=== PATIENT | female | born 1945 | race Caucasian/White ===

== ENCOUNTER 2016-09-14 15:26 | Inpatient (IN) | payer MEDICARE, MEDICAID ==
--- NOTE | 2016-09-14 15:38 | ER Document Report ---
ED Medical Screen (RME) - General Stated Complaint: BODY PAIN Notes: 70 yo female resident of [facility], c/o fever and generalized body pain. no dysuria. TRAVEL OUTSIDE OF THE [place] IN LAST 30 DAYS: No - Related Data Allergies/Adverse Reactions: penicillin G [Penicillin G] Allergy (Intermediate, Verified 07/15/16 12:26) Generalized rash Sulfa (Sulfonamide Antibiotics) Allergy (Intermediate, Verified 07/13/16 04:58) cephalexin monohydrate [From Keflex] Adverse Reaction (Intermediate, Verified 04:58) itching, rash, Past Medical History - Past Medical History Cardiac Medical History: Reports: Hx Congestive Heart Failure, Hx Coronary Artery Disease, Hx Heart Attack, Hx Hypercholesterolemia, Hx Hypertension Pulmonary Medical History: Reports: Hx Asthma, Hx COPD Denies: Hx Bronchitis, Hx Pneumonia Neurological Medical History: Denies: Hx Cerebrovascular Accident, Hx Migraine, Hx Seizures Endocrine Medical History: Reports: Hx Diabetes Mellitus Type 2 Renal/ Medical History: Reports: Hx Renal Insufficiency GI Medical History: Musculoskeltal Medical History: Denies Hx Arthritis, Reports Hx Muscle Weakness Skin Medical History: Reports Hx MRSA, Reports Hx Psoriasis Psychiatric Medical History: Reports: Hx Anxiety, Hx Dementia, Hx Depression Infectious Medical History: Reports: Hx MRSA Past Surgical History: Reports: Hx Cardiac Catheterization, Hx Section , Hx Coronary Stent, Hx Hysterectomy, Hx Orthopedic Surgery - right hand - Immunizations Hx Diphtheria, Pertussis, Tetanus Vaccination: No Physical Exam - Vital signs Vitals: Temp Pulse Resp BP Pulse Ox 98.0 F 88 16 126/51 H 97 09/14/16 15:33 09/14/16 15:33 09/14/16 15:33 09/14/16 15:33 09/14/16 15:33 Course - Vital Signs Vital signs: Temp Pulse Resp BP Pulse Ox 98.0 F 88 16 126/51 H 97 09/14/16 15:33 09/14/16 15:33 09/14/16 15:33 09/14/16 15:33 09/14/16 15:33
[2016-09-14 16:14] LABS: HEMATOCRIT 40.3 % (36.0-47.0); HEMOGLOBIN 13.6 g/dL (12.0-15.5); HGB HCT DIFFERENCE 0.5; MEAN CORPUSCULAR HGB CONC 33.7 g/dL (32.0-36.0); MEAN CORPUSCULAR VOLUME 92 fl (80-97); RED BLOOD COUNT 4.38 10^6/uL (3.72-5.28); WHITE BLOOD COUNT 26.8 10^3/uL (4.0-10.5)
[2016-09-14 16:43] LABS: BASOPHILS % (MANUAL) 0 % (0-2); EOSINOPHILS % (MANUAL) 1 % (0-6); LYMPHOCYTES % (MANUAL) 7 % (13-45); TOTAL CELLS COUNTED 100
[2016-09-14 16:44] LABS: ANISOCYTOSIS SLIGHT; TOXIC GRANULATION SLIGHT
[2016-09-14 17:54] LABS: ALANINE AMINOTRANSFERASE 27 U/L (9-52); ALBUMIN 4.3 g/dL (3.5-5.0); ALKALINE PHOSPHATASE 75 U/L (38-126); ANION GAP 14 (5-19); ASPARTATE AMINO TRANSFERASE 52 U/L (14-36); BILIRUBIN,TOTAL 0.9 mg/dL (0.2-1.3); BLOOD UREA NITROGEN 42 mg/dL (7-20); CALCIUM 9.7 mg/dL (8.4-10.2); CARBON DIOXIDE 31 mmol/L (22-30); CHLORIDE 96 mmol/L (98-107); CREATININE RESULT 1.65 mg/dL (0.52-1.25); GLUCOSE 161 mg/dL (75-110); POTASSIUM 5.1 mmol/L (3.6-5.0); SODIUM 140.7 mmol/L (137-145)
[2016-09-14] MEDS ORDERED: VANCOMYCIN HCL INJ 1000 MG VIAL IV ONE (18:26)
--- NOTE | 2016-09-14 18:27 | ER Document Report ---
ED General - General Chief Complaint: Pain All Over Stated Complaint: BODY PAIN Notes: This is a 70-year-old female with history of dementia who presents from [facility] with concerns of fever, lethargy and complaints of allover body pain. Patient is a limited historian. She denies any chest pain or abdominal pain. The [facility] staff noticed redness of her lower leg. TRAVEL OUTSIDE OF THE [place] IN LAST 30 DAYS: No - Related Data Allergies/Adverse Reactions: penicillin G [Penicillin G] Allergy (Intermediate, Verified 09/14/16 15:37) Generalized rash Sulfa (Sulfonamide Antibiotics) Allergy (Intermediate, Verified 09/14/16 15:37) cephalexin monohydrate [From Keflex] Adverse Reaction (Intermediate, Verified 15:37) itching, rash, Past Medical History - Social History Smoking Status: Never Smoker Chew tobacco use (# tins/day): Yes Frequency of alcohol use: None Drug Abuse: None Family History: Malignancy, CAD, Reviewed & Not Pertinent Patient has suicidal ideation: No Patient has homicidal ideation: No - Past Medical History Cardiac Medical History: Reports: Hx Congestive Heart Failure, Hx Coronary Artery Disease, Hx Heart Attack, Hx Hypercholesterolemia, Hx Hypertension Pulmonary Medical History: Reports: Hx Asthma, Hx COPD Denies: Hx Bronchitis, Hx Pneumonia Neurological Medical History: Denies: Hx Cerebrovascular Accident, Hx Migraine, Hx Seizures Endocrine Medical History: Reports: Hx Diabetes Mellitus Type 2 Renal/ Medical History: Reports: Hx Renal Insufficiency. Denies: Hx Peritoneal Dialysis GI Medical History: Musculoskeltal Medical History: Denies Hx Arthritis, Reports Hx Muscle Weakness Skin Medical History: Reports Hx MRSA, Reports Hx Psoriasis Psychiatric Medical History: Reports: Hx Anxiety, Hx Dementia, Hx Depression Infectious Medical History: Reports: Hx MRSA Past Surgical History: Reports: Hx Cardiac Catheterization, Hx Section , Hx Coronary Stent, Hx Hysterectomy, Hx Orthopedic Surgery - right hand - Immunizations Hx Diphtheria, Pertussis, Tetanus Vaccination: No Hx Pneumococcal Vaccination: 06/02/14 Review of Systems - Review of Systems Constitutional: Fever, Malaise Cardiovascular: denies: Syncope Respiratory: denies: Cough, Short of breath Gastrointestinal: denies: Abdominal pain Musculoskeletal: Leg swelling Skin: Rash Neurological/Psychological: Paralysis - Postpolio Physical Exam - Vital signs Vitals: Temp Pulse Resp BP Pulse Ox 98.0 F 88 16 126/51 H 97 01/11/17 15:33 09/14/16 15:33 09/14/16 15:33 09/14/16 15:33 09/14/16 15:33 - General General appearance: Alert In distress: None - Speaks clearly, few words, no respiratory distress - HEENT Head: Normocephalic Pupils: PERRL Mucous membranes: Dry Pharynx: Normal Neck: Normal, Supple. No: Meningismus - Respiratory Respiratory status: No respiratory distress Breath sounds: Normal - Cardiovascular Rhythm: Regular - Abdominal Inspection: Normal Tenderness: Nontender - Back Back: Normal - Extremities Calf: Other - The left anterior lower leg has sharply demarcated erythema and warmth, not extending onto the foot Foot: Other - Left heel wound with dressing in place, no tenderness with palpation, no surrounding warmth or erythema - Neurological Speech: Normal - Psychological Associated symptoms: Normal affect - Skin Skin Temperature: Warm Skin Moisture: Dry Skin Color: Normal Character of irregularity: Other - Cellulitis of the left lower extremity with sharply demarcated erythema, warmth and mild induration Course - Re-evaluation Re-evalutation: 09/14/16 20:[address] Mendez who will admit to telemetry bed. - Vital Signs Vital signs: Temp Pulse Resp BP Pulse Ox 98.0 F 88 16 126/51 H 97 09/14/16 15:33 09/14/16 15:33 09/14/16 15:33 09/14/16 15:33 09/14/16 15:33 - Laboratory Result Diagrams: 09/14/16 15:41 09/14/16 17:09 Laboratory results interpreted by me: 09/14/16 09/14/16 09/14/16 15:41 17:09 18:50 WBC 26.8 H Seg Neuts % (Manual) 85 H Lymphocytes % (Manual) 7 L Abs Neuts (Manual) 22.8 H Abs Monocytes (Manual) 1.9 H Potassium 5.1 H Chloride 96 L Carbon Dioxide 31 H BUN 42 H Creatinine 1.65 H Est GFR ( Amer) 37 L Est GFR (Non-Af Amer) 31 L Glucose 161 H AST 52 H Urine Protein 30 H Urine Blood SMALL H Urine Nitrite POSITIVE H Ur Leukocyte Esterase LARGE H Urine Ascorbic Acid 40 H Discharge - Discharge Clinical Impression: Cellulitis of left leg without foot, [place] (acute kidney injury), Urinary tract infection Leukocytosis Qualifiers: Leukocytosis type: unspecified Qualified Code(s): D72.829 - Elevated white blood cell count, unspecified Condition: Stable Disposition: ADMITTED INPATIENT Admitting Provider: [facility] Unit Admitted: Telemetry Referrals: ADIA DAVID MD [Primary Care Provider] - Follow up as needed
[2016-09-14 19:16] LABS: APPEARANCE,URINE CLOUDY; BILIRUBIN,URINE NEGATIVE (NEGATIVE); GLUCOSE, URINE NEGATIVE (NEGATIVE); KETONES,URINE NEGATIVE (NEGATIVE); LEUKOCYTE ESTERASE,URINE LARGE (NEGATIVE); NITRITE,URINE POSITIVE (NEGATIVE); PROTEIN,URINE 30 mg/dL (NEGATIVE); URINE SPECIFIC GRAVITY 1.015; UROBILINOGEN,URINE NEGATIVE mg/dL (<2.0)
[2016-09-14] MEDS ORDERED: LEVOFLOXACIN 500 MG/D5W RTU 100 ML IV ONE (19:39)
[2016-09-14] MEDS ORDERED: NORMAL SALINE 1000 ML 1,000 ML IV ONE (20:39)
[2016-09-14] MEDS ORDERED: ACETAMINOPHEN 325 MG TABLET PO PRN (22:08)
[2016-09-14] MEDS ORDERED: IPRATROPIUM/ALBUTEROL 0.5-2.5 MG/3 ML AMPUL NEB PRN (22:08)
[2016-09-14] MEDS ORDERED: DEXTROSE 40% GEL 15 GM TUBE PO PRN ×2 (22:11)
[2016-09-14] MEDS ORDERED: DEXTROSE 50%-WATER 25 GM/50 ML DISP.SYRIN IV PRN ×2 (22:11)
[2016-09-14] MEDS ORDERED: GLUCAGON,HUMAN RECOMB 1 MG INJ IM PRN (22:11)
[2016-09-14] MEDS ORDERED: VANCOMYCIN HCL 0 MG in DEXTROSE 5%-WATER 250 ML IV NR (22:30)
[2016-09-14] MEDS ORDERED: PHARMACY COMMUNICATION ORDER MC SCH (22:30)
[2016-09-14] MEDS ORDERED: AZTREONAM INJ 1 GM VIAL IV SCH (22:30)
--- NOTE | 2016-09-14 22:54 | PDOC H&P ---
History of Present Illness Admission Date/PCP: 09/14/16 21:05 ADIA DAVID, [facility] Patient complains of: Fever, lethargy, all over body pain History of Present Illness: IGNACIO ULRICH is a 70 year old female resident of [facility], with multiple underlying chronic health problems, to be further delineated below, who presents to the emergency room for evaluation of above complaints. Patient has been discussed with emergency room physician who evaluated the patient. Patient is oriented only to the fact that she is in the hospital and that she has had pain, although none at present, and is able to provide no history whatsoever in terms of acute or chronic events, review of systems, personal habits, family history, etc. No friends or family are present. Old inpatient records are reviewed.. correction staff noted redness of her left lower leg. No further information available this point in time. Laboratory results are listed in [facility] and are reviewed. X-ray summary results are listed below, with full report(s) reviewed. . Social history/personal habits: Resident of [facility]. No further information available this point in time. Allergies/adverse reactions are listed in [facility] and are reviewed. Home medications are reviewed him a copy of the medication administration record at the [facility] and are to be reconciled by nursing and/or pharmacy staff in [facility]. Assisted [facility] may not accurately reflect patient's true medications, dosages, and/or frequencies. REVIEW OF SYSTEMS: See history and present illness. No further information available this point in time. PHYSICAL EXAMINATION: 5 feet 5 inches tall. Weight is not recorded on the chart. Blood pressure 142/ 54. Temperature 99.9. Pulse 94 and regular. Respirations are 20 and unlabored. 95% saturation on room air. Obese otherwise well-developed though chronically ill-appearing female , who nevertheless appears approximately her stated age. Initially asleep, but awakens easily. Mildly anxious, but otherwise no obvious distress. Alert and cooperative. Skin is warm and dry. No grossly obvious evidence of rash in areas of skin examined. No subcutaneous nodules palpated. See comments under "extremities" below. ENT: Hearing grossly normal to normal conversation. Tongue midline on protrusion pink and tacky. Poor dentition. Eyes: No scleral icterus. Pupils equal and reactive to light at 4 mm. [place] conjunctivae. Neck is supple and nontender to gentle active range of motion and palpation. Midline trachea. No palpable thyroid nodule mass enlargement or tenderness. Lymphatic: No palpable cervical or clavicular nodes. Neck and lymphatic exams limited by patient body habitus. Psychiatric: Disoriented. Lungs: Auscultation reveals equal breath sounds bilaterally. Possible slightly coarse breath sounds bilaterally, but not very prominent. No use of accessory respiratory muscles. Cardiovascular: Heart regular rate and rhythm, without gallop murmur or rub. No carotid or abdominal aortic bruits. No right ankle or pedal edema; mild left. Faintly palpable dorsalis pedis pulses. Abdomen: soft, obese, nontender with positive bowel sounds. Unable to adequately evaluate abdomen for masses or organomegaly due to body habitus. Extremities: Feet are warm and dry. No calf tenderness to compression. No grossly obvious visual evidence of right calf swelling; very subtle left calf swelling. Gentle manipulation of lower extremities fails to reveal any obvious evidence of injury or instability to knees hips or ankles. Examination of the left lower extremity reveals area of inflammation and warmth involving primarily the anteromedial aspect of the majority of the leg between the knee and ankle. Much smaller area of involvement in the distal medial left thigh, adjacent to the knee joint. No crepitus fluctuance or expressible discharge. Adherent opaque dressing is present over the left heel; this is left in place. Neurologic: Moves upper extremities grossly normally. Patellar reflexes absent. Absent Babinski. Light touch can't be adequately determined due to her mental status.. 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 Past Medical History Cardiac Medical History: Reports: Congestive Heart Failure, Coronary Artery Disease, Myocardial Infarction, Hyperlipidema, Hypertension Pulmonary Medical History: Reports: Asthma, Chronic Obstructive Pulmonary Disease (COPD) Denies: Bronchitis, Pneumonia Neurological Medical History: Denies: Migraine, Seizures Endocrine Medical History: Reports: Diabetes Mellitus Type 2 GI Medical History: Musculoskeltal Medical History: Denies: Arthritis Skin Medical History: Reports: Psoriasis Psychiatric Medical History: Reports: Dementia, Depression Hematology: Reports: Anemia Infectious Medical History: Reports: Methicillin-Resistant Staph Aureus Past Surgical History Past Surgical History: Reports: Cardiac Catheterization, Section, Coronary Stent, Hysterectomy, Orthopedic Surgery - right hand Social History Information Source: [facility], [facility] Lives with: Assisted Smoking Status: Never Smoker Frequency of Alcohol Use: None Hx Recreational Drug Use: No Drugs: None Hx Prescription Drug Abuse: No - Advance Directive Resuscitation Status: Full Code Surrogate healthcare decision maker:: Uncertain at this point in time. Family History Family History: Malignancy, CAD, Reviewed & Not Pertinent Parental Family History Reviewed: Yes - per old records Children Family History Reviewed: Yes Sibling(s) Family History Reviewed.: Yes Medication/Allergy Home Medications: Aspirin [Aspirin 81 mg Chewable Tablet] 81 mg PO DAILY 04/16/16 Cetirizine HCl [Zyrtec] 10 mg PO DAILY 04/16/16 Clopidogrel Bisulfate [Clopidogrel] 75 mg PO DAILY 04/16/16 Docusate Sodium [Dulcolax Stool Softener] 100 mg PO BID 04/16/16 Escitalopram Oxalate [Lexapro] 30 mg PO DAILY 04/16/16 Furosemide 80 mg PO QAM 04/16/16 Insulin Glargine,Hum.rec.anlog [Lantus] 65 unit SQ Q12H 04/16/16 Magnesium Oxide 400 mg PO DAILY 04/16/16 Potassium Chloride 20 meq PO DAILY 04/16/16 Magnesium Hydroxide [Milk of Magnesia] 400 mg PO BIDP PRN 04/17/16 Atorvastatin Calcium [Lipitor 10 mg Tablet] 10 mg PO QHS tablet 04/27/16 Carvedilol [Coreg 6.25 mg Tablet] 6.25 mg PO Q12 tablet 04/27/16 Ferrous Sulfate [Feosol 325 mg Tablet] 325 mg PO DAILY tablet 04/27/16 Insulin Lispro [Humalog Insulin (Lispro) 100 unit/mL] 0 - 12 unit SUBCUT ACHSP PRN unit 04/27/16 Lansoprazole [Prevacid 15 mg Odt Tablet] 15 mg PO DAILY tab.rap.dr 04/27/16 Sodium Chloride [[place] Nasal [place] 44 ml Bottle] 1 spray NASL BIDP PRN bottle 04/27/16 Gabapentin [Neurontin 100 mg Capsule] 100 mg PO Q12 07/12/16 Allergies/Adverse Reactions: penicillin G [Penicillin G] Allergy (Intermediate, Verified 09/14/16 15:37) Generalized rash Sulfa (Sulfonamide Antibiotics) Allergy (Intermediate, Verified 09/14/16 15:37) cephalexin monohydrate [From Keflex] Adverse Reaction (Intermediate, Verified 15:37) itching, rash, Physical Exam Vital Signs: Temp Pulse Resp BP Pulse Ox 99.9 F 94 20 142/54 H 95 09/14/16 22:01 09/14/16 22:01 09/14/16 22:01 09/14/16 22:01 09/14/16 22:01 Results Impressions: Chest X-Ray 09/14/16 15:40 IMPRESSION: Cardiomegaly. No acute findings. Foot X-Ray 09/14/16 18:28 IMPRESSION: CHRONIC DEGENERATIVE CHANGES. NO ACUTE FINDINGS. NO DEFINITIVE RADIOGRAPHIC EVIDENCE OF SOFT TISSUE ABSCESS OR OF OSTEOMYELITIS. Assessment & Plan - Diagnosis (1) ARF (acute renal failure) Qualifiers: Acute renal failure type: unspecified Qualified Code(s): N17.9 - Acute kidney failure, unspecified Is this a current diagnosis for this admission?: YesPlan: Likely prerenal. One more liter of IV fluid at a gentle rate. Follow-up chemistry. (2) Cellulitis of left leg without foot Is this a current diagnosis for this admission?: YesPlan: Aztreonam and IV vancomycin, with pharmacy to assist with dosing. (3) Elevated LFTs Is this a current diagnosis for this admission?: YesPlan: Mild. Has occurred in the past. Follow-up comprehensive metabolic panel. (4) Hyperkalemia Is this a current diagnosis for this admission?: YesPlan: Mild. Follow-up chemistry. (5) Urinary tract infection Qualifiers: Urinary tract infection type: site unspecified Is this a current diagnosis for this admission?: YesPlan: Prior culture results reviewed. Blood and urine cultures. I have strongly encouraged patient not to get out of bed without notifying staff , to avoid a fall with injury. Knee high SCDs for DVT prophylaxis, right lower extremity only, along with subcutaneous heparin. Time spent in evaluation and management of patient: 75 minutes. (6) Decubitus ulcer of left heel Qualifiers: Pressure ulcer stage: unspecified pressure ulcer stage Qualified Code(s): L89.629 - Pressure ulcer of left heel, unspecified stage Is this a current diagnosis for this admission?: YesPlan: Innovative mattress. Turn every 2 hours. Surgery consult, with patient having been seen in recent past for same. Dietary consult. (7) Diabetes mellitus type 1 Qualifiers: Diabetes mellitus complication status: without complication Qualified Code(s): E10.9 - Type 1 diabetes mellitus without complications Is this a current diagnosis for this admission?: YesPlan: Diabetic cardiac renal diet. Accu-Cheks with appropriate sliding scale coverage.Resume home medications as appropriate once these have been reviewed. (8) Diastolic CHF Qualifiers: Congestive heart failure chronicity: chronic Qualified Code(s): I50.32 - Chronic diastolic (congestive) heart failure Is this a current diagnosis for this admission?: YesPlan: Clinically stable at present.Resume home medications as appropriate once these have been reviewed. (9) History of MRSA infection Is this a current diagnosis for this admission?: YesPlan: Contact precautions. - Inpatient Certification Based on my medical assessment, after consideration of the patient's comorbidities, presenting symptoms, or acuity I expect that the services needed warrant INPATIENT care.: Yes I certify that my determination is in accordance with my understanding of Medicare's requirements for reasonable and necessary INPATIENT services [42 CFR 412.3e].: Yes Medical Necessity: Significant Comorbidiites Make Outpatient Treatment Too Risky , Need Close Monitoring Due to Risk of Patient Decompensation, Need For IV Fluids, Need For Continuous Telemetry Monitoring, Need for IV Antibiotics, Risk of Complication if Not Cared For in Hospital, Risk of Diagnosis Which Will Require Inpatient Eval/Care/Monitoring Post Hospital Care: D/C or Transfer Summary
[2016-09-15 01:25] LABS: ANION GAP 11 (5-19); BLOOD UREA NITROGEN 41 mg/dL (7-20); CALCIUM 9.4 mg/dL (8.4-10.2); CARBON DIOXIDE 32 mmol/L (22-30); CHLORIDE 98 mmol/L (98-107); CREATININE RESULT 1.57 mg/dL (0.52-1.25); GLUCOSE 179 mg/dL (75-110); MAGNESIUM 2.4 mg/dL (1.6-2.3); POTASSIUM 4.8 mmol/L (3.6-5.0); SODIUM 140.8 mmol/L (137-145)
[2016-09-15] MEDS: NORMAL SALINE 1000 ML 1,000 ML IV PRN ×2 (02:44→16:54)
[2016-09-15] MEDS ORDERED: AZTREONAM INJ 1 GM VIAL IV PRN (03:21)
[2016-09-15] MEDS ORDERED: AZTREONAM 1 GM in DEXTROSE 5%-WATER 50 ML IV ONE (03:30)
[2016-09-15] MEDS ORDERED: AZTREONAM INJ 1 GM VIAL ONE (03:31)
[2016-09-15 08:06] LABS: ABSOLUTE EOSINOPHILS # (AUTO) 0.1 10^3/uL (0.0-0.6); ABSOLUTE LYMPHOCYTES (AUTO) 1.8 10^3/uL (0.5-4.7); ABSOLUTE MONOCYTES (AUTO) 0.8 10^3/uL (0.1-1.4); ABSOLUTE NEUT (AUTO) 16.4 10^3/uL (1.7-8.2); BASOPHILS % (AUTO) 0.1 % (0-2); EOSINOPHILS % (AUTO) 0.7 % (0-6); HEMATOCRIT 33.2 % (36.0-47.0); LYMPHOCYTES % (AUTO) 9.5 % (13-45); MEAN CORPUSCULAR HEMOGLOBIN 31.4 pg (27.0-33.4); MEAN CORPUSCULAR HGB CONC 34.3 g/dL (32.0-36.0); MEAN CORPUSCULAR VOLUME 92 fl (80-97); RED BLOOD COUNT 3.62 10^6/uL (3.72-5.28); RED CELL DISTRIBUTION WIDTH 14.4 % (11.5-14.0); SEGMENTED NEUTROPHILS % (AUTO) 85.7 % (42-78); WHITE BLOOD COUNT 19.1 10^3/uL (4.0-10.5)
[2016-09-15 08:17] LABS: HEMOGLOBIN 11.4 g/dL (12.0-15.5)
[2016-09-15 08:24] LABS: ALANINE AMINOTRANSFERASE 23 U/L (9-52); ALBUMIN 3.1 g/dL (3.5-5.0); ALKALINE PHOSPHATASE 62 U/L (38-126); ANION GAP 11 (5-19); ASPARTATE AMINO TRANSFERASE 48 U/L (14-36); BILIRUBIN,TOTAL 0.6 mg/dL (0.2-1.3); BLOOD UREA NITROGEN 38 mg/dL (7-20); CALCIUM 8.8 mg/dL (8.4-10.2); CARBON DIOXIDE 30 mmol/L (22-30); CHLORIDE 98 mmol/L (98-107); CREATININE RESULT 1.55 mg/dL (0.52-1.25); GLUCOSE 144 mg/dL (75-110); SODIUM 139.4 mmol/L (137-145); TOTAL PROTEIN 6.5 g/dL (6.3-8.2)
[2016-09-15 08:35] LABS: POTASSIUM 3.8 mmol/L (3.6-5.0)
--- NOTE | 2016-09-15 09:40 | EKG REPORT ---
SEVERITY:- ABNORMAL ECG - SINUS RHYTHM FIRST DEGREE AV BLOCK PROBABLE LEFT ATRIAL ABNORMALITY ANTERIOR INFARCT, AGE INDETERMINATE : Confirmed by: Susana Meyer MD 15-Sep-2016 09:40:04
[2016-09-15] MEDS: AZTREONAM 1 GM in DEXTROSE 5%-WATER 50 ML IV SCH ×2 (09:56→18:56)
[2016-09-15] MEDS: DOCUSATE SODIUM 100 MG CAPSULE PO SCH ×2 (09:56→18:56)
[2016-09-15] MEDS: HEPARIN SOD (PORCINE) 5,000 UNIT/ML 1 ML SYRINGE SUBCUT SCH ×2 (09:57→22:53)
[2016-09-15] MEDS: INSULIN LISPRO 100 UNIT/ML 3 ML VIAL SUBCUT PRN ×4 (09:58→22:53)
--- NOTE | 2016-09-15 11:29 | PDOC CONSULTATION ---
Consultation Consult reason:: Left leg erythema and left heel ulcer History of Present Illness Admission Date/PCP: 09/14/16 22:08 ADIA DAVID History of Present Illness: 70-year-old the patient with diabetes noted with the left heel ulcer with associated the osteomyelitis which was treated with a long course of antibiotics the last year. Patient had been on a wound VAC for her left heel but it was discontinued. She was noted with the of fever yesterday and was subsequently brought into the hospital for evaluation she was noted with a urinary tract infection as well as left leg erythema. Past Medical History Cardiac Medical History: Reports: Congestive Heart Failure, Coronary Artery Disease, Myocardial Infarction, Hyperlipidema, Hypertension Pulmonary Medical History: Reports: Asthma, Chronic Obstructive Pulmonary Disease (COPD) Denies: Bronchitis, Pneumonia Neurological Medical History: Denies: Migraine, Seizures Endocrine Medical History: Reports: Diabetes Mellitus Type 2 GI Medical History: Musculoskeltal Medical History: Denies: Arthritis Skin Medical History: Reports: Psoriasis Psychiatric Medical History: Reports: Dementia, Depression Hematology: Reports: Anemia Infectious Medical History: Reports: Methicillin-Resistant Staph Aureus Past Surgical History Past Surgical History: Reports: Cardiac Catheterization, Section, Coronary Stent, Hysterectomy, Orthopedic Surgery - right hand Social History Lives with: Group Home Smoking Status: Never Smoker Frequency of Alcohol Use: None Hx Recreational Drug Use: No Drugs: None Hx Prescription Drug Abuse: No - Advance Directive Resuscitation Status: Full Code Family History Family History: Malignancy, CAD, Reviewed & Not Pertinent Parental Family History Reviewed: No Children Family History Reviewed: No Sibling(s) Family History Reviewed.: No Medication/Allergy Home Medications: Aspirin [Aspirin 81 mg Chewable Tablet] 81 mg PO DAILY 04/16/16 Cetirizine HCl [Zyrtec] 10 mg PO DAILY 04/16/16 Clopidogrel Bisulfate [Clopidogrel] 75 mg PO DAILY 04/16/16 Docusate Sodium [Dulcolax Stool Softener] 100 mg PO BID 04/16/16 Escitalopram Oxalate [Lexapro] 30 mg PO DAILY 04/16/16 Furosemide 80 mg PO QAM 04/16/16 Insulin Glargine,Hum.rec.anlog [Lantus] 65 unit SQ Q12H 04/16/16 Magnesium Oxide 400 mg PO DAILY 04/16/16 Potassium Chloride 20 meq PO DAILY 04/16/16 Magnesium Hydroxide [Milk of Magnesia] 400 mg PO BIDP PRN 08/14/16 Atorvastatin Calcium [Lipitor 10 mg Tablet] 10 mg PO QHS tablet 04/27/16 Carvedilol [Coreg 6.25 mg Tablet] 6.25 mg PO Q12 tablet 04/27/16 Ferrous Sulfate [Feosol 325 mg Tablet] 325 mg PO DAILY tablet 04/27/16 Insulin Lispro [Humalog Insulin (Lispro) 100 unit/mL] 0 - 12 unit SUBCUT ACHSP PRN unit 04/27/16 Lansoprazole [Prevacid 15 mg Odt Tablet] 15 mg PO DAILY tab.rap. 04/27/16 Sodium Chloride [[place] Nasal [place] 44 ml Bottle] 1 spray NASL BIDP PRN bottle 04/27/16 Gabapentin [Neurontin 100 mg Capsule] 100 mg PO Q12 07/12/16 Allergies/Adverse Reactions: penicillin G [Penicillin G] Allergy (Intermediate, Verified 09/14/16 15:37) Generalized rash Sulfa (Sulfonamide Antibiotics) Allergy (Intermediate, Verified 09/14/16 15:37) cephalexin monohydrate [From Keflex] Adverse Reaction (Intermediate, Verified 15:37) itching, rash, Physical Exam Vital Signs: Temp Pulse Resp BP Pulse Ox 98.0 F 74 14 120/48 L 100 09/15/16 07:55 09/15/16 07:55 09/15/16 07:55 09/15/16 07:55 09/15/16 07:55 Intake & Output 09/14/16 09/15/16 09/16/16 06:59 06:59 06:59 Intake Total 567 Balance 567 Weight 90.4 kg General appearance: PRESENT: no acute distress Respiratory exam: PRESENT: clear to auscultation [place] Cardiovascular exam: PRESENT: RRR Extremities exam: PRESENT: other - Diffuse left lower leg the erythema but no fluctuance, no skin discoloration, no blistering, minimal tenderness. Left heel ulcer very clean with granulation tissue with no purulent drainage with minimal erythema but it is the tender. No exposed bone. Granulation tissue at the base. Results Laboratory Results: 09/15/16 07:27 09/15/16 07:27 09/15/16 09/15/16 09/15/16 00:44 07:27 07:27 WBC 19.1 H RBC 3.62 L Hgb 11.4 L D Hct 33.2 L MCV 92 MCH 31.4 MCHC 34.3 RDW 14.4 H Plt Count 122 L Seg Neutrophils % 85.7 H Lymphocytes % 9.5 L Monocytes % 4.0 Eosinophils % 0.7 Basophils % 0.1 Absolute Neutrophils 16.4 H Absolute Lymphocytes 1.8 Absolute Monocytes 0.8 Absolute Eosinophils 0.1 Absolute Basophils 0.0 Sodium 140.8 139.4 Potassium 4.8 3.8 D Chloride 98 98 Carbon Dioxide 32 H 30 Anion Gap 11 11 BUN 41 H 38 H Creatinine 1.57 H 1.55 H Est GFR ( Amer) 39 L 40 L Est GFR (Non-Af Amer) 32 L 33 L Glucose 179 H 144 H Calcium 9.4 8.8 Magnesium 2.4 H Total Bilirubin 0.6 AST 48 H ALT 23 Alkaline Phosphatase 62 Total Protein 6.5 Albumin 3.1 L Impressions: Chest X-Ray 09/14/16 15:40 IMPRESSION: Cardiomegaly. No acute findings. Foot X-Ray 09/14/16 18:28 IMPRESSION: CHRONIC DEGENERATIVE CHANGES. NO ACUTE FINDINGS. NO DEFINITIVE RADIOGRAPHIC EVIDENCE OF SOFT TISSUE ABSCESS OR OF OSTEOMYELITIS. Assessment & Plan - Diagnosis (1) Cellulitis of left leg without foot Is this a current diagnosis for this admission?: YesPlan: Cellulitis of the left lower leg. I do not see a role for surgical debridement. Recommend antibiotic treatment. (2) Diabetic foot ulcer Qualifiers: Laterality: left Is this a current diagnosis for this admission?: YesPlan: Although she has a history of osteomyelitis in the past, current x-rays demonstrate no evidence of osteomyelitis and the heel ulcer looks very clean with granulation tissue. Will do local wound care with Santyl ointment.
[2016-09-15] MEDS ORDERED: INSULIN GLARGINE,HUM.REC.ANLOG 1,000 UNIT/10 ML UNIT SUBCUT ONE (11:30)
[2016-09-15] MEDS: ACETAMINOPHEN 325 MG TABLET PO PRN ×2 (12:21→19:16)
[2016-09-15] MEDS ORDERED: SODIUM CHLORIDE NASAL SPRAY 44 ML NASL PRN (16:58)
[2016-09-15] MEDS ORDERED: NORMAL SALINE 1000 ML 1,000 ML IV PRN (17:00)
[2016-09-15] MEDS ORDERED: IPRATROPIUM/ALBUTEROL 0.5-2.5 MG/3 ML AMPUL NEB PRN (17:01)
--- NOTE | 2016-09-15 17:05 | PDOC PROGRESS REPORT ---
Subjective Progress Note for:: 09/15/16 Subjective:: The patient was seen earlier today on rounds. Patient states that she still has pain in her foot. The only present at the bedside I given the patient's care. The patient denies any nausea, vomiting, diarrhea, shortness of breath, dizziness, chest pain, heart palpitations, fevers, or chills. The patient has remained afebrile. Blood pressures have been in a good range. When prompted the patient voices no other concerns at this time. Review of systems: The rest of the review of systems is negative. Physical Exam Vital Signs: Temp Pulse Resp BP Pulse Ox 97.5 F 76 19 118/54 L 98 09/15/16 12:13 09/15/16 14:00 09/15/16 12:13 09/15/16 12:13 09/15/16 12:13 Intake & Output 09/13/16 09/14/16 09/15/16 23:59 23:59 23:59 Intake Total 567 Balance 567 Weight 90.4 kg General appearance: PRESENT: no acute distress, well-developed, well-nourished Head exam: PRESENT: atraumatic, normocephalic Eye exam: PRESENT: conjunctiva pink, EOMI, PERRLA. ABSENT: scleral icterus Ear exam: PRESENT: normal external ear exam Mouth exam: PRESENT: moist, tongue midline Neck exam: ABSENT: carotid bruit, JVD, lymphadenopathy, thyromegaly Respiratory exam: PRESENT: clear to auscultation lavinia. ABSENT: rales, rhonchi, wheezes Cardiovascular exam: PRESENT: RRR. ABSENT: diastolic murmur, rubs, systolic murmur Pulses: PRESENT: normal dorsalis pedis pul Vascular exam: PRESENT: normal capillary refill GI/Abdominal exam: PRESENT: normal bowel sounds, soft. ABSENT: distended, guarding, mass, organolmegaly, rebound, tenderness Rectal exam: PRESENT: deferred Extremities exam: PRESENT: full ROM, +1 edema, other - Left greater than right lower extremity cellulitis. ABSENT: calf tenderness, clubbing Neurological exam: PRESENT: alert, awake, oriented to person, oriented to place , oriented to time, oriented to situation, CN II-XII grossly intact. ABSENT: motor sensory deficit Psychiatric exam: PRESENT: appropriate affect, normal mood. ABSENT: homicidal ideation, suicidal ideation Skin exam: PRESENT: dry, intact, warm. ABSENT: cyanosis, rash Results Laboratory Results: 09/15/16 07:27 09/15/16 07:27 09/15/16 09/15/16 09/15/16 00:44 07:27 07:27 WBC 19.1 H RBC 3.62 L Hgb 11.4 L D Hct 33.2 L MCV 92 MCH 31.4 MCHC 34.3 RDW 14.4 H Plt Count 122 L Seg Neutrophils % 85.7 H Lymphocytes % 9.5 L Monocytes % 4.0 Eosinophils % 0.7 Basophils % 0.1 Absolute Neutrophils 16.4 H Absolute Lymphocytes 1.8 Absolute Monocytes 0.8 Absolute Eosinophils 0.1 Absolute Basophils 0.0 Sodium 140.8 139.4 Potassium 4.8 3.8 D Chloride 98 98 Carbon Dioxide 32 H 30 Anion Gap 11 11 BUN 41 H 38 H Creatinine 1.57 H 1.55 H Est GFR ( Amer) 39 L 40 L Est GFR (Non-Af Amer) 32 L 33 L Glucose 179 H 144 H Calcium 9.4 8.8 Magnesium 2.4 H Total Bilirubin 0.6 AST 48 H ALT 23 Alkaline Phosphatase 62 Total Protein 6.5 Albumin 3.1 L Impressions: Chest X-Ray 09/14/16 15:40 IMPRESSION: Cardiomegaly. No acute findings. Foot X-Ray 09/14/16 18:28 IMPRESSION: CHRONIC DEGENERATIVE CHANGES. NO ACUTE FINDINGS. NO DEFINITIVE RADIOGRAPHIC EVIDENCE OF SOFT TISSUE ABSCESS OR OF OSTEOMYELITIS. Assessment & Plan - Diagnosis (1) Urinary tract infection Qualifiers: Urinary tract infection type: site unspecified Is this a current diagnosis for this admission?: YesPlan: Will await culture and sensitivity. (2) Cellulitis of left leg without foot Is this a current diagnosis for this admission?: YesPlan: Will continue current antibiotic coverage. (3) Sepsis Qualifiers: Sepsis type: sepsis due to unspecified organism Qualified Code(s): A41.9 - Sepsis, unspecified organism Is this a current diagnosis for this admission?: YesPlan: Secondary to the above this is improved (4) VALENTINA (acute kidney injury) Is this a current diagnosis for this admission?: YesPlan: Will continue to gently hydrate 07/18/16 09/14/16 09/15/16 06:15 17:09 07:27 Creatinine 0.92 1.65 H 1.55 H (6) Elevated LFTs Is this a current diagnosis for this admission?: YesPlan: Mild ischemic followed in outpatient basis (7) Hyperkalemia Is this a current diagnosis for this admission?: YesPlan: Resolved with hydration (8) Decubitus ulcer of left heel Qualifiers: Pressure ulcer stage: unspecified pressure ulcer stage Qualified Code(s): L89.629 - Pressure ulcer of left heel, unspecified stage Is this a current diagnosis for this admission?: Yes (9) Thrombocytopenia Is this a current diagnosis for this admission?: YesPlan: Mild will follow 09/15/16 07:27 Plt Count 122 L (10) Chronic kidney disease, stage III (moderate) Is this a current diagnosis for this admission?: Yes (11) Coronary artery disease Qualifiers: Coronary Disease-Associated Artery/Lesion type: [place] artery [place] vs. transplanted heart: [place] heart Associated angina: without angina Qualified Code(s): I25.10 - Atherosclerotic heart disease of [place] coronary artery without angina pectoris Is this a current diagnosis for this admission?: Yes (12) Decubitus ulcer, ankle, left, unstageable Is this a current diagnosis for this admission?: Yes (13) Depression Is this a current diagnosis for this admission?: No (14) Diabetes mellitus Qualifiers: Diabetes mellitus type: type 1 Diabetes mellitus complication status: with kidney complications Diabetes mellitus complication detail: with chronic kidney disease Chronic kidney disease stage: stage 3 (moderate) Qualified Code(s): E10.22 - Type 1 diabetes mellitus with diabetic chronic kidney disease; N18.1 - Chronic kidney disease, stage 1 Is this a current diagnosis for this admission?: YesPlan: Will continue home medications. (15) Obesity Is this a current diagnosis for this admission?: Yes (16) UTI (urinary tract infection) Qualifiers: Urinary tract infection type: acute cystitis Hematuria presence: without hematuria Qualified Code(s): N30.00 - Acute cystitis without hematuria (18) Dementia Qualifiers: Dementia type: Alzheimer's disease Dementia behavioral disturbance: without behavioral disturbance (19) Diabetes mellitus type 1 Qualifiers: Diabetes mellitus complication status: without complication Qualified Code(s): E10.9 - Type 1 diabetes mellitus without complications Is this a current diagnosis for this admission?: Yes (20) Diastolic CHF Qualifiers: Congestive heart failure chronicity: chronic Qualified Code(s): I50.32 - Chronic diastolic (congestive) heart failure Is this a current diagnosis for this admission?: YesPlan: The patient does appear to be a little on the dry side will continue gently hydrate (21) Anemia of chronic disease Is this a current diagnosis for this admission?: Yes (22) History of MRSA infection Is this a current diagnosis for this admission?: Yes - Time Time Spent with patient: on this visit including assessment, plan, physical examination, family meeting and patient education is 35 minutes. Time Spent with patient: 35 or more minutes Medications reviewed and adjusted accordingly: Yes Disposition: The patient is a full code. Pending patient's symptomatology and diagnostic findings will reevaluate in the a.m.
[2016-09-15] MEDS ORDERED: INSULIN LISPRO 100 UNIT/ML 3 ML VIAL ONE (18:56)
[2016-09-15] MEDS ORDERED: COLLAGENASE CLOSTRIDIUM HIST. OINT 30 GM TOP PRN (19:44)
[2016-09-15] MEDS: ATORVASTATIN CALCIUM 10 MG TABLET PO SCH (22:52)
[2016-09-15] MEDS: GABAPENTIN 100 MG CAPSULE PO SCH (22:52)
[2016-09-15] MEDS: CARVEDILOL 6.25 MG TABLET PO SCH (22:52)
[2016-09-15] MEDS: INSULIN GLARGINE,HUM.REC.ANLOG 1,000 UNIT/10 ML UNIT SUBCUT SCH (22:53)
[2016-09-15] MEDS: VANCOMYCIN HCL 1,000 MG in DEXTROSE 5%-WATER 250 ML IV SCH (22:55)
[2016-09-16] MEDS: AZTREONAM 1 GM in DEXTROSE 5%-WATER 50 ML IV SCH ×3 (02:25→17:02)
[2016-09-16] MEDS: ACETAMINOPHEN 325 MG TABLET PO PRN ×2 (02:39→09:52)
[2016-09-16 07:17] LABS: HEMATOCRIT 35.6 % (36.0-47.0); HEMOGLOBIN 11.5 g/dL (12.0-15.5); HGB HCT DIFFERENCE -1.1; MEAN CORPUSCULAR HEMOGLOBIN 30.2 pg (27.0-33.4); MEAN CORPUSCULAR HGB CONC 32.4 g/dL (32.0-36.0); MEAN CORPUSCULAR VOLUME 93 fl (80-97); RED BLOOD COUNT 3.81 10^6/uL (3.72-5.28); RED CELL DISTRIBUTION WIDTH 14.3 % (11.5-14.0); WHITE BLOOD COUNT 16.1 10^3/uL (4.0-10.5)
[2016-09-16 07:22] LABS: ANION GAP 12 (5-19); BLOOD UREA NITROGEN 34 mg/dL (7-20); CALCIUM 9.1 mg/dL (8.4-10.2); CARBON DIOXIDE 29 mmol/L (22-30); CHLORIDE 102 mmol/L (98-107); CREATININE RESULT 1.28 mg/dL (0.52-1.25); GLUCOSE 74 mg/dL (75-110); MAGNESIUM 2.2 mg/dL (1.6-2.3); SODIUM 142.8 mmol/L (137-145)
[2016-09-16] MEDS: HEPARIN SOD (PORCINE) 5,000 UNIT/ML 1 ML SYRINGE SUBCUT SCH ×2 (09:42→23:35)
[2016-09-16] MEDS: GABAPENTIN 100 MG CAPSULE PO SCH ×2 (09:53→23:36)
[2016-09-16] MEDS: CLOPIDOGREL BISULFATE 75 MG TABLET PO SCH (09:54)
[2016-09-16] MEDS: LANSOPRAZOLE 15 MG TAB.RAP.DR PO SCH (09:54)
[2016-09-16] MEDS: CETIRIZINE 10 MG TABLET PO SCH (09:54)
[2016-09-16] MEDS: POTASSIUM CHLORIDE 10 MEQ TABLET.SA PO SCH (09:54)
[2016-09-16] MEDS: FERROUS SULFATE 325 MG TABLET PO SCH (09:54)
[2016-09-16] MEDS: DOCUSATE SODIUM 100 MG CAPSULE PO SCH ×2 (09:54→17:00)
[2016-09-16] MEDS: MAGNESIUM OXIDE 400 MG TABLET PO SCH (09:54)
[2016-09-16] MEDS: CARVEDILOL 6.25 MG TABLET PO SCH ×2 (09:55→23:36)
[2016-09-16] MEDS: ASPIRIN 81 MG TABLET, CHEWABLE PO SCH (09:55)
[2016-09-16] MEDS: ESCITALOPRAM OXALATE 10 MG TABLET PO SCH (09:55)
[2016-09-16] MEDS: FUROSEMIDE 80 MG TABLET PO SCH (09:56)
[2016-09-16] MEDS ORDERED: (PENDING PHARMACY ID) (Escitalopram Oxalate [Lexapro] 10 MG) PO SCH (10:00)
--- NOTE | 2016-09-16 11:19 | PDOC PROGRESS REPORT ---
Subjective Progress Note for:: 09/16/16 Subjective:: The patient is currently lying in bed. The patient states that she feels much better than yesterday. The patient does still complain of left leg pain. The patient is excited about chewing tobacco today and enjoying ice coffee. The patient denies any nausea, vomiting, diarrhea, shortness of breath, dizziness, chest pain, heart palpitations, fevers, or chills. The patient has remained afebrile. Blood pressures have been in a good range. The patient voices no other concerns at this time. Review of systems: The rest of the review of systems is negative. Physical Exam Vital Signs: Temp Pulse Resp BP Pulse Ox 99.4 F 100 22 H 137/54 H 98 09/16/16 03:35 09/16/16 07:38 09/16/16 07:38 09/16/16 07:38 09/16/16 03:35 Intake & Output 09/14/16 09/15/16 09/16/16 23:59 23:59 23:59 Intake Total 1537 1125 Balance 1537 1125 Weight 90.4 kg 90.4 kg General appearance: PRESENT: no acute distress, well-developed, well-nourished Head exam: PRESENT: atraumatic, normocephalic Eye exam: PRESENT: conjunctiva pink, EOMI, PERRLA. ABSENT: scleral icterus Ear exam: PRESENT: normal external ear exam Mouth exam: PRESENT: moist, tongue midline Neck exam: ABSENT: carotid bruit, JVD, lymphadenopathy, thyromegaly Respiratory exam: PRESENT: clear to auscultation lavinia. ABSENT: rales, rhonchi, wheezes Cardiovascular exam: PRESENT: RRR. ABSENT: diastolic murmur, rubs, systolic murmur Pulses: PRESENT: normal dorsalis pedis pul Vascular exam: PRESENT: normal capillary refill GI/Abdominal exam: PRESENT: normal bowel sounds, soft. ABSENT: distended, guarding, mass, organolmegaly, rebound, tenderness Rectal exam: PRESENT: deferred Extremities exam: PRESENT: full ROM, no edema, other - Left greater than right lower extremity cellulitis but appears improved. ABSENT: calf tenderness, clubbing Neurological exam: PRESENT: alert, awake, oriented to person, oriented to place , oriented to time, oriented to situation, CN II-XII grossly intact. ABSENT: motor sensory deficit Psychiatric exam: PRESENT: appropriate affect, normal mood. ABSENT: homicidal ideation, suicidal ideation Skin exam: PRESENT: dry, intact, warm. ABSENT: cyanosis, rash Results Laboratory Results: 09/16/16 06:14 09/16/16 06:14 09/16/16 09/16/16 06:14 06:14 WBC 16.1 H RBC 3.81 Hgb 11.5 L Hct 35.6 L MCV 93 MCH 30.2 MCHC 32.4 RDW 14.3 H Plt Count 112 L Sodium 142.8 Potassium 4.0 Chloride 102 Carbon Dioxide 29 Anion Gap 12 BUN 34 H Creatinine 1.28 H Est GFR ( Amer) 50 L Est GFR (Non-Af Amer) 41 L Glucose 74 L Calcium 9.1 Magnesium 2.2 Impressions: Chest X-Ray 09/14/16 15:40 IMPRESSION: Cardiomegaly. No acute findings. Foot X-Ray 09/14/16 18:28 IMPRESSION: CHRONIC DEGENERATIVE CHANGES. NO ACUTE FINDINGS. NO DEFINITIVE RADIOGRAPHIC EVIDENCE OF SOFT TISSUE ABSCESS OR OF OSTEOMYELITIS. Assessment & Plan - Diagnosis (1) Urinary tract infection Qualifiers: Urinary tract infection type: site unspecified Is this a current diagnosis for this admission?: YesPlan: Will await culture and sensitivity. (2) Cellulitis of left leg without foot Is this a current diagnosis for this admission?: YesPlan: Will continue current antibiotic coverage. No evidence of active osteomyelitis. Do appreciate surgery's input. (3) Sepsis Qualifiers: Sepsis type: sepsis due to unspecified organism Qualified Code(s): A41.9 - Sepsis, unspecified organism Is this a current diagnosis for this admission?: YesPlan: Secondary to the above this is improved (4) VALENTINA (acute kidney injury) Is this a current diagnosis for this admission?: YesPlan: Will continue to gently hydrate 07/18/16 09/14/16 09/15/16 06:15 17:09 07:27 Creatinine 0.92 1.65 H 1.55 H (5) Decubitus ulcer of buttock, stage 1 Is this a current diagnosis for this admission?: No (6) Elevated LFTs Is this a current diagnosis for this admission?: YesPlan: Mild followed in outpatient basis (7) Hyperkalemia Is this a current diagnosis for this admission?: YesPlan: Resolved with hydration (8) Decubitus ulcer of left heel Qualifiers: Pressure ulcer stage: unspecified pressure ulcer stage Qualified Code(s): L89.629 - Pressure ulcer of left heel, unspecified stage Is this a current diagnosis for this admission?: Yes (9) Thrombocytopenia Is this a current diagnosis for this admission?: YesPlan: Mild will follow 09/15/16 07:27 Plt Count 122 L (10) Chronic kidney disease, stage III (moderate) Is this a current diagnosis for this admission?: Yes (11) Coronary artery disease Qualifiers: Coronary Disease-Associated Artery/Lesion type: [place] artery [place] vs. transplanted heart: [place] heart Associated angina: without angina Qualified Code(s): I25.10 - Atherosclerotic heart disease of [place] coronary artery without angina pectoris Is this a current diagnosis for this admission?: Yes (12) Decubitus ulcer, ankle, left, unstageable Is this a current diagnosis for this admission?: Yes (13) Depression Is this a current diagnosis for this admission?: No (14) Diabetes mellitus Qualifiers: Diabetes mellitus type: type 1 Diabetes mellitus complication status: with kidney complications Diabetes mellitus complication detail: with chronic kidney disease Chronic kidney disease stage: stage 3 (moderate) Qualified Code(s): E10.22 - Type 1 diabetes mellitus with diabetic chronic kidney disease; N18.1 - Chronic kidney disease, stage 1 Is this a current diagnosis for this admission?: YesPlan: Will continue home medications. (15) Obesity Is this a current diagnosis for this admission?: Yes (16) Dementia Qualifiers: Dementia type: Alzheimer's disease Dementia behavioral disturbance: without behavioral disturbance Is this a current diagnosis for this admission?: Yes (17) Diastolic CHF Qualifiers: Congestive heart failure chronicity: chronic Qualified Code(s): I50.32 - Chronic diastolic (congestive) heart failure Is this a current diagnosis for this admission?: YesPlan: The patient does appear to be a little on the dry side will continue gently hydrate (18) Anemia of chronic disease Is this a current diagnosis for this admission?: Yes (19) History of MRSA infection Is this a current diagnosis for this admission?: Yes - Time Time Spent with patient: on this visit including assessment, plan, physical examination, and patient education is 25 minutes. Time Spent with patient: 25-34 minutes Smoking Cessation Education: 3 to 10 minutes Within: within 24 hours Disposition: The patient is a full code. Pending patient's symptomatology and diagnostic findings will reevaluate in the a.m.
[2016-09-16] MEDS: INSULIN GLARGINE,HUM.REC.ANLOG 1,000 UNIT/10 ML UNIT SUBCUT SCH ×2 (14:27→23:36)
[2016-09-16] MEDS ORDERED: HYDROCODONE/ACETAMINOPHEN 5-325 MG TABLET PO PRN (14:37)
--- NOTE | 2016-09-16 19:48 | PROGRESS NOTE E ---
Progress Note NAME: IGNACIO ULRICH : 1945 AGE: 70Y DATE: 09/16/2016 ROOM: [facility] SUBJECTIVE: Patient is without complaints. OBJECTIVE: VITAL SIGNS: Reveal blood pressure of 143/70, temperature 98.2, pulse 85, respirations 17, 02 saturation is 99% on room air. EXTREMITIES: The patient's left lower extremity dressings have not been removed at this time. DIAGNOSTIC DATA: The patient's white count has come down from 26,800 on 09/14 to 16.1 yesterday. ASSESSMENT: IMPROVING LEFT HEEL DIABETIC FOOT ULCER. PLAN: Will inspect leg in the a.m. The patient has significant pain and Tylenol is not working. We will give the patient narcotics by mouth to relieve her pain and will consider parenteral analgesics if the oral narcotics do not relieve the pain in her left lower extremity. DICTATING PHYSICIAN: SCHUYLER GOLDEN M.D. [id number] PHY#: [id number] ID: [id number] JOB#: [id number] ACCT: [id number] cc: >
[2016-09-16] MEDS: ATORVASTATIN CALCIUM 10 MG TABLET PO SCH (23:36)
[2016-09-16] MEDS: VANCOMYCIN HCL 1,000 MG in DEXTROSE 5%-WATER 250 ML IV SCH (23:37)
[2016-09-17] MEDS: AZTREONAM 1 GM in DEXTROSE 5%-WATER 50 ML IV SCH ×3 (04:18→17:02)
--- NOTE | 2016-09-17 08:48 | PDOC PROGRESS REPORT ---
Subjective Progress Note for:: 09/17/16 Subjective:: The patient is currently lying in bed. I will awaken the patient when I made my rounds. The patient was awake with chewing tobacco in the side of her mouth. The patient states that she feels much better than yesterday. The patient states the pain medication makes her drowsy. The patient denies any nausea, vomiting, diarrhea, shortness of breath, dizziness, chest pain, heart palpitations, fevers, or chills. The patient has remained afebrile. Blood pressures have been in a good range. The patient voices no other concerns at this time. Review of systems: The rest of the review of systems is negative. Physical Exam Vital Signs: Temp Pulse Resp BP Pulse Ox 98.7 F 81 18 152/56 H 94 09/17/16 07:35 09/17/16 07:40 09/17/16 07:35 09/17/16 07:40 09/17/16 07:35 Intake & Output 09/15/16 09/16/16 09/17/16 23:59 23:59 23:59 Intake Total 1537 2571 825 Balance 1537 2571 825 Weight 90.4 kg 90.4 kg 90.4 kg General appearance: PRESENT: no acute distress, well-developed, well-nourished Head exam: PRESENT: atraumatic, normocephalic Eye exam: PRESENT: conjunctiva pink, EOMI, PERRLA. ABSENT: scleral icterus Ear exam: PRESENT: normal external ear exam Mouth exam: PRESENT: moist, tongue midline Neck exam: ABSENT: carotid bruit, JVD, lymphadenopathy, thyromegaly Respiratory exam: PRESENT: clear to auscultation lavinia. ABSENT: rales, rhonchi, wheezes Cardiovascular exam: PRESENT: RRR. ABSENT: diastolic murmur, rubs, systolic murmur Pulses: PRESENT: normal dorsalis pedis pul Vascular exam: PRESENT: normal capillary refill GI/Abdominal exam: PRESENT: normal bowel sounds, soft. ABSENT: distended, guarding, mass, organolmegaly, rebound, tenderness Rectal exam: PRESENT: deferred Extremities exam: PRESENT: full ROM, no edema, other - Left greater than right lower extremity cellulitis but appears improved. ABSENT: calf tenderness, clubbing Neurological exam: PRESENT: alert, awake, oriented to person, oriented to place , oriented to time, oriented to situation, CN II-XII grossly intact. ABSENT: motor sensory deficit Psychiatric exam: PRESENT: appropriate affect, normal mood. ABSENT: homicidal ideation, suicidal ideation Skin exam: PRESENT: dry, intact, warm. ABSENT: cyanosis, rash Results Laboratory Results: 09/16/16 06:14 09/16/16 06:14 Impressions: Chest X-Ray 09/14/16 15:40 IMPRESSION: Cardiomegaly. No acute findings. Foot X-Ray 09/14/16 18:28 IMPRESSION: CHRONIC DEGENERATIVE CHANGES. NO ACUTE FINDINGS. NO DEFINITIVE RADIOGRAPHIC EVIDENCE OF SOFT TISSUE ABSCESS OR OF OSTEOMYELITIS. Assessment & Plan - Diagnosis (1) Urinary tract infection Qualifiers: Urinary tract infection type: site unspecified Is this a current diagnosis for this admission?: YesPlan: Will await culture and sensitivity. (2) Cellulitis of left leg without foot Is this a current diagnosis for this admission?: YesPlan: Will continue current antibiotic coverage. No evidence of MRSA so will DC vancomycin. No evidence of active osteomyelitis. Do appreciate surgery's input. (3) Sepsis Qualifiers: Sepsis type: sepsis due to unspecified organism Qualified Code(s): A41.9 - Sepsis, unspecified organism Is this a current diagnosis for this admission?: YesPlan: Secondary to the above this is improved (4) VALENTINA (acute kidney injury) Is this a current diagnosis for this admission?: YesPlan: Will DC IV fluids the patient is back to baseline. (5) Decubitus ulcer of buttock, stage 1 Is this a current diagnosis for this admission?: No (6) Elevated LFTs Is this a current diagnosis for this admission?: YesPlan: Mild followed in outpatient basis (7) Hyperkalemia Is this a current diagnosis for this admission?: YesPlan: Resolved with hydration (8) Decubitus ulcer of left heel Qualifiers: Pressure ulcer stage: unspecified pressure ulcer stage Qualified Code(s): L89.629 - Pressure ulcer of left heel, unspecified stage Is this a current diagnosis for this admission?: Yes (9) Thrombocytopenia Is this a current diagnosis for this admission?: YesPlan: Mild will follow 09/15/16 07:27 Plt Count 122 L (10) Chronic kidney disease, stage III (moderate) Is this a current diagnosis for this admission?: Yes (11) Coronary artery disease Qualifiers: Coronary Disease-Associated Artery/Lesion type: [place] artery [place] vs. transplanted heart: [place] heart Associated angina: without angina Qualified Code(s): I25.10 - Atherosclerotic heart disease of [place] coronary artery without angina pectoris Is this a current diagnosis for this admission?: Yes (12) Decubitus ulcer, ankle, left, unstageable Is this a current diagnosis for this admission?: Yes (13) Depression Is this a current diagnosis for this admission?: No (14) Diabetes mellitus Qualifiers: Diabetes mellitus type: type 1 Diabetes mellitus complication status: with kidney complications Diabetes mellitus complication detail: with chronic kidney disease Chronic kidney disease stage: stage 3 (moderate) Qualified Code(s): E10.22 - Type 1 diabetes mellitus with diabetic chronic kidney disease; N18.1 - Chronic kidney disease, stage 1 Is this a current diagnosis for this admission?: YesPlan: Will continue home medications. (15) Obesity Is this a current diagnosis for this admission?: Yes (16) Dementia Qualifiers: Dementia type: Alzheimer's disease Dementia behavioral disturbance: without behavioral disturbance Is this a current diagnosis for this admission?: Yes (17) Diastolic CHF Qualifiers: Congestive heart failure chronicity: chronic Qualified Code(s): I50.32 - Chronic diastolic (congestive) heart failure Is this a current diagnosis for this admission?: YesPlan: The patient appears optivolemic (18) Anemia of chronic disease Is this a current diagnosis for this admission?: Yes (19) History of MRSA infection Is this a current diagnosis for this admission?: Yes - Time Time Spent with patient: on this visit including assessment, plan, physical examination, and patient education is 25 minutes. Time Spent with patient: 25-34 minutes Medications reviewed and adjusted accordingly: Yes Anticipated discharge: SNF Within: within 24 hours Disposition: The patient is a full code. Pending patient's symptomatology and diagnostic findings will reevaluate in the a.m. the patient can be downgraded to a medical bed.
[2016-09-17] MEDS: HEPARIN SOD (PORCINE) 5,000 UNIT/ML 1 ML SYRINGE SUBCUT SCH ×2 (09:17→23:23)
[2016-09-17] MEDS: ESCITALOPRAM OXALATE 10 MG TABLET PO SCH (09:18)
[2016-09-17] MEDS: CLOPIDOGREL BISULFATE 75 MG TABLET PO SCH (09:18)
[2016-09-17] MEDS: CETIRIZINE 10 MG TABLET PO SCH (09:19)
[2016-09-17] MEDS: CARVEDILOL 6.25 MG TABLET PO SCH ×2 (09:19→23:23)
[2016-09-17] MEDS: ASPIRIN 81 MG TABLET, CHEWABLE PO SCH (09:19)
[2016-09-17] MEDS: GABAPENTIN 100 MG CAPSULE PO SCH ×2 (09:19→23:23)
[2016-09-17] MEDS: POTASSIUM CHLORIDE 10 MEQ TABLET.SA PO SCH (09:20)
[2016-09-17] MEDS: MAGNESIUM OXIDE 400 MG TABLET PO SCH (09:20)
[2016-09-17] MEDS: FERROUS SULFATE 325 MG TABLET PO SCH (09:21)
[2016-09-17] MEDS: LANSOPRAZOLE 15 MG TAB.RAP.DR PO SCH (09:21)
[2016-09-17] MEDS: FUROSEMIDE 80 MG TABLET PO SCH (09:22)
[2016-09-17] MEDS: ACETAMINOPHEN 325 MG TABLET PO PRN (09:24)
[2016-09-17] MEDS: INSULIN GLARGINE,HUM.REC.ANLOG 1,000 UNIT/10 ML UNIT SUBCUT SCH ×2 (09:26→23:12)
[2016-09-17] MEDS: DOCUSATE SODIUM 100 MG CAPSULE PO SCH ×2 (09:26→17:02)
[2016-09-17] MEDS ORDERED: COLLAGENASE CLOSTRIDIUM HIST. OINT 30 GM TOP SCH (11:30)
[2016-09-17] MEDS ORDERED: HYDROXYZINE HCL 10 MG TABLET PO ONE (16:59)
[2016-09-17] MEDS ORDERED: HYDROXYZINE HCL 10 MG TABLET ONE (17:48)
[2016-09-17] MEDS: ATORVASTATIN CALCIUM 10 MG TABLET PO SCH (23:24)
[2016-09-18] MEDS: AZTREONAM 1 GM in DEXTROSE 5%-WATER 50 ML IV SCH (02:27)
[2016-09-18] MEDS ORDERED: HYDROXYZINE HCL 10 MG TABLET ONE (03:54)
[2016-09-18 06:46] LABS: HEMATOCRIT 31.9 % (36.0-47.0); HEMOGLOBIN 10.6 g/dL (12.0-15.5); HGB HCT DIFFERENCE -0.1; MEAN CORPUSCULAR HEMOGLOBIN 30.9 pg (27.0-33.4); MEAN CORPUSCULAR HGB CONC 33.4 g/dL (32.0-36.0); MEAN CORPUSCULAR VOLUME 93 fl (80-97); RED BLOOD COUNT 3.44 10^6/uL (3.72-5.28); RED CELL DISTRIBUTION WIDTH 13.5 % (11.5-14.0); WHITE BLOOD COUNT 11.7 10^3/uL (4.0-10.5)
[2016-09-18 07:07] LABS: ANION GAP 12 (5-19); BLOOD UREA NITROGEN 27 mg/dL (7-20); CALCIUM 9.1 mg/dL (8.4-10.2); CARBON DIOXIDE 28 mmol/L (22-30); CHLORIDE 104 mmol/L (98-107); GLUCOSE 71 mg/dL (75-110); MAGNESIUM 1.9 mg/dL (1.6-2.3); POTASSIUM 3.9 mmol/L (3.6-5.0); SODIUM 143.8 mmol/L (137-145)
[2016-09-18] MEDS ORDERED: FLUCONAZOLE 100 MG TABLET PO ONE ×2 (09:00→15:45)
[2016-09-18] MEDS: COLLAGENASE CLOSTRIDIUM HIST. OINT 30 GM TOP SCH (14:00)
[2016-09-18] MEDS: HEPARIN SOD (PORCINE) 5,000 UNIT/ML 1 ML SYRINGE SUBCUT SCH ×2 (14:27→22:12)
[2016-09-18] MEDS: ERTAPENEM SODIUM 1 GM in NORMAL SALINE 50 ML IV SCH (14:28)
[2016-09-18] MEDS: CETIRIZINE 10 MG TABLET PO SCH (15:07)
[2016-09-18] MEDS: LANSOPRAZOLE 15 MG TAB.RAP.DR PO SCH (15:07)
[2016-09-18] MEDS: CLOPIDOGREL BISULFATE 75 MG TABLET PO SCH (15:07)
[2016-09-18] MEDS: ASPIRIN 81 MG TABLET, CHEWABLE PO SCH (15:08)
[2016-09-18] MEDS: MAGNESIUM OXIDE 400 MG TABLET PO SCH (15:08)
[2016-09-18] MEDS: ACETAMINOPHEN 325 MG TABLET PO PRN (15:11)
[2016-09-18] MEDS: ESCITALOPRAM OXALATE 10 MG TABLET PO SCH (15:12)
[2016-09-18] MEDS: FERROUS SULFATE 325 MG TABLET PO SCH (15:12)
[2016-09-18] MEDS: POTASSIUM CHLORIDE 10 MEQ TABLET.SA PO SCH (15:12)
[2016-09-18] MEDS: FUROSEMIDE 80 MG TABLET PO SCH (15:17)
[2016-09-18] MEDS: NYSTATIN TOPICAL POWDER 15 GM TP SCH ×2 (15:19→22:13)
[2016-09-18] MEDS: DOCUSATE SODIUM 100 MG CAPSULE PO SCH ×2 (15:21→17:36)
[2016-09-18] MEDS: CARVEDILOL 6.25 MG TABLET PO SCH ×2 (15:21→22:13)
[2016-09-18] MEDS: INSULIN GLARGINE,HUM.REC.ANLOG 1,000 UNIT/10 ML UNIT SUBCUT SCH ×2 (15:21→22:15)
[2016-09-18] MEDS: GABAPENTIN 100 MG CAPSULE PO SCH ×2 (15:21→22:12)
--- NOTE | 2016-09-18 15:24 | PDOC PROGRESS REPORT ---
Subjective Progress Note for:: 09/18/16 Subjective:: The patient is currently lying in bed. I will awaken the patient when I made my rounds. The patient was awake with chewing tobacco in the side of her mouth. The patient states that she feels much better. The patient states the pain medication makes her drowsy. The patient denies any nausea, vomiting, diarrhea, shortness of breath, dizziness, chest pain, heart palpitations, fevers , or chills. The patient has remained afebrile. Blood pressures have been in a good range. The patient voices no other concerns at this time. Review of systems: The rest of the review of systems is negative. I have instructed the patient to not sleep with chewing tobacco in her mouth. However she is consistently found dozing off with chewing tobacco juice noted on her chin. I was notified by nursing staff at lunchtime that the patient appeared to have some cough associated with her meal. The patient was oxygenating well was not found to be tachypnea. Chest x-ray was obtained with no evidence of pneumonia. Will consult speech for swallow evaluation. Physical Exam Vital Signs: Temp Pulse Resp BP Pulse Ox 97.9 F 77 18 136/64 H 100 09/18/16 11:00 09/18/16 11:00 09/18/16 11:00 09/18/16 11:00 09/18/16 11:00 Intake & Output 09/16/16 09/17/16 09/18/16 23:59 23:59 23:59 Intake Total 2571 1855 645 Balance 2571 1855 645 Weight 90.4 kg 90.4 kg 90.4 kg General appearance: PRESENT: no acute distress, well-developed, well-nourished Head exam: PRESENT: atraumatic, normocephalic Eye exam: PRESENT: conjunctiva pink, EOMI, PERRLA. ABSENT: scleral icterus Ear exam: PRESENT: normal external ear exam Mouth exam: PRESENT: moist, tongue midline Neck exam: ABSENT: carotid bruit, JVD, lymphadenopathy, thyromegaly Respiratory exam: PRESENT: clear to auscultation lavinia. ABSENT: rales, rhonchi, wheezes Cardiovascular exam: PRESENT: RRR. ABSENT: diastolic murmur, rubs, systolic murmur Pulses: PRESENT: normal dorsalis pedis pul Vascular exam: PRESENT: normal capillary refill GI/Abdominal exam: PRESENT: normal bowel sounds, soft. ABSENT: distended, guarding, mass, organolmegaly, rebound, tenderness Rectal exam: PRESENT: deferred Extremities exam: PRESENT: full ROM, no edema, other - Left greater than right lower extremity cellulitis but appears improved. ABSENT: calf tenderness, clubbing Neurological exam: PRESENT: alert, awake, oriented to person, oriented to place , oriented to time, oriented to situation, CN II-XII grossly intact. ABSENT: motor sensory deficit Psychiatric exam: PRESENT: appropriate affect, normal mood. ABSENT: homicidal ideation, suicidal ideation Skin exam: PRESENT: dry, intact, warm. ABSENT: cyanosis, rash Results Laboratory Results: 09/18/16 06:16 09/18/16 06:16 09/18/16 09/18/16 06:16 06:16 WBC 11.7 H RBC 3.44 L Hgb 10.6 L Hct 31.9 L MCV 93 MCH 30.9 MCHC 33.4 RDW 13.5 Plt Count 144 L Sodium 143.8 Potassium 3.9 Chloride 104 Carbon Dioxide 28 Anion Gap 12 BUN 27 H Creatinine 1.10 Est GFR ( Amer) 59 L Est GFR (Non-Af Amer) 49 L Glucose 71 L Calcium 9.1 Magnesium 1.9 Impressions: Foot X-Ray 09/14/16 18:28 IMPRESSION: CHRONIC DEGENERATIVE CHANGES. NO ACUTE FINDINGS. NO DEFINITIVE RADIOGRAPHIC EVIDENCE OF SOFT TISSUE ABSCESS OR OF OSTEOMYELITIS. Chest X-Ray 09/18/16 00:00 IMPRESSION: No significant interval change. Cardiomegaly. No acute consolidations are identified. Assessment & Plan - Diagnosis (1) Urinary tract infection Qualifiers: Urinary tract infection type: site unspecified Is this a current diagnosis for this admission?: YesPlan: Escherichia coli that is resistant to quinolones. Will transition antibiotic coverage to ertapenem given limited choices by allergies (2) Cellulitis of left leg without foot Is this a current diagnosis for this admission?: YesPlan: Overall appears much improved. Will continue current antibiotic coverage. No evidence of MRSA so DC vancomycin. No evidence of active osteomyelitis. Do appreciate surgery's input. (3) Sepsis Qualifiers: Sepsis type: sepsis due to unspecified organism Qualified Code(s): A41.9 - Sepsis, unspecified organism Is this a current diagnosis for this admission?: YesPlan: Secondary to the above this is improve- resolved (4) VALENTINA (acute kidney injury) Is this a current diagnosis for this admission?: YesPlan: Will DC IV fluids the patient is back to baseline. (5) Decubitus ulcer of buttock, stage 1 Is this a current diagnosis for this admission?: No (6) Elevated LFTs Is this a current diagnosis for this admission?: YesPlan: Mild followed in outpatient basis (7) Hyperkalemia Is this a current diagnosis for this admission?: YesPlan: Resolved with hydration (8) Decubitus ulcer of left heel Qualifiers: Pressure ulcer stage: unspecified pressure ulcer stage Qualified Code(s): L89.629 - Pressure ulcer of left heel, unspecified stage Is this a current diagnosis for this admission?: Yes (9) Thrombocytopenia Is this a current diagnosis for this admission?: YesPlan: Mild will follow 09/15/16 07:27 Plt Count 122 L (10) Chronic kidney disease, stage III (moderate) Is this a current diagnosis for this admission?: Yes (11) Coronary artery disease Qualifiers: Coronary Disease-Associated Artery/Lesion type: nikolai artery [place] vs. transplanted heart: nikolai heart Associated angina: without angina Qualified Code(s): I25.10 - Atherosclerotic heart disease of nikolai coronary artery without angina pectoris Is this a current diagnosis for this admission?: Yes (12) Decubitus ulcer, ankle, left, unstageable Is this a current diagnosis for this admission?: Yes (13) Depression Is this a current diagnosis for this admission?: No (14) Diabetes mellitus Qualifiers: Diabetes mellitus type: type 1 Diabetes mellitus complication status: with kidney complications Diabetes mellitus complication detail: with chronic kidney disease Chronic kidney disease stage: stage 3 (moderate) Qualified Code(s): E10.22 - Type 1 diabetes mellitus with diabetic chronic kidney disease; N18.1 - Chronic kidney disease, stage 1 Is this a current diagnosis for this admission?: YesPlan: Will continue home medications. (15) Obesity Is this a current diagnosis for this admission?: Yes (16) Dementia Qualifiers: Dementia type: Alzheimer's disease Dementia behavioral disturbance: without behavioral disturbance Is this a current diagnosis for this admission?: Yes (17) Diastolic CHF Qualifiers: Congestive heart failure chronicity: chronic Qualified Code(s): I50.32 - Chronic diastolic (congestive) heart failure Is this a current diagnosis for this admission?: YesPlan: The patient appears optivolemic (18) Anemia of chronic disease Is this a current diagnosis for this admission?: Yes (19) History of MRSA infection Is this a current diagnosis for this admission?: Yes - Time Time Spent with patient: on this visit including assessment, plan, physical examination, and patient education is 25 minutes. Time Spent with patient: 25-34 minutes Medications reviewed and adjusted accordingly: Yes Anticipated discharge: SNF Within: within 48 hours Disposition: The patient is a full code. Pending patient's symptomatology and diagnostic findings will reevaluate in the a.m.
[2016-09-18] MEDS: HYDROXYZINE HCL 10 MG TABLET PO PRN (16:08)
[2016-09-18] MEDS: ATORVASTATIN CALCIUM 10 MG TABLET PO SCH (22:13)
[2016-09-19] MEDS: FUROSEMIDE 80 MG TABLET PO SCH (08:41)
[2016-09-19] MEDS: INSULIN GLARGINE,HUM.REC.ANLOG 1,000 UNIT/10 ML UNIT SUBCUT SCH ×2 (09:13→23:10)
[2016-09-19] MEDS: ERTAPENEM SODIUM 1 GM in NORMAL SALINE 50 ML IV SCH (09:21)
[2016-09-19] MEDS: HEPARIN SOD (PORCINE) 5,000 UNIT/ML 1 ML SYRINGE SUBCUT SCH ×2 (09:23→23:09)
[2016-09-19] MEDS: CETIRIZINE 10 MG TABLET PO SCH (09:24)
[2016-09-19] MEDS: MAGNESIUM OXIDE 400 MG TABLET PO SCH (09:24)
[2016-09-19] MEDS: GABAPENTIN 100 MG CAPSULE PO SCH ×2 (09:24→23:08)
[2016-09-19] MEDS: ASPIRIN 81 MG TABLET, CHEWABLE PO SCH (09:25)
[2016-09-19] MEDS: CLOPIDOGREL BISULFATE 75 MG TABLET PO SCH (09:25)
[2016-09-19] MEDS: POTASSIUM CHLORIDE 10 MEQ TABLET.SA PO SCH (09:25)
[2016-09-19] MEDS: ESCITALOPRAM OXALATE 10 MG TABLET PO SCH (09:25)
[2016-09-19] MEDS: LANSOPRAZOLE 15 MG TAB.RAP.DR PO SCH (09:25)
[2016-09-19] MEDS: CARVEDILOL 6.25 MG TABLET PO SCH ×2 (09:26→23:09)
[2016-09-19] MEDS: FERROUS SULFATE 325 MG TABLET PO SCH (09:26)
[2016-09-19] MEDS: NYSTATIN TOPICAL POWDER 15 GM TP SCH ×2 (09:28→18:38)
[2016-09-19] MEDS: COLLAGENASE CLOSTRIDIUM HIST. OINT 30 GM TOP SCH (09:30)
[2016-09-19] MEDS: DOCUSATE SODIUM 100 MG CAPSULE PO SCH ×2 (09:34→18:17)
--- NOTE | 2016-09-19 11:19 | PDOC PROGRESS REPORT ---
Subjective Progress Note for:: 09/19/16 Subjective:: Patient has no complaints regarding her right foot. Physical Exam Vital Signs: Temp Pulse Resp BP Pulse Ox 97.4 F 73 16 161/48 H 98 09/19/16 08:24 09/19/16 08:24 09/19/16 08:24 09/19/16 08:24 09/19/16 08:24 Intake & Output 09/18/16 09/19/16 09/20/16 06:59 06:59 06:59 Intake Total 1675 1310 Balance 1675 1310 Weight 90.4 kg 97.2 kg General appearance: PRESENT: no acute distress Musculoskeletal exam: PRESENT: other - Left foot is examined. 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 The stage III pressure ulcer on the left heel is a healing satisfactorily, with minimal debris; lesion tissue. There is no cellulitis. Results Laboratory Results: 09/18/16 06:16 09/18/16 06:16 Impressions: Foot X-Ray 09/14/16 18:28 IMPRESSION: CHRONIC DEGENERATIVE CHANGES. NO ACUTE FINDINGS. NO DEFINITIVE RADIOGRAPHIC EVIDENCE OF SOFT TISSUE ABSCESS OR OF OSTEOMYELITIS. Chest X-Ray 09/18/16 00:00 IMPRESSION: No significant interval change. Cardiomegaly. No acute consolidations are identified. Assessment & Plan - Diagnosis (1) Decubitus ulcer of left heel Qualifiers: Pressure ulcer stage: unspecified pressure ulcer stage Qualified Code(s): L89.629 - Pressure ulcer of left heel, unspecified stage Is this a current diagnosis for this admission?: YesPlan: 1. No indication for further surgical debridement 2. Continue local wound care including enzymatic debridement 3 continue pressure offloading 4. will be available on a consultative basis when necessary
--- NOTE | 2016-09-19 14:44 | PDOC PROGRESS REPORT ---
Subjective Progress Note for:: 09/19/16 Subjective:: The patient is currently lying in bed. I will awaken the patient when I made my rounds. The patient had a wad of chewing tobacco in the right side of her mouth. Secretions from this were down her chin. The patient has been counseled every day about the danger of sleeping with chewing tobacco in her mouth. Patient denies any further episodes of coughing. The patient states that she feels much better. The patient states the pain medication makes her drowsy. The patient denies any nausea, vomiting, diarrhea, shortness of breath , dizziness, chest pain, heart palpitations, fevers, or chills. The patient has remained afebrile. Blood pressures have been in a good range. The patient voices no other concerns at this time. Review of systems: The rest of the review of systems is negative. Brief history: The patient is a 70-year-old female that is well known to our service. The patient does have a history of chronic wounds and history of osteomyelitis last year. The patient presented to the emergency department due to fever and weakness. The patient had urinalysis findings were consistent with a UA as well as cellulitis of the left lower extremity. The patient was admitted to the hospitalist service. She was seen and examined by surgery and the patient's chronic wound was felt to be clean and not relevant to the patient 's current course. She has responded well to the treatment of cellulitis and redness has receded drastically. The patient's urine culture revealed Escherichia coli given the patient's allergies and his activities only allowed ertapenem for treatment. As of this time the patient only needs one more day of ertapenem. Physical Exam Vital Signs: Temp Pulse Resp BP Pulse Ox 97.5 F 69 16 137/51 H 98 09/19/16 12:00 09/19/16 12:00 09/19/16 12:00 09/19/16 12:00 09/19/16 12:00 Intake & Output 09/17/16 09/18/16 09/19/16 23:59 23:59 23:59 Intake Total 1855 1115 840 Balance 1855 1115 840 Weight 90.4 kg 90.4 kg 97.2 kg General appearance: PRESENT: no acute distress, well-developed, well-nourished Head exam: PRESENT: atraumatic, normocephalic Eye exam: PRESENT: conjunctiva pink, EOMI, PERRLA. ABSENT: scleral icterus Ear exam: PRESENT: normal external ear exam Mouth exam: PRESENT: moist, tongue midline Neck exam: ABSENT: carotid bruit, JVD, lymphadenopathy, thyromegaly Respiratory exam: PRESENT: clear to auscultation lavinia. ABSENT: rales, rhonchi, wheezes Cardiovascular exam: PRESENT: RRR. ABSENT: diastolic murmur, rubs, systolic murmur Pulses: PRESENT: normal dorsalis pedis pul Vascular exam: PRESENT: normal capillary refill GI/Abdominal exam: PRESENT: normal bowel sounds, soft. ABSENT: distended, guarding, mass, organolmegaly, rebound, tenderness Rectal exam: PRESENT: deferred Extremities exam: PRESENT: full ROM, no edema, other - Left greater than right lower extremity cellulitis but appears improved. ABSENT: calf tenderness, clubbing Neurological exam: PRESENT: alert, awake, oriented to person, oriented to place , oriented to time, oriented to situation, CN II-XII grossly intact. ABSENT: motor sensory deficit Psychiatric exam: PRESENT: appropriate affect, normal mood. ABSENT: homicidal ideation, suicidal ideation Skin exam: PRESENT: dry, intact, warm. ABSENT: cyanosis, rash Results Laboratory Results: 09/18/16 06:16 09/18/16 06:16 Impressions: Foot X-Ray 09/14/16 18:28 IMPRESSION: CHRONIC DEGENERATIVE CHANGES. NO ACUTE FINDINGS. NO DEFINITIVE RADIOGRAPHIC EVIDENCE OF SOFT TISSUE ABSCESS OR OF OSTEOMYELITIS. Chest X-Ray 09/18/16 00:00 IMPRESSION: No significant interval change. Cardiomegaly. No acute consolidations are identified. Assessment & Plan - Diagnosis (1) Urinary tract infection Qualifiers: Urinary tract infection type: site unspecified Is this a current diagnosis for this admission?: YesPlan: The patient's on day 6 of 7. Of antibiotic therapy. 09/14/16 18:50 Urine Culture - Final Catheterized Urine Escherichia Coli (2) Cellulitis of left leg without foot Is this a current diagnosis for this admission?: YesPlan: Overall appears much improved. Will continue current antibiotic coverage. No evidence of MRSA so DC vancomycin. No evidence of active osteomyelitis. Do appreciate surgery's input. (3) Sepsis Qualifiers: Sepsis type: sepsis due to unspecified organism Qualified Code(s): A41.9 - Sepsis, unspecified organism Is this a current diagnosis for this admission?: YesPlan: Secondary to the above this is improve- resolved (4) VALETNINA (acute kidney injury) Is this a current diagnosis for this admission?: YesPlan: Will DC IV fluids the patient is back to baseline. (5) Decubitus ulcer of buttock, stage 1 Is this a current diagnosis for this admission?: No (6) Elevated LFTs Is this a current diagnosis for this admission?: YesPlan: Mild followed in outpatient basis (7) Hyperkalemia Is this a current diagnosis for this admission?: YesPlan: Resolved with hydration (8) Decubitus ulcer of left heel Qualifiers: Pressure ulcer stage: unspecified pressure ulcer stage Qualified Code(s): L89.629 - Pressure ulcer of left heel, unspecified stage Is this a current diagnosis for this admission?: Yes (9) Thrombocytopenia Is this a current diagnosis for this admission?: YesPlan: Mild will follow 09/15/16 07:27 Plt Count 122 L (10) Chronic kidney disease, stage III (moderate) Is this a current diagnosis for this admission?: Yes (11) Coronary artery disease Qualifiers: Coronary Disease-Associated Artery/Lesion type: [place] artery [place] vs. transplanted heart: [place] heart Associated angina: without angina Qualified Code(s): I25.10 - Atherosclerotic heart disease of [place] coronary artery without angina pectoris Is this a current diagnosis for this admission?: Yes (12) Decubitus ulcer, ankle, left, unstageable Is this a current diagnosis for this admission?: Yes (13) Depression Is this a current diagnosis for this admission?: No (14) Diabetes mellitus Qualifiers: Diabetes mellitus type: type 1 Diabetes mellitus complication status: with kidney complications Diabetes mellitus complication detail: with chronic kidney disease Chronic kidney disease stage: stage 3 (moderate) Qualified Code(s): E10.22 - Type 1 diabetes mellitus with diabetic chronic kidney disease; N18.1 - Chronic kidney disease, stage 1 Is this a current diagnosis for this admission?: YesPlan: Will continue home medications. (15) Obesity Is this a current diagnosis for this admission?: Yes (16) Dementia Qualifiers: Dementia type: Alzheimer's disease Dementia behavioral disturbance: without behavioral disturbance Is this a current diagnosis for this admission?: Yes (17) Diastolic CHF Qualifiers: Congestive heart failure chronicity: chronic Qualified Code(s): I50.32 - Chronic diastolic (congestive) heart failure Is this a current diagnosis for this admission?: YesPlan: The patient appears optivolemic (18) Anemia of chronic disease Is this a current diagnosis for this admission?: Yes (19) History of MRSA infection Is this a current diagnosis for this admission?: Yes - Time Time Spent with patient: on this visit including assessment, plan, physical examination, and patient education is 25 minutes. Time Spent with patient: 25-34 minutes Medications reviewed and adjusted accordingly: Yes Anticipated discharge: SNF Within: within 24 hours Disposition: The patient is a full code. Pending patient's symptomatology and diagnostic findings will reevaluate in the a.m.
[2016-09-19] MEDS: ATORVASTATIN CALCIUM 10 MG TABLET PO SCH (23:09)
[2016-09-19] MEDS: HYDROXYZINE HCL 10 MG TABLET PO PRN (23:15)
[2016-09-20] MEDS: FUROSEMIDE 80 MG TABLET PO SCH (07:58)
[2016-09-20] MEDS: DOCUSATE SODIUM 100 MG CAPSULE PO SCH ×2 (10:13→17:17)
[2016-09-20] MEDS: CETIRIZINE 10 MG TABLET PO SCH (10:20)
[2016-09-20] MEDS: ERTAPENEM SODIUM 1 GM in NORMAL SALINE 50 ML IV SCH (10:20)
[2016-09-20] MEDS: LANSOPRAZOLE 15 MG TAB.RAP.DR PO SCH (10:20)
[2016-09-20] MEDS: CARVEDILOL 6.25 MG TABLET PO SCH ×2 (10:20→22:43)
[2016-09-20] MEDS: CLOPIDOGREL BISULFATE 75 MG TABLET PO SCH (10:20)
[2016-09-20] MEDS: MAGNESIUM OXIDE 400 MG TABLET PO SCH (10:21)
[2016-09-20] MEDS: ESCITALOPRAM OXALATE 10 MG TABLET PO SCH (10:21)
[2016-09-20] MEDS: ASPIRIN 81 MG TABLET, CHEWABLE PO SCH (10:21)
[2016-09-20] MEDS: FERROUS SULFATE 325 MG TABLET PO SCH (10:21)
[2016-09-20] MEDS: GABAPENTIN 100 MG CAPSULE PO SCH ×2 (10:21→22:43)
[2016-09-20] MEDS: POTASSIUM CHLORIDE 10 MEQ TABLET.SA PO SCH (10:22)
[2016-09-20] MEDS: HEPARIN SOD (PORCINE) 5,000 UNIT/ML 1 ML SYRINGE SUBCUT SCH ×2 (10:24→22:43)
[2016-09-20] MEDS: INSULIN GLARGINE,HUM.REC.ANLOG 1,000 UNIT/10 ML UNIT SUBCUT SCH ×2 (10:27→22:43)
[2016-09-20] MEDS: NYSTATIN TOPICAL POWDER 15 GM TP SCH ×2 (10:27→17:17)
[2016-09-20] MEDS: COLLAGENASE CLOSTRIDIUM HIST. OINT 30 GM TOP SCH (10:30)
--- NOTE | 2016-09-20 13:54 | PDOC PROGRESS REPORT ---
Subjective Progress Note for:: 09/20/16 Subjective:: Patient is seen on morning rounds. She is presently resting in bed. She denies any shortness of breath, chest pain or dyspnea. She denies any nausea, vomiting , diarrhea or abdominal pain. She states she has pain in the right lower extremity. She denies any pain in the left heel decubitus. She states she is sad at the news of her aunt who from cancer last night. She otherwise has no complaints at the present time. Physical Exam Vital Signs: Temp Pulse Resp BP Pulse Ox 98.0 F 76 18 139/48 H 99 09/20/16 07:57 09/20/16 07:57 09/20/16 07:57 09/20/16 07:57 09/20/16 07:57 Intake & Output 09/19/16 09/20/16 09/21/16 06:59 06:59 06:59 Intake Total 1310 1022 Balance 1310 1022 Weight 97.2 kg 91.7 kg General appearance: PRESENT: no acute distress, well-developed, well-nourished Head exam: PRESENT: atraumatic, normocephalic Eye exam: PRESENT: conjunctiva pink, EOMI, PERRLA. ABSENT: scleral icterus Ear exam: PRESENT: normal external ear exam Mouth exam: PRESENT: moist, tongue midline Neck exam: ABSENT: carotid bruit, JVD, lymphadenopathy, thyromegaly Respiratory exam: PRESENT: clear to auscultation lavinia. ABSENT: rales, rhonchi, wheezes Cardiovascular exam: PRESENT: RRR. ABSENT: diastolic murmur, rubs, systolic murmur Pulses: PRESENT: normal carotid pulses, normal radial pulses Vascular exam: PRESENT: normal capillary refill GI/Abdominal exam: PRESENT: hypoactive bowel sounds, normal bowel sounds Rectal exam: PRESENT: deferred Extremities exam: PRESENT: full ROM. ABSENT: calf tenderness, clubbing, pedal edema Neurological exam: PRESENT: alert, awake, oriented to person, oriented to place , oriented to time, oriented to situation, CN II-XII grossly intact. ABSENT: motor sensory deficit Psychiatric exam: PRESENT: appropriate affect, normal mood. ABSENT: homicidal ideation, suicidal ideation Skin exam: PRESENT: other - Left heel wound healing well Results Laboratory Results: 09/18/16 06:16 09/18/16 06:16 09/15/16 00:44 Blood Blood Culture - Final NO GROWTH IN 5 DAYS Impressions: Foot X-Ray 09/14/16 18:28 IMPRESSION: CHRONIC DEGENERATIVE CHANGES. NO ACUTE FINDINGS. NO DEFINITIVE RADIOGRAPHIC EVIDENCE OF SOFT TISSUE ABSCESS OR OF OSTEOMYELITIS. Chest X-Ray 09/18/16 00:00 IMPRESSION: No significant interval change. Cardiomegaly. No acute consolidations are identified. Assessment & Plan - Diagnosis (1) Decubitus ulcer of left heel Qualifiers: Pressure ulcer stage: unspecified pressure ulcer stage Qualified Code(s): L89.629 - Pressure ulcer of left heel, unspecified stage Is this a current diagnosis for this admission?: YesPlan: Continue local wound care per surgialist. Continue IV antibiotics improving WBC count (2) Cellulitis of left leg without foot Is this a current diagnosis for this admission?: YesPlan: Much improved with IV antibiotics. Blood cultures negative (3) Sepsis Qualifiers: Sepsis type: sepsis due to unspecified organism Qualified Code(s): A41.9 - Sepsis, unspecified organism Is this a current diagnosis for this admission?: YesPlan: This has resolved with IV antibiotics and fluid resuscitation (4) VALENTINA (acute kidney injury) Is this a current diagnosis for this admission?: YesPlan: Resolved back to chronic kidney disease stage 3 with IV hydration (5) Urinary tract infection Qualifiers: Urinary tract infection type: site unspecified Is this a current diagnosis for this admission?: YesPlan: Patient grew e coli appropriate antibiotic coverage (6) Decubitus ulcer of buttock, stage 1 Qualifiers: Laterality: left Qualified Code(s): L89.321 - Pressure ulcer of left buttock, stage 1 Is this a current diagnosis for this admission?: NoPlan: Nursing care protocol (7) Anemia of chronic disease Is this a current diagnosis for this admission?: YesPlan: Stable will continue to monitor - Time Time Spent with patient: 25-34 minutes Critical Time spent with patient: 15-24 minutes Medications reviewed and adjusted accordingly: Yes Anticipated discharge: SNF Within: within 48 hours
[2016-09-20] MEDS: ATORVASTATIN CALCIUM 10 MG TABLET PO SCH (22:43)
[2016-09-21] MEDS: HEPARIN SOD (PORCINE) 5,000 UNIT/ML 1 ML SYRINGE SUBCUT SCH ×2 (09:08→23:47)
[2016-09-21] MEDS: FUROSEMIDE 80 MG TABLET PO SCH (09:09)
[2016-09-21] MEDS: LANSOPRAZOLE 15 MG TAB.RAP.DR PO SCH (09:10)
[2016-09-21] MEDS: DOCUSATE SODIUM 100 MG CAPSULE PO SCH ×2 (09:10→17:27)
[2016-09-21] MEDS: CETIRIZINE 10 MG TABLET PO SCH (09:10)
[2016-09-21] MEDS: CARVEDILOL 6.25 MG TABLET PO SCH ×2 (09:10→23:46)
[2016-09-21] MEDS: ASPIRIN 81 MG TABLET, CHEWABLE PO SCH (09:10)
[2016-09-21] MEDS: POTASSIUM CHLORIDE 10 MEQ TABLET.SA PO SCH (09:10)
[2016-09-21] MEDS: FERROUS SULFATE 325 MG TABLET PO SCH (09:11)
[2016-09-21] MEDS: MAGNESIUM OXIDE 400 MG TABLET PO SCH (09:11)
[2016-09-21] MEDS: CLOPIDOGREL BISULFATE 75 MG TABLET PO SCH (09:11)
[2016-09-21] MEDS: GABAPENTIN 100 MG CAPSULE PO SCH ×2 (09:11→23:46)
[2016-09-21] MEDS: ESCITALOPRAM OXALATE 10 MG TABLET PO SCH (09:11)
[2016-09-21] MEDS: NYSTATIN TOPICAL POWDER 15 GM TP SCH ×2 (09:17→17:27)
[2016-09-21] MEDS: COLLAGENASE CLOSTRIDIUM HIST. OINT 30 GM TOP SCH (09:20)
[2016-09-21 09:38] LABS: HEMATOCRIT 35.4 % (36.0-47.0); HEMOGLOBIN 11.5 g/dL (12.0-15.5); HGB HCT DIFFERENCE -0.9; MEAN CORPUSCULAR HEMOGLOBIN 30.6 pg (27.0-33.4); MEAN CORPUSCULAR HGB CONC 32.6 g/dL (32.0-36.0); MEAN CORPUSCULAR VOLUME 94 fl (80-97); RED BLOOD COUNT 3.77 10^6/uL (3.72-5.28); RED CELL DISTRIBUTION WIDTH 13.6 % (11.5-14.0); WHITE BLOOD COUNT 12.3 10^3/uL (4.0-10.5)
[2016-09-21] MEDS: ERTAPENEM SODIUM 1 GM in NORMAL SALINE 50 ML IV SCH (10:21)
[2016-09-21 11:06] LABS: BAND NEUTROPHILS % (MANUAL) 2 % (3-5); BASOPHILS % (MANUAL) 0 % (0-2); EOSINOPHILS % (MANUAL) 6 % (0-6); LYMPHOCYTES % (MANUAL) 30 % (13-45); PLATELET CLUMPS PRESENT; POLYCHROMASIA SLIGHT; TOTAL CELLS COUNTED 100; TOXIC GRANULATION SLIGHT
--- NOTE | 2016-09-21 11:38 | PDOC PROGRESS REPORT ---
Subjective Progress Note for:: 09/21/16 Subjective:: Patient is seen on morning rounds. She is presently resting in bed. She denies any shortness of breath, chest pain or dyspnea. She denies any nausea, vomiting , diarrhea or abdominal pain. She states she has pain in the right lower extremity. She denies any pain in the left heel decubitus. She states she slept well without any complaints. She otherwise has no complaints at the present time. Physical Exam Vital Signs: Temp Pulse Resp BP Pulse Ox 98.3 F 67 16 143/52 H 99 09/21/16 08:15 09/21/16 08:15 09/21/16 08:15 09/21/16 08:15 09/21/16 08:15 Intake & Output 09/20/16 09/21/16 09/22/16 06:59 06:59 06:59 Intake Total 1022 657 Output Total 1 Balance 1022 656 Weight 91.7 kg 96 kg General appearance: PRESENT: no acute distress, well-developed, well-nourished Head exam: PRESENT: atraumatic, normocephalic Eye exam: PRESENT: conjunctiva pink, EOMI, PERRLA. ABSENT: scleral icterus Ear exam: PRESENT: normal external ear exam Mouth exam: PRESENT: moist, tongue midline Neck exam: ABSENT: carotid bruit, JVD, lymphadenopathy, thyromegaly Respiratory exam: PRESENT: clear to auscultation lavinia. ABSENT: rales, rhonchi, wheezes Cardiovascular exam: PRESENT: RRR. ABSENT: diastolic murmur, rubs, systolic murmur Pulses: PRESENT: normal carotid pulses, normal radial pulses Vascular exam: PRESENT: pallor GI/Abdominal exam: PRESENT: normal bowel sounds, soft. ABSENT: distended, guarding, mass, organolmegaly, rebound, tenderness Rectal exam: PRESENT: deferred Extremities exam: PRESENT: tenderness - right foot Musculoskeletal exam: PRESENT: full ROM, normal inspection Neurological exam: PRESENT: alert, awake, oriented to person, oriented to place , oriented to time, oriented to situation, CN II-XII grossly intact. ABSENT: motor sensory deficit Psychiatric exam: PRESENT: appropriate affect, normal mood. ABSENT: homicidal ideation, suicidal ideation Skin exam: PRESENT: other - left foot wound granulating well Results Laboratory Results: 09/21/16 09:25 09/18/16 06:16 09/21/16 09:25 WBC 12.3 H RBC 3.77 Hgb 11.5 L Hct 35.4 L MCV 94 MCH 30.6 MCHC 32.6 RDW 13.6 Plt Count 233 Seg Neutrophils % Not Reportable Lymphocytes % Not Reportable Monocytes % Not Reportable Eosinophils % Not Reportable Basophils % Not Reportable Absolute Neutrophils Not Reportable Absolute Lymphocytes Not Reportable Absolute Monocytes Not Reportable Absolute Eosinophils Not Reportable Absolute Basophils Not Reportable Impressions: Foot X-Ray 09/14/16 18:28 IMPRESSION: CHRONIC DEGENERATIVE CHANGES. NO ACUTE FINDINGS. NO DEFINITIVE RADIOGRAPHIC EVIDENCE OF SOFT TISSUE ABSCESS OR OF OSTEOMYELITIS. Chest X-Ray 09/18/16 00:00 IMPRESSION: No significant interval change. Cardiomegaly. No acute consolidations are identified. Assessment & Plan - Diagnosis (1) Decubitus ulcer of left heel Qualifiers: Pressure ulcer stage: unspecified pressure ulcer stage Qualified Code(s): L89.629 - Pressure ulcer of left heel, unspecified stage Is this a current diagnosis for this admission?: YesPlan: Continue local wound care per surgialist. Continue IV antibiotics improving WBC count (2) Cellulitis of left leg without foot Is this a current diagnosis for this admission?: YesPlan: Much improved with IV antibiotics. Blood cultures negative (3) Sepsis Qualifiers: Sepsis type: sepsis due to unspecified organism Qualified Code(s): A41.9 - Sepsis, unspecified organism Is this a current diagnosis for this admission?: YesPlan: This has resolved with IV antibiotics and fluid resuscitation (4) VALENTINA (acute kidney injury) Is this a current diagnosis for this admission?: YesPlan: Resolved back to chronic kidney disease stage 3 with IV hydration (5) Urinary tract infection Qualifiers: Urinary tract infection type: site unspecified Is this a current diagnosis for this admission?: YesPlan: Patient grew e coli appropriate antibiotic coverage at the present time. She is on invanz. she has multiple drug allergies and ERIC shows resistance to fluoroquinolones (6) Decubitus ulcer of buttock, stage 1 Qualifiers: Laterality: left Qualified Code(s): L89.321 - Pressure ulcer of left buttock, stage 1 Is this a current diagnosis for this admission?: NoPlan: Nursing care protocol (7) Anemia of chronic disease Is this a current diagnosis for this admission?: YesPlan: Stable will continue to monitor - Time Time Spent with patient: 25-34 minutes Critical Time spent with patient: 15-24 minutes Medications reviewed and adjusted accordingly: Yes Anticipated discharge: SNF Within: within 48 hours
[2016-09-21] MEDS: INSULIN GLARGINE,HUM.REC.ANLOG 1,000 UNIT/10 ML UNIT SUBCUT SCH (22:50)
[2016-09-21] MEDS: ATORVASTATIN CALCIUM 10 MG TABLET PO SCH (23:46)
[2016-09-22] MEDS: LANSOPRAZOLE 15 MG TAB.RAP.DR PO SCH (09:29)
[2016-09-22] MEDS: FERROUS SULFATE 325 MG TABLET PO SCH (09:29)
[2016-09-22] MEDS: ESCITALOPRAM OXALATE 10 MG TABLET PO SCH (09:29)
[2016-09-22] MEDS: POTASSIUM CHLORIDE 10 MEQ TABLET.SA PO SCH (09:29)
[2016-09-22] MEDS: DOCUSATE SODIUM 100 MG CAPSULE PO SCH ×2 (09:29→17:59)
[2016-09-22] MEDS: CETIRIZINE 10 MG TABLET PO SCH (09:29)
[2016-09-22] MEDS: ASPIRIN 81 MG TABLET, CHEWABLE PO SCH (09:29)
[2016-09-22] MEDS: MAGNESIUM OXIDE 400 MG TABLET PO SCH (09:29)
[2016-09-22] MEDS: INSULIN GLARGINE,HUM.REC.ANLOG 1,000 UNIT/10 ML UNIT SUBCUT SCH ×2 (09:30→21:22)
[2016-09-22] MEDS: HEPARIN SOD (PORCINE) 5,000 UNIT/ML 1 ML SYRINGE SUBCUT SCH ×2 (09:30→21:22)
[2016-09-22] MEDS: GABAPENTIN 100 MG CAPSULE PO SCH ×2 (09:30→21:22)
[2016-09-22] MEDS: CARVEDILOL 6.25 MG TABLET PO SCH ×2 (09:30→21:22)
[2016-09-22] MEDS: CLOPIDOGREL BISULFATE 75 MG TABLET PO SCH (09:31)
[2016-09-22] MEDS: FUROSEMIDE 80 MG TABLET PO SCH (09:34)
[2016-09-22] MEDS: NYSTATIN TOPICAL POWDER 15 GM TP SCH ×2 (09:34→17:59)
[2016-09-22] MEDS: COLLAGENASE CLOSTRIDIUM HIST. OINT 30 GM TOP SCH (10:00)
[2016-09-22] MEDS: ERTAPENEM SODIUM 1 GM in NORMAL SALINE 50 ML IV SCH (10:33)
--- NOTE | 2016-09-22 13:22 | PDOC PROGRESS REPORT ---
Subjective Progress Note for:: 09/22/16 Subjective:: Patient is seen on morning rounds. She is presently resting in bed. She denies any shortness of breath, chest pain or dyspnea. She denies any nausea, vomiting , diarrhea or abdominal pain. She states she has pain in the right lower extremity. She denies any pain in the left heel decubitus. She states she slept well without any complaints. She otherwise has no complaints at the present time. Physical Exam Vital Signs: Temp Pulse Resp BP Pulse Ox 98.5 F 69 16 135/51 H 95 09/22/16 07:46 09/22/16 07:46 09/22/16 07:46 09/22/16 07:46 09/22/16 07:46 Intake & Output 09/21/16 09/22/16 09/23/16 06:59 06:59 06:59 Intake Total 657 601 Output Total 1 Balance 656 601 Weight 96 kg 95.8 kg General appearance: PRESENT: no acute distress, well-developed, well-nourished Head exam: PRESENT: atraumatic, normocephalic Eye exam: PRESENT: conjunctiva pink, EOMI, PERRLA. ABSENT: scleral icterus Ear exam: PRESENT: normal external ear exam Mouth exam: PRESENT: moist, tongue midline Teeth exam: PRESENT: poor dentation Neck exam: ABSENT: carotid bruit, JVD, lymphadenopathy, thyromegaly Respiratory exam: PRESENT: clear to auscultation lavinia. ABSENT: rales, rhonchi, wheezes Cardiovascular exam: PRESENT: RRR. ABSENT: diastolic murmur, rubs, systolic murmur Pulses: PRESENT: normal dorsalis pedis pul Vascular exam: PRESENT: normal capillary refill GI/Abdominal exam: PRESENT: normal bowel sounds, soft. ABSENT: distended, guarding, mass, organolmegaly, rebound, tenderness Rectal exam: PRESENT: deferred Extremities exam: PRESENT: full ROM. ABSENT: calf tenderness, clubbing, pedal edema Neurological exam: PRESENT: alert, awake, oriented to person, oriented to place , oriented to time, oriented to situation, CN II-XII grossly intact. ABSENT: motor sensory deficit Psychiatric exam: PRESENT: appropriate affect, normal mood. ABSENT: homicidal ideation, suicidal ideation Skin exam: PRESENT: dry, intact, warm. ABSENT: cyanosis, rash Results Laboratory Results: 09/21/16 09:25 09/18/16 06:16 09/16/16 15:45 Blood Blood Culture - Final NO GROWTH IN 5 DAYS 09/16/16 12:50 Blood Blood Culture - Final NO GROWTH IN 5 DAYS Impressions: Foot X-Ray 09/14/16 18:28 IMPRESSION: CHRONIC DEGENERATIVE CHANGES. NO ACUTE FINDINGS. NO DEFINITIVE RADIOGRAPHIC EVIDENCE OF SOFT TISSUE ABSCESS OR OF OSTEOMYELITIS. Chest X-Ray 09/18/16 00:00 IMPRESSION: No significant interval change. Cardiomegaly. No acute consolidations are identified. Assessment & Plan - Diagnosis (1) Decubitus ulcer of left heel Qualifiers: Pressure ulcer stage: unspecified pressure ulcer stage Qualified Code(s): L89.629 - Pressure ulcer of left heel, unspecified stage Is this a current diagnosis for this admission?: YesPlan: Continue local wound care per surgialist. Continue IV antibiotics improving WBC count (2) Cellulitis of left leg without foot Is this a current diagnosis for this admission?: Yes (3) Sepsis Qualifiers: Sepsis type: sepsis due to unspecified organism Qualified Code(s): A41.9 - Sepsis, unspecified organism Is this a current diagnosis for this admission?: YesPlan: This has resolved with IV antibiotics and fluid resuscitation (4) VALENTINA (acute kidney injury) Is this a current diagnosis for this admission?: YesPlan: Resolved back to chronic kidney disease stage 3 with IV hydration (5) Urinary tract infection Qualifiers: Urinary tract infection type: site unspecified Is this a current diagnosis for this admission?: YesPlan: Patient grew e coli appropriate antibiotic coverage at the present time. She is on invanz. she has multiple drug allergies and ERIC shows resistance to fluoroquinolones (6) Decubitus ulcer of buttock, stage 1 Qualifiers: Laterality: left Qualified Code(s): L89.321 - Pressure ulcer of left buttock, stage 1 Is this a current diagnosis for this admission?: NoPlan: Nursing care protocol (7) Anemia of chronic disease Is this a current diagnosis for this admission?: YesPlan: Stable will continue to monitor - Time Time Spent with patient: 25-34 minutes Critical Time spent with patient: 15-24 minutes Medications reviewed and adjusted accordingly: Yes Anticipated discharge: SNF Within: within 24 hours
[2016-09-22] MEDS ORDERED: HYDROXYZINE HCL 10 MG TABLET PO PRN (14:04)
[2016-09-22] MEDS ORDERED: SODIUM CHLORIDE NASAL SPRAY 44 ML NASL PRN (14:08)
[2016-09-22] MEDS: ATORVASTATIN CALCIUM 10 MG TABLET PO SCH (21:22)
[2016-09-23 07:54] LABS: ABSOLUTE BASOPHILS # (AUTO) 0.1 10^3/uL (0.0-0.2); ABSOLUTE EOSINOPHILS # (AUTO) 0.4 10^3/uL (0.0-0.6); ABSOLUTE LYMPHOCYTES (AUTO) 4.1 10^3/uL (0.5-4.7); ABSOLUTE MONOCYTES (AUTO) 0.8 10^3/uL (0.1-1.4); ABSOLUTE NEUT (AUTO) 10.5 10^3/uL (1.7-8.2); BASOPHILS % (AUTO) 0.5 % (0-2); EOSINOPHILS % (AUTO) 2.7 % (0-6); HEMATOCRIT 37.4 % (36.0-47.0); HEMOGLOBIN 12.3 g/dL (12.0-15.5); HGB HCT DIFFERENCE -0.5; LYMPHOCYTES % (AUTO) 25.6 % (13-45); MEAN CORPUSCULAR HEMOGLOBIN 30.9 pg (27.0-33.4); MEAN CORPUSCULAR VOLUME 94 fl (80-97); MONOCYTES % (AUTO) 5.3 % (3-13); RED CELL DISTRIBUTION WIDTH 13.8 % (11.5-14.0); SEGMENTED NEUTROPHILS % (AUTO) 65.9 % (42-78); WHITE BLOOD COUNT 15.9 10^3/uL (4.0-10.5)
[2016-09-23 08:11] LABS: ANION GAP 17 (5-19); BLOOD UREA NITROGEN 40 mg/dL (7-20); CALCIUM 10.1 mg/dL (8.4-10.2); CARBON DIOXIDE 30 mmol/L (22-30); CHLORIDE 96 mmol/L (98-107); CREATININE RESULT 1.46 mg/dL (0.52-1.25); GLUCOSE 131 mg/dL (75-110); POTASSIUM 4.1 mmol/L (3.6-5.0); SODIUM 142.7 mmol/L (137-145)
[2016-09-23] MEDS ORDERED: NITROFURANTOIN MONOHYD/M-CRYST 100 MG CAPSULE PO SCH (10:00)
[2016-09-23] MEDS: CLOPIDOGREL BISULFATE 75 MG TABLET PO SCH (12:22)
[2016-09-23] MEDS: LANSOPRAZOLE 15 MG TAB.RAP.DR PO SCH (12:22)
[2016-09-23] MEDS: POTASSIUM CHLORIDE 10 MEQ TABLET.SA PO SCH (12:23)
[2016-09-23] MEDS: FERROUS SULFATE 325 MG TABLET PO SCH (12:23)
[2016-09-23] MEDS: MAGNESIUM OXIDE 400 MG TABLET PO SCH (12:24)
[2016-09-23] MEDS: ASPIRIN 81 MG TABLET, CHEWABLE PO SCH (12:24)
[2016-09-23] MEDS: ESCITALOPRAM OXALATE 10 MG TABLET PO SCH (12:24)
[2016-09-23] MEDS: DOCUSATE SODIUM 100 MG CAPSULE PO SCH ×2 (12:24→17:44)
[2016-09-23] MEDS: GABAPENTIN 100 MG CAPSULE PO SCH ×2 (12:24→21:41)
[2016-09-23] MEDS: CARVEDILOL 6.25 MG TABLET PO SCH ×2 (12:25→21:42)
[2016-09-23] MEDS: CETIRIZINE 10 MG TABLET PO SCH (12:25)
[2016-09-23] MEDS: FUROSEMIDE 80 MG TABLET PO SCH (12:26)
[2016-09-23] MEDS: HEPARIN SOD (PORCINE) 5,000 UNIT/ML 1 ML SYRINGE SUBCUT SCH ×2 (12:27→21:41)
[2016-09-23] MEDS: NYSTATIN TOPICAL POWDER 15 GM TP SCH ×2 (12:39→17:44)
[2016-09-23] MEDS: INSULIN GLARGINE,HUM.REC.ANLOG 1,000 UNIT/10 ML UNIT SUBCUT SCH ×2 (12:40→21:41)
--- NOTE | 2016-09-23 15:59 | PDOC PROGRESS REPORT ---
Subjective Progress Note for:: 09/23/16 Subjective:: Patient is seen on morning rounds. She is presently resting in bed. She denies any shortness of breath, chest pain or dyspnea. She denies any nausea, vomiting , diarrhea or abdominal pain. She states she has pain in the right foot from time to time otherwise has no complaints. She denies any pain in the left heel decubitus. She states she slept well without any complaints. She otherwise has no complaints at the present time. Physical Exam Vital Signs: Temp Pulse Resp BP Pulse Ox 97.5 F 77 16 148/42 H 98 09/23/16 12:21 09/23/16 12:21 09/23/16 12:21 09/23/16 12:21 09/23/16 12:21 Intake & Output 09/22/16 09/23/16 09/24/16 06:59 06:59 06:59 Intake Total 601 1600 Balance 601 1600 Weight 95.8 kg 93.4 kg General appearance: PRESENT: no acute distress, obese, well-developed, well- nourished Head exam: PRESENT: atraumatic, normocephalic Eye exam: PRESENT: conjunctiva pink, EOMI, PERRLA. ABSENT: scleral icterus Ear exam: PRESENT: normal external ear exam Mouth exam: PRESENT: moist, tongue midline Neck exam: ABSENT: carotid bruit, JVD, lymphadenopathy, thyromegaly Respiratory exam: PRESENT: clear to auscultation lavinia. ABSENT: rales, rhonchi, wheezes Cardiovascular exam: PRESENT: RRR. ABSENT: diastolic murmur, rubs, systolic murmur Pulses: PRESENT: normal dorsalis pedis pul GI/Abdominal exam: PRESENT: normal bowel sounds, soft. ABSENT: distended, guarding, mass, organolmegaly, rebound, tenderness Rectal exam: PRESENT: deferred Extremities exam: PRESENT: full ROM. ABSENT: calf tenderness, clubbing, pedal edema Musculoskeletal exam: PRESENT: tenderness - surface of right foot, nor erythema or deformity Neurological exam: PRESENT: alert, awake, oriented to person, oriented to place , oriented to time, oriented to situation, CN II-XII grossly intact. ABSENT: motor sensory deficit Psychiatric exam: PRESENT: appropriate affect, normal mood. ABSENT: homicidal ideation, suicidal ideation Skin exam: PRESENT: dry, intact, warm. ABSENT: cyanosis, rash Results Laboratory Results: 09/23/16 07:15 09/23/16 07:15 09/23/16 09/23/16 07:15 07:15 WBC 15.9 H RBC 4.00 Hgb 12.3 Hct 37.4 MCV 94 MCH 30.9 MCHC 33.0 RDW 13.8 Plt Count 292 Seg Neutrophils % 65.9 Lymphocytes % 25.6 Monocytes % 5.3 Eosinophils % 2.7 Basophils % 0.5 Absolute Neutrophils 10.5 H Absolute Lymphocytes 4.1 Absolute Monocytes 0.8 Absolute Eosinophils 0.4 Absolute Basophils 0.1 Sodium 142.7 Potassium 4.1 Chloride 96 L Carbon Dioxide 30 Anion Gap 17 BUN 40 H Creatinine 1.46 H Est GFR ( Amer) 43 L Est GFR (Non-Af Amer) 35 L Glucose 131 H Calcium 10.1 Impressions: Foot X-Ray 09/14/16 18:28 IMPRESSION: CHRONIC DEGENERATIVE CHANGES. NO ACUTE FINDINGS. NO DEFINITIVE RADIOGRAPHIC EVIDENCE OF SOFT TISSUE ABSCESS OR OF OSTEOMYELITIS. Chest X-Ray 09/18/16 00:00 IMPRESSION: No significant interval change. Cardiomegaly. No acute consolidations are identified. Assessment & Plan - Diagnosis (1) Decubitus ulcer of left heel Qualifiers: Pressure ulcer stage: unspecified pressure ulcer stage Qualified Code(s): L89.629 - Pressure ulcer of left heel, unspecified stage Is this a current diagnosis for this admission?: YesPlan: Healing and improved. No signs of drainage (2) Cellulitis of left leg without foot Is this a current diagnosis for this admission?: YesPlan: Much improved with IV antibiotics. Blood cultures negative (3) Sepsis Qualifiers: Sepsis type: sepsis due to unspecified organism Qualified Code(s): A41.9 - Sepsis, unspecified organism Is this a current diagnosis for this admission?: YesPlan: This has resolved with IV antibiotics and fluid resuscitation (4) VALENTINA (acute kidney injury) Is this a current diagnosis for this admission?: YesPlan: Resolved back to chronic kidney disease stage 3 with IV hydration (5) Urinary tract infection Qualifiers: Urinary tract infection type: site unspecified Is this a current diagnosis for this admission?: YesPlan: Patient grew e coli appropriate antibiotic coverage at the present time. Descalated to oral Ceftin 250 mg bid (6) Decubitus ulcer of buttock, stage 1 Qualifiers: Laterality: left Qualified Code(s): L89.321 - Pressure ulcer of left buttock, stage 1 Is this a current diagnosis for this admission?: NoPlan: Nursing care protocol (7) Anemia of chronic disease Is this a current diagnosis for this admission?: YesPlan: Stable will continue to monitor - Time Time Spent with patient: 25-34 minutes Critical Time spent with patient: 15-24 minutes Medications reviewed and adjusted accordingly: Yes Anticipated discharge: SNF Within: within 24 hours
[2016-09-23] MEDS: COLLAGENASE CLOSTRIDIUM HIST. OINT 30 GM TOP SCH (17:45)
[2016-09-23] MEDS: DIPHENHYDRAMINE HCL 25 MG CAPSULE PO PRN (17:46)
[2016-09-23] MEDS: CEFUROXIME 250 MG TABLET PO SCH ×2 (17:47→21:41)
[2016-09-23] MEDS: ATORVASTATIN CALCIUM 10 MG TABLET PO SCH (21:41)
[2016-09-23] MEDS: INSULIN LISPRO 100 UNIT/ML 3 ML VIAL SUBCUT PRN (22:38)
[2016-09-24] MEDS: DIPHENHYDRAMINE HCL 25 MG CAPSULE PO PRN ×2 (01:27→10:34)
[2016-09-24 05:55] LABS: ABSOLUTE BASOPHILS # (AUTO) 0.1 10^3/uL (0.0-0.2); ABSOLUTE EOSINOPHILS # (AUTO) 0.4 10^3/uL (0.0-0.6); ABSOLUTE LYMPHOCYTES (AUTO) 4.6 10^3/uL (0.5-4.7); ABSOLUTE MONOCYTES (AUTO) 0.9 10^3/uL (0.1-1.4); ABSOLUTE NEUT (AUTO) 9.9 10^3/uL (1.7-8.2); BASOPHILS % (AUTO) 0.6 % (0-2); EOSINOPHILS % (AUTO) 2.4 % (0-6); HEMATOCRIT 37.2 % (36.0-47.0); HEMOGLOBIN 12.4 g/dL (12.0-15.5); LYMPHOCYTES % (AUTO) 29.1 % (13-45); MEAN CORPUSCULAR HEMOGLOBIN 31.1 pg (27.0-33.4); MEAN CORPUSCULAR HGB CONC 33.3 g/dL (32.0-36.0); MEAN CORPUSCULAR VOLUME 93 fl (80-97); MONOCYTES % (AUTO) 5.4 % (3-13); RED BLOOD COUNT 3.99 10^6/uL (3.72-5.28); RED CELL DISTRIBUTION WIDTH 13.7 % (11.5-14.0); SEGMENTED NEUTROPHILS % (AUTO) 62.5 % (42-78); WHITE BLOOD COUNT 15.8 10^3/uL (4.0-10.5)
[2016-09-24] MEDS: FUROSEMIDE 80 MG TABLET PO SCH (07:55)
[2016-09-24] MEDS: COLLAGENASE CLOSTRIDIUM HIST. OINT 30 GM TOP SCH (10:00)
--- NOTE | 2016-09-24 10:10 | PDOC TRANSFER SUMMARY ---
General - Admit/Disc Date/PCP Admission Date/Primary Care Provider: 09/14/16 22:08 ADIA DAVID Discharge Date: 09/24/16 - Discharge Diagnosis (1) Decubitus ulcer of left heel Is this a current diagnosis for this admission?: YesSummary: Erythema resolved. Surgialist consult for wound. Wound improving with santyl daily (2) Cellulitis of left leg without foot Is this a current diagnosis for this admission?: YesSummary: Resolved with IV antibiotics (3) Sepsis Is this a current diagnosis for this admission?: YesSummary: Resolved. Secondary to left foot cellulitis and UTI (4) VALENTINA (acute kidney injury) Is this a current diagnosis for this admission?: YesSummary: Resolved secondary to infection and dehydration (5) Urinary tract infection Is this a current diagnosis for this admission?: YesSummary: Continue Ceftin 250 mg two times daily for the next 5 days (6) Decubitus ulcer of buttock, stage 1 Is this a current diagnosis for this admission?: NoSummary: Turn q2h (7) Anemia of chronic disease Is this a current diagnosis for this admission?: YesSummary: Stable H/H - Additional Information Resuscitation Status: Full Code Discharge Diet: Cardiac, Diabetic Discharge Activity: Activity As Tolerated, Balance Activity w/Rest Home Medications: Aspirin [Aspirin 81 mg Chewable Tablet] 81 mg PO DAILY 04/16/16 Cetirizine HCl [Zyrtec] 10 mg PO DAILY 04/16/16 Clopidogrel Bisulfate [Clopidogrel] 75 mg PO DAILY 04/16/16 Docusate Sodium [Dulcolax Stool Softener] 100 mg PO BID 04/16/16 Escitalopram Oxalate [Lexapro] 30 mg PO DAILY 04/16/16 Furosemide 80 mg PO QAM 04/16/16 Insulin Glargine,Hum.rec.anlog [Lantus] 65 unit SQ Q12H 04/16/16 Magnesium Oxide 400 mg PO DAILY 04/16/16 Potassium Chloride 20 meq PO DAILY 04/16/16 Magnesium Hydroxide [Milk of Magnesia] 400 mg PO BIDP PRN 04/17/16 Atorvastatin Calcium [Lipitor 10 mg Tablet] 10 mg PO QHS tablet 04/27/16 Carvedilol [Coreg 6.25 mg Tablet] 6.25 mg PO Q12 tablet 04/27/16 Ferrous Sulfate [Feosol 325 mg Tablet] 325 mg PO DAILY tablet 04/27/16 Insulin Lispro [Humalog Insulin (Lispro) 100 unit/mL] 0 - 12 unit SUBCUT ACHSP PRN unit 04/27/16 Lansoprazole [Prevacid 15 mg Odt Tablet] 15 mg PO DAILY tab.pee. 04/27/16 Sodium Chloride [[place] Nasal Lucien 44 ml Bottle] 1 spray NASL BIDP PRN bottle 04/27/16 Gabapentin [Neurontin 100 mg Capsule] 100 mg PO Q12 07/12/16 Acetaminophen [Tylenol 325 mg Tablet] 650 mg PO Q4HP PRN tablet 09/24/16 Cefuroxime Axetil [Ceftin 250 mg Tablet] 250 mg PO Q12 #10 tablet 09/24/16 Collagenase Clostridium Hist. [Santyl Ointment 30 gm] 1 applic TOP DAILY tube 09/24/16 Diphenhydramine HCl [Benadryl 25 mg Capsule] 25 mg PO Q6HP PRN capsule Docusate Sodium [Colace 100 mg Capsule] 100 mg PO BID capsule 09/24/16 Fluticasone Propionate [Flonase Nasal Lucien 50 Mcg/Lucien 16 gm] 2 spray NASL DAILY spray.pump 09/24/16 Miconazole Nitrate [Desenex 2% Aerosol Powder 130 gm] 1 applic TP BID can 09/24 Nystatin [Mycostatin Topical Powder 15 gm] 1 applic TP BID bottle 09/24/16 Olopatadine HCl [Patanol 0.1% Oph Soln 5 ml] 1 drop OU DAILY bottle 09/24/16 History of Present Illness Admission Date/PCP: 09/14/16 22:08 ADIA DAVID History of Present Illness: IGNACIO ULRICH is a 70 year old female resident of [facility], with multiple underlying chronic health problems, to be further delineated below, who presents to the emergency room for evaluation of above complaints. Patient has been discussed with emergency room physician who evaluated the patient. Patient is oriented only to the fact that she is in the hospital and that she has had pain, although none at present, and is able to provide no history whatsoever in terms of acute or chronic events, review of systems, personal habits, family history, etc. No friends or family are present. Old inpatient records are reviewed.. care home staff noted redness of her left lower leg. No further information available this point in time. Laboratory results are listed in [facility] and are reviewed. X-ray summary results are listed below, with full report(s) reviewed. . Social history/personal habits: Resident of [facility]. No further information available this point in time. Allergies/adverse reactions are listed in [facility] and are reviewed. Home medications are reviewed him a copy of the [facility] and are to be reconciled by nursing and/or pharmacy staff in [facility]. Correction medications [facility] may not accurately reflect patient's true medications, dosages, and/or frequencies. REVIEW OF SYSTEMS: See history and present illness. No further information available this point in time. PHYSICAL EXAMINATION: 5 feet 5 inches tall. Weight is not recorded on the chart. Blood pressure 142/ 54. Temperature 99.9. Pulse 94 and regular. Respirations are 20 and unlabored. 95% saturation on room air. Obese otherwise well-developed though chronically ill-appearing female , who nevertheless appears approximately her stated age. Initially asleep, but awakens easily. Mildly anxious, but otherwise no obvious distress. Alert and cooperative. Skin is warm and dry. No grossly obvious evidence of rash in areas of skin examined. No subcutaneous nodules palpated. See comments under "extremities" below. ENT: Hearing grossly normal to normal conversation. Tongue midline on protrusion pink and tacky. Poor dentition. Eyes: No scleral icterus. Pupils equal and reactive to light at 4 mm. [place] conjunctivae. Neck is supple and nontender to gentle active range of motion and palpation. Midline trachea. No palpable thyroid nodule mass enlargement or tenderness. Lymphatic: No palpable cervical or clavicular nodes. Neck and lymphatic exams limited by patient body habitus. Psychiatric: Disoriented. Lungs: Auscultation reveals equal breath sounds bilaterally. Possible slightly coarse breath sounds bilaterally, but not very prominent. No use of accessory respiratory muscles. Cardiovascular: Heart regular rate and rhythm, without gallop murmur or rub. No carotid or abdominal aortic bruits. No right ankle or pedal edema; mild left. Faintly palpable dorsalis pedis pulses. Abdomen: soft, obese, nontender with positive bowel sounds. Unable to adequately evaluate abdomen for masses or organomegaly due to body habitus. Extremities: Feet are warm and dry. No calf tenderness to compression. No grossly obvious visual evidence of right calf swelling; very subtle left calf swelling. Gentle manipulation of lower extremities fails to reveal any obvious evidence of injury or instability to knees hips or ankles. Examination of the left lower extremity reveals area of inflammation and warmth involving primarily the anteromedial aspect of the majority of the leg between the knee and ankle. Much smaller area of involvement in the distal medial left thigh, adjacent to the knee joint. No crepitus fluctuance or expressible discharge. Adherent opaque dressing is present over the left heel; this is left in place. Neurologic: Moves upper extremities grossly normally. Patellar reflexes absent. Absent Babinski. Light touch can't be adequately determined due to her mental status.. 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 Hospital Course Hospital Course: Patient was admitted on telemetry to the hospitalist service. She had surgialist consult for left foot wound management. She had minor bedside debridement of the left foot ulcer followed by santyl dressing changes daily by nursing. The wound improved. She was started on IV broad spectrum antibiotics for left foot cellulitis and UTI. Blood cultures remained negative. Urine culture grew Enterococcus Group D with colleen sensitvity showing some resistance to fluoroquinolones. She progressed and was transitioned to oral antibiotics on 09/23. She is ready for transfer back to [facility] Physical Exam Vital Signs: Temp Pulse Resp BP Pulse Ox 98.4 F 87 18 143/77 H 98 09/24/16 07:53 09/24/16 07:53 09/24/16 07:53 09/24/16 07:53 09/24/16 07:53 Intake & Output 09/23/16 09/24/16 09/25/16 06:59 06:59 06:59 Intake Total 1600 508 Balance 1600 508 Weight 93.4 kg 93.4 kg General appearance: PRESENT: no acute distress, obese, well-developed, well- nourished Head exam: PRESENT: atraumatic, normocephalic Eye exam: PRESENT: conjunctiva pale Ear exam: PRESENT: normal external ear exam Mouth exam: PRESENT: moist, tongue midline Teeth exam: PRESENT: edentulous Neck exam: ABSENT: carotid bruit, JVD, lymphadenopathy, thyromegaly Respiratory exam: PRESENT: clear to auscultation lavinia. ABSENT: rales, rhonchi, wheezes Cardiovascular exam: PRESENT: RRR. ABSENT: diastolic murmur, rubs, systolic murmur Pulses: PRESENT: normal dorsalis pedis pul Vascular exam: PRESENT: normal capillary refill GI/Abdominal exam: PRESENT: normal bowel sounds, soft. ABSENT: distended, guarding, mass, organolmegaly, rebound, tenderness Rectal exam: PRESENT: deferred Extremities exam: PRESENT: full ROM. ABSENT: calf tenderness, clubbing, pedal edema Musculoskeletal exam: PRESENT: full ROM, normal inspection Neurological exam: PRESENT: alert, awake, oriented to person, oriented to place , oriented to time, oriented to situation, CN II-XII grossly intact. ABSENT: motor sensory deficit Psychiatric exam: PRESENT: appropriate affect, normal mood. ABSENT: homicidal ideation, suicidal ideation Skin exam: PRESENT: dry, intact, warm, other - left foot ulcer granulating well no signs of erythema. ABSENT: cyanosis, rash Results Laboratory Results: 09/24/16 05:21 09/23/16 07:15 09/24/16 05:21 WBC 15.8 H RBC 3.99 Hgb 12.4 Hct 37.2 MCV 93 MCH 31.1 MCHC 33.3 RDW 13.7 Plt Count 242 Seg Neutrophils % 62.5 Lymphocytes % 29.1 Monocytes % 5.4 Eosinophils % 2.4 Basophils % 0.6 Absolute Neutrophils 9.9 H Absolute Lymphocytes 4.6 Absolute Monocytes 0.9 Absolute Eosinophils 0.4 Absolute Basophils 0.1 Impressions: Foot X-Ray 09/14/16 18:28 IMPRESSION: CHRONIC DEGENERATIVE CHANGES. NO ACUTE FINDINGS. NO DEFINITIVE RADIOGRAPHIC EVIDENCE OF SOFT TISSUE ABSCESS OR OF OSTEOMYELITIS. Chest X-Ray 09/18/16 00:00 IMPRESSION: No significant interval change. Cardiomegaly. No acute consolidations are identified. Transfer Plan - Disposition Transfer Plan: Transfer back to [facility] - Time Spent with Patient Time spent with patient: Less than 30 Minutes Qualifiers PATEINT BEING DISCHARGED WITH ANY OF THE FOLLOWING DIAGNOSIS?: No
[2016-09-24] MEDS: NYSTATIN TOPICAL POWDER 15 GM TP SCH (10:27)
[2016-09-24] MEDS: MAGNESIUM OXIDE 400 MG TABLET PO SCH (10:28)
[2016-09-24] MEDS: CARVEDILOL 6.25 MG TABLET PO SCH (10:28)
[2016-09-24] MEDS: GABAPENTIN 100 MG CAPSULE PO SCH (10:29)
[2016-09-24] MEDS: ASPIRIN 81 MG TABLET, CHEWABLE PO SCH (10:29)
[2016-09-24] MEDS: CETIRIZINE 10 MG TABLET PO SCH (10:30)
[2016-09-24] MEDS ORDERED: OLOPATADINE HCL 0.1% OPH SOLN 5 ML ONE (10:30)
[2016-09-24] MEDS: POTASSIUM CHLORIDE 10 MEQ TABLET.SA PO SCH (10:30)
[2016-09-24] MEDS: LANSOPRAZOLE 15 MG TAB.RAP.DR PO SCH (10:30)
[2016-09-24] MEDS: FERROUS SULFATE 325 MG TABLET PO SCH (10:30)
[2016-09-24] MEDS ORDERED: FLUTICASONE NASAL SPRAY 50 MCG/SPRY 120 SPRAY/16 GM ONE (10:30)
[2016-09-24] MEDS: CEFUROXIME 250 MG TABLET PO SCH (10:30)
[2016-09-24] MEDS: CLOPIDOGREL BISULFATE 75 MG TABLET PO SCH (10:30)
[2016-09-24] MEDS: DOCUSATE SODIUM 100 MG CAPSULE PO SCH (10:30)
[2016-09-24] MEDS: ESCITALOPRAM OXALATE 10 MG TABLET PO SCH (10:31)
[2016-09-24] MEDS: HEPARIN SOD (PORCINE) 5,000 UNIT/ML 1 ML SYRINGE SUBCUT SCH (10:31)
[2016-09-24] MEDS: INSULIN GLARGINE,HUM.REC.ANLOG 1,000 UNIT/10 ML UNIT SUBCUT SCH (10:31)
[2016-09-24] MEDS ORDERED: FLUTICASONE NASAL SPRAY 50 MCG/SPRY 120 SPRAY/16 GM NASL ONE (12:00)
[2016-09-24] MEDS ORDERED: OLOPATADINE HCL 0.1% OPH SOLN 5 ML OU ONE (12:00)
[2016-09-24] MEDS ORDERED: POLYETHYLENE GLYCOL 3350 POWDER 17 GM/1 PACKET PO ONE (12:00)
[2016-09-24 13:01] VITALS: BP 140/43
[2016-09-24] MEDS ORDERED: MICONAZOLE NITRATE 2% AEROSOL POWDER 130 GM TP SCH (18:00)
[2016-09-25] MEDS ORDERED: FLUTICASONE NASAL SPRAY 50 MCG/SPRY 120 SPRAY/16 GM NASL SCH (10:00)
[2016-09-25] MEDS ORDERED: OLOPATADINE HCL 0.1% OPH SOLN 5 ML OU SCH (10:00)
== END 2016-09-24 15:54 | DRG 871 ==
LOC: ER 15:26 → EH 21:05 → UNDOADMIN 21:05 → EH 22:08 → 5 09-15 01:37
PROVIDERS: ADMIT Family Medicine; ATTEND Family Medicine
DX: A41.9 Sepsis, unspecified organism (principal); L89.623 Pressure ulcer of left heel, stage 3; L03.116 Cellulitis of left lower limb; N39.0 Urinary tract infection, site not specified; I50.32 Chronic diastolic (congestive) heart failure; N17.9 Acute kidney failure, unspecified; I13.0 Hypertensive heart and chronic kidney disease with heart failure and stage 1 through stage 4 chronic kidney disease, or unspecified chronic kidney disease; E10.22 Type 1 diabetes mellitus with diabetic chronic kidney disease; E10.621 Type 1 diabetes mellitus with foot ulcer; I25.10 Atherosclerotic heart disease of native coronary artery without angina pectoris; E78.5 Hyperlipidemia, unspecified; E87.5 Hyperkalemia; N18.3 Chronic kidney disease, stage 3 (moderate); L89.520 Pressure ulcer of left ankle, unstageable; D69.6 Thrombocytopenia, unspecified; D63.8 Anemia in other chronic diseases classified elsewhere; L89.301 Pressure ulcer of unspecified buttock, stage 1; F17.220 Nicotine dependence, chewing tobacco, uncomplicated; B96.20 Unspecified Escherichia coli [E. coli] as the cause of diseases classified elsewhere; F03.90 Unspecified dementia, unspecified severity, without behavioral disturbance, psychotic disturbance, mood disturbance, and anxiety; I25.2 Old myocardial infarction; Z88.3 Allergy status to other anti-infective agents; Z88.0 Allergy status to penicillin; Z88.2 Allergy status to sulfonamides; Z86.14 Personal history of Methicillin resistant Staphylococcus aureus infection; Z79.82 Long term (current) use of aspirin; Z79.4 Long term (current) use of insulin
CPT/HCPCS: 36415; 71010; 80048; 80053; 81001; 82962; 83735; 84550; 85025; 85027; 87040; 87077; 87086; 87088; 87186; 93005; 93010; 99284; G8996-GN; G8997-GN; G8998-GN; J1335; J1644; J1815; J1956; J3370; J3490; J7030; J7060

== ENCOUNTER → 2016-11-04 | Outpatient (CLI) | payer MEDICARE, MEDICAID | LOC: RAD 13:14 | PROVIDERS: ATTEND Preventive Medicine Undersea and Hyperbaric Medicine | DX: L97.422 Non-pressure chronic ulcer of left heel and midfoot with fat layer exposed (principal) ==

== ENCOUNTER 2016-11-08 12:12 | Emergency (ER) | payer MEDICARE, MEDICAID ==
[2016-11-08 15:08] LABS: ABSOLUTE BASOPHILS # (AUTO) 0.1 10^3/uL (0.0-0.2); ABSOLUTE EOSINOPHILS # (AUTO) 0.6 10^3/uL (0.0-0.6); ABSOLUTE LYMPHOCYTES (AUTO) 3.3 10^3/uL (0.5-4.7); ABSOLUTE MONOCYTES (AUTO) 1.2 10^3/uL (0.1-1.4); BASOPHILS % (AUTO) 0.6 % (0-2); EOSINOPHILS % (AUTO) 3.8 % (0-6); HEMATOCRIT 34.2 % (36.0-47.0); HEMOGLOBIN 11.6 g/dL (12.0-15.5); HGB HCT DIFFERENCE 0.6; LYMPHOCYTES % (AUTO) 20.2 % (13-45); MEAN CORPUSCULAR HGB CONC 33.8 g/dL (32.0-36.0); MEAN CORPUSCULAR VOLUME 95 fl (80-97); MONOCYTES % (AUTO) 7.4 % (3-13); RED BLOOD COUNT 3.62 10^6/uL (3.72-5.28); RED CELL DISTRIBUTION WIDTH 13.2 % (11.5-14.0); WHITE BLOOD COUNT 16.2 10^3/uL (4.0-10.5)
--- NOTE | 2016-11-08 15:10 | ER Document Report ---
ED Extremity Problem, Lower - General Chief Complaint: Leg Pain Stated Complaint: POSSIBLE LEG INFECTION Time seen by provider: 14:10 Mode of Arrival: Medic Information source: Patient, Emergency Med Personnel, [facility] Records Notes: This 71-year-old female patient comes [facility] to have a P[facility] line inserted. The [facility] called earlier and the charge nurse asked them to have it done as an outpatient, but they sent her to the emergency room instead. She does have a chronic cellulitis and MRSA infected heel ulcer on the left lower extremity. She states she feels fine other than the discomfort in her leg and foot. TRAVEL OUTSIDE OF THE [place] IN LAST 30 DAYS: No - Related Data Allergies/Adverse Reactions: penicillin G [Penicillin G] Allergy (Intermediate, Verified 09/14/16 15:37) Generalized rash Sulfa (Sulfonamide Antibiotics) Allergy (Intermediate, Verified 09/14/16 15:37) cephalexin monohydrate [From Keflex] Adverse Reaction (Intermediate, Verified 15:37) itching, rash, Past Medical History - General Information source: Patient, Emergency Med Personnel, [facility] Records - Social History Smoking Status: Former Smoker Cigarette use (# per day): No Chew tobacco use (# tins/day): No Smoking Education Provided: No Frequency of alcohol use: None Drug Abuse: None Occupation: retired Lives with: [facility] Family History: Malignancy, CAD, Reviewed & Not Pertinent - Past Medical History Cardiac Medical History: Reports: Hx Congestive Heart Failure - EF of 45%, Hx Coronary Artery Disease, Hx Heart Attack, Hx Hypercholesterolemia, Hx Hypertension Pulmonary Medical History: Reports: Hx Asthma, Hx COPD EENT Medical History: Reports: None Neurological Medical History: Reports: Other - Post polio syndrome with dysarthria, weakness and ambulatory dysfunction Endocrine Medical History: Reports: Hx Diabetes Mellitus Type 2 Renal/ Medical History: Reports: Hx Renal Insufficiency GI Medical History: Reports: Hx Gastroesophageal Reflux Disease Musculoskeltal Medical History: Reports Hx Muscle Weakness - Post polio syndrome Skin Medical History: Reports Hx MRSA, Reports Hx Psoriasis Psychiatric Medical History: Reports: Hx Anxiety, Hx Dementia, Hx Depression Infectious Medical History: Reports: Hx MRSA Past Surgical History: Reports: Hx Cardiac Catheterization, Hx Section , Hx Coronary Stent, Hx Hysterectomy, Hx Orthopedic Surgery - right hand - Immunizations Hx Diphtheria, Pertussis, Tetanus Vaccination: No Hx Pneumococcal Vaccination: 06/02/14 Review of Systems - Review of Systems Constitutional: No symptoms reported EENT: No symptoms reported Cardiovascular: No symptoms reported Respiratory: No symptoms reported Gastrointestinal: No symptoms reported Genitourinary: No symptoms reported Female Genitourinary: Post menopausal Musculoskeletal: Other - Left leg pain Skin: No symptoms reported Hematologic/Lymphatic: No symptoms reported Neurological/Psychological: Weakness Physical Exam - Vital signs Vitals: Temp Pulse Resp BP Pulse Ox 98.3 F 77 14 137/57 H 96 11/08/16 12:26 11/08/16 12:26 11/08/16 12:26 11/08/16 12:11/08/16 12:26 - General General appearance: Appears well, Alert In distress: None - HEENT Head: Normocephalic, Atraumatic Eyes: Normal Pupils: PERRL Neck: Normal - Respiratory Respiratory status: No respiratory distress Breath sounds: Normal - Cardiovascular Rhythm: Regular Heart sounds: Normal auscultation Murmur: Yes - systolic murmur Systolic murmur grade 1-6: 2 - Abdominal Inspection: Obese Bowel sounds: Normal Tenderness: Nontender - Back Back: Normal - Extremities General upper extremity: Normal inspection General lower extremity: Other - Left leg has tender warm erythema and the left heel has a bandaged pressure ulcer - Neurological Neuro grossly intact: Yes - except for some weakness secondary to the postpolio syndrome - Psychological Associated symptoms: Normal affect, Normal mood - Skin Skin Temperature: Warm Skin Moisture: Dry Skin Color: Normal Course - Vital Signs Vital signs: Temp Pulse Resp BP Pulse Ox 98.3 F 77 14 137/57 H 96 11/08/16 12:26 11/08/16 12:26 11/08/16 12:26 11/08/16 12:11/08/16 12:26 - Laboratory Result Diagrams: 11/08/16 15:00 11/08/16 15:00 Laboratory results interpreted by me: 11/08/16 11/08/16 15:00 15:00 WBC 16.2 H RBC 3.62 L Hgb 11.6 L Hct 34.2 L Absolute Neutrophils 11.0 H BUN 47 H Creatinine 1.28 H Est GFR ( Amer) 50 L Est GFR (Non-Af Amer) 41 L Discharge - Discharge Clinical Impression: Status post PICC central line placement Condition: Stable Disposition: SNF Additional Instructions: FOLLOW UP WITH YOUR DOCTOR. RETURN TO THE EMERGENCY ROOM IF ANY NEW OR WORSENING SYMPTOMS.
[2016-11-08 15:23] LABS: ANION GAP 12 (5-19); BLOOD UREA NITROGEN 47 mg/dL (7-20); CALCIUM 9.2 mg/dL (8.4-10.2); CARBON DIOXIDE 30 mmol/L (22-30); CHLORIDE 98 mmol/L (98-107); CREATININE RESULT 1.28 mg/dL (0.52-1.25); GLUCOSE 83 mg/dL (75-110); SODIUM 139.6 mmol/L (137-145)
[2016-11-08 15:27] LABS: POTASSIUM 4.3 mmol/L (3.6-5.0)
[2016-11-08 17:03] VITALS: BP 162/63
== END 2016-11-08 17:00 ==
LOC: ER 12:12
DX: E11.621 Type 2 diabetes mellitus with foot ulcer (principal); L97.429 Non-pressure chronic ulcer of left heel and midfoot with unspecified severity; L03.116 Cellulitis of left lower limb; B95.62 Methicillin resistant Staphylococcus aureus infection as the cause of diseases classified elsewhere; I25.10 Atherosclerotic heart disease of native coronary artery without angina pectoris; I25.2 Old myocardial infarction; I10 Essential (primary) hypertension; J44.9 Chronic obstructive pulmonary disease, unspecified; G14 Postpolio syndrome; Z88.0 Allergy status to penicillin; Z98.61 Coronary angioplasty status; Z88.2 Allergy status to sulfonamides; Z87.891 Personal history of nicotine dependence
CPT/HCPCS: 99284; 36415; 85025; 80048; 36569; 77001; 76937; J1642

== ENCOUNTER 2016-12-06 03:35 | Emergency (ER) | payer MEDICARE, MEDICAID ==
--- NOTE | 2016-12-06 06:04 | ER Document Report ---
ED Fever - General Mode of Arrival: Medic Information source: Patient, [facility] Records, Outside Facility Records TRAVEL OUTSIDE OF THE [place] IN LAST 30 DAYS: No - HPI Patient complains to provider of: Difficulty Breathing Onset: Yesterday Onset/Duration: Gradual, Worse Context: Cough, Diarrhea, Nausea/vomiting Associated symptoms: Nonproductive cough, Diarrhea, Nausea, Vomiting Recently seen / treated by doctor: Yes - PICC for cellulitis <VERNON LE - Last Filed: 12/06/16 07:07> <FELIX ADAMS - Last Filed: 12/06/16 21:17> - General Chief Complaint: Fever Stated Complaint: POSSIBLE FEVER Notes: Patient is a 71 y/o female, with medical history including dementia, presenting to the emergency department from [facility] with chief complaint of difficulty breathing. Patient admits to cough and chest congestion that is uncomfortable due to inability to expel any mucous when she coughs. Patient also states that she has been having intermittent nausea, vomiting, and diarrhea for the past few weeks, and recently had a PICC placed for antibiotic administration for cellulitis in patient's left heel. (VERNON LE) - Related Data Allergies/Adverse Reactions: penicillin G [Penicillin G] Allergy (Intermediate, Verified 09/14/16 15:37) Generalized rash Sulfa (Sulfonamide Antibiotics) Allergy (Intermediate, Verified 09/14/16 15:37) cephalexin monohydrate [From Keflex] Adverse Reaction (Intermediate, Verified 15:37) itching, rash, Past Medical History - General Information source: Patient, [facility] Records - Social History Smoking Status: Never Smoker Chew tobacco use (# tins/day): Yes Frequency of alcohol use: None Drug Abuse: None Family History: Malignancy, CAD, Reviewed & Not Pertinent - Past Medical History Cardiac Medical History: Reports: Hx Congestive Heart Failure - EF of 45%, Hx Coronary Artery Disease, Hx Heart Attack, Hx Hypercholesterolemia, Hx Hypertension Pulmonary Medical History: Reports: Hx Asthma, Hx COPD Denies: Hx Bronchitis, Hx Pneumonia Neurological Medical History: Denies: Hx Cerebrovascular Accident, Hx Migraine, Hx Seizures Endocrine Medical History: Reports: Hx Diabetes Mellitus Type 2 Renal/ Medical History: Reports: Hx Renal Insufficiency. Denies: Hx Peritoneal Dialysis GI Medical History: Reports: Hx Gastroesophageal Reflux Disease Musculoskeltal Medical History: Denies Hx Arthritis, Reports Hx Muscle Weakness - Post polio syndrome Skin Medical History: Reports Hx MRSA, Reports Hx Psoriasis Psychiatric Medical History: Reports: Hx Anxiety, Hx Dementia, Hx Depression Infectious Medical History: Reports: Hx MRSA Past Surgical History: Reports: Hx Cardiac Catheterization, Hx Section , Hx Coronary Stent, Hx Hysterectomy, Hx Orthopedic Surgery - right hand - Immunizations Hx Diphtheria, Pertussis, Tetanus Vaccination: No Hx Pneumococcal Vaccination: 06/02/14 <VERNON LE - Last Filed: 12/06/16 07:07> Review of Systems - Review of Systems Constitutional: No symptoms reported EENT: No symptoms reported Cardiovascular: No symptoms reported Respiratory: See HPI, Cough. denies: Sputum Gastrointestinal: See HPI, Diarrhea, Nausea, Vomiting Genitourinary: No symptoms reported Female Genitourinary: No symptoms reported Musculoskeletal: No symptoms reported Skin: No symptoms reported Hematologic/Lymphatic: No symptoms reported Neurological/Psychological: No symptoms reported -: Yes All other systems reviewed and negative <VERNON LE - Last Filed: 12/06/16 07:07> Physical Exam - General General appearance: Alert - HEENT Head: Normocephalic, Atraumatic Eyes: Normal Pupils: PERRL - Respiratory Respiratory status: No respiratory distress Breath sounds: Rhonchi - Cardiovascular Rhythm: Regular Heart sounds: Normal auscultation Murmur: No - Abdominal Inspection: Obese Tenderness: Nontender - Back Back: Normal, Nontender - Extremities General upper extremity: Nontender, Other - PICC R. upper arm General lower extremity: Normal inspection, Nontender - Neurological Neuro grossly intact: Yes Cognition: Other - History of Dementia, but rather lucid and good historian. Orientation: AAOx4 [place] Coma Scale Eye Opening: Spontaneous [place] Coma Scale Verbal: Oriented [place] Coma Scale Motor: Obeys Commands Landy Coma Scale Total: 15 - Psychological Associated symptoms: Normal affect, Normal mood - Skin Skin Temperature: Warm Skin Moisture: Dry Skin Color: Normal <VERNON LE - Last Filed: 12/06/16 07:07> Course - Laboratory Result Diagrams: 12/06/16 04:10 12/06/16 04:10 <VERNON LE - Last Filed: 12/06/16 07:07> - Laboratory Result Diagrams: 12/06/16 04:10 12/06/16 04:10 <FELIX ADAMS - Last Filed: 12/06/16 21:17> - Re-evaluation Re-evalutation: 12/06/16 10:40 I personally performed the services described in the documentation, reviewed and edited the documentation which was dictated to my scribe in my presence, and it accurately records my words and actions. Patient with a history of dementia that is actually quite a good historian at the bedside able tell me her name where she is follow commands she is well- appearing and nontoxic she has a history of dementia and was sent over from the assisted care facility with possible fever. 100.8 axillary. Rectal temperature here was normal 97.9. No nuchal rigidity no acute altered mental status HEENT exam is normal lungs are clear chest x-ray is negative abdomen is soft no guarding rebound rigidity she has a PICC line in place a healing wound on her left heel which is not acutely infected. No urinary tract infection labs other than a mildly elevated lactic acid no acute pneumonia flu urinalysis or concerns for sepsis. Patient is normotensive and not tachycardic. Have her recheck with the primary care physician in 12 hours and discussed reasons for ED return sooner (FELIX ADAMS) - Vital Signs Vital signs: Temp Pulse Resp BP Pulse Ox 97.9 F 75 16 132/80 H 94 12/06/16 09:28 12/06/16 10:25 12/06/16 10:25 12/06/16 10:25 12/06/16 10:25 - Laboratory Laboratory results interpreted by me: 12/06/16 12/06/16 12/06/16 04:10 04:10 04:10 WBC 11.6 H RBC 3.57 L Hgb 11.1 L Hct 32.9 L Plt Count 125 L Absolute Neutrophils 8.4 H BUN 47 H Creatinine 1.33 H Est GFR ( Amer) 47 L Est GFR (Non-Af Amer) 39 L Glucose 233 H Lactic Acid NT-Pro-B Natriuret Pep 5150 H Urine Blood Urine Ascorbic Acid 12/06/16 12/06/16 04:10 06:40 WBC RBC Hgb Hct Plt Count Absolute Neutrophils BUN Creatinine Est GFR ( Amer) Est GFR (Non-Af Amer) Glucose Lactic Acid 2.2 H NT-Pro-B Natriuret Pep Urine Blood SMALL H Urine Ascorbic Acid 20 H Discharge <VERNON LE - Last Filed: 12/06/16 07:07> <FELIX ADAMS - Last Filed: 12/06/16 21:17> - Discharge Clinical Impression: concerns for fever at the halfway Condition: Stable Disposition: HOME, SELF-CARE Additional Instructions: You have been seen and evaluated for concerns for a fever when he got to the emergency department we did a rectal temperature was normal we have checked her blood no white blood count elevation no pneumonia no urinary tract infection negative for the flu. Your well-appearing and nontoxic. I can't find any emergent need to hospitalize you at this moment I want you to be rechecked and reevaluated in 12 hours and return for increasing worsening or new symptoms Referrals: ADIA DAVID MD [Primary Care Provider] - Follow up as needed Scribe Documentation - Scribe Written by Scribe:: Vernon Le 12/06/2016 acting as scribe for :: Froy <VERNON LE - Last Filed: 12/06/16 07:07>
[2016-12-06 06:14] LABS: ABSOLUTE BASOPHILS # (AUTO) 0.1 10^3/uL (0.0-0.2); ABSOLUTE EOSINOPHILS # (AUTO) 0.1 10^3/uL (0.0-0.6); ABSOLUTE NEUT (AUTO) 8.4 10^3/uL (1.7-8.2); BASOPHILS % (AUTO) 0.5 % (0-2); EOSINOPHILS % (AUTO) 0.7 % (0-6); HEMATOCRIT 32.9 % (36.0-47.0); HEMOGLOBIN 11.1 g/dL (12.0-15.5); HGB HCT DIFFERENCE 0.4; LYMPHOCYTES % (AUTO) 17.6 % (13-45); MEAN CORPUSCULAR HEMOGLOBIN 31.2 pg (27.0-33.4); MEAN CORPUSCULAR HGB CONC 33.8 g/dL (32.0-36.0); MEAN CORPUSCULAR VOLUME 92 fl (80-97); MONOCYTES % (AUTO) 8.9 % (3-13); RED BLOOD COUNT 3.57 10^6/uL (3.72-5.28); RED CELL DISTRIBUTION WIDTH 13.9 % (11.5-14.0); SEGMENTED NEUTROPHILS % (AUTO) 72.3 % (42-78); WHITE BLOOD COUNT 11.6 10^3/uL (4.0-10.5)
[2016-12-06 06:20] LABS: ANION GAP 16 (5-19); BLOOD UREA NITROGEN 47 mg/dL (7-20); CALCIUM 9.2 mg/dL (8.4-10.2); CARBON DIOXIDE 24 mmol/L (22-30); CHLORIDE 98 mmol/L (98-107); CREATININE RESULT 1.33 mg/dL (0.52-1.25); GLUCOSE 233 mg/dL (75-110); POTASSIUM 3.6 mmol/L (3.6-5.0)
[2016-12-06 06:37] LABS: TROPONIN I 0.099 ng/mL
[2016-12-06 07:08] LABS: APPEARANCE,URINE CLEAR; BILIRUBIN,URINE NEGATIVE (NEGATIVE); GLUCOSE, URINE NEGATIVE (NEGATIVE); KETONES,URINE NEGATIVE (NEGATIVE); LEUKOCYTE ESTERASE,URINE NEGATIVE (NEGATIVE); NITRITE,URINE NEGATIVE (NEGATIVE); PROTEIN,URINE NEGATIVE (NEGATIVE); URINE SPECIFIC GRAVITY 1.006; UROBILINOGEN,URINE NEGATIVE mg/dL (<2.0)
[2016-12-06 10:33] VITALS: BP 132/80
== END 2016-12-06 12:00 | disposition home or self-care (01) ==
LOC: ER 03:35
DX: R50.9 Fever, unspecified (principal); R06.02 Shortness of breath; R05 Cough; R09.89 Other specified symptoms and signs involving the circulatory and respiratory systems; R11.2 Nausea with vomiting, unspecified; R19.7 Diarrhea, unspecified
CPT/HCPCS: 36415; 51701; 71010; 80048; 81001; 83605; 83880; 84484; 85025; 87804; 99284

== ENCOUNTER 2016-12-06 22:27 | Emergency (ER) | payer MEDICARE, MEDICAID ==
--- NOTE | 2016-12-06 22:48 | ER Document Report ---
ED General - General Stated Complaint: FEVER Time seen by provider: 23:45 Mode of Arrival: Medic Information source: Patient TRAVEL OUTSIDE OF THE [place] IN LAST 30 DAYS: No - HPI Notes: Patient is a 71 y/o female, with medical history including dementia, presenting to the emergency department from [facility] with chief complaint of fever to 103.8 with report of 3 week history of cough and congestion and diarrhea usually 3 watery bowel movements daily according to the patient. Patient also reports a 2 day history of nausea and vomiting. Patient currently has a PICC line in place with IV daptomycin that she is been receiving for the last 3 weeks for cellulitis in her left heel which is currently improving. No hematemesis or chest pain. Patient was seen earlier today and had a negative flu test and a negative chest x-ray with otherwise normal blood work. Urine was negative earlier today and a preliminary urine culture is growing gram -negative rods but of insufficient colony count. There are no results from blood cultures available. [facility] before [facility]. - Related Data Allergies/Adverse Reactions: penicillin G [Penicillin G] Allergy (Intermediate, Verified 12/07/16 01:08) Generalized rash Sulfa (Sulfonamide Antibiotics) Allergy (Intermediate, Verified 12/07/16 01:08) cephalexin monohydrate [From Keflex] Adverse Reaction (Intermediate, Verified 01:08) itching, rash, Past Medical History - General Information source: Patient - Social History Smoking Status: Never Smoker Cigarette use (# per day): No Frequency of alcohol use: None Drug Abuse: None Lives with: Care Home Family History: Malignancy, CAD, Reviewed & Not Pertinent - Past Medical History Cardiac Medical History: Reports: Hx Congestive Heart Failure - EF of 45%, Hx Coronary Artery Disease, Hx Heart Attack, Hx Hypercholesterolemia, Hx Hypertension Pulmonary Medical History: Reports: Hx Asthma, Hx COPD Denies: Hx Bronchitis, Hx Pneumonia Neurological Medical History: Denies: Hx Cerebrovascular Accident, Hx Migraine, Hx Seizures Endocrine Medical History: Reports: Hx Diabetes Mellitus Type 2 Renal/ Medical History: Reports: Hx Renal Insufficiency. Denies: Hx Peritoneal Dialysis GI Medical History: Reports: Hx Gastroesophageal Reflux Disease Musculoskeltal Medical History: Denies Hx Arthritis, Reports Hx Muscle Weakness - Post polio syndrome Skin Medical History: Reports Hx MRSA, Reports Hx Psoriasis Psychiatric Medical History: Reports: Hx Anxiety, Hx Dementia, Hx Depression Infectious Medical History: Reports: Hx MRSA Past Surgical History: Reports: Hx Cardiac Catheterization, Hx Section , Hx Coronary Stent, Hx Hysterectomy, Hx Orthopedic Surgery - right hand - Immunizations Hx Diphtheria, Pertussis, Tetanus Vaccination: No Hx Pneumococcal Vaccination: 06/02/14 Review of Systems - Review of Systems Notes: REVIEW OF SYSTEMS: CONSTITUTIONAL : No weight loss EENT: Denies eye, ear, throat, or mouth pain or symptoms. Denies nasal or sinus congestion or discharge. Denies throat, tongue, or mouth swelling or difficulty swallowing. CARDIOVASCULAR: Denies chest pain. Denies palpitations or racing or irregular heart beat. Denies ankle edema. RESPIRATORY: Denies wheezing. GASTROINTESTINAL: Denies abdominal pain or distention. Denies blood in vomitus , stools, or per rectum. Denies black, tarry stools. Denies constipation. GENITOURINARY: Denies difficulty urinating, painful urination, burning, frequency, blood in urine, or discharge. FEMALE GENITOURINARY: Denies vaginal bleeding, heavy or abnormal periods, irregular periods. Denies vaginal discharge or odor. MUSCULOSKELETAL: Denies back or neck pain or stiffness. Denies joint pain or swelling. SKIN: Denies lesions or sores. HEMATOLOGIC : Denies easy bruising or bleeding. LYMPHATIC: Denies swollen, enlarged glands. NEUROLOGICAL: Denies confusion or altered mental status. Denies passing out or loss of consciousness. Denies dizziness or lightheadedness. Denies headache. Denies weakness or paralysis or loss of use of either side. Denies problems with gait or speech. Denies sensory loss, numbness, or tingling. Denies seizures. PSYCHIATRIC: Denies anxiety or stress. Denies depression, suicidal ideation, or homicidal ideation. ALL OTHER SYSTEMS REVIEWED AND NEGATIVE. Dictation was performed using [employer] voice recognition software Physical Exam - Vital signs Vitals: Temp Pulse Resp BP Pulse Ox 99.1 F 103 H 20 147/52 H 95 12/06/16 22:45 12/06/16 22:45 12/06/16 22:45 12/06/16 22:45 12/06/16 22:45 - Notes Notes: PHYSICAL EXAMINATION: GENERAL: Well-appearing, well-nourished and in no acute distress. HEAD: Atraumatic, normocephalic. EYES: Pupils equal round and reactive to light, extraocular movements intact, conjunctiva are normal. ENT: Nares patent, oropharynx clear without exudates. Moist mucous membranes. NECK: Normal range of motion, supple without lymphadenopathy LUNGS: Breath sounds clear to auscultation bilaterally and equal. No wheezes rales or rhonchi. HEART: Regular rate and rhythm without murmurs ABDOMEN: Soft, nontender, nondistended abdomen. No guarding, no rebound. No masses appreciated. Obese. Female : deferred Musculoskeletal: Normal range of motion, no pitting or edema. No cyanosis. No CVA tenderness. NEUROLOGICAL: Cranial nerves grossly intact. Normal speech, normal gait. Normal sensory, motor exams PSYCH: Normal mood, normal affect. SKIN: Warm, Dry, normal turgor, no rashes or lesions noted. PIC line site right upper arm appears clear. No evidence for cellulitis or infection. Left heel location of prior cellulitis appears currently clear. No evidence for abscess or osteomyelitis or septic arthritis. Distally she is neurovascularly intact. Course - Re-evaluation Re-evalutation: 12/07/16 01:49 Patient had a bowel movement that was very small but was not loose. 12/07/16 05:57 Patient was given Levaquin by mouth to cover both urinary tract infection and possible pneumonia, although chest x-ray was negative. Vital signs remained stable and patient remained afebrile. There is no evidence for significant infection to the left heel that the patient has the PICC line in place for. No evidence for influenza. No evidence for sepsis or hypoglycemia or renal insufficiency. Lactic acid is somewhat elevated at 2.4, but improved to 1.3 after rehydration. Patient was rehydrated with 1 L normal saline. Repeat troponin was improved. No obvious evidence for acute AZ or sepsis or hypoglycemia or Sirs or acute anemia. No obvious evidence for line sepsis with PICC line site, but this must be considered. Patient is already covered with Daptomycin for MRSA coverage. Given the more solid bowel movement observed and the lack of abdominal pain, unlikely C. difficile. Patient was thought stable [facility]. Will supplement with Levaquin antibiotic. 12/07/16 05:58 12/07/16 05:59 - Vital Signs Vital signs: Temp Pulse Resp BP Pulse Ox 98.5 F 103 H 18 149/57 H 98 12/07/16 04:00 12/06/16 22:45 12/07/16 05:01 12/07/16 05:01 12/07/16 05:01 - Laboratory Result Diagrams: 12/07/16 00:10 12/07/16 00:10 Laboratory results interpreted by me: 12/07/16 12/07/16 12/07/16 00:10 00:10 00:10 WBC 13.2 H RBC 3.65 L Hgb 11.4 L Hct 33.4 L Plt Count 117 L Seg Neutrophils % 82.8 H Lymphocytes % 8.3 L Absolute Neutrophils 11.0 H Potassium 3.2 L BUN 45 H Est GFR ( Amer) 52 L Est GFR (Non-Af Amer) 43 L Glucose 187 H Lactic Acid 2.4 H - EKG Interpretation by Me EKG shows normal: Sinus rhythm Additional EKG results interpreted by me: 12/07/16 01:50 EKG as interpreted by me showed normal sinus rhythm, rate of 89. There is first -degree AV block with LVH. There is no gross evidence for acute AZ or ischemia identified. There is no significant change from previous EKG reviewed from 09/15. Discharge - Discharge Clinical Impression: Bronchitis Fever Qualifiers: Fever type: unspecified Qualified Code(s): R50.9 - Fever, unspecified Urinary tract infection Qualifiers: Urinary tract infection type: site unspecified Hematuria presence: without hematuria Qualified Code(s): N39.0 - Urinary tract infection, site not specified Condition: Stable Disposition: SNF Instructions: Urinary Tract Infection ([facility]), Fever ([facility]), Acetaminophen Additional Instructions: Fever Fever is the body's reaction to infection. Fever can also occur with illnesses that create fever-producing substances in the body. By itself, fever is not harmful. It helps the body fight invading germs. We are more concerned with: (1) What's causing the fever? (2) How can we keep you more comfortable until the fever goes away? Early in an illness, symptoms are often so vague that a diagnosis can't be made. If the doctor hasn't identified a clear cause for your fever, you will probably develop new symptoms within the next two days. Contact the doctor if you develop severe worsening headache, rash, chest pain, cough with yellow or green sputum, difficulty breathing, abdominal pain, or other new symptoms. There is no reason to treat a fever if you're comfortable. If the fever is causing aches, headache, and fatigue, you can treat it with ibuprofen (Advil , Nuprin, etc) or acetaminophen (Tylenol). Follow the directions on the bottle. Get plenty of liquids (three quarts per day). Rest. Physical work or sports will raise the temperature higher and make you feel much worse. Dress lightly. If you're chilling, this means the temperature is trying to go higher. Take ibuprofen or acetaminophen. When you feel sweaty and "feverish" the temperature is coming down. If the fever doesn't go away within two days or if you become more ill, call the doctor or return at once for re-examination. Bronchitis You have acute bronchitis. This disease is an infection or inflammation of the air passageways in your lungs. Symptoms usually include cough, low grade fever, shortness of breath, and wheezing. The cough usually persists for a couple of weeks. Most cases of bronchitis get better without antibiotics. We prescribe antibiotics when we believe bacteria are damaging your airways, or if there's high risk the bronchitis will worsen into pneumonia. Increase your fluid intake. A cool mist humidifier may make your lungs more comfortable. An expectorant (cough medicine that loosens phlegm) can help. If you smoke, STOP!!! Recovery from bronchitis can be somewhat slow, but you should see improvement within a day or two. Repeated episodes of bronchitis may result in lung damage -- for example, chronic bronchitis, recurrent pneumonias, or emphysema. Call the doctor if you develop increasing fever, shortness of breath, chest pain, bloody sputum, or otherwise worsen. If you have not improved at all after several days, contact the physician. Prescriptions: Levofloxacin [Levaquin 500 mg Tablet] 500 mg PO DAILY #7 tablet
[2016-12-07 00:28] LABS: ABSOLUTE EOSINOPHILS # (AUTO) 0.2 10^3/uL (0.0-0.6); ABSOLUTE LYMPHOCYTES (AUTO) 1.1 10^3/uL (0.5-4.7); BASOPHILS % (AUTO) 0.3 % (0-2); EOSINOPHILS % (AUTO) 1.2 % (0-6); HEMATOCRIT 33.4 % (36.0-47.0); HEMOGLOBIN 11.4 g/dL (12.0-15.5); HGB HCT DIFFERENCE 0.8; LYMPHOCYTES % (AUTO) 8.3 % (13-45); MEAN CORPUSCULAR HEMOGLOBIN 31.3 pg (27.0-33.4); MEAN CORPUSCULAR HGB CONC 34.2 g/dL (32.0-36.0); MEAN CORPUSCULAR VOLUME 91 fl (80-97); MONOCYTES % (AUTO) 7.4 % (3-13); RED BLOOD COUNT 3.65 10^6/uL (3.72-5.28); RED CELL DISTRIBUTION WIDTH 13.8 % (11.5-14.0); SEGMENTED NEUTROPHILS % (AUTO) 82.8 % (42-78); WHITE BLOOD COUNT 13.2 10^3/uL (4.0-10.5)
[2016-12-07 01:21] LABS: ALBUMIN 3.9 g/dL (3.5-5.0); ALKALINE PHOSPHATASE 72 U/L (38-126); ANION GAP 14 (5-19); BILIRUBIN,TOTAL 0.7 mg/dL (0.2-1.3); CALCIUM 9.5 mg/dL (8.4-10.2); CARBON DIOXIDE 27 mmol/L (22-30); CHLORIDE 100 mmol/L (98-107); CREATININE RESULT 1.23 mg/dL (0.52-1.25); POTASSIUM 3.2 mmol/L (3.6-5.0)
[2016-12-07 01:38] LABS: ALANINE AMINOTRANSFERASE 28 U/L (9-52); ASPARTATE AMINO TRANSFERASE 36 U/L (14-36); BILIRUBIN,DIRECT 0.3 mg/dL (0.0-0.4); BLOOD UREA NITROGEN 45 mg/dL (7-20); GLUCOSE 187 mg/dL (75-110); SODIUM 140.6 mmol/L (137-145); TOTAL PROTEIN 7.6 g/dL (6.3-8.2)
[2016-12-07] MEDS ORDERED: NORMAL SALINE 1000 ML 1,000 ML IV ONE (01:38)
[2016-12-07] MEDS ORDERED: LEVOFLOXACIN 750 MG TABLET PO ONE (03:38)
[2016-12-07] MEDS ORDERED: POTASSIUM CHLORIDE 10 MEQ TABLET.SA PO ONE (04:31)
[2016-12-07 11:13] VITALS: BP 161/56
--- NOTE | 2016-12-07 22:03 | EKG REPORT ---
SEVERITY:- ABNORMAL ECG - SINUS RHYTHM FIRST DEGREE AV BLOCK LVH WITH SECONDARY REPOLARIZATION ABNORMALITY ANTERIOR INFARCT, AGE INDETERMINATE : Confirmed by: Susana Meyer MD 07-Dec-2016 22:03:14
== END 2016-12-07 11:27 ==
LOC: ER 22:27
DX: J40 Bronchitis, not specified as acute or chronic (principal); N39.0 Urinary tract infection, site not specified; R50.9 Fever, unspecified; R05 Cough; R09.81 Nasal congestion; R19.7 Diarrhea, unspecified
CPT/HCPCS: 93005; 99284; 36415; 87040; 85025; 87077; 80053; 84484; 87186; 83605; 71010; 93010; J7030; A9270 ×2

== ENCOUNTER → 2016-12-20 | Emergency (ER) | payer MEDICARE, MEDICAID ==
[~2016-12-20] MED LIST: NITROFURANTOIN MONOHYD/M-CRYST 100 MG CAPSULE PO ONE; NORMAL SALINE 1000 ML 1,000 ML IV ONE; POTASSIUM CHLORIDE 10 MEQ TABLET.SA PO ONE
--- NOTE | 2016-12-20 17:13 | ER Document Report ---
ED Fever - General Chief Complaint: Fever Stated Complaint: FEVER Notes: The patient is a 71-year-old female who presents from [facility] with a fever of 100.9 and loose stools. She was given Tylenol by the longterm prior to arrival. She was diagnosed with C. difficile and is on oral vancomycin after taking daptomycin for her foot infection. Patient is alert and is complaining of mild dysuria. She denies shortness of breath, nausea, vomiting, rash, headache, flank pain, numbness, weakness or confusion. TRAVEL OUTSIDE OF THE [place] IN LAST 30 DAYS: No - Related Data Allergies/Adverse Reactions: penicillin G [Penicillin G] Allergy (Intermediate, Verified 12/20/16 16:39) Generalized rash Sulfa (Sulfonamide Antibiotics) Allergy (Intermediate, Verified 12/20/16 16:39) cephalexin monohydrate [From Keflex] Adverse Reaction (Intermediate, Verified 16:39) itching, rash, Past Medical History - General Information source: Patient, Outside Facility Records - Social History Smoking Status: Never Smoker Family History: Malignancy, CAD, Reviewed & Not Pertinent - Past Medical History Cardiac Medical History: Reports: Hx Congestive Heart Failure - EF of 45%, Hx Coronary Artery Disease, Hx Heart Attack, Hx Hypercholesterolemia, Hx Hypertension Pulmonary Medical History: Reports: Hx Asthma, Hx COPD Denies: Hx Bronchitis, Hx Pneumonia Neurological Medical History: Denies: Hx Cerebrovascular Accident, Hx Migraine, Hx Seizures Endocrine Medical History: Reports: Hx Diabetes Mellitus Type 2 Renal/ Medical History: Reports: Hx Renal Insufficiency. Denies: Hx Peritoneal Dialysis GI Medical History: Reports: Hx Gastroesophageal Reflux Disease Musculoskeltal Medical History: Denies Hx Arthritis, Reports Hx Muscle Weakness - Post polio syndrome Skin Medical History: Reports Hx MRSA, Reports Hx Psoriasis Psychiatric Medical History: Reports: Hx Anxiety, Hx Dementia, Hx Depression Infectious Medical History: Reports: Hx MRSA Past Surgical History: Reports: Hx Cardiac Catheterization, Hx Section , Hx Coronary Stent, Hx Hysterectomy, Hx Orthopedic Surgery - right hand - Immunizations Hx Diphtheria, Pertussis, Tetanus Vaccination: No Hx Pneumococcal Vaccination: 06/02/14 Review of Systems - Review of Systems Notes: REVIEW OF SYSTEMS: CONSTITUTIONAL: +fevers, -chills EENT: -eye pain, -difficulty swallowing, -nasal congestion CARDIOVASCULAR:-chest pain, -syncope. RESPIRATORY: -cough, -SOB GASTROINTESTINAL: -abdominal pain, -nausea, -vomiting, +diarrhea GENITOURINARY: +dysuria, -hematuria MUSCULOSKELETAL: -back pain, -neck pain SKIN: -rash or skin lesions. HEMATOLOGIC: -easy bruising or bleeding. LYMPHATIC: -swollen, enlarged glands. NEUROLOGICAL: -altered mental status or loss of consciousness, -headache, - neurologic symptoms PSYCHIATRIC: -anxiety, -depression. ALL OTHER SYSTEMS REVIEWED AND NEGATIVE. Physical Exam - Vital signs Vitals: Temp Pulse Resp BP Pulse Ox 99.7 F 99 20 132/53 H 97 12/20/16 16:40 12/20/16 16:40 12/20/16 16:40 12/20/16 16:40 12/20/16 16:40 - Notes Notes: PHYSICAL EXAMINATION: GENERAL: Well-nourished and in no acute distress. HEAD: Atraumatic, normocephalic. EYES: Pupils equal round and reactive to light, extraocular movements intact, sclera anicteric, conjunctiva are normal. ENT: nares patent, oropharynx clear without exudates. Moist mucous membranes. NECK: Normal range of motion, supple without lymphadenopathy LUNGS: Breath sounds clear to auscultation bilaterally and equal. No wheezes rales or rhonchi. HEART: Regular rate and rhythm without murmurs ABDOMEN: Soft, nontender, normoactive bowel sounds. No guarding, no rebound. No masses appreciated. EXTREMITIES: Normal range of motion, no pitting or edema. No cyanosis. NEUROLOGICAL: Cranial nerves grossly intact. Normal speech, normal gait. Normal sensory, motor, and reflex exams. PSYCH: Normal mood, normal affect. SKIN: Warm, Dry, normal turgor, no rashes or lesions noted. Course - Re-evaluation Re-evalutation: Patient appears nontoxic. Afebrile the emergency room after Tylenol. She does have evidence of a mild urinary tract infection is complaining of dysuria, so will begin Macrobid. Her leukocytosis of 25 is most likely from her Clostridium difficile infection and she is receiving treatment while in the longterm. She does have a slight hypokalemia and she was given potassium by mouth. Will discharge patient back to her longterm with a prescription for Macrobid. - Vital Signs Vital signs: Temp Pulse Resp BP Pulse Ox 99.7 F 99 13 114/56 L 98 12/20/16 16:40 12/20/16 16:40 12/20/16 19:29 12/20/16 19:29 12/20/16 19:29 - Laboratory Result Diagrams: 12/20/16 18:40 12/20/16 18:40 Laboratory results interpreted by me: 12/20/16 12/20/16 12/20/16 18:30 18:40 18:40 WBC 25.4 H Seg Neuts % (Manual) 89 H Band Neutrophils % 6 H Lymphocytes % (Manual) 3 L Monocytes % (Manual) 2 L Abs Neuts (Manual) 24.1 H Potassium 3.3 L BUN 46 H Creatinine 1.54 H Est GFR ( Amer) 40 L Est GFR (Non-Af Amer) 33 L Glucose 150 H Creatine Kinase < 20 L NT-Pro-B Natriuret Pep Ur Leukocyte Esterase MODERATE H Urine Ascorbic Acid 40 H 12/20/16 18:40 WBC Seg Neuts % (Manual) Band Neutrophils % Lymphocytes % (Manual) Monocytes % (Manual) Abs Neuts (Manual) Potassium BUN Creatinine Est GFR ( Amer) Est GFR (Non-Af Amer) Glucose Creatine Kinase NT-Pro-B Natriuret Pep 3550 H Ur Leukocyte Esterase Urine Ascorbic Acid - Diagnostic Test Radiology reviewed: Image reviewed, Reports reviewed Radiology results interpreted by me: CXR: NAD Discharge - Discharge Clinical Impression: Urinary tract infection Qualifiers: Urinary tract infection type: site unspecified Hematuria presence: without hematuria Qualified Code(s): N39.0 - Urinary tract infection, site not specified Condition: Stable Disposition: HOME, SELF-CARE Additional Instructions: Your evaluation reveals that you have a mild UTI today. Take the full course of antibiotics. URINARY TRACT INFECTION: Your evaluation indicates that you have a urinary tract infection. This is due to germs growing in the bladder. This is a common problem. This infection usually responds quickly to antibiotics. Your antibiotic should be taken exactly as prescribed. Drink plenty of fluids -- three to four quarts a day. Occasionally, a bladder anesthetic will be prescribed to help stop the feeling of urgency until the antibiotic has a chance to clear the infection. This may cause your urine to be dark orange. Certain urine infections require a culture. If the doctor obtained a culture, the results will be back in two days. You should call to see if a change in treatment is needed. A repeat urinalysis after you finish treatment is often recommended. The physician will let you know if further testing is required. Call the doctor if you develop fever, chills, flank pain, inability to urinate, or blood in the urine. ANTIBIOTIC THERAPY: You have been given an antibiotic prescription. It's important that you take all the medication, unless instructed otherwise by your physician. Failure to complete the entire course can result in relapse of your condition. Common side effects of antibiotics include nausea, intestinal cramping, or diarrhea. Women may develop vaginal yeast infections, and babies can get yeast (thrush) in the mouth following the use of antibiotics. Contact your physician if you develop significant side effects from this medication. Allergy to this antibiotic can result in hives, wheezing, faintness, or itching. If symptoms of allergy occur, stop the medication and call the doctor. NITROFURANTOIN (MACRODANTIN, MACROBID): You have received a prescription for nitrofurantoin (Macrodantin). This antibiotic is used for urinary tract infections. Women who are or nursing should notify the physician before taking this medicine. If you have ever had a problem caused by this medication in the past, be sure the physician is aware of it. Common side effects of this medicine include nausea, vomiting, or decreased appetite. Notify your physician if these side effects become severe. Immediately stop this medicine and call the physician if you develop cough , shortness of breath, chest pain, weakness, jaundice (yellow color of the skin and whites of the eyes), or a skin rash. FOLLOW-UP CARE: If you have been referred to a physician for follow-up care, call the physician s office for an appointment as you were instructed or within the next two days. If you experience worsening or a significant change in your symptoms, notify the physician immediately or return to the Emergency Department at any time for re-evaluation. Prescriptions: Nitrofurantoin/Nitrofuran Mac [Macrobid 100 mg Capsule] 1 tab PO BID #10 capsule
[2016-12-20 19:00] LABS: HEMATOCRIT 37.4 % (36.0-47.0); HEMOGLOBIN 12.6 g/dL (12.0-15.5); HGB HCT DIFFERENCE 0.4; MEAN CORPUSCULAR HEMOGLOBIN 30.8 pg (27.0-33.4); MEAN CORPUSCULAR HGB CONC 33.7 g/dL (32.0-36.0); MEAN CORPUSCULAR VOLUME 91 fl (80-97); RED CELL DISTRIBUTION WIDTH 13.6 % (11.5-14.0); WHITE BLOOD COUNT 25.4 10^3/uL (4.0-10.5)
[2016-12-20 19:11] LABS: ALANINE AMINOTRANSFERASE 33 U/L (9-52); ALBUMIN 4.1 g/dL (3.5-5.0); ALKALINE PHOSPHATASE 102 U/L (38-126); ANION GAP 16 (5-19); ASPARTATE AMINO TRANSFERASE 31 U/L (14-36); BILIRUBIN,DIRECT 0.4 mg/dL (0.0-0.4); BILIRUBIN,TOTAL 0.8 mg/dL (0.2-1.3); BLOOD UREA NITROGEN 46 mg/dL (7-20); CALCIUM 9.9 mg/dL (8.4-10.2); CARBON DIOXIDE 23 mmol/L (22-30); CHLORIDE 105 mmol/L (98-107); CREATININE RESULT 1.54 mg/dL (0.52-1.25); GLUCOSE 150 mg/dL (75-110); LIPASE 99.9 U/L (23-300); POTASSIUM 3.3 mmol/L (3.6-5.0); SODIUM 143.6 mmol/L (137-145); TOTAL PROTEIN 8.2 g/dL (6.3-8.2)
[2016-12-20 19:12] LABS: CREATINE KINASE < 20 U/L (30-135)
[2016-12-20 19:18] LABS: BAND NEUTROPHILS % (MANUAL) 6 % (3-5); BASOPHILS % (MANUAL) 0 % (0-2); EOSINOPHILS % (MANUAL) 0 % (0-6); LYMPHOCYTES % (MANUAL) 3 % (13-45); TOTAL CELLS COUNTED 100
[2016-12-20 19:21] LABS: RBC MORPHOLOGY COMMENT NORMO-CYTIC/CHROMIC; TOXIC VACUOLATION PRESENT
[2016-12-20 19:26] LABS: TROPONIN I 0.039 ng/mL
[2016-12-20 19:35] LABS: APPEARANCE,URINE CLOUDY; BILIRUBIN,URINE NEGATIVE (NEGATIVE); GLUCOSE, URINE NEGATIVE (NEGATIVE); KETONES,URINE NEGATIVE (NEGATIVE); LEUKOCYTE ESTERASE,URINE MODERATE (NEGATIVE); NITRITE,URINE NEGATIVE (NEGATIVE); PROTEIN,URINE NEGATIVE (NEGATIVE); URINE SPECIFIC GRAVITY 1.015; UROBILINOGEN,URINE NEGATIVE mg/dL (<2.0)
[2016-12-21 04:40] VITALS: BP 134/54
== END | disposition home or self-care (01) ==
LOC: ER 16:32
DX: N39.0 Urinary tract infection, site not specified (principal); R50.9 Fever, unspecified; A04.7 Enterocolitis due to Clostridium difficile; E87.6 Hypokalemia; I25.10 Atherosclerotic heart disease of native coronary artery without angina pectoris; I25.2 Old myocardial infarction; I10 Essential (primary) hypertension; E11.9 Type 2 diabetes mellitus without complications; Z88.0 Allergy status to penicillin; Z88.2 Allergy status to sulfonamides; Z86.14 Personal history of Methicillin resistant Staphylococcus aureus infection
CPT/HCPCS: 99284; 51701; 36415; 87040; 87086; 82550; 83690; 85025; 87077; 87088; 80076; 80048; 81001; 84484; 87186; 83605; 83880; 71010; J7030; A9270 ×2; J8499

== ENCOUNTER 2016-12-21 16:17 | Inpatient (IN) | payer MEDICARE, MEDICAID ==
--- NOTE | 2016-12-21 16:57 | ER Document Report ---
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 Patient was noted in early December 14 to have C. difficile colitis and was put gone on oral vancomycin. Patient was evaluated in the ER yesterday for a fever and loose stools and was found to have a UTI and started on Macrobid and sent back to the halfway. The patient is referred back to the ER by the halfway because of "abnormal lab results". TRAVEL OUTSIDE OF THE [place] IN LAST 30 DAYS: No - HPI Onset: Last week Onset/Duration: Gradual Quality of pain: No pain Severity: None Associated symptoms: Chills, Fever Exacerbated by: Denies Relieved by: Denies Similar symptoms previously: Yes Recently seen / treated by doctor: Yes - Related Data Allergies/Adverse Reactions: penicillin G [Penicillin G] Allergy (Intermediate, Verified 12/21/16 16:44) Generalized rash Sulfa (Sulfonamide Antibiotics) Allergy (Intermediate, Verified 12/21/16 16:44) cephalexin monohydrate [From Keflex] Adverse Reaction (Intermediate, Verified 16:44) itching, rash, Past Medical History - General Information source: Transfer Record, [facility] Records - Social History Smoking Status: Never Smoker Cigarette use (# per day): No Chew tobacco use (# tins/day): No Smoking Education Provided: No Frequency of alcohol use: None Drug Abuse: None Lives with: [facility] Family History: Malignancy, CAD, Reviewed & Not Pertinent - Past Medical History Cardiac Medical History: Reports: Hx Congestive Heart Failure - EF of 45%, Hx Coronary Artery Disease, Hx Heart Attack, Hx Hypercholesterolemia, Hx Hypertension Pulmonary Medical History: Reports: Hx Asthma, Hx COPD Denies: Hx Bronchitis, Hx Pneumonia Neurological Medical History: Denies: Hx Cerebrovascular Accident, Hx Migraine, Hx Seizures Endocrine Medical History: Reports: Hx Diabetes Mellitus Type 2 Renal/ Medical History: Reports: Hx Renal Insufficiency. Denies: Hx Peritoneal Dialysis GI Medical History: Reports: Hx Gastroesophageal Reflux Disease Musculoskeltal Medical History: Denies Hx Arthritis, Reports Hx Muscle Weakness - Post polio syndrome Skin Medical History: Reports Hx MRSA, Reports Hx Psoriasis Psychiatric Medical History: Reports: Hx Anxiety, Hx Dementia, Hx Depression Infectious Medical History: Reports: Hx MRSA Past Surgical History: Reports: Hx Cardiac Catheterization, Hx Cardiac Surgery - stents, Hx Section, Hx Coronary Stent, Hx Hysterectomy, Hx Orthopedic Surgery - right hand - Immunizations Hx Diphtheria, Pertussis, Tetanus Vaccination: No Hx Pneumococcal Vaccination: 06/02/14 Review of Systems - Review of Systems Constitutional: Chills, Fever EENT: No symptoms reported Cardiovascular: No symptoms reported Respiratory: No symptoms reported Gastrointestinal: See HPI Genitourinary: No symptoms reported Female Genitourinary: No symptoms reported Musculoskeletal: See HPI Skin: No symptoms reported Hematologic/Lymphatic: No symptoms reported Neurological/Psychological: No symptoms reported Physical Exam - Vital signs Vitals: Temp Pulse Resp BP Pulse Ox 98.9 F 73 18 138/67 H 95 12/21/16 16:20 12/21/16 16:20 12/21/16 16:20 12/21/16 16:20 12/21/16 16:20 Notes: Physical exam: GENERAL: 71-year-old female, alert, does have dementia HEAD: Atraumatic, normocephalic. EYES: Pupils equal round and reactive to light, extraocular movements intact, sclera anicteric, conjunctiva are normal. ENT: TMs normal, nares patent, oropharynx clear without exudates. Moist mucous membranes. NECK: Normal range of motion, supple without lymphadenopathy or JVD. LUNGS: Breath sounds clear to auscultation bilaterally and equal. No wheezes rales or rhonchi. HEART: Regular rate and rhythm without murmurs, rubs or gallops. ABDOMEN: Soft, normoactive bowel sounds. No tenderness to palpation. No guarding, no rebound. No masses appreciated. EXTREMITIES: Patient has a PICC line in the right upper extremity. Normal range of motion, no pitting or edema. No clubbing or cyanosis. The left heel side of chronic cellulitis does not reveal any significant warmth or erythema or discharge (No obvious active disease). NEUROLOGICAL: Left-sided paralysis PSYCH: Normal mood, normal affect. SKIN: Warm, Dry, normal turgor, no rashes or lesions noted. Course - Re-evaluation Re-evalutation: 12/21/16 23:58 Note: This is a 71-year-old female with a complicated medical history that includes and MRSA cellulitis of the left heel leading to a PICC line with IV antibiotics. The patient's PICC line was placed in November. She has been in the ER a number of times with intermittent fevers and is referred to the ER from the halfway because of fever and elevated white count. The left heel cellulitis site looks quite good. She does have a PICC line in the right upper extremity which is been in fair approximately 6 weeks. Site does not look bad. Urine straight catheter shows that she does have a UTI. Previous cultures show that she has resistance to fluoroquinolones. She is allergic to penicillins and cephalosporins and sulfa. She does have chronic kidney disease. We have started aztreonam tonight. She does appear somewhat dehydrated and she has been getting some IV fluids. There is concern regarding the PICC line. While the site doesn't look good, he continued fevers and leukocytosis is concerning. The plan will be to consult the PICC line service in the morning and maybe switch out the line and to culture the line tap. In the meantime, we do have peripheral access. The patient's vital signs have been stable. She does not appear septic at this time. - Vital Signs Vital signs: Temp Pulse Resp BP Pulse Ox 98.9 F 73 23 H 164/91 H 99 12/21/16 16:20 12/21/16 16:20 12/21/16 20:01 12/21/16 21:01 12/21/16 21:01 - Laboratory Result Diagrams: 12/21/16 17:31 12/21/16 19:42 Laboratory results interpreted by me: 12/21/16 12/21/16 12/21/16 17:31 19:42 20:12 WBC 18.8 H RBC 3.64 L Hgb 11.1 L Hct 33.7 L Seg Neutrophils % 80.9 H Lymphocytes % 12.6 L Absolute Neutrophils 15.2 H BUN 48 H Creatinine 1.32 H Est GFR ( Amer) 48 L Est GFR (Non-Af Amer) 40 L Glucose 162 H Creatine Kinase < 20 L Urine Nitrite POSITIVE H Ur Leukocyte Esterase LARGE H Urine Ascorbic Acid 40 H - Diagnostic Test Radiology reviewed: Image reviewed, Reports reviewed - Chest x-ray shows no infiltrates. Abdominal CT shows no obvious source of infection. Critical Care Note - Critical Care Note Total time excluding time spent on procedures (mins): 60 Discharge - Discharge Clinical Impression: dehydration, UTI Condition: Stable Disposition: ADMITTED INPATIENT Admitting Provider: Hospitalist - Dr. Mendez Unit Admitted: Telemetry Referrals: ADIA DAVID MD [Primary Care Provider] - Follow up as needed
[2016-12-21 17:47] LABS: ABSOLUTE EOSINOPHILS # (AUTO) 0.3 10^3/uL (0.0-0.6); ABSOLUTE LYMPHOCYTES (AUTO) 2.4 10^3/uL (0.5-4.7); ABSOLUTE MONOCYTES (AUTO) 0.9 10^3/uL (0.1-1.4); ABSOLUTE NEUT (AUTO) 15.2 10^3/uL (1.7-8.2); BASOPHILS % (AUTO) 0.2 % (0-2); EOSINOPHILS % (AUTO) 1.5 % (0-6); HEMATOCRIT 33.7 % (36.0-47.0); HEMOGLOBIN 11.1 g/dL (12.0-15.5); HGB HCT DIFFERENCE -0.4; LYMPHOCYTES % (AUTO) 12.6 % (13-45); MEAN CORPUSCULAR HEMOGLOBIN 30.5 pg (27.0-33.4); MEAN CORPUSCULAR VOLUME 93 fl (80-97); MONOCYTES % (AUTO) 4.8 % (3-13); RED BLOOD COUNT 3.64 10^6/uL (3.72-5.28); RED CELL DISTRIBUTION WIDTH 13.9 % (11.5-14.0); SEGMENTED NEUTROPHILS % (AUTO) 80.9 % (42-78); WHITE BLOOD COUNT 18.8 10^3/uL (4.0-10.5)
[2016-12-21] MEDS: NORMAL SALINE 1000 ML 1,000 ML IV PRN ×2 (18:42→23:40)
[2016-12-21 20:33] LABS: ALANINE AMINOTRANSFERASE 29 U/L (9-52); ALBUMIN 3.6 g/dL (3.5-5.0); ALKALINE PHOSPHATASE 74 U/L (38-126); ANION GAP 14 (5-19); ASPARTATE AMINO TRANSFERASE 24 U/L (14-36); BILIRUBIN,DIRECT 0.4 mg/dL (0.0-0.4); BILIRUBIN,TOTAL 0.6 mg/dL (0.2-1.3); BLOOD UREA NITROGEN 48 mg/dL (7-20); CALCIUM 9.1 mg/dL (8.4-10.2); CARBON DIOXIDE 22 mmol/L (22-30); CHLORIDE 107 mmol/L (98-107); CREATININE RESULT 1.32 mg/dL (0.52-1.25); GLUCOSE 162 mg/dL (75-110); POTASSIUM 3.9 mmol/L (3.6-5.0); SODIUM 142.9 mmol/L (137-145); TOTAL PROTEIN 7.1 g/dL (6.3-8.2)
[2016-12-21 20:36] LABS: CREATINE KINASE < 20 U/L (30-135)
[2016-12-21 20:43] LABS: APPEARANCE,URINE SLIGHTLY-CLOUDY; BILIRUBIN,URINE NEGATIVE (NEGATIVE); GLUCOSE, URINE NEGATIVE (NEGATIVE); KETONES,URINE NEGATIVE (NEGATIVE); LEUKOCYTE ESTERASE,URINE LARGE (NEGATIVE); NITRITE,URINE POSITIVE (NEGATIVE); PROTEIN,URINE NEGATIVE (NEGATIVE); URINE SPECIFIC GRAVITY 1.009; UROBILINOGEN,URINE NEGATIVE mg/dL (<2.0)
[2016-12-21 20:45] LABS: TROPONIN I 0.015 ng/mL
[2016-12-21 20:46] LABS: CREATINE KINASE MB < 0.22 ng/mL (<4.55)
[2016-12-21] MEDS ORDERED: NORMAL SALINE 1000 ML 1,000 ML IV PRN (22:17)
[2016-12-21] MEDS ORDERED: PHARMACY COMMUNICATION ORDER MC NR (23:45)
[2016-12-21] MEDS ORDERED: AZTREONAM INJ 1 GM VIAL IV ONE (23:55)
[2016-12-22] MEDS ORDERED: IPRATROPIUM/ALBUTEROL 0.5-2.5 MG/3 ML AMPUL NEB PRN (05:07)
[2016-12-22] MEDS ORDERED: ACETAMINOPHEN 325 MG TABLET PO PRN ×2 (05:07→07:36)
[2016-12-22] MEDS ORDERED: GLUCAGON,HUMAN RECOMB 1 MG INJ IM PRN (05:09)
[2016-12-22] MEDS ORDERED: DEXTROSE 50%-WATER 25 GM/50 ML DISP.SYRIN IV PRN ×2 (05:09)
[2016-12-22] MEDS ORDERED: DEXTROSE 40% GEL 15 GM TUBE PO PRN ×2 (05:09)
[2016-12-22] MEDS ORDERED: PHARMACY COMMUNICATION ORDER MC SCH (05:15)
[2016-12-22] MEDS ORDERED: AZTREONAM INJ 1 GM VIAL IV SCH (06:00)
[2016-12-22 07:18] LABS: ABSOLUTE BASOPHILS # (AUTO) 0.1 10^3/uL (0.0-0.2); ABSOLUTE EOSINOPHILS # (AUTO) 0.1 10^3/uL (0.0-0.6); ABSOLUTE LYMPHOCYTES (AUTO) 0.9 10^3/uL (0.5-4.7); ABSOLUTE MONOCYTES (AUTO) 0.6 10^3/uL (0.1-1.4); ABSOLUTE NEUT (AUTO) 13.7 10^3/uL (1.7-8.2); BASOPHILS % (AUTO) 0.4 % (0-2); EOSINOPHILS % (AUTO) 0.7 % (0-6); HEMATOCRIT 34.3 % (36.0-47.0); HEMOGLOBIN 11.5 g/dL (12.0-15.5); HGB HCT DIFFERENCE 0.2; LYMPHOCYTES % (AUTO) 5.8 % (13-45); MEAN CORPUSCULAR HEMOGLOBIN 30.7 pg (27.0-33.4); MEAN CORPUSCULAR HGB CONC 33.6 g/dL (32.0-36.0); MEAN CORPUSCULAR VOLUME 92 fl (80-97); RED BLOOD COUNT 3.75 10^6/uL (3.72-5.28); RED CELL DISTRIBUTION WIDTH 13.9 % (11.5-14.0); SEGMENTED NEUTROPHILS % (AUTO) 89.1 % (42-78); WHITE BLOOD COUNT 15.4 10^3/uL (4.0-10.5)
[2016-12-22 07:38] LABS: ANION GAP 15 (5-19); BLOOD UREA NITROGEN 35 mg/dL (7-20); CARBON DIOXIDE 18 mmol/L (22-30); CHLORIDE 111 mmol/L (98-107); CREATININE RESULT 1.15 mg/dL (0.52-1.25); GLUCOSE 150 mg/dL (75-110); POTASSIUM 3.6 mmol/L (3.6-5.0); SODIUM 143.6 mmol/L (137-145)
[2016-12-22] MEDS ORDERED: AZTREONAM 1 GM in DEXTROSE 5%-WATER 50 ML IV SCH ×2 (08:00→10:00)
--- NOTE | 2016-12-22 09:00 | PDOC H&P ---
History of Present Illness Admission Date/PCP: 12/22/16 05:07 ADIA DAVID Patient complains of: abnormal labs History of Present Illness: IGNACIO ULRICH is a 71 year old female resident of [facility] with a somewhat complicated both acute and chronic past medical history who presents to the emergency room for evaluation of above complaint. Patient has been discussed with emergency room physician who evaluated the patient. Patient herself is a rather poor historian. Most information is obtained per my discussion with ER physician, along with review of his notes. She reportedly has been to the emergency room a number of times recently with intermittent fever. Diagnosed earlier this month with C. difficile colitis and was placed on oral vancomycin. Was evaluated in the emergency room on the for fever and loose stools and was found to have a urinary tract infection. Started on Macrobid and sent back to the alf. Was referred back to the emergency room by the alf because of "abnormal lab results." Patient describes nausea and occasional mild vomiting. Still having diarrhea. No dysuria. No chest pain. Occasional mild abdominal discomfort; none at present. chroni Back pain, without recent change. 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 PICC line is still in place. Laboratory results are listed in [facility] and are reviewed. X-ray summary results are listed below, with full report(s) reviewed. . Social history/personal habits: . No children. Resident of [facility]. Chews tobacco. No alcohol or illicit drug use. Allergies/adverse reactions are listed in [facility] and are reviewed. Home medications detention medications initially autopopulated into [facility] may not accurately reflect patient's true medications, dosages, and/or frequencies. 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 Unfortunately, patient uncertain of medications/dosages/frequencies. REVIEW OF SYSTEMS: Constitutional: See history and present illness. Eyes: Wears glasses. ENT: Occasional mild dysphagia without aspiration, a long-term issue for her. No recent change in same. No hearing problems or complaints. Pulmonary: No current complaints. Cardiovascular: No current complaints, including chest pain. Gastrointestinal: See history and present illness. Skin: History of decubitus ulcers. Hematologic: Easy bruising. Neurologic: Chronic left-sided weakness, numbness and tingling, from prior polio infection. Musculoskeletal: Chronic intermittent back pain. Psychiatric: No current complaints, including anxiety or depression. Endocrine: No current complaints, including polyuria. Genitourinary: No current complaints, including dysuria. PHYSICAL EXAMINATION: 5 feet 6 inches tall. 89.4 kg. BMI 31.8 kg/m.Temperature 98.1. Pulse 82 and regular. Blood pressure 148/43. Respirations are 15 and unlabored. 100% saturation on room air. Patient's floor nurse, Lan, is present. Obese chronically ill-appearing female who appears a number of years older than her stated age. Initially asleep, but awakens reasonably easily. Fatigued appearance. Skin is warm and dry. No grossly obvious evidence of rash in areas of skin examined. No subcutaneous nodules palpated. Per nurse, no evidence of sacral decubitus. Clean dry adherent opaque dressing present on heel; dressing left in place. ENT: Hearing grossly normal to normal conversation. Tongue midline on protrusion pink and slightly tacky. Eyes: No scleral icterus. Pupils equal and reactive to light at 4 mm. [place] conjunctivae. Neck is nontender to palpation. Midline trachea. No palpable thyroid nodule mass enlargement or tenderness. Lymphatic: No palpable cervical or clavicular nodes. Neck and lymphatic exams limited by patient body habitus. Psychiatric: Fair to reasonable insight into chronic medical issues. Oriented to time location and why here. Rather poor historian, in particular related to acute issues. Lungs: Auscultation reveals clear and equal breath sounds bilaterally. No use of accessory respiratory muscles. Cardiovascular: Heart regular rate and rhythm, without gallop murmur or rub. No carotid or abdominal aortic bruits. Mild bilateral symmetric slightly pitting ankle and pedal edema. Faintly palpable dorsalis pedis pulses. Abdomen: soft, obese,nontender with positive bowel sounds. Unable to adequately evaluate abdomen for masses or organomegaly due to body habitus. Extremities: Feet are warm and dry. No calf tenderness to compression. No grossly obvious visual evidence of calf swelling. Gentle manipulation of lower extremities fails to reveal any obvious evidence of injury or instability to knees hips or ankles, although with some slight restricted range of motion at knees and hips, likely due to her chronic nonambulatory status. PICC line in place, right upper arm. Clean dry and intact dressing in place. Site is mildly tender to palpation, according to patient. Neurologic: Moves right upper extremity grossly normally; decreased strength and range of motion, left upper extremity. Patellar reflexes absent. Absent Babinski. Light touch is intact at feet. Dorsiflexion and plantarflexion of right foot 5 over 5, left foot 4 over 5. Past Medical History Cardiac Medical History: Reports: Congestive Heart Failure - EF of 45%, Coronary Artery Disease, Myocardial Infarction, Hyperlipidema, Hypertension Pulmonary Medical History: Reports: Asthma, Chronic Obstructive Pulmonary Disease (COPD) Denies: Bronchitis, Pneumonia Neurological Medical History: Reports: Other - Chronic left-sided weakness, numbness and tingling secondary to prior polio infection. Denies: Hemorrhagic CVA, Ischemic CVA, Migraine, Seizures Endocrine Medical History: Reports: Diabetes Mellitus Type 2 Denies: Hyperthyroidism, Hypothyroidism GI Medical History: Reports: Gastroesophageal Reflux Disease Denies: Cirrhosis, Hepatitis, Peptic Ulcer Disease Musculoskeltal Medical History: Denies: Arthritis Skin Medical History: Reports: Psoriasis Psychiatric Medical History: Reports: Dementia, Depression Hematology: Reports: Anemia Infectious Medical History: Reports: Methicillin-Resistant Staph Aureus Past Surgical History Past Surgical History: Reports: Cardiac Catheterization, Section, Coronary Stent, Hysterectomy, Orthopedic Surgery - right hand Social History Information Source: Patient, Emergency Med Personnel, [facility] Records Lives with: [facility] Smoking Status: Never Smoker - chews tobacco Frequency of Alcohol Use: None Hx Recreational Drug Use: No Drugs: None Hx Prescription Drug Abuse: No - Advance Directive Resuscitation Status: Full Code Surrogate healthcare decision maker:: Her niece Family History Family History: Malignancy, CAD, Reviewed & Not Pertinent Parental Family History Reviewed: Yes - father of a heart attack. Mother of cancer. Children Family History Reviewed: NA Sibling(s) Family History Reviewed.: Yes - Brother with underlying coronary artery disease. Medication/Allergy Home Medications: Acetaminophen [Tylenol 325 mg Tablet] 650 mg PO Q4HP PRN 12/22/16 Aspirin [Aspirin 81 mg Chewable Tablet] 81 mg PO DAILY 12/22/16 Atorvastatin Calcium [Lipitor 20 mg Tablet] 20 mg PO QHS 12/22/16 Carvedilol [Coreg 6.25 mg Tablet] 6.25 mg PO Q12 12/22/16 Cetirizine HCl [Zyrtec 10 mg Tablet] 10 mg PO DAILY 12/22/16 Clopidogrel Bisulfate [Plavix 75 mg Tablet] 75 mg PO DAILY 12/22/16 Diphenhydramine HCl [Benadryl 25 mg Capsule] 25 mg PO Q6HP PRN 12/22/16 Docusate Sodium [Colace 100 mg Capsule] 100 mg PO BID 12/22/16 Escitalopram Oxalate [Lexapro 10 mg Tablet] 10 mg PO DAILY 12/22/16 Fluticasone Propionate [Flonase Nasal [place] 50 Mcg/[place] 16 gm] 2 spray NASL DAILY 12/22/16 Furosemide [Lasix] 80 mg PO QAM 12/22/16 Gabapentin [Neurontin 100 mg Capsule] 100 mg PO Q12 12/22/16 Hydrocodone/Acetaminophen [[place] 5-325 mg Tablet] 1 tab PO BIDP PRN 12/22/16 Insulin Glargine,Hum.rec.anlog [Lantus Insulin 100 Unit/1 ml 10 ml] 65 units SQ Q12 12/22/16 Insulin Lispro [Humalog Insulin (Lispro) 100 unit/mL] See Protocol SQ ACHS 12/22 Lansoprazole [Prevacid] 15 mg PO DAILY 12/22/16 Magnesium Hydroxide [Milk of Magnesia] 5 ml PO BIDP PRN 12/22/16 Miconazole Nitrate 1 applic TOP BID 12/22/16 Nystatin [Mycostatin Topical Powder 15 gm] 1 appful TOP BID 12/22/16 Olopatadine HCl [Patanol 0.1% Oph Soln 5 ml] 1 drop OU DAILY 12/22/16 Potassium Chloride [K-Tab ER] 20 meq PO DAILY 12/22/16 Sodium Chloride [Saline Mist] 1 spray NASL BID 12/22/16 Allergies/Adverse Reactions: penicillin G [Penicillin G] Allergy (Intermediate, Verified 12/21/16 16:44) Generalized rash Sulfa (Sulfonamide Antibiotics) Allergy (Intermediate, Verified 12/21/16 16:44) cephalexin monohydrate [From Keflex] Adverse Reaction (Intermediate, Verified 16:44) itching, rash, Physical Exam Vital Signs: Temp Pulse Resp BP Pulse Ox 98.1 F 131 H 15 148/43 H 100 12/22/16 04:00 12/22/16 07:41 12/22/16 04:00 12/22/16 04:00 12/22/16 04:00 Intake & Output 12/21/16 12/22/1612/23/17 00:59 00:59 00:59 Intake Total 400 Balance 400 Results Laboratory Results: 12/22/16 07:08 12/22/16 07:08 12/22/16 12/22/16 07:08 07:08 WBC 15.4 H RBC 3.75 Hgb 11.5 L Hct 34.3 L MCV 92 MCH 30.7 MCHC 33.6 RDW 13.9 Plt Count 160 Seg Neutrophils % 89.1 H Lymphocytes % 5.8 L Monocytes % 4.0 Eosinophils % 0.7 Basophils % 0.4 Absolute Neutrophils 13.7 H Absolute Lymphocytes 0.9 Absolute Monocytes 0.6 Absolute Eosinophils 0.1 Absolute Basophils 0.1 Sodium 143.6 Potassium 3.6 Chloride 111 H Carbon Dioxide 18 L Anion Gap 15 BUN 35 H Creatinine 1.15 Est GFR ( Amer) 56 L Est GFR (Non-Af Amer) 46 L Glucose 150 H Calcium 9.0 Impressions: Chest X-Ray 12/21/16 16:58 IMPRESSION: STABLE APPEARANCE OF THE CHEST. Abdomen/Pelvis CT 12/21/16 22:17 IMPRESSION: NO SIGNIFICANT OR ACUTE PROCESS IN THE ABDOMEN OR PELVIS. Assessment & Plan - Diagnosis (1) PICC (peripherally inserted central catheter) in place Is this a current diagnosis for this admission?: YesPlan: Present since November 08. Consider blood cultures through through the line, or removal with culture of tip. Discussed with day hospitalist team. (2) C. difficile diarrhea Is this a current diagnosis for this admission?: YesPlan: Resume home medications as appropriate once these have been determined and reviewed. (3) UTI (urinary tract infection) Qualifiers: Urinary tract infection type: site unspecified Is this a current diagnosis for this admission?: YesPlan: Blood and urine cultures have been obtained. Recent urine culture results reviewed. Aztreonam. Knee high SCDs for DVT prophylaxis, along with subcutaneous heparin. Impression and plans were discussed with patient, who concurs. Time spent in evaluation and management of patient: 67 minutes. (4) History of MRSA infection Is this a current diagnosis for this admission?: YesPlan: Contact precautions (5) Decubitus ulcer of left heel Qualifiers: Pressure ulcer stage: unspecified pressure ulcer stage Qualified Code(s): L89.629 - Pressure ulcer of left heel, unspecified stage Is this a current diagnosis for this admission?: YesPlan: Innovative mattress; turn every 2 hours. (6) Chronic kidney disease, stage III (moderate) Is this a current diagnosis for this admission?: Yes - Inpatient Certification Based on my medical assessment, after consideration of the patient's comorbidities, presenting symptoms, or acuity I expect that the services needed warrant INPATIENT care.: Yes I certify that my determination is in accordance with my understanding of Medicare's requirements for reasonable and necessary INPATIENT services [42 CFR 412.3e].: Yes Medical Necessity: Need Close Monitoring Due to Risk of Patient Decompensation, Need for IV Antibiotics, Risk of Complication if Not Cared For in Hospital Post Hospital Care: D/C or Transfer Summary
[2016-12-22] MEDS: HEPARIN SOD (PORCINE) 5,000 UNIT/ML 1 ML SYRINGE SUBCUT SCH ×2 (09:40→22:54)
[2016-12-22] MEDS ORDERED: METOPROLOL TARTRATE PF/INJ 5 MG/5 ML SDV IV ONE (11:35)
[2016-12-22] MEDS ORDERED: GENTAMICIN SULFATE 0 MG in DEXTROSE 5%-WATER 100 ML IV NR (11:45)
[2016-12-22] MEDS ORDERED: DIPHENHYDRAMINE HCL 25 MG CAPSULE PO PRN (13:48)
--- NOTE | 2016-12-22 14:17 | PDOC PROGRESS REPORT ---
Subjective Progress Note for:: 12/22/16 Subjective:: The patient was seen earlier today on rounds. The patient will awaken but was quite groggy. Unable to provide reliable history other than denial of pain. There have been no reported episodes of vomiting nor diarrhea. The patient did have some episodes of sinus tachycardia up to 1:30 however this appeared to respond to fluid. The patient has remained afebrile. Blood pressures have been in a good range. When prompted the patient voices no other concerns at this time. Review of systems: The rest of the review of systems is negative. Physical Exam Vital Signs: Temp Pulse Resp BP Pulse Ox 98.6 F 128 H 22 H 150/57 H 96 12/22/16 09:07 12/22/16 09:07 12/22/16 09:07 12/22/16 09:07 12/22/16 09:07 Intake & Output 12/20/16 12/21/16 12/22/16 23:59 23:59 23:59 Intake Total 500 Balance 500 General appearance: PRESENT: no acute distress, disheveled, obese Head exam: PRESENT: atraumatic, normocephalic Eye exam: PRESENT: conjunctiva pale, EOMI, PERRLA. ABSENT: scleral icterus Ear exam: PRESENT: normal external ear exam Mouth exam: PRESENT: moist, tongue midline Neck exam: ABSENT: carotid bruit, JVD, lymphadenopathy, thyromegaly Respiratory exam: PRESENT: decreased breath sounds, symmetrical, unlabored. ABSENT: rales, rhonchi, tachypnea, wheezes Cardiovascular exam: PRESENT: RRR. ABSENT: diastolic murmur, rubs, systolic murmur Pulses: PRESENT: normal dorsalis pedis pul Vascular exam: PRESENT: normal capillary refill GI/Abdominal exam: PRESENT: normal bowel sounds, soft. ABSENT: distended, guarding, mass, organolmegaly, rebound, tenderness Rectal exam: PRESENT: deferred Extremities exam: PRESENT: full ROM. ABSENT: calf tenderness, clubbing, pedal edema Neurological exam: PRESENT: oriented to person, oriented to place, other - Delayed, groggy. ABSENT: motor sensory deficit Psychiatric exam: ABSENT: homicidal ideation, suicidal ideation Skin exam: PRESENT: dry, intact, warm. ABSENT: cyanosis, rash Results Laboratory Results: 12/22/16 07:08 12/22/16 07:08 12/22/16 12/22/16 07:08 07:08 WBC 15.4 H RBC 3.75 Hgb 11.5 L Hct 34.3 L MCV 92 MCH 30.7 MCHC 33.6 RDW 13.9 Plt Count 160 Seg Neutrophils % 89.1 H Lymphocytes % 5.8 L Monocytes % 4.0 Eosinophils % 0.7 Basophils % 0.4 Absolute Neutrophils 13.7 H Absolute Lymphocytes 0.9 Absolute Monocytes 0.6 Absolute Eosinophils 0.1 Absolute Basophils 0.1 Sodium 143.6 Potassium 3.6 Chloride 111 H Carbon Dioxide 18 L Anion Gap 15 BUN 35 H Creatinine 1.15 Est GFR ( Amer) 56 L Est GFR (Non-Af Amer) 46 L Glucose 150 H Calcium 9.0 Impressions: Chest X-Ray 12/21/16 16:58 IMPRESSION: STABLE APPEARANCE OF THE CHEST. Abdomen/Pelvis CT 12/21/16 22:17 IMPRESSION: NO SIGNIFICANT OR ACUTE PROCESS IN THE ABDOMEN OR PELVIS. Assessment & Plan - Diagnosis (1) C. difficile diarrhea Is this a current diagnosis for this admission?: YesPlan: The patient has had a specimen to be positive the last 7 days therefore unable to reorder this. Will continue current Vancocin and add probiotic therapy. (2) Sepsis Qualifiers: Sepsis type: sepsis due to unspecified organism Qualified Code(s): A41.9 - Sepsis, unspecified organism Is this a current diagnosis for this admission?: YesPlan: Possibly multifocal including urinary tract infection, possible bacteremia, as well as C. difficile. 12/21/16 20:12 Urine Culture - Preliminary Catheterized Urine Gram Negative Rods (3) PICC (peripherally inserted central catheter) in place Is this a current diagnosis for this admission?: YesPlan: Currently awaiting cultures (4) UTI (urinary tract infection) Qualifiers: Urinary tract infection type: site unspecified Qualified Code(s): N39.0 - Urinary tract infection, site not specified Is this a current diagnosis for this admission?: YesPlan: It appears that the patient has had multiple antibiotic resistance infections in the past. Given the patient's multiple allergies will cover with gentamicin for now (5) Diabetes mellitus type 2 in obese Is this a current diagnosis for this admission?: YesPlan: Tenia home basal as well as sliding scale coverage. (6) Decubitus ulcer of left heel Qualifiers: Pressure ulcer stage: unspecified pressure ulcer stage Qualified Code(s): L89.629 - Pressure ulcer of left heel, unspecified stage Is this a current diagnosis for this admission?: YesPlan: The patient is followed outpatient by the wound care center will continue recommendations. (7) [place] (acute kidney injury) Plan: The patient's creatinine is at baseline. (8) Coronary artery disease Qualifiers: Coronary Disease-Associated Artery/Lesion type: [place] artery [place] vs. transplanted heart: [place] heart Associated angina: without angina Qualified Code(s): I25.10 - Atherosclerotic heart disease of [place] coronary artery without angina pectoris Is this a current diagnosis for this admission?: Yes (9) Decubitus ulcer of buttock, stage 1 Qualifiers: Laterality: left Qualified Code(s): L89.321 - Pressure ulcer of left buttock, stage 1 Is this a current diagnosis for this admission?: Yes (10) Decubitus ulcer, ankle, left, unstageable Is this a current diagnosis for this admission?: Yes (11) Obesity Qualifiers: Obesity type: due to excess calories Obesity severity: non-morbid Qualified Code(s): E66.09 - Other obesity due to excess calories Is this a current diagnosis for this admission?: Yes (12) Anemia of chronic disease Is this a current diagnosis for this admission?: YesPlan: Hemoglobin overall stable secondary to chronic underlying kidney disease (13) Chronic kidney disease, stage III (moderate) Is this a current diagnosis for this admission?: Yes (14) Dementia Qualifiers: Dementia type: Alzheimer's disease Dementia behavioral disturbance: without behavioral disturbance Is this a current diagnosis for this admission?: YesPlan: Will continue home medications. (15) Diastolic CHF Qualifiers: Congestive heart failure chronicity: chronic Qualified Code(s): I50.32 - Chronic diastolic (congestive) heart failure Is this a current diagnosis for this admission?: YesPlan: Will continue home medications. (16) History of MRSA infection Is this a current diagnosis for this admission?: Yes (17) Physical deconditioning Is this a current diagnosis for this admission?: YesPlan: Will consult palliative care given the patient's multiple medical problems as well as readmissions to help with obtaining goals of care. - Time Time Spent with patient: 35 or more minutes Medications reviewed and adjusted accordingly: Yes Anticipated discharge: SNF
[2016-12-22] MEDS ORDERED: POTASSIUM CHLORIDE 10 MEQ TABLET.SA PO ONE (15:00)
[2016-12-22] MEDS ORDERED: CLOPIDOGREL BISULFATE 75 MG TABLET PO ONE (15:00)
[2016-12-22] MEDS ORDERED: ESCITALOPRAM OXALATE 10 MG TABLET PO ONE (15:00)
[2016-12-22] MEDS ORDERED: LANSOPRAZOLE 15 MG TAB.RAP.DR PO ONE (15:00)
[2016-12-22] MEDS ORDERED: OLOPATADINE HCL 0.1% OPH SOLN 5 ML OU ONE (15:00)
[2016-12-22] MEDS ORDERED: ASPIRIN 81 MG TABLET, CHEWABLE PO ONE (15:00)
[2016-12-22] MEDS ORDERED: FLUTICASONE NASAL SPRAY 50 MCG/SPRY 120 SPRAY/16 GM NASL ONE (15:00)
[2016-12-22] MEDS ORDERED: CETIRIZINE 10 MG TABLET PO ONE (15:00)
[2016-12-22] MEDS: GENTAMICIN SULFATE 120 MG in DEXTROSE 5%-WATER 100 ML IV SCH (15:39)
[2016-12-22] MEDS: LACTOBACILLUS ACIDOPHILUS 250 MG TAB PO SCH (17:50)
[2016-12-22] MEDS: GABAPENTIN 100 MG CAPSULE PO SCH (17:50)
[2016-12-22] MEDS: CARVEDILOL 6.25 MG TABLET PO SCH (17:51)
[2016-12-22] MEDS: MICONAZOLE NITRATE 2% AEROSOL POWDER 130 GM TOP SCH (17:51)
[2016-12-22] MEDS: NYSTATIN TOPICAL POWDER 15 GM TOP SCH (17:52)
[2016-12-22] MEDS: VANCOMYCIN HCL INJ 500 MG VIAL PO SCH (17:52)
[2016-12-22] MEDS: SODIUM CHLORIDE NASAL SPRAY 44 ML NASL SCH (17:53)
[2016-12-22] MEDS: DOCUSATE SODIUM 100 MG CAPSULE PO SCH (17:54)
[2016-12-22] MEDS: INSULIN GLARGINE,HUM.REC.ANLOG 1,000 UNIT/10 ML UNIT SUBCUT SCH (22:45)
[2016-12-22] MEDS: ATORVASTATIN CALCIUM 20 MG TABLET PO SCH (22:56)
[2016-12-23] MEDS: VANCOMYCIN HCL INJ 500 MG VIAL PO SCH ×4 (00:45→17:31)
[2016-12-23] MEDS: CARVEDILOL 6.25 MG TABLET PO SCH ×2 (06:36→17:31)
[2016-12-23] MEDS: LANSOPRAZOLE 15 MG TAB.RAP.DR PO SCH (06:37)
[2016-12-23] MEDS: GABAPENTIN 100 MG CAPSULE PO SCH ×2 (06:37→17:32)
[2016-12-23 06:58] LABS: HEMATOCRIT 30.9 % (36.0-47.0); HEMOGLOBIN 10.5 g/dL (12.0-15.5); HGB HCT DIFFERENCE 0.6; MEAN CORPUSCULAR HGB CONC 33.8 g/dL (32.0-36.0); MEAN CORPUSCULAR VOLUME 92 fl (80-97); RED BLOOD COUNT 3.38 10^6/uL (3.72-5.28); RED CELL DISTRIBUTION WIDTH 13.8 % (11.5-14.0); WHITE BLOOD COUNT 13.3 10^3/uL (4.0-10.5)
[2016-12-23 07:18] LABS: ANION GAP 11 (5-19); BLOOD UREA NITROGEN 28 mg/dL (7-20); CALCIUM 8.9 mg/dL (8.4-10.2); CARBON DIOXIDE 21 mmol/L (22-30); CHLORIDE 110 mmol/L (98-107); CREATININE RESULT 1.15 mg/dL (0.52-1.25); GLUCOSE 122 mg/dL (75-110); MAGNESIUM 1.7 mg/dL (1.6-2.3); POTASSIUM 3.5 mmol/L (3.6-5.0); SODIUM 142.4 mmol/L (137-145)
[2016-12-23] MEDS ORDERED: (PENDING PHARMACY ID) (Lansoprazole [Prevacid] 15 MG) PO SCH (10:00)
[2016-12-23] MEDS ORDERED: (PENDING PHARMACY ID) (Potassium Chloride [K-Tab Er] 20 MEQ) PO SCH (10:00)
[2016-12-23] MEDS: HEPARIN SOD (PORCINE) 5,000 UNIT/ML 1 ML SYRINGE SUBCUT SCH ×2 (10:22→22:41)
[2016-12-23] MEDS: CETIRIZINE 10 MG TABLET PO SCH (10:23)
[2016-12-23] MEDS: CLOPIDOGREL BISULFATE 75 MG TABLET PO SCH (10:23)
[2016-12-23] MEDS: ASPIRIN 81 MG TABLET, CHEWABLE PO SCH (10:23)
[2016-12-23] MEDS: FLUTICASONE NASAL SPRAY 50 MCG/SPRY 120 SPRAY/16 GM NASL SCH (10:24)
[2016-12-23] MEDS: ESCITALOPRAM OXALATE 10 MG TABLET PO SCH (10:24)
[2016-12-23] MEDS: LACTOBACILLUS ACIDOPHILUS 250 MG TAB PO SCH ×2 (10:25→17:31)
[2016-12-23] MEDS: POTASSIUM CHLORIDE 10 MEQ TABLET.SA PO SCH (10:26)
[2016-12-23] MEDS: OLOPATADINE HCL 0.1% OPH SOLN 5 ML OU SCH (10:26)
[2016-12-23] MEDS: MICONAZOLE NITRATE 2% AEROSOL POWDER 130 GM TOP SCH ×2 (10:26→19:56)
[2016-12-23] MEDS: NYSTATIN TOPICAL POWDER 15 GM TOP SCH ×2 (10:26→19:56)
[2016-12-23] MEDS: SODIUM CHLORIDE NASAL SPRAY 44 ML NASL SCH ×2 (10:27→17:32)
[2016-12-23] MEDS: DOCUSATE SODIUM 100 MG CAPSULE PO SCH ×2 (10:27→19:56)
[2016-12-23] MEDS: INSULIN GLARGINE,HUM.REC.ANLOG 1,000 UNIT/10 ML UNIT SUBCUT SCH ×2 (10:27→22:36)
[2016-12-23] MEDS: HYDROCODONE/ACETAMINOPHEN 5-325 MG TABLET PO PRN (13:39)
--- NOTE | 2016-12-23 15:16 | PDOC PROGRESS REPORT ---
Subjective Progress Note for:: 12/23/16 Subjective:: The patient was seen earlier today on rounds. The patient denies any nausea, vomiting, diarrhea, shortness of breath, dizziness, chest pain, heart palpitations, fevers, or chills. The patient has remained afebrile. Blood pressures have been in a good range. When prompted the patient voices no other concerns at this time. Review of systems: The rest of the review of systems is negative. Physical Exam Vital Signs: Temp Pulse Resp BP Pulse Ox 99.6 F 79 21 H 125/47 L 100 12/23/16 03:51 12/23/16 07:00 12/23/16 03:51 12/23/16 03:51 12/23/16 03:51 Intake & Output 12/21/16 12/22/16 12/23/16 23:59 23:59 23:59 Intake Total 820 30 Balance 820 30 Weight 89.358 kg General appearance: PRESENT: no acute distress, cooperative, disheveled, obese, well-developed Head exam: PRESENT: atraumatic, normocephalic Eye exam: PRESENT: conjunctiva pink, EOMI, PERRLA. ABSENT: scleral icterus Ear exam: PRESENT: normal external ear exam Mouth exam: PRESENT: moist, tongue midline Neck exam: ABSENT: carotid bruit, JVD, lymphadenopathy, thyromegaly Respiratory exam: PRESENT: decreased breath sounds, symmetrical, unlabored. ABSENT: rales, rhonchi, tachypnea, wheezes Cardiovascular exam: PRESENT: RRR. ABSENT: diastolic murmur, rubs, systolic murmur Pulses: PRESENT: normal dorsalis pedis pul Vascular exam: PRESENT: normal capillary refill GI/Abdominal exam: PRESENT: normal bowel sounds, soft. ABSENT: distended, guarding, mass, organolmegaly, rebound, tenderness Rectal exam: PRESENT: deferred Extremities exam: PRESENT: full ROM, other - Narinder wrapped in Kerlix dressing.. ABSENT: calf tenderness, clubbing, pedal edema Neurological exam: PRESENT: alert, awake, oriented to person, oriented to place , oriented to time, oriented to situation, CN II-XII grossly intact. ABSENT: motor sensory deficit Psychiatric exam: PRESENT: appropriate affect, normal mood. ABSENT: homicidal ideation, suicidal ideation Skin exam: PRESENT: dry, intact, warm. ABSENT: cyanosis, rash Results Laboratory Results: 12/23/16 06:25 12/23/16 06:25 12/23/16 12/23/16 06:25 06:25 WBC 13.3 H RBC 3.38 L Hgb 10.5 L Hct 30.9 L MCV 92 MCH 31.0 MCHC 33.8 RDW 13.8 Plt Count 132 L Sodium 142.4 Potassium 3.5 L Chloride 110 H Carbon Dioxide 21 L Anion Gap 11 BUN 28 H Creatinine 1.15 Est GFR ( Amer) 56 L Est GFR (Non-Af Amer) 46 L Glucose 122 H Calcium 8.9 Magnesium 1.7 Impressions: Chest X-Ray 12/21/16 16:58 IMPRESSION: STABLE APPEARANCE OF THE CHEST. Abdomen/Pelvis CT 12/21/16 22:17 IMPRESSION: NO SIGNIFICANT OR ACUTE PROCESS IN THE ABDOMEN OR PELVIS. Assessment & Plan - Diagnosis (1) C. difficile diarrhea Is this a current diagnosis for this admission?: YesPlan: Vancocin as well as probiotic therapy currently awaiting repeat. (2) Sepsis Qualifiers: Sepsis type: sepsis due to unspecified organism Qualified Code(s): A41.9 - Sepsis, unspecified organism Is this a current diagnosis for this admission?: YesPlan: Possibly multifocal including urinary tract infection, possible bacteremia, as well as C. difficile. 12/21/16 20:12 Urine Culture - Preliminary Catheterized Urine Gram Negative Rods (3) PICC (peripherally inserted central catheter) in place Is this a current diagnosis for this admission?: YesPlan: Will discontinue PICC line, obtain a peripheral line, and replace PICC line Monday. (4) UTI (urinary tract infection) Qualifiers: Urinary tract infection type: site unspecified Qualified Code(s): N39.0 - Urinary tract infection, site not specified Is this a current diagnosis for this admission?: YesPlan: It appears that the patient has had multiple antibiotic resistance infections in the past. Given the patient's multiple allergies will cover with gentamicin for now (5) Diabetes mellitus type 2 in obese Is this a current diagnosis for this admission?: YesPlan: Tenia home basal as well as sliding scale coverage. (6) Decubitus ulcer of left heel Qualifiers: Pressure ulcer stage: unspecified pressure ulcer stage Qualified Code(s): L89.629 - Pressure ulcer of left heel, unspecified stage Is this a current diagnosis for this admission?: YesPlan: The patient is followed outpatient by the wound care center will continue recommendations. (7) VALENTINA (acute kidney injury) Plan: The patient's creatinine is at baseline. (8) Coronary artery disease Qualifiers: Coronary Disease-Associated Artery/Lesion type: [place] artery [place] vs. transplanted heart: [place] heart Associated angina: without angina Qualified Code(s): I25.10 - Atherosclerotic heart disease of [place] coronary artery without angina pectoris Is this a current diagnosis for this admission?: Yes (9) Decubitus ulcer of buttock, stage 1 Qualifiers: Laterality: left Qualified Code(s): L89.321 - Pressure ulcer of left buttock, stage 1 Is this a current diagnosis for this admission?: Yes (10) Decubitus ulcer, ankle, left, unstageable Is this a current diagnosis for this admission?: Yes (11) Obesity Qualifiers: Obesity type: due to excess calories Obesity severity: non-morbid Qualified Code(s): E66.09 - Other obesity due to excess calories Is this a current diagnosis for this admission?: Yes (12) Anemia of chronic disease Is this a current diagnosis for this admission?: YesPlan: Hemoglobin overall stable secondary to chronic underlying kidney disease (13) Chronic kidney disease, stage III (moderate) Is this a current diagnosis for this admission?: Yes (14) Dementia Qualifiers: Dementia type: Alzheimer's disease Dementia behavioral disturbance: without behavioral disturbance Is this a current diagnosis for this admission?: YesPlan: Will continue home medications. (15) Diastolic CHF Qualifiers: Congestive heart failure chronicity: chronic Qualified Code(s): I50.32 - Chronic diastolic (congestive) heart failure Is this a current diagnosis for this admission?: YesPlan: Will continue home medications. (16) History of MRSA infection Is this a current diagnosis for this admission?: Yes (17) Physical deconditioning Is this a current diagnosis for this admission?: YesPlan: Will consult palliative care given the patient's multiple medical problems as well as readmissions to help with obtaining goals of care. - Time Time Spent with patient: 25-34 minutes Medications reviewed and adjusted accordingly: Yes Anticipated discharge: SNF Within: within 48 hours Disposition: The patient is a full code. Pending patient's symptomatology and diagnostic findings will reevaluate in the a.m.
[2016-12-23] MEDS: GENTAMICIN SULFATE 120 MG in DEXTROSE 5%-WATER 100 ML IV SCH (16:23)
[2016-12-23] MEDS: ACETAMINOPHEN 325 MG TABLET PO PRN (20:24)
[2016-12-23] MEDS: ATORVASTATIN CALCIUM 20 MG TABLET PO SCH (22:41)
[2016-12-24] MEDS: VANCOMYCIN HCL INJ 500 MG VIAL PO SCH ×2 (00:51→06:08)
[2016-12-24] MEDS: HYDROCODONE/ACETAMINOPHEN 5-325 MG TABLET PO PRN (04:25)
[2016-12-24 05:21] LABS: HEMATOCRIT 30.8 % (36.0-47.0); HEMOGLOBIN 10.6 g/dL (12.0-15.5); MEAN CORPUSCULAR HEMOGLOBIN 31.2 pg (27.0-33.4); MEAN CORPUSCULAR HGB CONC 34.3 g/dL (32.0-36.0); MEAN CORPUSCULAR VOLUME 91 fl (80-97); RED BLOOD COUNT 3.39 10^6/uL (3.72-5.28); RED CELL DISTRIBUTION WIDTH 13.7 % (11.5-14.0); WHITE BLOOD COUNT 9.5 10^3/uL (4.0-10.5)
[2016-12-24 05:26] LABS: ANION GAP 14 (5-19); BLOOD UREA NITROGEN 28 mg/dL (7-20); CALCIUM 9.3 mg/dL (8.4-10.2); CARBON DIOXIDE 18 mmol/L (22-30); CHLORIDE 113 mmol/L (98-107); CREATININE RESULT 1.09 mg/dL (0.52-1.25); GLUCOSE 140 mg/dL (75-110); MAGNESIUM 1.8 mg/dL (1.6-2.3); POTASSIUM 3.9 mmol/L (3.6-5.0)
[2016-12-24] MEDS: CARVEDILOL 6.25 MG TABLET PO SCH ×2 (06:07→18:21)
[2016-12-24] MEDS: LANSOPRAZOLE 15 MG TAB.RAP.DR PO SCH (06:07)
[2016-12-24] MEDS: GABAPENTIN 100 MG CAPSULE PO SCH ×2 (06:07→18:21)
--- NOTE | 2016-12-24 09:18 | PDOC PROGRESS REPORT ---
Subjective Progress Note for:: 12/24/16 Subjective:: The patient was seen earlier today on rounds. Patient states that she does not have much of an appetite this morning. The patient denies any nausea, vomiting , diarrhea, shortness of breath, dizziness, chest pain, heart palpitations, fevers, or chills. The patient has remained afebrile. Blood pressures have been in a good range. When prompted the patient voices no other concerns at this time. Patient was discouraged from chewing tobacco given her history of aspiration. Review of systems: The rest of the review of systems is negative. Physical Exam Vital Signs: Temp Pulse Resp BP Pulse Ox 97.8 F 64 18 143/52 H 97 12/24/16 08:00 12/24/16 08:00 12/24/16 08:00 12/24/16 08:00 12/24/16 08:00 Intake & Output 12/22/16 12/23/16 12/24/16 23:59 23:59 23:59 Intake Total 820 520 406 Balance 820 520 406 Weight 89.358 kg 90 kg General appearance: PRESENT: no acute distress, cooperative, disheveled, obese, well-developed Head exam: PRESENT: atraumatic, normocephalic Eye exam: PRESENT: conjunctiva pink, EOMI, PERRLA. ABSENT: scleral icterus Ear exam: PRESENT: normal external ear exam Mouth exam: PRESENT: moist, tongue midline Neck exam: ABSENT: carotid bruit, JVD, lymphadenopathy, thyromegaly Respiratory exam: PRESENT: decreased breath sounds, symmetrical, unlabored. ABSENT: rales, rhonchi, tachypnea, wheezes Cardiovascular exam: PRESENT: RRR. ABSENT: diastolic murmur, rubs, systolic murmur Pulses: PRESENT: normal dorsalis pedis pul Vascular exam: PRESENT: normal capillary refill GI/Abdominal exam: PRESENT: normal bowel sounds, soft. ABSENT: distended, guarding, mass, organolmegaly, rebound, tenderness Rectal exam: PRESENT: deferred Extremities exam: PRESENT: full ROM, other - Narinder wrapped in Kerlix dressing.. ABSENT: calf tenderness, clubbing, pedal edema Neurological exam: PRESENT: alert, awake, oriented to person, oriented to place , oriented to time, oriented to situation, CN II-XII grossly intact. ABSENT: motor sensory deficit Psychiatric exam: PRESENT: appropriate affect, normal mood. ABSENT: homicidal ideation, suicidal ideation Skin exam: PRESENT: dry, intact, warm. ABSENT: cyanosis, rash Results Laboratory Results: 12/24/16 04:56 12/24/16 04:56 12/24/16 12/24/16 04:56 04:56 WBC 9.5 RBC 3.39 L Hgb 10.6 L Hct 30.8 L MCV 91 MCH 31.2 MCHC 34.3 RDW 13.7 Plt Count 128 L Sodium 145.0 Potassium 3.9 Chloride 113 H Carbon Dioxide 18 L Anion Gap 14 BUN 28 H Creatinine 1.09 Est GFR ( Amer) > 60 Est GFR (Non-Af Amer) 49 L Glucose 140 H Calcium 9.3 Magnesium 1.8 Impressions: Chest X-Ray 12/21/16 16:58 IMPRESSION: STABLE APPEARANCE OF THE CHEST. Abdomen/Pelvis CT 12/21/16 22:17 IMPRESSION: NO SIGNIFICANT OR ACUTE PROCESS IN THE ABDOMEN OR PELVIS. Assessment & Plan - Diagnosis (1) Gram-positive cocci bacteremia Is this a current diagnosis for this admission?: YesPlan: Repeat cultures are pending. Will continue gentamicin for now. The patient's PICC line has been removed and she is receiving IV antibiotics through peripheral for now (2) UTI (urinary tract infection) Qualifiers: Urinary tract infection type: site unspecified Is this a current diagnosis for this admission?: YesPlan: Escherichia coli. This is sensitive to Gent. (3) Sepsis Qualifiers: Sepsis type: sepsis due to unspecified organism Qualified Code(s): A41.9 - Sepsis, unspecified organism Is this a current diagnosis for this admission?: YesPlan: Possibly multifocal including urinary tract infection, possible bacteremia, as well as C. difficile. 12/21/16 20:12 Urine Culture - Preliminary Catheterized Urine Gram Negative Rods (4) PICC (peripherally inserted central catheter) in place Is this a current diagnosis for this admission?: YesPlan: discontinued PICC line, obtained a peripheral line, and replace PICC line Monday. (5) Diabetes mellitus type 2 in obese Is this a current diagnosis for this admission?: YesPlan: Tenia home basal as well as sliding scale coverage. (6) Decubitus ulcer of left heel Qualifiers: Pressure ulcer stage: unspecified pressure ulcer stage Qualified Code(s): L89.629 - Pressure ulcer of left heel, unspecified stage Is this a current diagnosis for this admission?: YesPlan: The patient is followed outpatient by the wound care center will continue recommendations. (7) [place] (acute kidney injury) Is this a current diagnosis for this admission?: YesPlan: The patient's creatinine is at baseline. (8) Coronary artery disease Qualifiers: Coronary Disease-Associated Artery/Lesion type: [place] artery [place] vs. transplanted heart: [place] heart Associated angina: without angina Qualified Code(s): I25.10 - Atherosclerotic heart disease of [place] coronary artery without angina pectoris Is this a current diagnosis for this admission?: Yes (9) Decubitus ulcer of buttock, stage 1 Qualifiers: Laterality: left Qualified Code(s): L89.321 - Pressure ulcer of left buttock, stage 1 Is this a current diagnosis for this admission?: Yes (10) Decubitus ulcer, ankle, left, unstageable Is this a current diagnosis for this admission?: Yes (11) Obesity Qualifiers: Obesity type: due to excess calories Obesity severity: non-morbid Qualified Code(s): E66.09 - Other obesity due to excess calories Is this a current diagnosis for this admission?: Yes (12) Anemia of chronic disease Is this a current diagnosis for this admission?: YesPlan: Hemoglobin overall stable secondary to chronic underlying kidney disease (13) Chronic kidney disease, stage III (moderate) Is this a current diagnosis for this admission?: Yes (14) Dementia Qualifiers: Dementia type: Alzheimer's disease Dementia behavioral disturbance: without behavioral disturbance Is this a current diagnosis for this admission?: Yes (15) Diastolic CHF Qualifiers: Congestive heart failure chronicity: chronic Qualified Code(s): I50.32 - Chronic diastolic (congestive) heart failure Is this a current diagnosis for this admission?: YesPlan: Will continue home medications. (16) History of MRSA infection Is this a current diagnosis for this admission?: Yes (17) Physical deconditioning Is this a current diagnosis for this admission?: YesPlan: Will consult palliative care given the patient's multiple medical problems as well as readmissions to help with obtaining goals of care. (18) C. difficile diarrhea Is this a current diagnosis for this admission?: YesPlan: Will continue probiotic. Patient has completed over 10 days of vancomycin. Repeat C. difficile was negative. - Time Time Spent with patient: 25-34 minutes Medications reviewed and adjusted accordingly: Yes Anticipated discharge: SNF Within: within 48 hours, within 72 hours
[2016-12-24] MEDS: LACTOBACILLUS ACIDOPHILUS 250 MG TAB PO SCH ×2 (11:03→18:21)
[2016-12-24] MEDS: CLOPIDOGREL BISULFATE 75 MG TABLET PO SCH (11:04)
[2016-12-24] MEDS: CETIRIZINE 10 MG TABLET PO SCH (11:04)
[2016-12-24] MEDS: ESCITALOPRAM OXALATE 10 MG TABLET PO SCH (11:04)
[2016-12-24] MEDS: DOCUSATE SODIUM 100 MG CAPSULE PO SCH ×2 (11:05→18:23)
[2016-12-24] MEDS: FUROSEMIDE 80 MG TABLET PO SCH (11:05)
[2016-12-24] MEDS: ASPIRIN 81 MG TABLET, CHEWABLE PO SCH (11:05)
[2016-12-24] MEDS: POTASSIUM CHLORIDE 10 MEQ TABLET.SA PO SCH (11:06)
[2016-12-24] MEDS: NYSTATIN TOPICAL POWDER 15 GM TOP SCH ×2 (11:07→18:23)
[2016-12-24] MEDS: SODIUM CHLORIDE NASAL SPRAY 44 ML NASL SCH ×2 (11:08→18:23)
[2016-12-24] MEDS: FLUTICASONE NASAL SPRAY 50 MCG/SPRY 120 SPRAY/16 GM NASL SCH (11:08)
[2016-12-24] MEDS: INSULIN GLARGINE,HUM.REC.ANLOG 1,000 UNIT/10 ML UNIT SUBCUT SCH ×2 (11:09→22:00)
[2016-12-24] MEDS: HEPARIN SOD (PORCINE) 5,000 UNIT/ML 1 ML SYRINGE SUBCUT SCH ×2 (11:09→21:54)
[2016-12-24] MEDS: OLOPATADINE HCL 0.1% OPH SOLN 5 ML OU SCH (11:09)
[2016-12-24] MEDS: MICONAZOLE NITRATE 2% AEROSOL POWDER 130 GM TOP SCH ×2 (11:11→18:23)
[2016-12-24] MEDS: ACETAMINOPHEN 325 MG TABLET PO PRN (11:32)
[2016-12-24] MEDS: GENTAMICIN SULFATE 120 MG in DEXTROSE 5%-WATER 100 ML IV SCH (16:36)
[2016-12-24] MEDS: ATORVASTATIN CALCIUM 20 MG TABLET PO SCH (21:54)
[2016-12-25] MEDS: CARVEDILOL 6.25 MG TABLET PO SCH ×2 (05:20→17:08)
[2016-12-25] MEDS: GABAPENTIN 100 MG CAPSULE PO SCH ×2 (05:20→17:09)
[2016-12-25] MEDS: LANSOPRAZOLE 15 MG TAB.RAP.DR PO SCH (05:20)
[2016-12-25] MEDS ORDERED: VANCOMYCIN HCL 0 MG in DEXTROSE 5%-WATER 250 ML IV NR (09:45)
--- NOTE | 2016-12-25 09:49 | PDOC PROGRESS REPORT ---
Subjective Progress Note for:: 12/25/16 Subjective:: The patient was seen earlier today on rounds. Patient states that she is shaving lower back pain which is chronic for her. The patient denies any nausea, vomiting, shortness of breath, dizziness, chest pain, heart palpitations , fevers, or chills. Complained of loose stools. The patient has remained afebrile. Blood pressures have been in a good range. When prompted the patient voices no other concerns at this time. Patient was discouraged from chewing tobacco given her history of aspiration. Review of systems: The rest of the review of systems is negative. Physical Exam Vital Signs: Temp Pulse Resp BP Pulse Ox 98.3 F 76 18 137/40 H 100 12/25/16 08:10 12/25/16 08:10 12/25/16 08:10 12/25/16 08:10 12/25/16 08:10 Intake & Output 12/23/16 12/24/16 12/25/16 23:59 23:59 23:59 Intake Total 520 1056 406 Balance 520 1056 406 Weight 89.358 kg 90 kg 94.5 kg General appearance: PRESENT: no acute distress, cooperative, disheveled, obese, well-developed Head exam: PRESENT: atraumatic, normocephalic Eye exam: PRESENT: conjunctiva pink, EOMI, PERRLA. ABSENT: scleral icterus Ear exam: PRESENT: normal external ear exam Mouth exam: PRESENT: moist, tongue midline Neck exam: ABSENT: carotid bruit, JVD, lymphadenopathy, thyromegaly Respiratory exam: PRESENT: decreased breath sounds, symmetrical, unlabored. ABSENT: rales, rhonchi, tachypnea, wheezes Cardiovascular exam: PRESENT: RRR. ABSENT: diastolic murmur, rubs, systolic murmur Pulses: PRESENT: normal dorsalis pedis pul Vascular exam: PRESENT: normal capillary refill GI/Abdominal exam: PRESENT: normal bowel sounds, soft. ABSENT: distended, guarding, mass, organolmegaly, rebound, tenderness Rectal exam: PRESENT: deferred Extremities exam: PRESENT: full ROM, other - Narinder wrapped in Kerlix dressing.. ABSENT: calf tenderness, clubbing, pedal edema Neurological exam: PRESENT: alert, awake, oriented to person, oriented to place , oriented to time, oriented to situation, CN II-XII grossly intact. ABSENT: motor sensory deficit Psychiatric exam: PRESENT: appropriate affect, normal mood. ABSENT: homicidal ideation, suicidal ideation Skin exam: PRESENT: dry, intact, warm. ABSENT: cyanosis, rash Results Laboratory Results: 12/24/16 04:56 12/24/16 04:56 Impressions: Chest X-Ray 12/21/16 16:58 IMPRESSION: STABLE APPEARANCE OF THE CHEST. Abdomen/Pelvis CT 12/21/16 22:17 IMPRESSION: NO SIGNIFICANT OR ACUTE PROCESS IN THE ABDOMEN OR PELVIS. Assessment & Plan - Diagnosis (1) Gram-positive cocci bacteremia Is this a current diagnosis for this admission?: YesPlan: Repeat cultures are negative. The patient's PICC line has been removed and she is receiving IV antibiotics through peripheral for now. Staph epidermidis is resistant to multiple antibiotics. Will start vancomycin. (2) UTI (urinary tract infection) Qualifiers: Urinary tract infection type: site unspecified Is this a current diagnosis for this admission?: YesPlan: Escherichia coli. This was sensitive GENT. Will repeat in and out urine culture given the patient's multiple antibiotic allergies and concerns for nephrotoxicity. Antibiotic use is limited at this time. (3) Sepsis Qualifiers: Sepsis type: sepsis due to unspecified organism Qualified Code(s): A41.9 - Sepsis, unspecified organism Is this a current diagnosis for this admission?: YesPlan: Possibly multifocal including urinary tract infection, possible bacteremia, as well as C. difficile. (4) PICC (peripherally inserted central catheter) in place Is this a current diagnosis for this admission?: YesPlan: discontinued PICC line, obtained a peripheral line, and replace PICC line Monday. (5) Diabetes mellitus type 2 in obese Is this a current diagnosis for this admission?: YesPlan: [facility]ia home basal as well as sliding scale coverage. (6) Decubitus ulcer of left heel Qualifiers: Pressure ulcer stage: unspecified pressure ulcer stage Qualified Code(s): L89.629 - Pressure ulcer of left heel, unspecified stage Is this a current diagnosis for this admission?: YesPlan: The patient is followed outpatient by the wound care center will continue recommendations. (7) [place] (acute kidney injury) Is this a current diagnosis for this admission?: YesPlan: The patient's creatinine is at baseline. (8) Coronary artery disease Qualifiers: Coronary Disease-Associated Artery/Lesion type: [place] artery [place] vs. transplanted heart: [place] heart Associated angina: without angina Qualified Code(s): I25.10 - Atherosclerotic heart disease of [place] coronary artery without angina pectoris Is this a current diagnosis for this admission?: Yes (9) Decubitus ulcer of buttock, stage 1 Qualifiers: Laterality: left Qualified Code(s): L89.321 - Pressure ulcer of left buttock, stage 1 Is this a current diagnosis for this admission?: Yes (10) Decubitus ulcer, ankle, left, unstageable Is this a current diagnosis for this admission?: Yes (11) Obesity Qualifiers: Obesity type: due to excess calories Obesity severity: non-morbid Qualified Code(s): E66.09 - Other obesity due to excess calories Is this a current diagnosis for this admission?: Yes (12) Anemia of chronic disease Is this a current diagnosis for this admission?: YesPlan: Hemoglobin overall stable secondary to chronic underlying kidney disease (13) Chronic kidney disease, stage III (moderate) Is this a current diagnosis for this admission?: Yes (14) Dementia Qualifiers: Dementia type: Alzheimer's disease Dementia behavioral disturbance: without behavioral disturbance Is this a current diagnosis for this admission?: YesPlan: Will continue home medications. (15) Diastolic CHF Qualifiers: Congestive heart failure chronicity: chronic Qualified Code(s): I50.32 - Chronic diastolic (congestive) heart failure Is this a current diagnosis for this admission?: YesPlan: Will continue home medications. (16) History of MRSA infection Is this a current diagnosis for this admission?: Yes (17) Physical deconditioning Is this a current diagnosis for this admission?: YesPlan: Will consult palliative care given the patient's multiple medical problems as well as readmissions to help with obtaining goals of care. (18) C. difficile diarrhea Is this a current diagnosis for this admission?: YesPlan: Will continue probiotic. Patient has completed over 10 days of vancomycin. Repeat C. difficile was negative. Will also add a yogurt each tray. - Time Time Spent with patient: 25-34 minutes Medications reviewed and adjusted accordingly: Yes Anticipated discharge: SNF Within: within 48 hours
[2016-12-25] MEDS ORDERED: ERTAPENEM SODIUM 1 GM in NORMAL SALINE 50 ML IV SCH (10:00)
[2016-12-25] MEDS: LACTOBACILLUS ACIDOPHILUS 250 MG TAB PO SCH ×2 (10:39→17:09)
[2016-12-25] MEDS: POTASSIUM CHLORIDE 10 MEQ TABLET.SA PO SCH (10:39)
[2016-12-25] MEDS: ASPIRIN 81 MG TABLET, CHEWABLE PO SCH (10:39)
[2016-12-25] MEDS: CLOPIDOGREL BISULFATE 75 MG TABLET PO SCH (10:39)
[2016-12-25] MEDS: ESCITALOPRAM OXALATE 10 MG TABLET PO SCH (10:39)
[2016-12-25] MEDS: CETIRIZINE 10 MG TABLET PO SCH (10:39)
[2016-12-25] MEDS: FUROSEMIDE 80 MG TABLET PO SCH (10:40)
[2016-12-25] MEDS: FLUTICASONE NASAL SPRAY 50 MCG/SPRY 120 SPRAY/16 GM NASL SCH (10:41)
[2016-12-25] MEDS: NYSTATIN TOPICAL POWDER 15 GM TOP SCH ×2 (10:41→17:10)
[2016-12-25] MEDS: SODIUM CHLORIDE NASAL SPRAY 44 ML NASL SCH ×2 (10:42→17:09)
[2016-12-25] MEDS: OLOPATADINE HCL 0.1% OPH SOLN 5 ML OU SCH (10:42)
[2016-12-25] MEDS: INSULIN GLARGINE,HUM.REC.ANLOG 1,000 UNIT/10 ML UNIT SUBCUT SCH ×2 (10:45→22:56)
[2016-12-25] MEDS: HEPARIN SOD (PORCINE) 5,000 UNIT/ML 1 ML SYRINGE SUBCUT SCH ×2 (10:46→22:57)
[2016-12-25] MEDS: MICONAZOLE NITRATE 2% AEROSOL POWDER 130 GM TOP SCH ×2 (10:47→17:09)
[2016-12-25] MEDS: DOCUSATE SODIUM 100 MG CAPSULE PO SCH ×2 (10:57→17:12)
[2016-12-25] MEDS: INSULIN LISPRO 100 UNIT/ML 3 ML VIAL SUBCUT PRN (12:18)
[2016-12-25] MEDS: VANCOMYCIN HCL 750 MG in DEXTROSE 5%-WATER 250 ML IV SCH (15:19)
[2016-12-25] MEDS: ATORVASTATIN CALCIUM 20 MG TABLET PO SCH (22:56)
[2016-12-26] MEDS: HYDROCODONE/ACETAMINOPHEN 5-325 MG TABLET PO PRN ×2 (03:29→23:00)
[2016-12-26] MEDS: VANCOMYCIN HCL 750 MG in DEXTROSE 5%-WATER 250 ML IV SCH ×2 (03:30→18:29)
[2016-12-26] MEDS: GABAPENTIN 100 MG CAPSULE PO SCH ×2 (05:21→18:29)
[2016-12-26] MEDS: CARVEDILOL 6.25 MG TABLET PO SCH ×2 (05:21→18:29)
[2016-12-26] MEDS: LANSOPRAZOLE 15 MG TAB.RAP.DR PO SCH (05:21)
[2016-12-26 06:01] LABS: HEMATOCRIT 31.9 % (36.0-47.0); HEMOGLOBIN 11.2 g/dL (12.0-15.5); HGB HCT DIFFERENCE 1.7; MEAN CORPUSCULAR HEMOGLOBIN 31.8 pg (27.0-33.4); MEAN CORPUSCULAR HGB CONC 35.1 g/dL (32.0-36.0); MEAN CORPUSCULAR VOLUME 91 fl (80-97); RED BLOOD COUNT 3.52 10^6/uL (3.72-5.28); RED CELL DISTRIBUTION WIDTH 13.7 % (11.5-14.0); WHITE BLOOD COUNT 10.7 10^3/uL (4.0-10.5)
[2016-12-26 06:08] LABS: PROTHROMBIN TIME 13.7 SEC (11.4-15.4)
[2016-12-26 06:28] LABS: ANION GAP 15 (5-19); BLOOD UREA NITROGEN 29 mg/dL (7-20); CALCIUM 9.3 mg/dL (8.4-10.2); CARBON DIOXIDE 21 mmol/L (22-30); CHLORIDE 105 mmol/L (98-107); GLUCOSE 155 mg/dL (75-110); MAGNESIUM 1.5 mg/dL (1.6-2.3); POTASSIUM 3.7 mmol/L (3.6-5.0); SODIUM 140.7 mmol/L (137-145)
--- NOTE | 2016-12-26 09:18 | PDOC PROGRESS REPORT ---
Subjective Progress Note for:: 12/26/16 Subjective:: The patient was seen earlier today on rounds. Patient states that she is having lower back pain which is chronic for her. The patient denies any nausea, vomiting, shortness of breath, dizziness, chest pain, heart palpitations , fevers, or chills. Complained of loose stools but improving. The patient has remained afebrile. Blood pressures have been in a good range. When prompted the patient voices no other concerns at this time. Patient was discouraged from chewing tobacco given her history of aspiration. Review of systems: The rest of the review of systems is negative. Physical Exam Vital Signs: Temp Pulse Resp BP Pulse Ox 98.2 F 54 L 18 128/41 H 96 12/26/16 08:00 12/26/16 08:00 12/26/16 08:00 12/26/16 08:00 12/26/16 08:00 Intake & Output 12/24/16 12/25/16 12/26/16 23:59 23:59 23:59 Intake Total 1056 1251 280 Output Total 200 Balance 1056 1051 280 Weight 90 kg 94.5 kg General appearance: PRESENT: no acute distress, cooperative, disheveled, obese, well-developed. Chewing tobacco secretions are all over. Head exam: PRESENT: atraumatic, normocephalic Eye exam: PRESENT: conjunctiva pink, EOMI, PERRLA. ABSENT: scleral icterus Ear exam: PRESENT: normal external ear exam Mouth exam: PRESENT: moist, tongue midline Neck exam: ABSENT: carotid bruit, JVD, lymphadenopathy, thyromegaly Respiratory exam: PRESENT: decreased breath sounds, symmetrical, unlabored. ABSENT: rales, rhonchi, tachypnea, wheezes Cardiovascular exam: PRESENT: RRR. ABSENT: diastolic murmur, rubs, systolic murmur Pulses: PRESENT: normal dorsalis pedis pul Vascular exam: PRESENT: normal capillary refill GI/Abdominal exam: PRESENT: normal bowel sounds, soft. ABSENT: distended, guarding, mass, organolmegaly, rebound, tenderness Rectal exam: PRESENT: deferred Extremities exam: PRESENT: full ROM, other - Narinder wrapped in Kerlix dressing.. ABSENT: calf tenderness, clubbing, pedal edema Neurological exam: PRESENT: alert, awake, oriented to person, oriented to place , oriented to time, oriented to situation, CN II-XII grossly intact. ABSENT: motor sensory deficit Psychiatric exam: PRESENT: appropriate affect, normal mood. ABSENT: homicidal ideation, suicidal ideation Skin exam: PRESENT: dry, intact, warm. ABSENT: cyanosis, rash Results Laboratory Results: 12/26/16 05:12 12/26/16 05:12 12/26/16 12/26/16 05:12 05:12 WBC 10.7 H RBC 3.52 L Hgb 11.2 L Hct 31.9 L MCV 91 MCH 31.8 MCHC 35.1 RDW 13.7 Plt Count 150 Sodium 140.7 Potassium 3.7 Chloride 105 Carbon Dioxide 21 L Anion Gap 15 BUN 29 H Creatinine 1.10 Est GFR ( Amer) 59 L Est GFR (Non-Af Amer) 49 L Glucose 155 H Calcium 9.3 Magnesium 1.5 L Impressions: Chest X-Ray 12/21/16 16:58 IMPRESSION: STABLE APPEARANCE OF THE CHEST. Abdomen/Pelvis CT 12/21/16 22:17 IMPRESSION: NO SIGNIFICANT OR ACUTE PROCESS IN THE ABDOMEN OR PELVIS. Assessment & Plan - Diagnosis (1) Staphylococcus hominis sepsis Is this a current diagnosis for this admission?: YesPlan: Resistant bactermia. Most likely from PICC. Repeat cultures as PICC removal are negative. Will need VAnc. New site Picc placement today. (2) UTI (urinary tract infection) Qualifiers: Urinary tract infection type: site unspecified Is this a current diagnosis for this admission?: YesPlan: Escherichia coli. This was sensitive GENT. Will repeat in and out urine culture is pending given the patient's multiple antibiotic allergies and concerns for nephrotoxicity. Antibiotic use is limited at this time. (3) PICC (peripherally inserted central catheter) in place Is this a current diagnosis for this admission?: YesPlan: discontinued PICC line, obtained a peripheral line, and replace PICC line today. (4) Diabetes mellitus type 2 in obese Is this a current diagnosis for this admission?: YesPlan: Jayce basal as well as sliding scale coverage. (5) Decubitus ulcer of left heel Qualifiers: Pressure ulcer stage: unspecified pressure ulcer stage Qualified Code(s): L89.629 - Pressure ulcer of left heel, unspecified stage Is this a current diagnosis for this admission?: YesPlan: The patient is followed outpatient by the wound care center will continue recommendations. (6) VALENTINA (acute kidney injury) Is this a current diagnosis for this admission?: YesPlan: The patient's creatinine is at baseline. (7) Coronary artery disease Qualifiers: Coronary Disease-Associated Artery/Lesion type: [place] artery [place] vs. transplanted heart: [place] heart Associated angina: without angina Qualified Code(s): I25.10 - Atherosclerotic heart disease of [place] coronary artery without angina pectoris Is this a current diagnosis for this admission?: Yes (8) Decubitus ulcer of buttock, stage 1 Qualifiers: Laterality: left Qualified Code(s): L89.321 - Pressure ulcer of left buttock, stage 1 Is this a current diagnosis for this admission?: Yes (9) Decubitus ulcer, ankle, left, unstageable Is this a current diagnosis for this admission?: Yes (10) Obesity Qualifiers: Obesity type: due to excess calories Obesity severity: non-morbid Qualified Code(s): E66.09 - Other obesity due to excess calories Is this a current diagnosis for this admission?: Yes (11) Anemia of chronic disease Is this a current diagnosis for this admission?: YesPlan: Hemoglobin overall stable secondary to chronic underlying kidney disease (12) Chronic kidney disease, stage III (moderate) Is this a current diagnosis for this admission?: Yes (13) Dementia Qualifiers: Dementia type: Alzheimer's disease Dementia behavioral disturbance: without behavioral disturbance Is this a current diagnosis for this admission?: YesPlan: Will continue home medications. (14) Diastolic CHF Qualifiers: Congestive heart failure chronicity: chronic Qualified Code(s): I50.32 - Chronic diastolic (congestive) heart failure Is this a current diagnosis for this admission?: YesPlan: Will continue home medications. (15) History of MRSA infection Is this a current diagnosis for this admission?: Yes (16) Physical deconditioning Is this a current diagnosis for this admission?: YesPlan: Will consult palliative care given the patient's multiple medical problems as well as readmissions to help with obtaining goals of care. (17) C. difficile diarrhea Is this a current diagnosis for this admission?: YesPlan: Will continue probiotic. Patient has completed over 10 days of vancomycin. Repeat C. difficile was negative. Will also add a yogurt each tray. - Time Time Spent with patient: 25-34 minutes Medications reviewed and adjusted accordingly: Yes Anticipated discharge: SNF Within: within 24 hours
--- NOTE | 2016-12-26 12:04 | Palliative Consultation Report ---
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 She was admitted for sepsis related to PICC line and UTI. She has been recently treated for C-Diff in November, has been treated and released from wound care clinic for decubitus on her left heel. She also suffers from CAD, DM, COPD GERD, Psoriasis and depression per her medical records. Today, Mrs. Limon is alert and pleasant, Her neice, Chapis Astorgatojazz is at her bedside. Mrs. Limon is still having chronic back pain but states her medications help along with positioning. Chapis reports that PT came to work with her yesterday and assisted her to ambulate, however, her discharge instructions after her hyperbaric treatments for her heel said no weight bearing , so Chapis has asked that she not be ambulated. Patient wants to go back to [facility] [place] and says she feels a lot better today. She was eating a milkshake with no noted swallowing difficulties and was able to feed herself. She says she has been sleeping well and no nausea or other GI issues. Patient is conversational although does not appear not fully decisional today. I did discuss with patient and the niece matters related to her advance directives. Patient says she would want feeding tube and also would want ventilator, but she did not want to ever have her hands tied down. We discussed all of these issues including the fact that if she had to be on a ventilator, she could not go back to [place]. She seemed a little agitated about these issues and was having some pain. So I addressed the niece and explained further about the use of CPR, Ventilator and feeding tubes in relation to quality of life, etc. She seems very receptive to the conversation , but does not want to upset patient. I gave the niece a copy of the MOST form for her to review and to discuss with patient as she could. I gave her my phone number for any questions and also told her that they could help her with the MOST form back at [facility] if she would like to do it there. 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 Onset: Last week Onset/Duration: Gradual Quality of Pain: Achy Severity: Moderate Associated Symptoms: Weakness Exacerbated by: Movement - Repositioning, medications help relieve pain Past Medical History(Consults) - General Information Source: Patient, Relative, [facility] Records Home Medications: Acetaminophen [Tylenol 325 mg Tablet] 650 mg PO Q4HP PRN 12/22/16 Aspirin [Aspirin 81 mg Chewable Tablet] 81 mg PO DAILY 12/22/16 Atorvastatin Calcium [Lipitor 20 mg Tablet] 20 mg PO QHS 12/22/16 Carvedilol [Coreg 6.25 mg Tablet] 6.25 mg PO Q12 12/22/16 Cetirizine HCl [Zyrtec 10 mg Tablet] 10 mg PO DAILY 12/22/16 Clopidogrel Bisulfate [Plavix 75 mg Tablet] 75 mg PO DAILY 12/22/16 Diphenhydramine HCl [Benadryl 25 mg Capsule] 25 mg PO Q6HP PRN 12/22/16 Docusate Sodium [Colace 100 mg Capsule] 100 mg PO BID 12/22/16 Escitalopram Oxalate [Lexapro 10 mg Tablet] 10 mg PO DAILY 12/22/16 Fluticasone Propionate [Flonase Nasal [place] 50 Mcg/[place] 16 gm] 2 spray NASL DAILY 12/22/16 Furosemide [Lasix] 80 mg PO QAM 12/22/16 Gabapentin [Neurontin 100 mg Capsule] 100 mg PO Q12 12/22/16 Hydrocodone/Acetaminophen [[place] 5-325 mg Tablet] 1 tab PO BIDP PRN 12/22/16 Insulin Glargine,Hum.rec.anlog [Lantus Insulin 100 Unit/1 ml 10 ml] 65 units SQ Q12 12/22/16 Insulin Lispro [Humalog Insulin (Lispro) 100 unit/mL] See Protocol SQ ACHS 12/22 Lansoprazole [Prevacid] 15 mg PO DAILY 12/22/16 Magnesium Hydroxide [Milk of Magnesia] 5 ml PO BIDP PRN 12/22/16 Miconazole Nitrate 1 applic TOP BID 12/22/16 Nystatin [Mycostatin Topical Powder 15 gm] 1 appful TOP BID 12/22/16 Olopatadine HCl [Patanol 0.1% Oph Soln 5 ml] 1 drop OU DAILY 12/22/16 Potassium Chloride [K-Tab ER] 20 meq PO DAILY 12/22/16 Sodium Chloride [Saline Mist] 1 spray NASL BID 12/22/16 Allergies/Adverse Reactions: penicillin G [Penicillin G] Allergy (Intermediate, Verified 12/21/16 16:44) Generalized rash Sulfa (Sulfonamide Antibiotics) Allergy (Intermediate, Verified 12/21/16 16:44) cephalexin monohydrate [From Keflex] Adverse Reaction (Intermediate, Verified 16:44) itching, rash, - Social History Lives with: Senior Living Family History: Reviewed & Not Pertinent, CAD, Malignancy Parental Family History Reviewed: No Children Family History Reviewed: No Sibling(s) Family History Reviewed.: No Smoking Status: Never Smoker - chews tobacco Frequency of Alcohol Use: None Hx Recreational Drug Use: No Drugs: None Hx Prescription Drug Abuse: No - Past Medical History Cardiac Medical History: Reports: Hx Congestive Heart Failure - EF of 45%, Hx Coronary Artery Disease, Hx Heart Attack, Hx Hypercholesterolemia, Hx Hypertension Pulmonary Medical History: Reports: Hx Asthma, Hx COPD Denies: Hx Bronchitis, Hx Pneumonia Neurological Medical History: Reports: Other - Chronic left-sided weakness, numbness and tingling secondary to prior polio infection.. Denies: Hx Cerebrovascular Accident, Hx Migraine, Hx Seizures Endocrine Medical History: Reports: Hx Diabetes Mellitus Type 2. Denies: Hx Hyperthyroidism, Hx Hypothyroidism Renal/ Medical History: Reports: Hx Renal Insufficiency. Denies: Hx Peritoneal Dialysis Malignancy Medical History: Reports: None GI Medical History: Reports: Hx Gastroesophageal Reflux Disease. 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 Denies: Hx Hepatitis Hematology: Reports: Anemia - Surgical History Past Surgical History: Reports: Hx Cardiac Catheterization, Hx Cardiac Surgery - stents, Hx Section, Hx Coronary Stent, Hx Hysterectomy, Hx Orthopedic Surgery - right hand Review of systems Constitutional: Weakness, Recent illness EENT: No symptoms reported Cardiovascular: No symptoms reported Respiratory: Cough Gastrointestinal: Diarrhea Geniturinary: Dysuria Musculoskeltal: Back pain Skin: Other - healed decubitus on left heel which required hyperbaric oxygen treatments recently Neurological/Psychological: Dementia, Depression Ojective:Exam Vital Signs: Temp Pulse Resp BP Pulse Ox 98.2 F 54 L 18 128/41 H 96 12/26/16 08:00 12/26/16 08:00 12/26/16 08:00 12/26/16 08:00 12/26/16 08:00 Intake & Output 12/25/16 12/26/16 12/27/16 06:59 06:59 06:59 Intake Total 1056 1125 Output Total 200 Balance 1056 925 Weight 94.5 kg - General General Appearance: Alert In distress: Mild - HEENT Head: Normocephalic Eyes: Normal - Neck Neck: Normal - Respiratory Respiratory Status: No respiratory distress Breath sounds: Clear - Cardiovascular Rhythm: Regular Pulses: Normal: Radial - Extremities Upper extremity: Nontender Foot: Unable to bear weight - Neurological Cognition: Normal Orientation: Alert, Oriented to person, Oriented to place, Oriented to time Speech: Normal Cranial nerves: Normal - Psychological Associated symptoms: Anxious - Skin Skin Temperature: Warm Skin Moisture: Dry Skin Color: Normal Skin Turgor: Elastic Objective-Diagnostic Laboratory: 12/26/16 05:12 12/26/16 05:12 12/26/16 12/26/16 05:12 05:12 WBC 10.7 H RBC 3.52 L Hgb 11.2 L Hct 31.9 L MCV 91 MCH 31.8 MCHC 35.1 RDW 13.7 Plt Count 150 Sodium 140.7 Potassium 3.7 Chloride 105 Carbon Dioxide 21 L Anion Gap 15 BUN 29 H Creatinine 1.10 Est GFR ( Amer) 59 L Est GFR (Non-Af Amer) 49 L Glucose 155 H Calcium 9.3 Magnesium 1.5 L Plan and Recommendation - Time Spent with Patient Time spent with patient: 30 to 40 Minutes - 40 min spent with patient and in review of chart. Time: 40 min
[2016-12-26] MEDS: CETIRIZINE 10 MG TABLET PO SCH (12:19)
[2016-12-26] MEDS: ASPIRIN 81 MG TABLET, CHEWABLE PO SCH (12:20)
[2016-12-26] MEDS: DOCUSATE SODIUM 100 MG CAPSULE PO SCH ×2 (12:20→18:20)
[2016-12-26] MEDS: CLOPIDOGREL BISULFATE 75 MG TABLET PO SCH (12:20)
[2016-12-26] MEDS: FUROSEMIDE 80 MG TABLET PO SCH (12:20)
[2016-12-26] MEDS: FLUTICASONE NASAL SPRAY 50 MCG/SPRY 120 SPRAY/16 GM NASL SCH (12:21)
[2016-12-26] MEDS: OLOPATADINE HCL 0.1% OPH SOLN 5 ML OU SCH (12:21)
[2016-12-26] MEDS: SODIUM CHLORIDE NASAL SPRAY 44 ML NASL SCH ×2 (12:21→18:35)
[2016-12-26] MEDS: ESCITALOPRAM OXALATE 10 MG TABLET PO SCH (12:21)
[2016-12-26] MEDS: LACTOBACILLUS ACIDOPHILUS 250 MG TAB PO SCH ×2 (12:21→18:29)
[2016-12-26] MEDS: INSULIN GLARGINE,HUM.REC.ANLOG 1,000 UNIT/10 ML UNIT SUBCUT SCH ×2 (12:22→23:05)
[2016-12-26] MEDS: MICONAZOLE NITRATE 2% AEROSOL POWDER 130 GM TOP SCH ×2 (12:22→18:35)
[2016-12-26] MEDS: ACETAMINOPHEN 325 MG TABLET PO PRN (12:22)
[2016-12-26] MEDS: HEPARIN SOD (PORCINE) 5,000 UNIT/ML 1 ML SYRINGE SUBCUT SCH ×2 (12:22→23:04)
[2016-12-26] MEDS: NYSTATIN TOPICAL POWDER 15 GM TOP SCH ×2 (18:29→18:36)
[2016-12-26] MEDS: POTASSIUM CHLORIDE 10 MEQ TABLET.SA PO SCH (18:30)
[2016-12-26] MEDS ORDERED: NORMAL SALINE 10 ML SDV (AFTER EACH USE) IV PRN (20:25)
[2016-12-26] MEDS: ATORVASTATIN CALCIUM 20 MG TABLET PO SCH (23:00)
[2016-12-26] MEDS: NORMAL SALINE 10 ML SDV (SCHEDULED) IV SCH (23:00)
[2016-12-26] MEDS: INSULIN LISPRO 100 UNIT/ML 3 ML VIAL SUBCUT PRN (23:05)
[2016-12-27] MEDS: VANCOMYCIN HCL 750 MG in DEXTROSE 5%-WATER 250 ML IV SCH ×2 (02:46→15:48)
[2016-12-27] MEDS: LANSOPRAZOLE 15 MG TAB.RAP.DR PO SCH (06:26)
[2016-12-27] MEDS: GABAPENTIN 100 MG CAPSULE PO SCH ×2 (06:26→17:59)
[2016-12-27] MEDS: CARVEDILOL 6.25 MG TABLET PO SCH ×2 (06:26→17:58)
[2016-12-27] MEDS: HYDROCODONE/ACETAMINOPHEN 5-325 MG TABLET PO PRN ×3 (08:17→22:47)
[2016-12-27] MEDS: FUROSEMIDE 80 MG TABLET PO SCH (10:19)
[2016-12-27] MEDS: CETIRIZINE 10 MG TABLET PO SCH (10:19)
[2016-12-27] MEDS: ESCITALOPRAM OXALATE 10 MG TABLET PO SCH (10:21)
[2016-12-27] MEDS: ASPIRIN 81 MG TABLET, CHEWABLE PO SCH (10:21)
[2016-12-27] MEDS: CLOPIDOGREL BISULFATE 75 MG TABLET PO SCH (10:22)
[2016-12-27] MEDS: POTASSIUM CHLORIDE 10 MEQ TABLET.SA PO SCH (10:23)
[2016-12-27] MEDS: LACTOBACILLUS ACIDOPHILUS 250 MG TAB PO SCH ×2 (10:24→17:59)
[2016-12-27] MEDS: OLOPATADINE HCL 0.1% OPH SOLN 5 ML OU SCH (10:25)
[2016-12-27] MEDS: FLUTICASONE NASAL SPRAY 50 MCG/SPRY 120 SPRAY/16 GM NASL SCH (10:25)
[2016-12-27] MEDS: SODIUM CHLORIDE NASAL SPRAY 44 ML NASL SCH ×2 (10:26→18:01)
[2016-12-27] MEDS: MICONAZOLE NITRATE 2% AEROSOL POWDER 130 GM TOP SCH ×2 (10:26→18:01)
[2016-12-27] MEDS: NYSTATIN TOPICAL POWDER 15 GM TOP SCH ×2 (10:27→18:01)
[2016-12-27] MEDS: NORMAL SALINE 10 ML SDV (SCHEDULED) IV SCH ×2 (10:27→22:48)
[2016-12-27] MEDS: HEPARIN SOD (PORCINE) 5,000 UNIT/ML 1 ML SYRINGE SUBCUT SCH ×2 (10:28→22:48)
[2016-12-27] MEDS: INSULIN GLARGINE,HUM.REC.ANLOG 1,000 UNIT/10 ML UNIT SUBCUT SCH (10:28)
[2016-12-27] MEDS: DOCUSATE SODIUM 100 MG CAPSULE PO SCH ×2 (10:29→18:02)
--- NOTE | 2016-12-27 17:43 | PDOC PROGRESS REPORT ---
Subjective Progress Note for:: 12/27/16 Subjective:: The patient was seen earlier today on rounds. Patient states that she is having lower back pain which is chronic for her. The patient now admits to left-sided pain which she also says has moved over from her right side from last week. She does complain of some pain with deep breathing. The patient denies any nausea, vomiting, shortness of breath, dizziness, chest pain, heart palpitations, fevers, or chills. Complained of loose stools but improving. The patient has remained afebrile. Blood pressures have been in a good range. When prompted the patient voices no other concerns at this time. Patient was discouraged from chewing tobacco given her history of aspiration. Review of systems: The rest of the review of systems is negative. Brief history: Ms. Limon is well known to the hospitalist service due to chronic conditions of peripheral vascular disease, diabetes, chronic wounds, aspiration pneumonia due to her tobacco secretions, and so forth. The patient presented with evidence of sepsis. Appears the patient had an infected PICC line. The patient's PICC line was in place for antibiotics for chronic wound. As a had a recent bout of C. difficile however repeat C. difficile and diarrhea has improved. Patient also has chronic pain. The patient stated that she did not want to leave the hospital until "I am completely healed and everything is taking care of". I explained to the patient that she had multiple chronic conditions as evidence by long-term IV antibiotics for a nonhealing wound and that her being completely healed is not feasible given her underlying chronic ill illness. Also reminded the patient of her self-care deficits. The patient has been seen by palliative care. At this time the patient wants all measures even though she aspirates or tobacco secretions and is unwilling to stop chewing tobacco or transition to a more palliative model. Physical Exam Vital Signs: Temp Pulse Resp BP Pulse Ox 97.5 F 75 20 143/49 H 100 12/27/16 08:03 12/27/16 08:03 12/27/16 08:03 12/27/16 08:03 12/27/16 08:03 Intake & Output 12/25/16 12/26/16 12/27/16 23:59 23:59 23:59 Intake Total 1251 1080 250 Output Total 200 Balance 1051 1080 250 Weight 94.5 kg General appearance: PRESENT: no acute distress, cooperative, disheveled, obese, well-developed. Chewing tobacco secretions are all over. Head exam: PRESENT: atraumatic, normocephalic Eye exam: PRESENT: conjunctiva pink, EOMI, PERRLA. ABSENT: scleral icterus Ear exam: PRESENT: normal external ear exam Mouth exam: PRESENT: moist, tongue midline Neck exam: ABSENT: carotid bruit, JVD, lymphadenopathy, thyromegaly Respiratory exam: PRESENT: decreased breath sounds, symmetrical, unlabored. ABSENT: rales, rhonchi, tachypnea, wheezes Cardiovascular exam: PRESENT: RRR. ABSENT: diastolic murmur, rubs, systolic murmur Pulses: PRESENT: normal dorsalis pedis pul Vascular exam: PRESENT: normal capillary refill GI/Abdominal exam: PRESENT: normal bowel sounds, soft. ABSENT: distended, guarding, mass, organolmegaly, rebound, tenderness Rectal exam: PRESENT: deferred Extremities exam: PRESENT: full ROM, other - wrapped in Kerlix dressing. Redness noted with mild streaking and right upper extremity due to infected PICC line. ABSENT: calf tenderness, clubbing, pedal edema Neurological exam: PRESENT: alert, awake, oriented to person, oriented to place , oriented to time, oriented to situation, CN II-XII grossly intact. ABSENT: motor sensory deficit Psychiatric exam: PRESENT: appropriate affect, normal mood. ABSENT: homicidal ideation, suicidal ideation Skin exam: PRESENT: dry, intact, warm. ABSENT: cyanosis, rash Results Laboratory Results: 12/26/16 05:12 12/25/16 16:20 Catheterized Urine Urine Culture - Final NO GROWTH 2 DAYS Impressions: Chest X-Ray 12/21/16 16:58 IMPRESSION: STABLE APPEARANCE OF THE CHEST. Abdomen/Pelvis CT 12/21/16 22:17 IMPRESSION: NO SIGNIFICANT OR ACUTE PROCESS IN THE ABDOMEN OR PELVIS. Guidance Fluoroscopy 12/26/16 00:00 IMPRESSION: SUCCESSFUL PLACEMENT OF A 5 FR DUAL LUMEN 41 CM PICC IN THE left basilic VEIN. Interventional Vascular Procedure 12/26/16 00:00 IMPRESSION: SUCCESSFUL PLACEMENT OF A 5 FR DUAL LUMEN 41 CM PICC IN THE left basilic VEIN. PICC Line Insertion 12/26/16 00:00 IMPRESSION: SUCCESSFUL PLACEMENT OF A 5 FR DUAL LUMEN 41 CM PICC IN THE left basilic VEIN. Assessment & Plan - Diagnosis (1) Staphylococcus hominis sepsis Is this a current diagnosis for this admission?: YesPlan: Resistant bactermia. Most likely from PICC. Repeat cultures after PICC removal are negative. Will need VAnc. New PICC was placed on 12/26. (2) Urinary tract infection Qualifiers: Urinary tract infection type: acute cystitis Is this a current diagnosis for this admission?: YesPlan: This was Escherichia coli. Repeat culture is negative. (3) PICC (peripherally inserted central catheter) in place Is this a current diagnosis for this admission?: YesPlan: discontinued PICC line, obtained a peripheral line, and replace PICC yesterday. Patient notices an increase in pain of her right upper extremity which correlates with her PICC site. Will obtain Doppler. (4) Diabetes mellitus type 2 in obese Is this a current diagnosis for this admission?: YesPlan: basal as well as sliding scale coverage. (5) Decubitus ulcer of left heel Qualifiers: Pressure ulcer stage: unspecified pressure ulcer stage Qualified Code(s): L89.629 - Pressure ulcer of left heel, unspecified stage Is this a current diagnosis for this admission?: YesPlan: The patient is followed outpatient by the wound care center will continue recommendations. (6) VALENTINA (acute kidney injury) Is this a current diagnosis for this admission?: YesPlan: The patient's creatinine is at baseline. (7) Coronary artery disease Qualifiers: Coronary Disease-Associated Artery/Lesion type: [place] artery [place] vs. transplanted heart: [place] heart Associated angina: without angina Qualified Code(s): I25.10 - Atherosclerotic heart disease of [place] coronary artery without angina pectoris Is this a current diagnosis for this admission?: Yes (8) Decubitus ulcer of buttock, stage 1 Qualifiers: Laterality: left Qualified Code(s): L89.321 - Pressure ulcer of left buttock, stage 1 Is this a current diagnosis for this admission?: Yes (9) Decubitus ulcer, ankle, left, unstageable Is this a current diagnosis for this admission?: Yes (10) Obesity Qualifiers: Obesity type: due to excess calories Obesity severity: non-morbid Qualified Code(s): E66.09 - Other obesity due to excess calories Is this a current diagnosis for this admission?: Yes (11) Anemia of chronic disease Is this a current diagnosis for this admission?: YesPlan: Hemoglobin overall stable secondary to chronic underlying kidney disease (12) Chronic kidney disease, stage III (moderate) Is this a current diagnosis for this admission?: Yes (13) Dementia Qualifiers: Dementia type: Alzheimer's disease Dementia behavioral disturbance: without behavioral disturbance Is this a current diagnosis for this admission?: YesPlan: Will continue home medications. (14) Diastolic CHF Qualifiers: Congestive heart failure chronicity: chronic Qualified Code(s): I50.32 - Chronic diastolic (congestive) heart failure Is this a current diagnosis for this admission?: YesPlan: Will continue home medications. (15) History of MRSA infection Is this a current diagnosis for this admission?: Yes (16) Physical deconditioning Is this a current diagnosis for this admission?: YesPlan: Will consult palliative care given the patient's multiple medical problems as well as readmissions to help with obtaining goals of care. (17) C. difficile diarrhea Is this a current diagnosis for this admission?: YesPlan: Will continue probiotic. Patient has completed over 10 days of vancomycin. Repeat C. difficile was negative. Will also add a yogurt each tray. - Time Time Spent with patient: 35 or more minutes Medications reviewed and adjusted accordingly: Yes Anticipated discharge: SNF Within: within 24 hours Disposition: The patient is a full code. Pending patient's symptomatology and diagnostic findings will reevaluate in the a.m. the patient can most likely be discharged to [facility] in the a.m. ending results of Doppler.
[2016-12-27] MEDS: MAGNESIUM OXIDE 400 MG TABLET PO SCH (18:00)
[2016-12-27] MEDS: ATORVASTATIN CALCIUM 20 MG TABLET PO SCH (22:47)
[2016-12-28] MEDS: INSULIN GLARGINE,HUM.REC.ANLOG 1,000 UNIT/10 ML UNIT SUBCUT SCH ×3 (00:29→22:35)
[2016-12-28] MEDS: GABAPENTIN 100 MG CAPSULE PO SCH ×2 (06:11→18:24)
[2016-12-28] MEDS: CARVEDILOL 6.25 MG TABLET PO SCH ×2 (06:11→18:23)
[2016-12-28] MEDS: LANSOPRAZOLE 15 MG TAB.RAP.DR PO SCH (06:11)
[2016-12-28] MEDS: HYDROCODONE/ACETAMINOPHEN 5-325 MG TABLET PO PRN ×3 (06:12→19:52)
[2016-12-28 06:51] LABS: HEMOGLOBIN 11.2 g/dL (12.0-15.5); HGB HCT DIFFERENCE 0.6; MEAN CORPUSCULAR HEMOGLOBIN 31.1 pg (27.0-33.4); MEAN CORPUSCULAR VOLUME 91 fl (80-97); RED BLOOD COUNT 3.61 10^6/uL (3.72-5.28); WHITE BLOOD COUNT 12.2 10^3/uL (4.0-10.5)
[2016-12-28 07:10] LABS: ANION GAP 15 (5-19); BLOOD UREA NITROGEN 31 mg/dL (7-20); CALCIUM 9.5 mg/dL (8.4-10.2); CARBON DIOXIDE 25 mmol/L (22-30); CHLORIDE 103 mmol/L (98-107); CREATININE RESULT 1.37 mg/dL (0.52-1.25); GLUCOSE 63 mg/dL (75-110); MAGNESIUM 1.7 mg/dL (1.6-2.3); POTASSIUM 4.2 mmol/L (3.6-5.0)
[2016-12-28] MEDS: MAGNESIUM OXIDE 400 MG TABLET PO SCH ×2 (10:45→18:24)
[2016-12-28] MEDS: LACTOBACILLUS ACIDOPHILUS 250 MG TAB PO SCH ×2 (10:46→18:24)
[2016-12-28] MEDS: POTASSIUM CHLORIDE 10 MEQ TABLET.SA PO SCH (10:46)
[2016-12-28] MEDS: FUROSEMIDE 40 MG TABLET PO SCH (10:47)
[2016-12-28] MEDS: CETIRIZINE 10 MG TABLET PO SCH (10:48)
[2016-12-28] MEDS: ESCITALOPRAM OXALATE 10 MG TABLET PO SCH (10:48)
[2016-12-28] MEDS: CLOPIDOGREL BISULFATE 75 MG TABLET PO SCH (10:48)
[2016-12-28] MEDS: FLUTICASONE NASAL SPRAY 50 MCG/SPRY 120 SPRAY/16 GM NASL SCH (10:50)
[2016-12-28] MEDS: MICONAZOLE NITRATE 2% AEROSOL POWDER 130 GM TOP SCH ×2 (10:50→18:25)
[2016-12-28] MEDS: NYSTATIN TOPICAL POWDER 15 GM TOP SCH ×2 (10:51→18:26)
[2016-12-28] MEDS: OLOPATADINE HCL 0.1% OPH SOLN 5 ML OU SCH (10:51)
[2016-12-28] MEDS: SODIUM CHLORIDE NASAL SPRAY 44 ML NASL SCH ×2 (10:52→18:25)
[2016-12-28] MEDS: NORMAL SALINE 10 ML SDV (SCHEDULED) IV SCH ×2 (10:52→22:28)
[2016-12-28] MEDS: HEPARIN SOD (PORCINE) 5,000 UNIT/ML 1 ML SYRINGE SUBCUT SCH ×2 (10:53→22:28)
[2016-12-28] MEDS: DOCUSATE SODIUM 100 MG CAPSULE PO SCH ×2 (10:55→18:27)
[2016-12-28] MEDS: ASPIRIN 81 MG TABLET, CHEWABLE PO SCH (10:55)
--- NOTE | 2016-12-28 15:46 | PDOC PROGRESS REPORT ---
Subjective Progress Note for:: 12/28/16 Subjective:: The patient is an unfortunate 71-year-old morbidly obese female who is well-known to the hospitalist service. She has peripheral vascular disease, underlying insulin-requiring diabetes mellitus, chronic wounds and recurrent aspiration pneumonia due to her ongoing use of chewing tobacco. She aspirates her secretions. The patient was recently diagnosed last month with Clostridium difficile infection and was on by mouth vancomycin. 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 She was admitted to the hospital and found to have evidence of a urinary tract infection. Her urine culture grew a rather pansensitive Escherichia coli and she is completed a course of therapy at this point. Blood cultures ultimately were positive in 2 out of 2 bottles for staph epidermidis. There was quite a bit of resistance to this organism and she has been started on IV vancomycin. Today when I saw the patient she states her biggest complaint is that she has developed left-sided flank and abdominal pain. She is wondering whether it could be due to pneumonia. She denies fever or chills. She has no chest pain, shortness of breath or cough. She is not short of breath and having no difficulty breathing. She's had no nausea or vomiting but does complain of sharp left upper quadrant pain and left flank pain. She cannot recall when she had a bowel movement but does not think she's having diarrhea. She reports that she is having dysuria and urinary frequency. Physical Exam Vital Signs: Temp Pulse Resp BP Pulse Ox 97.5 F 71 14 165/57 H 100 12/28/16 12:00 12/28/16 12:00 12/28/16 12:00 12/28/16 12:00 12/28/16 12:00 Intake & Output 12/27/16 12/28/16 12/29/16 06:59 06:59 06:59 Intake Total 1050 983 300 Balance 1050 983 300 General appearance: PRESENT: no acute distress, disheveled, morbidly obese, other - Chronically ill-appearing Head exam: PRESENT: atraumatic, normocephalic Eye exam: PRESENT: conjunctiva pink, EOMI, PERRLA. ABSENT: scleral icterus Mouth exam: PRESENT: moist, tongue midline, other - she currently is chewing tobacco. Respiratory exam: PRESENT: clear to auscultation lavinia, other - This was an anterior exam. She was diminished in the lower bases bilaterally but her lungs sounded clear.. ABSENT: rales, rhonchi, wheezes Cardiovascular exam: PRESENT: RRR. ABSENT: diastolic murmur, rubs, systolic murmur GI/Abdominal exam: PRESENT: guarding, soft, tenderness - The patient's abdomen is morbidly obese. She is quite tender to palpation with guarding over the left upper quadrant. She has left flank pain as well. She has bowel sounds in all 4 quadrants. Her abdomen is soft, other - This exam was greatly hindered due to the patient's body habitus. Her abdomen is soft but she does have tenderness to palpation with guarding in the left upper quadrant and left flank. Extremities exam: PRESENT: full ROM. ABSENT: calf tenderness, clubbing, pedal edema Neurological exam: PRESENT: alert, awake, oriented to place, oriented to situation Results Laboratory Results: 12/28/16 06:15 12/28/16 06:15 12/28/16 12/28/16 06:15 06:15 WBC 12.2 H RBC 3.61 L Hgb 11.2 L Hct 33.0 L MCV 91 MCH 31.1 MCHC 34.0 RDW 14.0 Plt Count 186 Sodium 143.0 Potassium 4.2 Chloride 103 Carbon Dioxide 25 Anion Gap 15 BUN 31 H Creatinine 1.37 H Est GFR ( Amer) 46 L Est GFR (Non-Af Amer) 38 L Glucose 63 L Calcium 9.5 Magnesium 1.7 12/23/16 11:00 Blood Blood Culture - Final NO GROWTH IN 5 DAYS 12/23/16 10:06 Blood Blood Culture - Final NO GROWTH IN 5 DAYS Impressions: Abdomen/Pelvis CT 12/21/16 22:17 IMPRESSION: NO SIGNIFICANT OR ACUTE PROCESS IN THE ABDOMEN OR PELVIS. Guidance Fluoroscopy 12/26/16 00:00 IMPRESSION: SUCCESSFUL PLACEMENT OF A 5 FR DUAL LUMEN 41 CM PICC IN THE left basilic VEIN. Interventional Vascular Procedure 12/26/16 00:00 IMPRESSION: SUCCESSFUL PLACEMENT OF A 5 FR DUAL LUMEN 41 CM PICC IN THE left basilic VEIN. PICC Line Insertion 12/26/16 00:00 IMPRESSION: SUCCESSFUL PLACEMENT OF A 5 FR DUAL LUMEN 41 CM PICC IN THE left basilic VEIN. Chest X-Ray 12/27/16 00:00 IMPRESSION: Cardiomegaly. No acute infiltrates. PICC line tip superior vena cava Assessment & Plan - Diagnosis (1) Abdominal pain Plan: The patient has tenderness with guarding in the left upper quadrant and left flank. She had a CT scan performed at the time of admission that was noncontrasted. Currently her creatinine is 1.37. I'm going to get a contrasted CT scan of the abdomen and pelvis as this is new onset abdominal pain to make sure that we are not missing anything. I also am going to repeat a UA and urine culture. (2) Staphylococcus epidermidis bacteremia Plan: The patient has been receiving IV vancomycin. This is day #3 out of 14 days of treatment. She has had a new PICC line placed. We'll consult the discharge planners to see if they can set up IV antibiotics at her skilled facility. Repeat blood cultures were negative. (3) Urinary tract infection Qualifiers: Urinary tract infection type: acute cystitis Is this a current diagnosis for this admission?: YesPlan: The patient had an Escherichia coli urinary tract infection. She completed a course of IV aztreonam. Repeat urine culture 2 days ago was negative. The patient is complaining of dysuria today. We will recheck another UA and urine culture today. (4) C. difficile diarrhea Is this a current diagnosis for this admission?: YesPlan: I do not believe she is having diarrhea at this point. She'll continue probiotic we will have to watch her quite carefully as she is now requiring further IV antibiotics for her bacteremia. (5) PICC (peripherally inserted central catheter) in place Is this a current diagnosis for this admission?: YesPlan: The patient's bacteremia was due to PICC line that was present on admission. This was removed. She has now had a PIC line replaced and will continue IV vancomycin to complete a 14 day course of therapy. (6) Diabetes mellitus type 2 in obese Is this a current diagnosis for this admission?: YesPlan: She is on 65 units of Lantus every 12 hours and is being covered with sliding scale insulin. Her blood sugars are adequately controlled at this point. (7) Coronary artery disease Qualifiers: Coronary Disease-Associated Artery/Lesion type: [place] artery [place] vs. transplanted heart: [place] heart Associated angina: without angina Qualified Code(s): I25.10 - Atherosclerotic heart disease of [place] coronary artery without angina pectoris Is this a current diagnosis for this admission?: YesPlan: She has no complaints of chest pain. Continue current regimen. (8) Decubitus ulcer of buttock, stage 1 Qualifiers: Laterality: left Qualified Code(s): L89.321 - Pressure ulcer of left buttock, stage 1 Is this a current diagnosis for this admission?: YesPlan: Continue local wound care (9) Decubitus ulcer, ankle, left, unstageable Is this a current diagnosis for this admission?: YesPlan: She has a chronic MRSA infection that she was receiving IV antibiotics as an outpatient. She is adequately covered with the IV vancomycin at this point. Continue local wound care. She does follow up when care clinic. (10) Depression Plan: Stable (11) Obesity Qualifiers: Obesity type: due to excess calories Obesity severity: non-morbid Qualified Code(s): E66.09 - Other obesity due to excess calories Is this a current diagnosis for this admission?: YesPlan: Patient is morbidly obese. Dietary discretion is advised. (12) Anemia of chronic disease Is this a current diagnosis for this admission?: Yes (13) Chronic kidney disease, stage III (moderate) Is this a current diagnosis for this admission?: YesPlan: Stable. I will check a chemistry panel in the morning. (14) Dementia Qualifiers: Dementia type: Alzheimer's disease Dementia behavioral disturbance: without behavioral disturbance Is this a current diagnosis for this admission?: YesPlan: The patient was alert and oriented today and answered questions appropriately. Her dementia appears to be quite mild. (15) Diastolic CHF Qualifiers: Congestive heart failure chronicity: chronic Qualified Code(s): I50.32 - Chronic diastolic (congestive) heart failure Is this a current diagnosis for this admission?: YesPlan: Currently she appears to be euvolemic. (16) History of MRSA infection Is this a current diagnosis for this admission?: YesPlan: Chronic MRSA infection in her left heel. She is adequately controlled with IV vancomycin. - Time Time Spent with patient: 25-34 minutes
--- NOTE | 2016-12-28 16:15 | XCELERA REPORT ---
[address] [address] Upper Extremity Venous Evaluation Name: IGNACIO ULRICH Age: 71 yrs Gender: Female : 1945 Patient Status: Inpatient Patient Location: [id number]\S\433\[id number]\A Study Date: 12/28/2016 08:56 AM Procedure: Unilateral duplex scan of the right upper extremity veins was performed, including responses to compression and other maneuvers. Reason For Study: RUE redness and pain, post PICC line Ordering Physician: MARIBELL MOSES Performed By: Aida Holley Right Side Venous Evaluation Normal vessel filling wall to wall, compression and augmentation as well as Colour flow down to the infrageniculate veins. Interpretation Summary Normal compression, patency, spontaneous and phasic flow of the right upper extremity veins. : MARIBELL MOSES [place]
[2016-12-28] MEDS: ATORVASTATIN CALCIUM 20 MG TABLET PO SCH (22:27)
[2016-12-29] MEDS: HYDROCODONE/ACETAMINOPHEN 5-325 MG TABLET PO PRN ×4 (03:55→22:19)
[2016-12-29] MEDS: GABAPENTIN 100 MG CAPSULE PO SCH ×2 (05:15→18:00)
[2016-12-29] MEDS: LANSOPRAZOLE 15 MG TAB.RAP.DR PO SCH (05:15)
[2016-12-29] MEDS: CARVEDILOL 6.25 MG TABLET PO SCH ×2 (05:15→18:01)
[2016-12-29 05:44] LABS: ABSOLUTE EOSINOPHILS # (AUTO) 0.5 10^3/uL (0.0-0.6); ABSOLUTE LYMPHOCYTES (AUTO) 2.8 10^3/uL (0.5-4.7); ABSOLUTE MONOCYTES (AUTO) 0.9 10^3/uL (0.1-1.4); ABSOLUTE NEUT (AUTO) 7.1 10^3/uL (1.7-8.2); BASOPHILS % (AUTO) 0.4 % (0-2); EOSINOPHILS % (AUTO) 4.1 % (0-6); HEMATOCRIT 31.1 % (36.0-47.0); HEMOGLOBIN 10.5 g/dL (12.0-15.5); HGB HCT DIFFERENCE 0.4; LYMPHOCYTES % (AUTO) 24.9 % (13-45); MEAN CORPUSCULAR HEMOGLOBIN 31.1 pg (27.0-33.4); MEAN CORPUSCULAR HGB CONC 33.8 g/dL (32.0-36.0); MEAN CORPUSCULAR VOLUME 92 fl (80-97); RED BLOOD COUNT 3.39 10^6/uL (3.72-5.28); RED CELL DISTRIBUTION WIDTH 14.3 % (11.5-14.0); SEGMENTED NEUTROPHILS % (AUTO) 62.6 % (42-78); WHITE BLOOD COUNT 11.3 10^3/uL (4.0-10.5)
[2016-12-29 06:02] LABS: ANION GAP 15 (5-19); BLOOD UREA NITROGEN 32 mg/dL (7-20); CALCIUM 9.3 mg/dL (8.4-10.2); CARBON DIOXIDE 24 mmol/L (22-30); CHLORIDE 101 mmol/L (98-107); CREATININE RESULT 1.48 mg/dL (0.52-1.25); GLUCOSE 108 mg/dL (75-110); MAGNESIUM 1.8 mg/dL (1.6-2.3); POTASSIUM 4.7 mmol/L (3.6-5.0); SODIUM 139.5 mmol/L (137-145)
[2016-12-29] MEDS: LACTOBACILLUS ACIDOPHILUS 250 MG TAB PO SCH ×2 (11:37→18:01)
[2016-12-29] MEDS: MAGNESIUM OXIDE 400 MG TABLET PO SCH ×2 (11:38→18:00)
[2016-12-29] MEDS: CETIRIZINE 10 MG TABLET PO SCH (11:38)
[2016-12-29] MEDS: DOCUSATE SODIUM 100 MG CAPSULE PO SCH ×2 (11:38→18:01)
[2016-12-29] MEDS: INSULIN GLARGINE,HUM.REC.ANLOG 1,000 UNIT/10 ML UNIT SUBCUT SCH ×2 (11:39→21:48)
[2016-12-29] MEDS: CLOPIDOGREL BISULFATE 75 MG TABLET PO SCH (11:39)
[2016-12-29] MEDS: HEPARIN SOD (PORCINE) 5,000 UNIT/ML 1 ML SYRINGE SUBCUT SCH ×2 (11:39→22:20)
[2016-12-29] MEDS: ESCITALOPRAM OXALATE 10 MG TABLET PO SCH (11:39)
[2016-12-29] MEDS: ASPIRIN 81 MG TABLET, CHEWABLE PO SCH (11:39)
[2016-12-29] MEDS: SODIUM CHLORIDE NASAL SPRAY 44 ML NASL SCH ×2 (11:40→18:01)
[2016-12-29] MEDS: OLOPATADINE HCL 0.1% OPH SOLN 5 ML OU SCH (11:40)
[2016-12-29] MEDS: FLUTICASONE NASAL SPRAY 50 MCG/SPRY 120 SPRAY/16 GM NASL SCH (11:40)
[2016-12-29] MEDS: POTASSIUM CHLORIDE 10 MEQ TABLET.SA PO SCH (11:45)
[2016-12-29] MEDS: NORMAL SALINE 10 ML SDV (SCHEDULED) IV SCH ×2 (11:46→22:20)
[2016-12-29] MEDS: NYSTATIN TOPICAL POWDER 15 GM TOP SCH (12:20)
[2016-12-29] MEDS: MICONAZOLE NITRATE 2% AEROSOL POWDER 130 GM TOP SCH ×2 (12:20→18:02)
--- NOTE | 2016-12-29 15:12 | PDOC PROGRESS REPORT ---
Subjective Progress Note for:: 12/29/16 Subjective:: . The patient is resting in her bed. She is sleeping but arousable. Nursing staff states that she is at her baseline and that her status has been unchanged over the past several days. The patient did arouse to sternal rub. She keeps falling right back to sleep in the middle of talking to me. It was difficult to get a good review of systems. She is able to tell me that she is having back pain today. She states she is still having pain in her left flank and abdomen as well. I did tell her that the CT scan of her abdomen and pelvis obtained yesterday was unremarkable. Physical Exam Vital Signs: Temp Pulse Resp BP Pulse Ox 97.3 F 67 12 169/54 H 100 12/29/16 12:00 12/29/16 12:00 12/29/16 12:00 12/29/16 12:00 12/29/16 12:00 Intake & Output 12/28/16 12/29/16 12/30/16 06:59 06:59 06:59 Intake Total 983 843 500 Balance 983 843 500 General appearance: PRESENT: no acute distress, disheveled, morbidly obese, well -developed, well-nourished, other - She is troubled chewing tobacco down her face. Head exam: PRESENT: atraumatic, normocephalic Mouth exam: PRESENT: moist, tongue midline, other - Dried chewing tobacco in her mouth. Respiratory exam: PRESENT: clear to auscultation lavinia, other - She would not really cooperate for a deep breath. She is significantly diminished in the lower bases bilaterally. This was an anterior exam. ABSENT: rales, rhonchi, wheezes Cardiovascular exam: PRESENT: RRR. ABSENT: diastolic murmur, rubs, systolic murmur GI/Abdominal exam: PRESENT: normal bowel sounds, soft, tenderness, other - I cannot assess for organomegaly due to the patient's body habitus. She is somewhat tender to palpation in the left upper abdomen and flank. Extremities exam: PRESENT: full ROM, pedal edema. ABSENT: calf tenderness, clubbing Neurological exam: PRESENT: alert, awake, oriented to person, oriented to place , oriented to time, CN II-XII grossly intact, other - She did not know who the dance master was.. ABSENT: motor sensory deficit Results Laboratory Results: 12/29/16 05:26 12/29/16 05:26 12/29/16 12/29/16 05:26 05:26 WBC 11.3 H RBC 3.39 L Hgb 10.5 L Hct 31.1 L MCV 92 MCH 31.1 MCHC 33.8 RDW 14.3 H Plt Count 167 Seg Neutrophils % 62.6 Lymphocytes % 24.9 Monocytes % 8.0 Eosinophils % 4.1 Basophils % 0.4 Absolute Neutrophils 7.1 Absolute Lymphocytes 2.8 Absolute Monocytes 0.9 Absolute Eosinophils 0.5 Absolute Basophils 0.0 Sodium 139.5 Potassium 4.7 Chloride 101 Carbon Dioxide 24 Anion Gap 15 BUN 32 H Creatinine 1.48 H Est GFR ( Amer) 42 L Est GFR (Non-Af Amer) 35 L Glucose 108 Calcium 9.3 Magnesium 1.8 12/23/16 11:00 Blood Blood Culture - Final NO GROWTH IN 5 DAYS Impressions: Guidance Fluoroscopy 12/26/16 00:00 IMPRESSION: SUCCESSFUL PLACEMENT OF A 5 FR DUAL LUMEN 41 CM PICC IN THE left basilic VEIN. Interventional Vascular Procedure 12/26/16 00:00 IMPRESSION: SUCCESSFUL PLACEMENT OF A 5 FR DUAL LUMEN 41 CM PICC IN THE left basilic VEIN. PICC Line Insertion 12/26/16 00:00 IMPRESSION: SUCCESSFUL PLACEMENT OF A 5 FR DUAL LUMEN 41 CM PICC IN THE left basilic VEIN. Chest X-Ray 12/27/16 00:00 IMPRESSION: Cardiomegaly. No acute infiltrates. PICC line tip superior vena cava Abdomen/Pelvis CT 12/28/16 15:21 IMPRESSION: 1. No acute abnormality identified within the abdomen pelvis. 2. There is diffuse calcific atheromatous disease seen throughout the aorta. There is approximately 50% narrowing of the renal artery origins secondary to calcific atheromatous disease. Mesenteric arteries are patent. Assessment & Plan - Diagnosis (1) Staphylococcus epidermidis bacteremia Plan: The patient has been receiving IV vancomycin. This is day #4 out of 14 days of treatment. Vancomycin has an ERIC of 2. The up-to-date literature was reviewed and she is well covered. The ERIC needs to be less than 4 for Staphylococcus epidermidis. She has had a new PICC line placed. We'll consult the discharge planners to see if they can set up IV antibiotics at her skilled facility. Repeat blood cultures were negative. (2) Urinary tract infection Qualifiers: Urinary tract infection type: acute cystitis Is this a current diagnosis for this admission?: Yes (3) C. difficile diarrhea Is this a current diagnosis for this admission?: Yes (5) PICC (peripherally inserted central catheter) in place Is this a current diagnosis for this admission?: YesPlan: The patient's bacteremia was due to PICC line that was present on admission. This was removed. She has now had a PICC line replaced and will continue IV vancomycin to complete a 14 day course of therapy. (6) Diabetes mellitus type 2 in obese Is this a current diagnosis for this admission?: YesPlan: She is on 65 units of Lantus every 12 hours and she is being covered with sliding scale insulin. Her blood sugars are adequately controlled at this point. (7) Coronary artery disease Qualifiers: Coronary Disease-Associated Artery/Lesion type: [place] artery [place] vs. transplanted heart: [place] heart Associated angina: without angina Qualified Code(s): I25.10 - Atherosclerotic heart disease of [place] coronary artery without angina pectoris Is this a current diagnosis for this admission?: YesPlan: She has no complaints of chest pain. Continue current regimen. (8) Decubitus ulcer of buttock, stage 1 Qualifiers: Laterality: left Qualified Code(s): L89.321 - Pressure ulcer of left buttock, stage 1 Is this a current diagnosis for this admission?: YesPlan: Continue local wound care (9) Decubitus ulcer, ankle, left, unstageable Is this a current diagnosis for this admission?: YesPlan: She has a chronic MRSA infection that she was receiving IV antibiotics as an outpatient. She is adequately covered with the IV vancomycin at this point. Continue local wound care. She does follow up when care clinic. (10) Depression Plan: Stable (11) Obesity Qualifiers: Obesity type: due to excess calories Obesity severity: non-morbid Qualified Code(s): E66.09 - Other obesity due to excess calories Is this a current diagnosis for this admission?: YesPlan: Patient is morbidly obese. Dietary discretion is advised. (12) Anemia of chronic disease Is this a current diagnosis for this admission?: YesPlan: Stable (13) Chronic kidney disease, stage III (moderate) Is this a current diagnosis for this admission?: YesPlan: Stable. I will check a chemistry panel in the morning. (14) Diastolic CHF Qualifiers: Congestive heart failure chronicity: chronic Qualified Code(s): I50.32 - Chronic diastolic (congestive) heart failure Is this a current diagnosis for this admission?: YesPlan: Currently she appears to be euvolemic. (15) Dementia Qualifiers: Dementia type: Alzheimer's disease Dementia behavioral disturbance: without behavioral disturbance Is this a current diagnosis for this admission?: YesPlan: The patient was alert and oriented today to person place and time however she did not know who the president was. I am not sure she understands to make good decisions for herself. I'm trying to get in touch with the patient's niece to discuss her CODE STATUS. (16) History of MRSA infection Is this a current diagnosis for this admission?: YesPlan: Chronic MRSA infection in her left heel. She is adequately controlled with IV vancomycin. - Time Time Spent with patient: 25-34 minutes - 25 minutes
[2016-12-29] MEDS: FUROSEMIDE 40 MG TABLET PO SCH (17:50)
[2016-12-29] MEDS ORDERED: VANCOMYCIN HCL 750 MG in DEXTROSE 5%-WATER 250 ML IV SCH (22:00)
[2016-12-29] MEDS: ATORVASTATIN CALCIUM 20 MG TABLET PO SCH (22:20)
[2016-12-30] MEDS: GABAPENTIN 100 MG CAPSULE PO SCH ×2 (06:19→16:54)
[2016-12-30] MEDS: LANSOPRAZOLE 15 MG TAB.RAP.DR PO SCH (06:19)
[2016-12-30] MEDS: CARVEDILOL 6.25 MG TABLET PO SCH ×2 (06:20→16:54)
[2016-12-30] MEDS: DOCUSATE SODIUM 100 MG CAPSULE PO SCH ×2 (09:20→16:54)
[2016-12-30] MEDS: CLOPIDOGREL BISULFATE 75 MG TABLET PO SCH (09:20)
[2016-12-30] MEDS: MAGNESIUM OXIDE 400 MG TABLET PO SCH ×2 (09:20→16:54)
[2016-12-30] MEDS: HYDROCODONE/ACETAMINOPHEN 5-325 MG TABLET PO PRN ×3 (09:20→22:12)
[2016-12-30] MEDS: FUROSEMIDE 40 MG TABLET PO SCH (09:21)
[2016-12-30] MEDS: LACTOBACILLUS ACIDOPHILUS 250 MG TAB PO SCH ×2 (09:21→16:54)
[2016-12-30] MEDS: POTASSIUM CHLORIDE 10 MEQ TABLET.SA PO SCH (09:21)
[2016-12-30] MEDS: CETIRIZINE 10 MG TABLET PO SCH (09:21)
[2016-12-30] MEDS: ESCITALOPRAM OXALATE 10 MG TABLET PO SCH (09:21)
[2016-12-30] MEDS: ASPIRIN 81 MG TABLET, CHEWABLE PO SCH (09:21)
[2016-12-30] MEDS: FLUTICASONE NASAL SPRAY 50 MCG/SPRY 120 SPRAY/16 GM NASL SCH (09:26)
[2016-12-30] MEDS: SODIUM CHLORIDE NASAL SPRAY 44 ML NASL SCH ×2 (09:27→17:01)
[2016-12-30] MEDS: OLOPATADINE HCL 0.1% OPH SOLN 5 ML OU SCH (09:27)
[2016-12-30] MEDS: NORMAL SALINE 10 ML SDV (SCHEDULED) IV SCH ×2 (09:28→22:13)
[2016-12-30] MEDS: HEPARIN SOD (PORCINE) 5,000 UNIT/ML 1 ML SYRINGE SUBCUT SCH ×2 (09:34→22:06)
[2016-12-30 09:55] LABS: ABSOLUTE EOSINOPHILS # (AUTO) 0.4 10^3/uL (0.0-0.6); ABSOLUTE LYMPHOCYTES (AUTO) 1.9 10^3/uL (0.5-4.7); ABSOLUTE MONOCYTES (AUTO) 0.8 10^3/uL (0.1-1.4); ABSOLUTE NEUT (AUTO) 8.3 10^3/uL (1.7-8.2); BASOPHILS % (AUTO) 0.3 % (0-2); EOSINOPHILS % (AUTO) 3.7 % (0-6); HEMATOCRIT 31.9 % (36.0-47.0); HEMOGLOBIN 10.7 g/dL (12.0-15.5); HGB HCT DIFFERENCE 0.2; LYMPHOCYTES % (AUTO) 16.7 % (13-45); MEAN CORPUSCULAR HEMOGLOBIN 30.7 pg (27.0-33.4); MEAN CORPUSCULAR HGB CONC 33.5 g/dL (32.0-36.0); MEAN CORPUSCULAR VOLUME 92 fl (80-97); MONOCYTES % (AUTO) 6.6 % (3-13); RED BLOOD COUNT 3.47 10^6/uL (3.72-5.28); RED CELL DISTRIBUTION WIDTH 14.3 % (11.5-14.0); SEGMENTED NEUTROPHILS % (AUTO) 72.7 % (42-78); WHITE BLOOD COUNT 11.4 10^3/uL (4.0-10.5)
[2016-12-30 10:12] LABS: ANION GAP 15 (5-19); BLOOD UREA NITROGEN 37 mg/dL (7-20); CALCIUM 9.3 mg/dL (8.4-10.2); CARBON DIOXIDE 24 mmol/L (22-30); CHLORIDE 99 mmol/L (98-107); CREATININE RESULT 1.84 mg/dL (0.52-1.25); GLUCOSE 195 mg/dL (75-110); POTASSIUM 5.1 mmol/L (3.6-5.0); SODIUM 137.6 mmol/L (137-145)
[2016-12-30] MEDS: INSULIN GLARGINE,HUM.REC.ANLOG 1,000 UNIT/10 ML UNIT SUBCUT SCH ×2 (11:06→23:55)
[2016-12-30] MEDS: MICONAZOLE NITRATE 2% AEROSOL POWDER 130 GM TOP SCH ×2 (11:06→17:01)
--- NOTE | 2016-12-30 11:49 | PDOC PROGRESS REPORT ---
Subjective Subjective:: The patient is a very unfortunate 71-year-old morbidly obese female who is well-known to the hospitalist service. She has peripheral vascular disease, underlying insulin-requiring diabetes mellitus, chronic wounds and recurrent aspiration pneumonia due to ongoing chewing tobacco use. She aspirates her secretions. She was recently diagnosed last month with a Clostridium difficile infection and was treated with a course of by mouth vancomycin. 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 She was admitted to the hospital and initially found to have evidence of a urinary tract infection. Her urine grew a rather pansensitive Escherichia coli and she is completed a course of therapy. Blood cultures ultimately were positive in 2 out of 2 bottles for staph epidermidis. There was quite a bit of resistance to this organism and she currently is receiving IV vancomycin. The discharge planners are getting her hopefully set up to to complete her IV antibiotics at her facility. 2 days ago she was complaining of severe abdominal pain. She had a contrasted CT scan of the abdomen and pelvis which did not reveal any acute pathology. Today the nursing staff reports that the patient's blood sugar has been quite low. She has been receiving 65 units of Lantus twice daily. Her dose was held last night. When I went to see the patient she was awake and alert today. She is complaining of back pain and wants to be repositioned in the bed. She answers questions appropriately. She denies fever or chills. She's had no chest pain, shortness of breath or cough today. No nausea, vomiting or diarrhea. She does state that she continues to have some low back pain and left flank pain. Yesterday the patient was complaining of dysuria but she states that she is not having issues today. She reports no urinary frequency. Physical Exam Vital Signs: Temp Pulse Resp BP Pulse Ox 97.5 F 72 18 164/60 H 100 12/30/16 08:38 12/30/16 08:38 12/30/16 08:38 12/30/16 08:38 12/30/16 08:38 Intake & Output 12/29/16 12/30/16 12/31/16 06:59 06:59 06:59 Intake Total 843 700 Balance 843 700 General appearance: PRESENT: no acute distress, morbidly obese, well-nourished Exam: She is chronically ill-appearing Head exam: PRESENT: atraumatic, normocephalic Eye exam: PRESENT: conjunctiva pink, EOMI, PERRLA. ABSENT: scleral icterus Respiratory exam: PRESENT: clear to auscultation lavinia, other - She is decreased in the lower bases bilaterally. This was an anterior exam and the exam is hindered due to the patient's body habitus.. ABSENT: rales, rhonchi, wheezes Cardiovascular exam: PRESENT: RRR. ABSENT: diastolic murmur, rubs, systolic murmur GI/Abdominal exam: PRESENT: normal bowel sounds, organolmegaly - I could not assess for organomegaly due to the patient's body habitus, soft. ABSENT: distended, guarding, mass, rebound, tenderness Extremities exam: PRESENT: full ROM, pedal edema. ABSENT: calf tenderness, clubbing Neurological exam: PRESENT: alert, altered, awake, oriented to person, oriented to place, oriented to time. ABSENT: oriented to situation Results Laboratory Results: 12/30/16 09:36 12/30/16 09:36 12/30/16 12/30/16 09:36 09:36 WBC 11.4 H RBC 3.47 L Hgb 10.7 L Hct 31.9 L MCV 92 MCH 30.7 MCHC 33.5 RDW 14.3 H Plt Count 187 Seg Neutrophils % 72.7 Lymphocytes % 16.7 Monocytes % 6.6 Eosinophils % 3.7 Basophils % 0.3 Absolute Neutrophils 8.3 H Absolute Lymphocytes 1.9 Absolute Monocytes 0.8 Absolute Eosinophils 0.4 Absolute Basophils 0.0 Sodium 137.6 Potassium 5.1 H Chloride 99 Carbon Dioxide 24 Anion Gap 15 BUN 37 H Creatinine 1.84 H Est GFR ( Amer) 33 L Est GFR (Non-Af Amer) 27 L Glucose 195 H Calcium 9.3 Impressions: Guidance Fluoroscopy 12/26/16 00:00 IMPRESSION: SUCCESSFUL PLACEMENT OF A 5 FR DUAL LUMEN 41 CM PICC IN THE left basilic VEIN. Interventional Vascular Procedure 12/26/16 00:00 IMPRESSION: SUCCESSFUL PLACEMENT OF A 5 FR DUAL LUMEN 41 CM PICC IN THE left basilic VEIN. PICC Line Insertion 12/26/16 00:00 IMPRESSION: SUCCESSFUL PLACEMENT OF A 5 FR DUAL LUMEN 41 CM PICC IN THE left basilic VEIN. Chest X-Ray 12/27/16 00:00 IMPRESSION: Cardiomegaly. No acute infiltrates. PICC line tip superior vena cava Abdomen/Pelvis CT 12/28/16 15:21 IMPRESSION: 1. No acute abnormality identified within the abdomen pelvis. 2. There is diffuse calcific atheromatous disease seen throughout the aorta. There is approximately 50% narrowing of the renal artery origins secondary to calcific atheromatous disease. Mesenteric arteries are patent. Assessment & Plan - Diagnosis (1) Staphylococcus epidermidis bacteremia Plan: The patient has been receiving IV vancomycin. This is day #5 out of 14 days of treatment. Vancomycin has an ERIC of 2. The up-to-date literature was reviewed and she is well covered. The ERIC needs to be less than 4 for Staphylococcus epidermidis. She has had a new PICC line placed. The discharge planners have been consulted to set up IV antibiotics at her facility. Repeat blood cultures were negative. (2) Acute on chronic renal failure Plan: The patient's creatinine has bumped up since her contrasted CT scan. This is likely due to ATN due to the contrast dye. I will give the patient 1 L of normal saline today and gently hydrate her. Hopefully this will resolve itself over the next several days. (3) Urinary tract infection Qualifiers: Urinary tract infection type: acute cystitis Is this a current diagnosis for this admission?: YesPlan: The patient had an Escherichia coli urinary tract infection. She completed a course of IV aztreonam. Repeat urine culture 2 days ago was negative. The patient was complaining of dysuria yesterday. A UA and urine culture was ordered yesterday however this has not yet been performed. She has no complaints of dysuria today. (4) PICC (peripherally inserted central catheter) in place Is this a current diagnosis for this admission?: YesPlan: The patient's bacteremia was due to PICC line that was present on admission. This was removed. She has now had a PICC line replaced and will continue IV vancomycin to complete a 14 day course of therapy. (5) Abdominal pain Plan: 2 days ago the patient was complaining of severe pain and had significant guarding in the left upper quadrant and left flank.. She had a CT scan performed at the time of admission that was noncontrasted and read as normal. Due to her severe pain she had a contrasted CT scan of the abdomen and pelvis that was unremarkable. She was noted to have 50% occlusion of the renal arteries noted which will need to be followed. Her abdominal pain seems to have resolved and migrated to her back. (6) Diabetes mellitus type 2 in obese Is this a current diagnosis for this admission?: YesPlan: The patient's blood sugars have been low. I'm going to cut her Lantus back to 40 units every 12 hours and she will continue sliding scale insulin. Hopefully we can adjust her insulin regimen over the weekend and plan for early discharge next week. (7) Coronary artery disease Qualifiers: Coronary Disease-Associated Artery/Lesion type: [place] artery [place] vs. transplanted heart: [place] heart Associated angina: without angina Qualified Code(s): I25.10 - Atherosclerotic heart disease of [place] coronary artery without angina pectoris Is this a current diagnosis for this admission?: YesPlan: She has no complaints of chest pain. Continue current regimen. (8) Decubitus ulcer of buttock, stage 1 Qualifiers: Laterality: left Qualified Code(s): L89.321 - Pressure ulcer of left buttock, stage 1 Is this a current diagnosis for this admission?: YesPlan: Continue local wound care (9) Decubitus ulcer, ankle, left, unstageable Is this a current diagnosis for this admission?: YesPlan: She has a chronic MRSA infection that she was receiving IV antibiotics as an outpatient. She is adequately covered with the IV vancomycin at this point. Continue local wound care. She does follow up when care clinic. (10) Depression Plan: Stable (11) Obesity Qualifiers: Obesity type: due to excess calories Obesity severity: non-morbid Qualified Code(s): E66.09 - Other obesity due to excess calories Is this a current diagnosis for this admission?: YesPlan: Patient is morbidly obese. Dietary discretion is advised. (12) Anemia of chronic disease Is this a current diagnosis for this admission?: YesPlan: Stable (13) Diastolic CHF Qualifiers: Congestive heart failure chronicity: chronic Qualified Code(s): I50.32 - Chronic diastolic (congestive) heart failure Is this a current diagnosis for this admission?: YesPlan: Currently she appears to be euvolemic. I am going to gently hydrate her today with 1 L of normal saline. We will have to watch her quite closely for signs of volume overload. (14) Dementia Qualifiers: Dementia type: Alzheimer's disease Dementia behavioral disturbance: without behavioral disturbance Is this a current diagnosis for this admission?: YesPlan: The patient was alert and oriented today to person place and time however she did not know who the president was. I am not sure she understands to make good decisions for herself. I'm trying to get in touch with the patient's niece to discuss her CODE STATUS. (15) History of MRSA infection Is this a current diagnosis for this admission?: YesPlan: Chronic MRSA infection in her left heel. She is adequately controlled with IV vancomycin. (16) C. difficile diarrhea Is this a current diagnosis for this admission?: YesPlan: I do not believe she is having diarrhea at this point. She'll continue probiotic we will have to watch her quite carefully as she is now requiring further IV antibiotics for her bacteremia. She had completed a course of therapy. - Time Time Spent with patient: 15-24 minutes
[2016-12-30] MEDS: ATORVASTATIN CALCIUM 20 MG TABLET PO SCH (22:12)
[2016-12-31] MEDS: HYDROCODONE/ACETAMINOPHEN 5-325 MG TABLET PO PRN ×3 (03:47→18:26)
[2016-12-31] MEDS: GABAPENTIN 100 MG CAPSULE PO SCH ×2 (05:10→17:19)
[2016-12-31] MEDS: LANSOPRAZOLE 15 MG TAB.RAP.DR PO SCH (05:10)
[2016-12-31] MEDS: CARVEDILOL 6.25 MG TABLET PO SCH ×2 (05:10→17:17)
[2016-12-31] MEDS ORDERED: NORMAL SALINE 1000 ML 1,000 ML IV PRN (09:50)
[2016-12-31] MEDS ORDERED: GENTAMICIN SULFATE 0 MG in DEXTROSE 5%-WATER 100 ML IV NR (10:00)
[2016-12-31] MEDS: POTASSIUM CHLORIDE 10 MEQ TABLET.SA PO SCH (11:17)
[2016-12-31] MEDS: MAGNESIUM OXIDE 400 MG TABLET PO SCH ×2 (11:18→17:17)
[2016-12-31] MEDS: FUROSEMIDE 40 MG TABLET PO SCH (11:18)
[2016-12-31] MEDS: ESCITALOPRAM OXALATE 10 MG TABLET PO SCH (11:18)
[2016-12-31] MEDS: CETIRIZINE 10 MG TABLET PO SCH (11:18)
[2016-12-31] MEDS: DOCUSATE SODIUM 100 MG CAPSULE PO SCH ×2 (11:19→17:18)
[2016-12-31] MEDS: FLUTICASONE NASAL SPRAY 50 MCG/SPRY 120 SPRAY/16 GM NASL SCH (11:19)
[2016-12-31] MEDS: ASPIRIN 81 MG TABLET, CHEWABLE PO SCH (11:19)
[2016-12-31] MEDS: HEPARIN SOD (PORCINE) 5,000 UNIT/ML 1 ML SYRINGE SUBCUT SCH ×2 (11:19→22:51)
[2016-12-31] MEDS: LACTOBACILLUS ACIDOPHILUS 250 MG TAB PO SCH ×2 (11:19→17:17)
[2016-12-31] MEDS: CLOPIDOGREL BISULFATE 75 MG TABLET PO SCH (11:19)
[2016-12-31] MEDS: OLOPATADINE HCL 0.1% OPH SOLN 5 ML OU SCH (11:20)
[2016-12-31] MEDS: MICONAZOLE NITRATE 2% AEROSOL POWDER 130 GM TOP SCH ×2 (11:20→17:18)
[2016-12-31] MEDS: SODIUM CHLORIDE NASAL SPRAY 44 ML NASL SCH ×2 (11:20→17:17)
[2016-12-31] MEDS: INSULIN GLARGINE,HUM.REC.ANLOG 1,000 UNIT/10 ML UNIT SUBCUT SCH (11:54)
[2016-12-31] MEDS: NORMAL SALINE 10 ML SDV (SCHEDULED) IV SCH ×2 (11:54→22:51)
[2016-12-31] MEDS: GENTAMICIN SULFATE 120 MG in DEXTROSE 5%-WATER 100 ML IV SCH (11:57)
--- NOTE | 2016-12-31 19:58 | PDOC PROGRESS REPORT ---
Subjective Progress Note for:: 12/31/16 Subjective:: Patient seen earlier today on morning rounds. Patient sleeping but answering questions appropriately. Patient denies chest pain, shortness of breath, abdominal pain, nausea, vomiting , fevers, chills, diarrhea, headache, new onset weakness. Patient has not had a documented bowel movements since the . Physical Exam Vital Signs: Temp Pulse Resp BP Pulse Ox 97.6 F 62 14 131/42 H 96 12/31/16 15:46 12/31/16 15:46 12/31/16 15:46 12/31/16 15:46 12/31/16 15:46 Intake & Output 12/30/16 12/31/16 01/01/17 06:59 06:59 06:59 Intake Total 700 945 535 Balance 700 945 535 Exam: General: Resting comfortably, no acute respiratory distress HEENT: AT/NC, PERRL, EOMI, oropharynx is moist, pink, no scleral icterus, no conjunctival injection Neck: No JVD, trachea midline Chest: Clear to auscultation bilaterally, no wheezes rhonchi or rales CV: Regular rate and rhythm, normal S1 and S2, no murmur, rub, or gallop Abdomen: Soft, nontender to palpation, nondistended, hypoactive bowel sounds; no rebound, rigidity, or guarding Extremities: No cyanosis, clubbing or edema Neuro: Left-sided hemiparesis Psych: Flat Results Laboratory Results: 12/30/16 09:36 12/30/16 09:36 Impressions: Guidance Fluoroscopy 12/26/16 00:00 IMPRESSION: SUCCESSFUL PLACEMENT OF A 5 FR DUAL LUMEN 41 CM PICC IN THE left basilic VEIN. Interventional Vascular Procedure 12/26/16 00:00 IMPRESSION: SUCCESSFUL PLACEMENT OF A 5 FR DUAL LUMEN 41 CM PICC IN THE left basilic VEIN. PICC Line Insertion 12/26/16 00:00 IMPRESSION: SUCCESSFUL PLACEMENT OF A 5 FR DUAL LUMEN 41 CM PICC IN THE left basilic VEIN. Chest X-Ray 12/27/16 00:00 IMPRESSION: Cardiomegaly. No acute infiltrates. PICC line tip superior vena cava Abdomen/Pelvis CT 12/28/16 15:21 IMPRESSION: 1. No acute abnormality identified within the abdomen pelvis. 2. There is diffuse calcific atheromatous disease seen throughout the aorta. There is approximately 50% narrowing of the renal artery origins secondary to calcific atheromatous disease. Mesenteric arteries are patent. Assessment & Plan - Diagnosis (1) Acute on chronic renal failure Is this a current diagnosis for this admission?: YesPlan: Patient with acute on chronic renal failure we will begin her on gentle hydration. Patient likely suffered from some vancomycin-induced kidney injury due to her trough of 30. Patient continues to have a high trough. We'll consult nephrology on Monday. Continue to monitor creatinine closely. (2) Diabetes mellitus type 2 in obese Is this a current diagnosis for this admission?: Yes (3) Staphylococcus epidermidis bacteremia Is this a current diagnosis for this admission?: YesPlan: Patient changed from vancomycin to gentamicin due to #1 acute kidney injury #2 ERIC of vancomycin equals two (4) Staphylococcus hominis sepsis Is this a current diagnosis for this admission?: YesPlan: Patient changed from vancomycin to gentamicin due to #1 acute kidney injury #2 ERIC of vancomycin equals two (5) Urinary tract infection Qualifiers: Urinary tract infection type: acute cystitis Is this a current diagnosis for this admission?: YesPlan: Escherichia coli UTI currently on gentamicin (6) Decubitus ulcer of left heel Qualifiers: Pressure ulcer stage: unspecified pressure ulcer stage Qualified Code(s): L89.629 - Pressure ulcer of left heel, unspecified stage Is this a current diagnosis for this admission?: Yes (7) Coronary artery disease Qualifiers: Coronary Disease-Associated Artery/Lesion type: [place] artery [place] vs. transplanted heart: [place] heart Associated angina: without angina Qualified Code(s): I25.10 - Atherosclerotic heart disease of [place] coronary artery without angina pectoris Is this a current diagnosis for this admission?: Yes (8) Decubitus ulcer of buttock, stage 1 Qualifiers: Laterality: left Qualified Code(s): L89.321 - Pressure ulcer of left buttock, stage 1 Is this a current diagnosis for this admission?: Yes (9) Decubitus ulcer, ankle, left, unstageable Is this a current diagnosis for this admission?: Yes (10) Anemia of chronic disease Is this a current diagnosis for this admission?: Yes (11) Chronic kidney disease, stage III (moderate) Is this a current diagnosis for this admission?: YesPlan: Renally adjust medication (12) Dementia Qualifiers: Dementia type: Alzheimer's disease Dementia behavioral disturbance: without behavioral disturbance Is this a current diagnosis for this admission?: YesPlan: Supportive care (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 (14) Obesity Qualifiers: Obesity type: due to excess calories Obesity severity: non-morbid Qualified Code(s): E66.09 - Other obesity due to excess calories Is this a current diagnosis for this admission?: Yes - Time Time Spent with patient: 25-34 minutes Medications reviewed and adjusted accordingly: Yes
[2016-12-31] MEDS: ATORVASTATIN CALCIUM 20 MG TABLET PO SCH (22:50)
[2017-01-01] MEDS: HYDROCODONE/ACETAMINOPHEN 5-325 MG TABLET PO PRN ×4 (00:32→18:55)
[2017-01-01] MEDS: GABAPENTIN 100 MG CAPSULE PO SCH ×2 (05:06→18:55)
[2017-01-01] MEDS: CARVEDILOL 6.25 MG TABLET PO SCH ×2 (05:06→18:58)
[2017-01-01] MEDS: LANSOPRAZOLE 15 MG TAB.RAP.DR PO SCH (05:06)
[2017-01-01 06:33] LABS: ABSOLUTE EOSINOPHILS # (AUTO) 0.4 10^3/uL (0.0-0.6); ABSOLUTE LYMPHOCYTES (AUTO) 2.6 10^3/uL (0.5-4.7); ABSOLUTE MONOCYTES (AUTO) 0.8 10^3/uL (0.1-1.4); ABSOLUTE NEUT (AUTO) 8.7 10^3/uL (1.7-8.2); BASOPHILS % (AUTO) 0.3 % (0-2); HEMATOCRIT 30.9 % (36.0-47.0); HEMOGLOBIN 10.3 g/dL (12.0-15.5); LYMPHOCYTES % (AUTO) 20.8 % (13-45); MEAN CORPUSCULAR HEMOGLOBIN 30.9 pg (27.0-33.4); MEAN CORPUSCULAR HGB CONC 33.3 g/dL (32.0-36.0); MEAN CORPUSCULAR VOLUME 93 fl (80-97); MONOCYTES % (AUTO) 6.6 % (3-13); RED BLOOD COUNT 3.34 10^6/uL (3.72-5.28); RED CELL DISTRIBUTION WIDTH 14.5 % (11.5-14.0); SEGMENTED NEUTROPHILS % (AUTO) 69.3 % (42-78); WHITE BLOOD COUNT 12.6 10^3/uL (4.0-10.5)
[2017-01-01 06:54] LABS: ANION GAP 14 (5-19); BLOOD UREA NITROGEN 36 mg/dL (7-20); CALCIUM 9.4 mg/dL (8.4-10.2); CARBON DIOXIDE 27 mmol/L (22-30); CHLORIDE 101 mmol/L (98-107); GLUCOSE 70 mg/dL (75-110); POTASSIUM 5.1 mmol/L (3.6-5.0); SODIUM 142.1 mmol/L (137-145)
[2017-01-01] MEDS: INSULIN GLARGINE,HUM.REC.ANLOG 1,000 UNIT/10 ML UNIT SUBCUT SCH (09:46)
[2017-01-01] MEDS: HEPARIN SOD (PORCINE) 5,000 UNIT/ML 1 ML SYRINGE SUBCUT SCH ×2 (09:46→22:23)
[2017-01-01] MEDS: ESCITALOPRAM OXALATE 10 MG TABLET PO SCH (09:47)
[2017-01-01] MEDS: CETIRIZINE 10 MG TABLET PO SCH (09:47)
[2017-01-01] MEDS: CLOPIDOGREL BISULFATE 75 MG TABLET PO SCH (09:47)
[2017-01-01] MEDS: ASPIRIN 81 MG TABLET, CHEWABLE PO SCH (09:47)
[2017-01-01] MEDS: NORMAL SALINE 10 ML SDV (SCHEDULED) IV SCH ×2 (09:49→22:24)
[2017-01-01] MEDS: MAGNESIUM OXIDE 400 MG TABLET PO SCH (09:49)
[2017-01-01] MEDS: SODIUM CHLORIDE NASAL SPRAY 44 ML NASL SCH ×2 (09:49→18:55)
[2017-01-01] MEDS: FLUTICASONE NASAL SPRAY 50 MCG/SPRY 120 SPRAY/16 GM NASL SCH (09:49)
[2017-01-01] MEDS: LACTOBACILLUS ACIDOPHILUS 250 MG TAB PO SCH ×2 (09:49→18:55)
[2017-01-01] MEDS: DOCUSATE SODIUM 100 MG CAPSULE PO SCH ×2 (09:49→18:55)
[2017-01-01] MEDS: OLOPATADINE HCL 0.1% OPH SOLN 5 ML OU SCH (09:49)
[2017-01-01] MEDS: MICONAZOLE NITRATE 2% AEROSOL POWDER 130 GM TOP SCH ×2 (09:50→19:32)
[2017-01-01] MEDS ORDERED: INSULIN GLARGINE,HUM.REC.ANLOG 1,000 UNIT/10 ML UNIT SUBCUT SCH (10:00)
[2017-01-01] MEDS: GENTAMICIN SULFATE 120 MG in DEXTROSE 5%-WATER 100 ML IV SCH (13:28)
--- NOTE | 2017-01-01 18:29 | PDOC PROGRESS REPORT ---
Subjective Progress Note for:: 01/01/17 Subjective:: Patient seen earlier today on morning rounds. Patient complains of her normal pain and is requesting pain medication at this time. Patient had morning glucose of 70. Patient denies chest pain, shortness of breath, abdominal pain, nausea, vomiting , fevers, chills, diarrhea, headache, new onset weakness. Physical Exam Vital Signs: Temp Pulse Resp BP Pulse Ox 98.1 F 66 16 139/50 H 100 01/01/17 07:42 01/01/17 07:42 01/01/17 07:42 01/01/17 07:42 01/01/17 07:42 Intake & Output 12/31/16 01/01/17 01/02/17 06:59 06:59 06:59 Intake Total 945 715 Balance 945 715 Exam: General: Resting comfortably, no acute respiratory distress HEENT: AT/NC, PERRL, EOMI, oropharynx is moist, pink, no scleral icterus, no conjunctival injection Neck: No JVD, trachea midline Chest: Clear to auscultation bilaterally, no wheezes rhonchi or rales CV: Regular rate and rhythm, normal S1 and S2, no murmur, rub, or gallop Abdomen: Soft, nontender to palpation, nondistended, hypoactive bowel sounds; no rebound, rigidity, or guarding Extremities: No cyanosis, clubbing or edema Neuro: Left-sided hemiparesis Psych: Flat Results Laboratory Results: 01/01/17 05:10 01/01/17 05:10 01/01/17 01/01/17 05:10 05:10 WBC 12.6 H RBC 3.34 L Hgb 10.3 L Hct 30.9 L MCV 93 MCH 30.9 MCHC 33.3 RDW 14.5 H Plt Count 203 Seg Neutrophils % 69.3 Lymphocytes % 20.8 Monocytes % 6.6 Eosinophils % 3.0 Basophils % 0.3 Absolute Neutrophils 8.7 H Absolute Lymphocytes 2.6 Absolute Monocytes 0.8 Absolute Eosinophils 0.4 Absolute Basophils 0.0 Sodium 142.1 Potassium 5.1 H Chloride 101 Carbon Dioxide 27 Anion Gap 14 BUN 36 H Creatinine 2.00 H Est GFR ( Amer) 30 L Est GFR (Non-Af Amer) 24 L Glucose 70 L Calcium 9.4 Impressions: Guidance Fluoroscopy 12/26/16 00:00 IMPRESSION: SUCCESSFUL PLACEMENT OF A 5 FR DUAL LUMEN 41 CM PICC IN THE left basilic VEIN. Interventional Vascular Procedure 12/26/16 00:00 IMPRESSION: SUCCESSFUL PLACEMENT OF A 5 FR DUAL LUMEN 41 CM PICC IN THE left basilic VEIN. PICC Line Insertion 12/26/16 00:00 IMPRESSION: SUCCESSFUL PLACEMENT OF A 5 FR DUAL LUMEN 41 CM PICC IN THE left basilic VEIN. Chest X-Ray 12/27/16 00:00 IMPRESSION: Cardiomegaly. No acute infiltrates. PICC line tip superior vena cava Abdomen/Pelvis CT 12/28/16 15:21 IMPRESSION: 1. No acute abnormality identified within the abdomen pelvis. 2. There is diffuse calcific atheromatous disease seen throughout the aorta. There is approximately 50% narrowing of the renal artery origins secondary to calcific atheromatous disease. Mesenteric arteries are patent. Assessment & Plan - Diagnosis (1) Acute on chronic renal failure Is this a current diagnosis for this admission?: YesPlan: Patient with acute on chronic renal failure, increase IV fluids. Patient likely suffered from some vancomycin-induced kidney injury due to her trough of 30. Vancomycin trough is now 19. Was consult for Dr. Alexis tomorrow. Continue to monitor creatinine closely. (2) Diabetes mellitus type 2 in obese Is this a current diagnosis for this admission?: YesPlan: Will decrease a.m. Levemir again today. (3) Staphylococcus epidermidis bacteremia Is this a current diagnosis for this admission?: YesPlan: Patient changed from vancomycin to gentamicin due to #1 acute kidney injury #2 ERIC of vancomycin equals two. Consider adding rifampin. (4) Urinary tract infection Qualifiers: Urinary tract infection type: acute cystitis Is this a current diagnosis for this admission?: YesPlan: Escherichia coli UTI currently on gentamicin (5) Decubitus ulcer of left heel Qualifiers: Pressure ulcer stage: unspecified pressure ulcer stage Qualified Code(s): L89.629 - Pressure ulcer of left heel, unspecified stage Is this a current diagnosis for this admission?: YesPlan: Continue Hernández boot (6) Coronary artery disease Qualifiers: Coronary Disease-Associated Artery/Lesion type: [place] artery [place] vs. transplanted heart: [place] Associated angina: without angina Qualified Code(s): I25.10 - Atherosclerotic heart disease of [place] coronary artery without angina pectoris Is this a current diagnosis for this admission?: Yes (7) Decubitus ulcer of buttock, stage 1 Qualifiers: Laterality: left Qualified Code(s): L89.321 - Pressure ulcer of left buttock, stage 1 Is this a current diagnosis for this admission?: Yes (8) Decubitus ulcer, ankle, left, unstageable Is this a current diagnosis for this admission?: Yes (9) Anemia of chronic disease Is this a current diagnosis for this admission?: Yes (10) Chronic kidney disease, stage III (moderate) Is this a current diagnosis for this admission?: YesPlan: Renally adjust medication (11) Dementia Qualifiers: Dementia type: Alzheimer's disease Dementia behavioral disturbance: without behavioral disturbance Is this a current diagnosis for this admission?: Yes (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
[2017-01-01] MEDS: ATORVASTATIN CALCIUM 20 MG TABLET PO SCH (22:23)
[2017-01-01] MEDS: INSULIN LISPRO 100 UNIT/ML 3 ML VIAL SUBCUT PRN (22:23)
[2017-01-02] MEDS: HYDROCODONE/ACETAMINOPHEN 5-325 MG TABLET PO PRN ×4 (01:16→22:15)
[2017-01-02] MEDS: CARVEDILOL 6.25 MG TABLET PO SCH ×2 (05:21→17:42)
[2017-01-02] MEDS: GABAPENTIN 100 MG CAPSULE PO SCH ×2 (05:21→22:16)
[2017-01-02] MEDS: LANSOPRAZOLE 15 MG TAB.RAP.DR PO SCH (05:22)
[2017-01-02] MEDS ORDERED: LACTULOSE SYRUP 20 GM/30 ML UDCUP PO ONE (06:27)
[2017-01-02 09:02] LABS: ABSOLUTE EOSINOPHILS # (AUTO) 0.3 10^3/uL (0.0-0.6); ABSOLUTE LYMPHOCYTES (AUTO) 2.4 10^3/uL (0.5-4.7); ABSOLUTE NEUT (AUTO) 7.6 10^3/uL (1.7-8.2); BASOPHILS % (AUTO) 0.3 % (0-2); EOSINOPHILS % (AUTO) 2.8 % (0-6); HEMATOCRIT 29.3 % (36.0-47.0); HEMOGLOBIN 9.6 g/dL (12.0-15.5); HGB HCT DIFFERENCE -0.5; MEAN CORPUSCULAR HEMOGLOBIN 30.4 pg (27.0-33.4); MEAN CORPUSCULAR HGB CONC 32.8 g/dL (32.0-36.0); MEAN CORPUSCULAR VOLUME 93 fl (80-97); MONOCYTES % (AUTO) 8.5 % (3-13); RED BLOOD COUNT 3.16 10^6/uL (3.72-5.28); RED CELL DISTRIBUTION WIDTH 14.2 % (11.5-14.0); SEGMENTED NEUTROPHILS % (AUTO) 67.4 % (42-78); WHITE BLOOD COUNT 11.3 10^3/uL (4.0-10.5)
[2017-01-02 09:28] LABS: ANION GAP 15 (5-19); BLOOD UREA NITROGEN 30 mg/dL (7-20); CALCIUM 9.4 mg/dL (8.4-10.2); CARBON DIOXIDE 24 mmol/L (22-30); CHLORIDE 104 mmol/L (98-107); CREATININE RESULT 1.67 mg/dL (0.52-1.25); GLUCOSE 150 mg/dL (75-110); POTASSIUM 4.5 mmol/L (3.6-5.0); SODIUM 142.7 mmol/L (137-145)
[2017-01-02] MEDS: ESCITALOPRAM OXALATE 10 MG TABLET PO SCH (10:04)
[2017-01-02] MEDS: LACTOBACILLUS ACIDOPHILUS 250 MG TAB PO SCH ×2 (10:05→17:42)
[2017-01-02] MEDS: ASPIRIN 81 MG TABLET, CHEWABLE PO SCH (10:05)
[2017-01-02] MEDS: FLUTICASONE NASAL SPRAY 50 MCG/SPRY 120 SPRAY/16 GM NASL SCH (10:05)
[2017-01-02] MEDS: CLOPIDOGREL BISULFATE 75 MG TABLET PO SCH (10:05)
[2017-01-02] MEDS: CETIRIZINE 10 MG TABLET PO SCH (10:05)
[2017-01-02] MEDS: INSULIN GLARGINE,HUM.REC.ANLOG 1,000 UNIT/10 ML UNIT SUBCUT SCH (10:06)
[2017-01-02] MEDS: OLOPATADINE HCL 0.1% OPH SOLN 5 ML OU SCH (10:06)
[2017-01-02] MEDS: SODIUM CHLORIDE NASAL SPRAY 44 ML NASL SCH ×2 (10:06→17:42)
[2017-01-02] MEDS: HEPARIN SOD (PORCINE) 5,000 UNIT/ML 1 ML SYRINGE SUBCUT SCH ×2 (10:08→22:16)
[2017-01-02] MEDS: NORMAL SALINE 10 ML SDV (SCHEDULED) IV SCH ×2 (10:09→22:16)
[2017-01-02] MEDS: MICONAZOLE NITRATE 2% AEROSOL POWDER 130 GM TOP SCH ×2 (10:09→17:43)
[2017-01-02] MEDS: DOCUSATE SODIUM 100 MG CAPSULE PO SCH ×2 (10:10→17:42)
--- NOTE | 2017-01-02 17:23 | PDOC PROGRESS REPORT ---
Subjective Progress Note for:: 01/02/17 Subjective:: Patient seen earlier today on morning rounds. Patient complains of her normal pain and is requesting pain medication at this time. Patient complains of loose stool. Patient denies chest pain, shortness of breath, abdominal pain, nausea, vomiting , fevers, chills, headache, new onset weakness. Physical Exam Vital Signs: Temp Pulse Resp BP Pulse Ox 98.1 F 73 20 159/53 H 100 01/02/17 16:23 01/02/17 16:23 01/02/17 16:23 01/02/17 16:23 01/02/17 16:23 Intake & Output 01/01/17 01/02/17 01/03/17 06:59 06:59 06:59 Intake Total 715 2190 Balance 715 2190 Exam: General: Awake, alert, and answers questions appropriately, no acute respiratory distress HEENT: AT/NC, PERRL, EOMI, oropharynx is moist, pink, no scleral icterus, no conjunctival injection Neck: No JVD, trachea midline Chest: Clear to auscultation bilaterally, no wheezes rhonchi or rales CV: Regular rate and rhythm, normal S1 and S2, no murmur, rub, or gallop Abdomen: Soft, nontender to palpation, nondistended, active bowel sounds; no rebound, rigidity, or guarding Extremities: No cyanosis, clubbing or edema Neuro: Left-sided hemiparesis Psych: Flat Results Laboratory Results: 01/02/17 08:50 01/02/17 08:50 01/02/17 01/02/17 08:50 08:50 WBC 11.3 H RBC 3.16 L Hgb 9.6 L Hct 29.3 L MCV 93 MCH 30.4 MCHC 32.8 RDW 14.2 H Plt Count 187 Seg Neutrophils % 67.4 Lymphocytes % 21.0 Monocytes % 8.5 Eosinophils % 2.8 Basophils % 0.3 Absolute Neutrophils 7.6 Absolute Lymphocytes 2.4 Absolute Monocytes 1.0 Absolute Eosinophils 0.3 Absolute Basophils 0.0 Sodium 142.7 Potassium 4.5 Chloride 104 Carbon Dioxide 24 Anion Gap 15 BUN 30 H Creatinine 1.67 H Est GFR ( Amer) 36 L Est GFR (Non-Af Amer) 30 L Glucose 150 H Calcium 9.4 Impressions: Guidance Fluoroscopy 12/26/16 00:00 IMPRESSION: SUCCESSFUL PLACEMENT OF A 5 FR DUAL LUMEN 41 CM PICC IN THE left basilic VEIN. Interventional Vascular Procedure 12/26/16 00:00 IMPRESSION: SUCCESSFUL PLACEMENT OF A 5 FR DUAL LUMEN 41 CM PICC IN THE left basilic VEIN. PICC Line Insertion 12/26/16 00:00 IMPRESSION: SUCCESSFUL PLACEMENT OF A 5 FR DUAL LUMEN 41 CM PICC IN THE left basilic VEIN. Chest X-Ray 12/27/16 00:00 IMPRESSION: Cardiomegaly. No acute infiltrates. PICC line tip superior vena cava Abdomen/Pelvis CT 12/28/16 15:21 IMPRESSION: 1. No acute abnormality identified within the abdomen pelvis. 2. There is diffuse calcific atheromatous disease seen throughout the aorta. There is approximately 50% narrowing of the renal artery origins secondary to calcific atheromatous disease. Mesenteric arteries are patent. Assessment & Plan - Diagnosis (1) Acute on chronic renal failure Is this a current diagnosis for this admission?: YesPlan: Patient with acute on chronic renal failure, continue IV fluids. Patient likely suffered from some vancomycin-induced kidney injury due to her trough of 30. Vancomycin trough is now 19. Appreciate discussion with nephrology. Continue to monitor creatinine closely. Have discontinued gentamicin as well as vancomycin. (2) Diabetes mellitus type 2 in obese Is this a current diagnosis for this admission?: YesPlan: Patient's appetite is improving. Continue to monitor and adjust insulin as needed. (3) Staphylococcus epidermidis bacteremia Is this a current diagnosis for this admission?: YesPlan: Discussed this case with [facility] infectious disease fellow and determined that patient has completed course of antibiotics due to her supratherapeutic vancomycin level and repeat negative cultures. Have also discussed with her patient's prior bacteremia with Providencia stuartii. At this time in light of all current cultures being negative all antibiotics are recommended to be stopped. Patient is more than 6 weeks out from her treatment for MRSA of her heel. Patient's initial PICC line has been removed. Current PICC line will be removed after patient's IV fluids have been completed. (4) Urinary tract infection Qualifiers: Urinary tract infection type: acute cystitis Is this a current diagnosis for this admission?: YesPlan: Escherichia coli UTI currently completed treatment. Repeat culture negative (5) Decubitus ulcer of left heel Qualifiers: Pressure ulcer stage: unspecified pressure ulcer stage Qualified Code(s): L89.629 - Pressure ulcer of left heel, unspecified stage Is this a current diagnosis for this admission?: YesPlan: Continue Hernández boot and offloading of the heel. Patient will return wound clinic once she is discharged. (6) Coronary artery disease Qualifiers: Coronary Disease-Associated Artery/Lesion type: [place] artery [place] vs. transplanted heart: [place] heart Associated angina: without angina Qualified Code(s): I25.10 - Atherosclerotic heart disease of [place] coronary artery without angina pectoris Is this a current diagnosis for this admission?: Yes (7) Anemia of chronic disease Is this a current diagnosis for this admission?: Yes (8) Chronic kidney disease, stage III (moderate) Is this a current diagnosis for this admission?: YesPlan: Renally adjust medication (9) Dementia Qualifiers: Dementia type: Alzheimer's disease Dementia behavioral disturbance: without behavioral disturbance Is this a current diagnosis for this admission?: Yes (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 Is this a current diagnosis for this admission?: Yes (11) Obesity Qualifiers: Obesity type: due to excess calories Obesity severity: non-morbid Qualified Code(s): E66.09 - Other obesity due to excess calories Is this a current diagnosis for this admission?: Yes - Time Time Spent with patient: 25-34 minutes Medications reviewed and adjusted accordingly: Yes Anticipated discharge: SNF Within: within 48 hours - Inpatient Certification Based on my medical assessment, after consideration of the patient's comorbidities, presenting symptoms, or acuity I expect that the services needed warrant INPATIENT care.: Yes I certify that my determination is in accordance with my understanding of Medicare's requirements for reasonable and necessary INPATIENT services [42 CFR 412.3e].: Yes Medical Necessity: Need For IV Fluids Post Hospital Care: D/C Camera Supervisor Documentation
[2017-01-02] MEDS ORDERED: NORMAL SALINE 1000 ML 1,000 ML IV PRN (17:26)
[2017-01-02] MEDS: MAGNESIUM OXIDE 400 MG TABLET PO SCH (17:42)
[2017-01-02] MEDS: ATORVASTATIN CALCIUM 20 MG TABLET PO SCH (22:16)
[2017-01-02] MEDS: INSULIN LISPRO 100 UNIT/ML 3 ML VIAL SUBCUT PRN (22:56)
--- NOTE | 2017-01-02 23:07 | Progress Note ---
Provider Note Provider Note: Follow up Palliative care note 01/02/17 3:50- 4:00 pm Patient is awake and alert. SHe is distressed saying she is having a lot of back pain and has just taken a pain pill. She appears very uncomfortable and stiff in posturing due to pain. I offered to reposition her and massage he back but she did not want to be moved. Ms. Limon said she is having to stay in hospital for her medication and is ok with it but wnats her back pain to stop. SHe says she has good appetite. She reports some mild diarrhea and occasional abd pain. Patient wants to rest and agreed for me to return another day. She was not in any ocndition to discuss advance directives again. WIll follow. Would suggest increasing hydrocodone to 10mg q 6 hours or changing hydrocodone to oxycodone 5 mg for comfort. I have visited with this frannyn three times and all three she has complained of fairly severe back pain. I think the Lidoderm patches will help and peraps increase in gabapentin to 300mg might also help. MINGFran has my number and copy of MOST form which she wanted to review and discuss at a later date. Appreciate consult request, will follow.
[2017-01-03 05:57] LABS: ANION GAP 13 (5-19); BLOOD UREA NITROGEN 26 mg/dL (7-20); CALCIUM 9.5 mg/dL (8.4-10.2); CARBON DIOXIDE 27 mmol/L (22-30); CHLORIDE 103 mmol/L (98-107); CREATININE RESULT 1.48 mg/dL (0.52-1.25); GLUCOSE 116 mg/dL (75-110); POTASSIUM 4.4 mmol/L (3.6-5.0); SODIUM 143.3 mmol/L (137-145)
[2017-01-03] MEDS: GABAPENTIN 100 MG CAPSULE PO SCH ×3 (06:02→22:09)
[2017-01-03] MEDS: CARVEDILOL 6.25 MG TABLET PO SCH ×2 (06:02→17:10)
[2017-01-03] MEDS: HYDROCODONE/ACETAMINOPHEN 5-325 MG TABLET PO PRN ×3 (06:03→22:08)
[2017-01-03] MEDS: LANSOPRAZOLE 15 MG TAB.RAP.DR PO SCH (06:03)
[2017-01-03] MEDS: CLOPIDOGREL BISULFATE 75 MG TABLET PO SCH (10:00)
[2017-01-03] MEDS: ESCITALOPRAM OXALATE 10 MG TABLET PO SCH (10:00)
[2017-01-03] MEDS: LACTOBACILLUS ACIDOPHILUS 250 MG TAB PO SCH ×2 (10:00→17:11)
[2017-01-03] MEDS: MAGNESIUM OXIDE 400 MG TABLET PO SCH ×2 (10:00→17:11)
[2017-01-03] MEDS: ASPIRIN 81 MG TABLET, CHEWABLE PO SCH (10:00)
[2017-01-03] MEDS: SODIUM CHLORIDE NASAL SPRAY 44 ML NASL SCH ×2 (10:01→17:13)
[2017-01-03] MEDS: FLUTICASONE NASAL SPRAY 50 MCG/SPRY 120 SPRAY/16 GM NASL SCH (10:01)
[2017-01-03] MEDS: NORMAL SALINE 10 ML SDV (SCHEDULED) IV SCH ×2 (10:01→22:09)
[2017-01-03] MEDS: DOCUSATE SODIUM 100 MG CAPSULE PO SCH ×2 (10:01→17:10)
[2017-01-03] MEDS: CETIRIZINE 10 MG TABLET PO SCH (10:01)
[2017-01-03] MEDS: LIDOCAINE 5% (700 MG) TRANSDERMAL ADH..PATCH TP SCH (10:02)
[2017-01-03] MEDS: MICONAZOLE NITRATE 2% AEROSOL POWDER 130 GM TOP SCH ×2 (10:02→17:12)
[2017-01-03] MEDS: OLOPATADINE HCL 0.1% OPH SOLN 5 ML OU SCH (10:02)
[2017-01-03] MEDS: HEPARIN SOD (PORCINE) 5,000 UNIT/ML 1 ML SYRINGE SUBCUT SCH ×2 (10:04→22:08)
[2017-01-03] MEDS: INSULIN GLARGINE,HUM.REC.ANLOG 1,000 UNIT/10 ML UNIT SUBCUT SCH (10:04)
[2017-01-03] MEDS ORDERED: SIMETHICONE 80 MG TAB.CHEW PO PRN (14:43)
[2017-01-03] MEDS ORDERED: CYCLOBENZAPRINE HCL 10 MG TABLET PO PRN (14:44)
[2017-01-03] MEDS ORDERED: LIDOCAINE 2% VISCOUS SOLN 20 ML UDCUP PO ONE (15:30)
[2017-01-03] MEDS ORDERED: DICYCLOMINE HCL 10 MG CAPSULE PO ONE (15:30)
[2017-01-03] MEDS ORDERED: SIMETHICONE 80 MG TAB.CHEW PO ONE (15:30)
[2017-01-03] MEDS ORDERED: MAG HYDROX/AL HYDROX/SIMETH SUSP 30 ML UDCUP PO ONE (15:30)
--- NOTE | 2017-01-03 18:35 | PDOC PROGRESS REPORT ---
Subjective Progress Note for:: 01/03/17 Subjective:: Patient seen earlier today on morning rounds. Patient complains of bilateral side pain. Patient denies chest pain, shortness of breath, abdominal pain, nausea, vomiting , fevers, chills, headache, new onset weakness. Physical Exam Vital Signs: Temp Pulse Resp BP Pulse Ox 98.1 F 74 20 175/58 H 99 01/03/17 04:00 01/03/17 07:00 01/03/17 04:00 01/03/17 04:00 01/03/17 04:00 Intake & Output 01/02/17 01/03/17 01/04/17 06:59 06:59 06:59 Intake Total 2190 2513 Output Total 200 Balance 2190 2313 Weight 94.5 kg Exam: General: Awake, alert, and answers questions appropriately, no acute respiratory distress, sitting in chair HEENT: AT/NC, PERRL, EOMI, oropharynx is moist, pink, no scleral icterus, no conjunctival injection Neck: No JVD, trachea midline Chest: Clear to auscultation bilaterally, no wheezes rhonchi or rales CV: Regular rate and rhythm, normal S1 and S2, no murmur, rub, or gallop Abdomen: Soft, mildly tender to palpation llq, mildly distended, active bowel sounds; no rebound, rigidity, or guarding Extremities: No cyanosis, clubbing or edema Neuro: Left-sided hemiparesis Psych: Flat Results Laboratory Results: 01/02/17 08:50 01/03/17 05:10 01/02/17 01/02/17 01/03/17 08:50 08:50 05:10 WBC 11.3 H RBC 3.16 L Hgb 9.6 L Hct 29.3 L MCV 93 MCH 30.4 MCHC 32.8 RDW 14.2 H Plt Count 187 Seg Neutrophils % 67.4 Lymphocytes % 21.0 Monocytes % 8.5 Eosinophils % 2.8 Basophils % 0.3 Absolute Neutrophils 7.6 Absolute Lymphocytes 2.4 Absolute Monocytes 1.0 Absolute Eosinophils 0.3 Absolute Basophils 0.0 Sodium 142.7 143.3 Potassium 4.5 4.4 Chloride 104 103 Carbon Dioxide 24 27 Anion Gap 15 13 BUN 30 H 26 H Creatinine 1.67 H 1.48 H Est GFR ( Amer) 36 L 42 L Est GFR (Non-Af Amer) 30 L 35 L Glucose 150 H 116 H Calcium 9.4 9.5 Impressions: Guidance Fluoroscopy 12/26/16 00:00 IMPRESSION: SUCCESSFUL PLACEMENT OF A 5 FR DUAL LUMEN 41 CM PICC IN THE left basilic VEIN. Interventional Vascular Procedure 12/26/16 00:00 IMPRESSION: SUCCESSFUL PLACEMENT OF A 5 FR DUAL LUMEN 41 CM PICC IN THE left basilic VEIN. PICC Line Insertion 12/26/16 00:00 IMPRESSION: SUCCESSFUL PLACEMENT OF A 5 FR DUAL LUMEN 41 CM PICC IN THE left basilic VEIN. Chest X-Ray 12/27/16 00:00 IMPRESSION: Cardiomegaly. No acute infiltrates. PICC line tip superior vena cava Abdomen/Pelvis CT 12/28/16 15:21 IMPRESSION: 1. No acute abnormality identified within the abdomen pelvis. 2. There is diffuse calcific atheromatous disease seen throughout the aorta. There is approximately 50% narrowing of the renal artery origins secondary to calcific atheromatous disease. Mesenteric arteries are patent. Assessment & Plan - Diagnosis (1) Abdominal pain Qualifiers: Abdominal location: left lower quadrant Qualified Code(s): R10.32 - Left lower quadrant pain Is this a current diagnosis for this admission?: YesPlan: We'll give Bentyl and GI cocktail. Suspect this is from lactulose. (2) Acute on chronic renal failure Is this a current diagnosis for this admission?: YesPlan: Patient with acute on chronic renal failure, continue IV fluids. Patient likely suffered from some vancomycin-induced kidney injury due to her trough of 30. Vancomycin trough is now 19. Appreciate discussion with nephrology. Continue to monitor creatinine closely. Have discontinued gentamicin as well as vancomycin. (3) Diabetes mellitus type 2 in obese Is this a current diagnosis for this admission?: YesPlan: Patient's appetite is improving. Continue to monitor and adjust insulin as needed. (4) Staphylococcus epidermidis bacteremia Is this a current diagnosis for this admission?: YesPlan: Discussed this case with [facility] infectious disease fellow and determined that patient has completed course of antibiotics due to her supratherapeutic vancomycin level and repeat negative cultures. Have also discussed with her patient's prior bacteremia with Providencia stuartii. At this time in light of all current cultures being negative all antibiotics are recommended to be stopped. Patient is more than 6 weeks out from her treatment for MRSA of her heel. Patient's initial PICC line has been removed. Current PICC line will be removed after patient's IV fluids have been completed. (5) Urinary tract infection Qualifiers: Urinary tract infection type: acute cystitis Is this a current diagnosis for this admission?: YesPlan: Escherichia coli UTI currently completed treatment. Repeat culture negative (6) Decubitus ulcer of left heel Qualifiers: Pressure ulcer stage: unspecified pressure ulcer stage Qualified Code(s): L89.629 - Pressure ulcer of left heel, unspecified stage Is this a current diagnosis for this admission?: Yes (7) Coronary artery disease Qualifiers: Coronary Disease-Associated Artery/Lesion type: [place] artery [place] vs. transplanted heart: [place] heart Associated angina: without angina Qualified Code(s): I25.10 - Atherosclerotic heart disease of [place] coronary artery without angina pectoris Is this a current diagnosis for this admission?: Yes (8) Anemia of chronic disease Is this a current diagnosis for this admission?: Yes (9) Chronic kidney disease, stage III (moderate) Is this a current diagnosis for this admission?: Yes (10) Dementia Qualifiers: Dementia type: Alzheimer's disease Dementia behavioral disturbance: without behavioral disturbance Is this a current diagnosis for this admission?: Yes (11) Postpolio syndrome Is this a current diagnosis for this admission?: Yes (12) Obesity Qualifiers: Obesity type: due to excess calories Obesity severity: non-morbid Qualified Code(s): E66.09 - Other obesity due to excess calories Is this a current diagnosis for this admission?: Yes
[2017-01-03] MEDS: INSULIN LISPRO 100 UNIT/ML 3 ML VIAL SUBCUT PRN (22:08)
[2017-01-03] MEDS: ATORVASTATIN CALCIUM 20 MG TABLET PO SCH (22:09)
[2017-01-04] MEDS: CARVEDILOL 6.25 MG TABLET PO SCH ×2 (05:14→18:01)
[2017-01-04] MEDS: HYDROCODONE/ACETAMINOPHEN 5-325 MG TABLET PO PRN ×2 (05:15→13:40)
[2017-01-04] MEDS: LANSOPRAZOLE 15 MG TAB.RAP.DR PO SCH (05:15)
[2017-01-04] MEDS: GABAPENTIN 100 MG CAPSULE PO SCH ×2 (05:16→13:38)
[2017-01-04] MEDS: HEPARIN SOD (PORCINE) 5,000 UNIT/ML 1 ML SYRINGE SUBCUT SCH (10:16)
[2017-01-04] MEDS: INSULIN GLARGINE,HUM.REC.ANLOG 1,000 UNIT/10 ML UNIT SUBCUT SCH (10:20)
[2017-01-04] MEDS: NORMAL SALINE 10 ML SDV (SCHEDULED) IV SCH (10:20)
[2017-01-04] MEDS: MAGNESIUM OXIDE 400 MG TABLET PO SCH ×2 (10:22→18:01)
[2017-01-04] MEDS: DOCUSATE SODIUM 100 MG CAPSULE PO SCH ×2 (10:22→18:01)
[2017-01-04] MEDS: LACTOBACILLUS ACIDOPHILUS 250 MG TAB PO SCH ×2 (10:22→18:01)
[2017-01-04] MEDS: ASPIRIN 81 MG TABLET, CHEWABLE PO SCH (10:22)
[2017-01-04] MEDS: CETIRIZINE 10 MG TABLET PO SCH (10:23)
[2017-01-04] MEDS: CLOPIDOGREL BISULFATE 75 MG TABLET PO SCH (10:23)
[2017-01-04] MEDS: ESCITALOPRAM OXALATE 10 MG TABLET PO SCH (10:23)
[2017-01-04] MEDS: LIDOCAINE 5% (700 MG) TRANSDERMAL ADH..PATCH TP SCH (10:23)
[2017-01-04] MEDS: OLOPATADINE HCL 0.1% OPH SOLN 5 ML OU SCH (10:27)
[2017-01-04] MEDS: FLUTICASONE NASAL SPRAY 50 MCG/SPRY 120 SPRAY/16 GM NASL SCH (10:27)
[2017-01-04] MEDS: MICONAZOLE NITRATE 2% AEROSOL POWDER 130 GM TOP SCH (10:28)
[2017-01-04] MEDS: SODIUM CHLORIDE NASAL SPRAY 44 ML NASL SCH (10:28)
[2017-01-04 11:55] LABS: ANION GAP 13 (5-19); BLOOD UREA NITROGEN 26 mg/dL (7-20); CALCIUM 9.2 mg/dL (8.4-10.2); CARBON DIOXIDE 25 mmol/L (22-30); CHLORIDE 103 mmol/L (98-107); CREATININE RESULT 1.36 mg/dL (0.52-1.25); GLUCOSE 117 mg/dL (75-110); POTASSIUM 4.2 mmol/L (3.6-5.0); SODIUM 140.9 mmol/L (137-145)
--- NOTE | 2017-01-04 13:26 | PDOC DISCHARGE SUMMARY ---
General - Admit/Disc Date/PCP Admission Date/Primary Care Provider: 12/22/16 05:07 ADIA DAVID Discharge Date: 01/04/17 - Discharge Diagnosis (1) Acute on chronic renal failure Is this a current diagnosis for this admission?: Yes (2) Diabetes mellitus type 2 in obese Is this a current diagnosis for this admission?: Yes (3) Staphylococcus epidermidis bacteremia Is this a current diagnosis for this admission?: Yes (4) Urinary tract infection Is this a current diagnosis for this admission?: Yes (5) Decubitus ulcer of left heel Is this a current diagnosis for this admission?: Yes (6) Coronary artery disease Is this a current diagnosis for this admission?: Yes (7) Anemia of chronic disease Is this a current diagnosis for this admission?: Yes (8) Chronic kidney disease, stage III (moderate) Is this a current diagnosis for this admission?: Yes (9) Dementia Is this a current diagnosis for this admission?: Yes (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 Is this a current diagnosis for this admission?: Yes (11) Obesity Is this a current diagnosis for this admission?: Yes (12) Chronic pain Is this a current diagnosis for this admission?: Yes (13) Physical deconditioning Is this a current diagnosis for this admission?: Yes - Additional Information Resuscitation Status: Full Code Discharge Diet: Cardiac, Diabetic Discharge Activity: Activity As Tolerated, Slowly Increase Activity, Supervised Activity Home Medications: Acetaminophen [Tylenol 325 mg Tablet] 650 mg PO Q4HP PRN 12/22/16 Aspirin [Aspirin 81 mg Chewable Tablet] 81 mg PO DAILY 12/22/16 Atorvastatin Calcium [Lipitor 20 mg Tablet] 20 mg PO QHS 12/22/16 Carvedilol [Coreg 6.25 mg Tablet] 6.25 mg PO Q12 12/22/16 Cetirizine HCl [Zyrtec 10 mg Tablet] 10 mg PO DAILY 12/22/16 Clopidogrel Bisulfate [Plavix 75 mg Tablet] 75 mg PO DAILY 12/22/16 Diphenhydramine HCl [Benadryl 25 mg Capsule] 25 mg PO Q6HP PRN 12/22/16 Docusate Sodium [Colace 100 mg Capsule] 100 mg PO BID 12/22/16 Escitalopram Oxalate [Lexapro 10 mg Tablet] 10 mg PO DAILY 12/22/16 Fluticasone Propionate [Flonase Nasal [place] 50 Mcg/[place] 16 gm] 2 spray NASL DAILY 12/22/16 Furosemide [Lasix] 80 mg PO QAM 12/22/16 Insulin Lispro [Humalog Insulin (Lispro) 100 unit/mL] See Protocol SQ ACHS 12/22 Lansoprazole [Prevacid] 15 mg PO DAILY 12/22/16 Magnesium Hydroxide [Milk of Magnesia] 5 ml PO BIDP PRN 12/22/16 Miconazole Nitrate 1 applic TOP BID 12/22/16 Nystatin [Mycostatin Topical Powder 15 gm] 1 appful TOP BID 12/22/16 Olopatadine HCl [Patanol 0.1% Oph Soln 5 ml] 1 drop OU DAILY 12/22/16 Potassium Chloride [K-Tab ER] 20 meq PO DAILY 12/22/16 Sodium Chloride [Saline Mist] 1 spray NASL BID 12/22/16 Cyclobenzaprine HCl [Flexeril 10 mg Tablet] 5 mg PO Q8HP PRN #20 tablet Gabapentin [Neurontin 100 mg Capsule] 100 mg PO Q8 #90 capsule 01/04/17 Hydrocodone/Acetaminophen [Bridgeton 5-325 mg Tablet] 1 tab PO Q6HP PRN #10 tablet 01/04/17 Insulin Glargine,Hum.rec.anlog [Lantus Insulin 100 Unit/1 ml 10 ml] 35 unit SUBCUT DAILY unit 01/04/17 Insulin Lispro [Humalog Insulin (Lispro) 100 unit/mL] 0 - 12 unit SUBCUT ACHSP PRN unit 01/04/17 Lidocaine [Lidoderm 5% (700 mg) Transdermal Patch] 2 patch TP DAILY #60 adh..patch 01/04/17 Magnesium Oxide [Mag-Ox 400 mg Tablet] 800 mg PO BID tablet 01/04/17 Simethicone [Mylicon 80 mg Chewable Tablet] 120 mg PO QIDP PRN tab.chew History of Present Illness History of Present Illness: IGNACIO ULRICH is a 71 year old female Hospital Course Hospital Course: Ms. Ulrich is well known to the hospitalist service due to chronic conditions of peripheral vascular disease, diabetes, chronic wounds, aspiration pneumonia due to her tobacco secretions, and so forth. The patient presented with evidence of sepsis. Appears the patient had an infected PICC line. The patient 's PICC line was in place for antibiotics for chronic wound. As a had a recent bout of C. difficile however repeat C. difficile and diarrhea has improved. Patient also has chronic pain. The patient stated that she did not want to leave the hospital until "I am completely healed and everything is taking care of". I explained to the patient that she had multiple chronic conditions as evidence by long-term IV antibiotics for a nonhealing wound and that her being completely healed is not feasible given her underlying chronic ill illness. Also reminded the patient of her self-care deficits. The patient has been seen by palliative care. At this time the patient wants all measures even though she aspirates or tobacco secretions and is unwilling to stop chewing tobacco or transition to a more palliative model. Patient was treated for PICC line infection and sepsis with Staphlyococcus epidermidis and was given vancomycin but became supratheraputic and developed subsequent acute on chronic renal failure. This was treated with IV fluids with resolution. CT of the abdomen was performed due to patient complaint of abdominal pain with no explanation. Patient should see pain management as an outpatient. The remainder of her hospital course was unremarkable and patient is stable for discharge to her nursing facility. Physical Exam Vital Signs: Temp Pulse Resp BP Pulse Ox 98.1 F 78 16 147/57 H 98 01/04/17 11:39 01/04/17 11:39 01/04/17 11:39 01/04/17 11:39 01/04/17 11:39 Intake & Output 01/03/17 01/04/17 01/05/17 06:59 06:59 06:59 Intake Total 2513 2189 Output Total 200 Balance 2313 2189 Weight 94.5 kg Exam: General: Awake, alert, and answers questions appropriately, no acute respiratory distress, sitting in chair HEENT: AT/NC, PERRL, EOMI, oropharynx is moist, pink, no scleral icterus, no conjunctival injection Neck: No JVD, trachea midline Chest: Clear to auscultation bilaterally, no wheezes rhonchi or rales CV: Regular rate and rhythm, normal S1 and S2, no murmur, rub, or gallop Abdomen: Soft, nontender to palpation, mildly distended, active bowel sounds; no rebound, rigidity, or guarding Extremities: No cyanosis, clubbing or edema Neuro: Left-sided hemiparesis Psych: Flat Results Laboratory Results: 05/01/17 08:50 01/04/17 08:20 01/04/17 08:20 Sodium 140.9 Potassium 4.2 Chloride 103 Carbon Dioxide 25 Anion Gap 13 BUN 26 H Creatinine 1.36 H Est GFR ( Amer) 46 L Est GFR (Non-Af Amer) 38 L Glucose 117 H Calcium 9.2 Impressions: Guidance Fluoroscopy 12/26/16 00:00 IMPRESSION: SUCCESSFUL PLACEMENT OF A 5 FR DUAL LUMEN 41 CM PICC IN THE left basilic VEIN. Interventional Vascular Procedure 12/26/16 00:00 IMPRESSION: SUCCESSFUL PLACEMENT OF A 5 FR DUAL LUMEN 41 CM PICC IN THE left basilic VEIN. PICC Line Insertion 12/26/16 00:00 IMPRESSION: SUCCESSFUL PLACEMENT OF A 5 FR DUAL LUMEN 41 CM PICC IN THE left basilic VEIN. Chest X-Ray 12/27/16 00:00 IMPRESSION: Cardiomegaly. No acute infiltrates. PICC line tip superior vena cava Abdomen/Pelvis CT 12/28/16 15:21 IMPRESSION: 1. No acute abnormality identified within the abdomen pelvis. 2. There is diffuse calcific atheromatous disease seen throughout the aorta. There is approximately 50% narrowing of the renal artery origins secondary to calcific atheromatous disease. Mesenteric arteries are patent. Qualifiers PATEINT BEING DISCHARGED WITH ANY OF THE FOLLOWING DIAGNOSIS?: No Plan Time Spent: Greater than 30 Minutes
[2017-01-04 17:51] VITALS: BP 155/63
== END 2017-01-04 19:36 | DRG 314 ==
LOC: ER 16:17 → UNDOADMIN 12-22 00:24 → EH 12-22 00:24 → 4S 12-22 01:49 → EH 12-22 01:49 → 4S 12-22 05:07 → EH 12-22 05:07
PROVIDERS: ADMIT Family Medicine; ATTEND Family Medicine
PROC: 3E0F73Z Introduction of Anti-inflammatory into Respiratory Tract, Via Natural or Artificial Opening (ICD-10-PCS; 2016-12-22)
PROC: 02PY33Z Removal of Infusion Device from Great Vessel, Percutaneous Approach (ICD-10-PCS; principal; 2016-12-26)
PROC: 02HV33Z Insertion of Infusion Device into Superior Vena Cava, Percutaneous Approach (ICD-10-PCS; 2016-12-26)
PROC: B518ZZA Fluoroscopy of Superior Vena Cava, Guidance (ICD-10-PCS; 2016-12-26)
PROC: B548ZZA Ultrasonography of Superior Vena Cava, Guidance (ICD-10-PCS; 2016-12-26)
DX: T80.211A Bloodstream infection due to central venous catheter, initial encounter (principal); A41.1 Sepsis due to other specified staphylococcus; N17.0 Acute kidney failure with tubular necrosis; N30.00 Acute cystitis without hematuria; A04.7 Enterocolitis due to Clostridium difficile; I13.0 Hypertensive heart and chronic kidney disease with heart failure and stage 1 through stage 4 chronic kidney disease, or unspecified chronic kidney disease; I50.32 Chronic diastolic (congestive) heart failure; B96.20 Unspecified Escherichia coli [E. coli] as the cause of diseases classified elsewhere; D63.1 Anemia in chronic kidney disease; E11.22 Type 2 diabetes mellitus with diabetic chronic kidney disease; I12.9 Hypertensive chronic kidney disease with stage 1 through stage 4 chronic kidney disease, or unspecified chronic kidney disease; N18.3 Chronic kidney disease, stage 3 (moderate); I25.10 Atherosclerotic heart disease of native coronary artery without angina pectoris; G14 Postpolio syndrome; G89.29 Other chronic pain; E11.51 Type 2 diabetes mellitus with diabetic peripheral angiopathy without gangrene; J44.9 Chronic obstructive pulmonary disease, unspecified; K21.9 Gastro-esophageal reflux disease without esophagitis; L89.520 Pressure ulcer of left ankle, unstageable; E66.09 Other obesity due to excess calories; Z68.33 Body mass index [BMI] 33.0-33.9, adult; F41.9 Anxiety disorder, unspecified; I25.2 Old myocardial infarction; L40.9 Psoriasis, unspecified; F32.9 Major depressive disorder, single episode, unspecified; L89.321 Pressure ulcer of left buttock, stage 1; G30.9 Alzheimer's disease, unspecified; F02.80 Dementia in other diseases classified elsewhere, unspecified severity, without behavioral disturbance, psychotic disturbance, mood disturbance, and anxiety; N14.1 Nephropathy induced by other drugs, medicaments and biological substances; T36.8X5A Adverse effect of other systemic antibiotics, initial encounter; Z16.30 Resistance to unspecified antimicrobial drugs; Z90.710 Acquired absence of both cervix and uterus; Z79.82 Long term (current) use of aspirin; Z79.4 Long term (current) use of insulin; Z79.899 Other long term (current) drug therapy; Z88.0 Allergy status to penicillin; Z88.2 Allergy status to sulfonamides; Z88.1 Allergy status to other antibiotic agents; Z95.5 Presence of coronary angioplasty implant and graft; Z86.14 Personal history of Methicillin resistant Staphylococcus aureus infection; Z82.49 Family history of ischemic heart disease and other diseases of the circulatory system; Z80.9 Family history of malignant neoplasm, unspecified
CPT/HCPCS: 36415; 36569; 51701; 71010; 71020; 74176; 74177; 76937; 77001; 80048; 80053; 80076; 80202; 81001; 82550; 82553; 82565; 82962; 83605; 83690; 83735; 83880; 84484; 85025; 85027; 85610; 87040; 87077; 87086; 87088; 87186; 87493; 93971; 96360; 99284; 99291; G8978-GP; G8979-GP; J1580; J1642; J1644; J1815; J3370; J3490; J7030; J7060; J8499

== ENCOUNTER 2017-01-26 15:40 | Emergency (ER) | payer MEDICARE, MEDICAID ==
[2017-01-26] MEDS ORDERED: CEFTRIAXONE 1 GM/D5W RTU 50 ML IV ONE (15:56)
[2017-01-26] MEDS ORDERED: VANCOMYCIN HCL INJ 1000 MG VIAL IV ONE (15:56)
--- NOTE | 2017-01-26 16:14 | ER Document Report ---
ED General - General Mode of Arrival: Medic Information source: Patient, [facility] Records TRAVEL OUTSIDE OF THE [place] IN LAST 30 DAYS: No - HPI Patient complains to provider of: Back Pain Onset: Other - 2 Weeks Ago Onset/Duration: Gradual, Worse Associated symptoms: Diarrhea. denies: Fever, Shortness of breath <VERNON LE - Last Filed: 01/26/17 18:42> <JAYLIN TYLER - Last Filed: 01/26/17 22:44> - General Chief Complaint: Back Pain Stated Complaint: BACK PAIN Time Seen by Provider: 01/26/17 15:55 Notes: Patient is a 71-year-old female presenting to the emergency department concerned of abdominal and back pain that radiates into her right leg onset 2 weeks ago. Patient had a CT scan ordered by Dr. Liz today that showed discitis/osteomyelitis on review told to come to the emergency department. Patient also admits to diarrhea for approximately 2 weeks. Patient denies fever , urinary or fecal incontinence, numbness, chest pain, or breathing difficulty. Patient states that she does not ambulate at baseline secondary to having polio as a child. (VERNON LE) - Related Data Allergies/Adverse Reactions: penicillin G [Penicillin G] Allergy (Intermediate, Verified 12/21/16 16:44) Generalized rash Sulfa (Sulfonamide Antibiotics) Allergy (Intermediate, Verified 12/21/16 16:44) cephalexin monohydrate [From Keflex] Adverse Reaction (Intermediate, Verified 16:44) itching, rash, Past Medical History - General Information source: Patient, [facility] Records - Social History Smoking Status: Former Smoker Cigarette use (# per day): No Chew tobacco use (# tins/day): Yes Frequency of alcohol use: None Drug Abuse: None Family History: Reviewed & Not Pertinent, CAD, Malignancy - Past Medical History Cardiac Medical History: Reports: Hx Congestive Heart Failure - EF of 45%, Hx Coronary Artery Disease, Hx Heart Attack, Hx Hypercholesterolemia, Hx Hypertension Pulmonary Medical History: Reports: Hx Asthma, Hx COPD Endocrine Medical History: Reports: Hx Diabetes Mellitus Type 2 Renal/ Medical History: Reports: Hx Renal Insufficiency GI Medical History: Reports: Hx Gastroesophageal Reflux Disease Musculoskeltal Medical History: 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 denies: Fever EENT: No symptoms reported Cardiovascular: No symptoms reported. denies: Chest pain Respiratory: No symptoms reported. denies: Short of breath Gastrointestinal: See HPI, Abdominal pain, Diarrhea Genitourinary: No symptoms reported. denies: Incontinence Female Genitourinary: No symptoms reported Musculoskeletal: See HPI, Back pain Skin: No symptoms reported Hematologic/Lymphatic: No symptoms reported Neurological/Psychological: No symptoms reported. denies: Numbness -: Yes All other systems reviewed and negative <VERNON LE - Last Filed: 01/26/17 18:42> Physical Exam <VERNON LE - Last Filed: 01/26/17 18:42> <JAYLIN TYLER - Last Filed: 01/26/17 22:44> - Vital signs Vitals: Temp Pulse Resp BP Pulse Ox 99.0 F 80 20 141/53 H 95 01/26/17 16:01 01/26/17 16:01 01/26/17 16:01 01/26/17 16:01 01/26/17 16:01 - Notes Notes: GENERAL: Alert, interacts well. No acute distress. HEAD: Normocephalic, atraumatic. EYES: Pupils equal, round, and reactive to light. Extraocular movements intact. ENT: Oral mucosa moist, tongue midline. NECK: Full range of motion. Supple. Trachea midline. LUNGS: Clear to auscultation bilaterally, no wheezes, rales, or rhonchi. No respiratory distress. HEART: Regular rate and rhythm. No murmurs, gallops, or rubs. ABDOMEN: Soft, diffuse tenderness to palpation with exception of right upper quadrant. No masses, guarding, rigidity, or rebound. Non-distended. Bowel sounds present in all 4 quadrants. BACK: Lidoderm patches noted on sacrum and mid-low thoracic areas. Mid-thoracic to low-lumbar tenderness to palpation. Stage I decubitus ulcer over sacrum with skin breakdown around the perineum. No evidence of infection. EXTREMITIES: Left arm contracture. Lower extremity muscle strength 5/5 right, 4/ 5 left with limited range of motion. Left leg significantly skinnier than right consistent with Polio as a child. Moves all 4 extremities spontaneously. No edema, radial and dorsalis pedis pulses 2/4 bilaterally. No cyanosis. NEUROLOGICAL: Alert and oriented x3. Normal speech. PSYCH: Normal affect, normal mood. SKIN: Warm, dry, normal turgor. (VERNON LE) Course - Laboratory Result Diagrams: 01/26/17 17:10 01/26/17 17:10 - Consults Dr. Magdaleno Time consulted: 16:38 Dr. Meredith Time consulted: 16:44 <VERNON LE - Last Filed: 01/26/17 18:42> - Laboratory Result Diagrams: 01/26/17 17:10 01/26/17 17:10 <JAYLIN TYLER - Last Filed: 01/26/17 22:44> - Re-evaluation Re-evalutation: 01/26/17 18:32 CBC shows leukocytosis of 12.7, anemia with hemoglobin 10.4, normal platelets, INR slightly prolonged at 1.08, venous blood gas shows slightly elevated pH at 7.47, no evidence of metabolic acidosis to indicate sepsis, lactic acid is normal at 1.3 also points away from sepsis. Patient has chronic renal failure with a BUN of 54 and creatinine of 1.99, she is hydrated with a liter of normal saline at this point, C-reactive protein is significantly elevated at 86.6. ESR is still pending. This shows large leukocyte esterase with bacteria. Outpatient CAT scan was reviewed and it reveals evidence of discitis and vertebral osteomyelitis at T11-T12 area, I did start empiric antibiotics in the form of vancomycin and Rocephin. Patient is known to be allergic to penicillin however it simply gives her rash, no anaphylaxis. I doubt there will be cross- reactivity to Rocephin. I did discuss the patient initially with Dr. Magdaleno at [facility] the neurosurgeon on-call who states that this will not need surgery but he is happy to consult, states that CT-guided biopsy and antibiotic treatment can be managed by hospitalist and ID. Hospitalist Dr. Meredith agrees to admit the patient to her service. Patient will be transferred to [facility] (JAYLIN TYLER ) - Vital Signs Vital signs: Temp Pulse Resp BP Pulse Ox 99.0 F 80 15 143/54 H 100 01/26/17 19:49 01/26/17 19:49 01/26/17 19:49 01/26/17 19:49 01/26/17 19:49 - Laboratory Laboratory results interpreted by me: 01/26/17 01/26/17 01/26/17 17:10 17:10 17:10 WBC 12.7 H RBC 3.46 L Hgb 10.4 L Hct 31.3 L RDW 14.1 H Absolute Neutrophils 8.6 H ESR 119 H VBG pH 7.47 H Chloride 94 L BUN 54 H Creatinine 1.99 H Est GFR ( Amer) 30 L Est GFR (Non-Af Amer) 25 L Glucose 150 H POC Glucose Direct Bilirubin 0.5 H C-Reactive Protein 86.6 H Total Protein 8.6 H Ur Leukocyte Esterase Urine Ascorbic Acid 01/26/17 01/26/17 17:15 17:17 WBC RBC Hgb Hct RDW Absolute Neutrophils ESR VBG pH Chloride BUN Creatinine Est GFR ( Amer) Est GFR (Non-Af Amer) Glucose POC Glucose 146 H Direct Bilirubin C-Reactive Protein Total Protein Ur Leukocyte Esterase LARGE H Urine Ascorbic Acid 40 H - EKG Interpretation by Me Additional EKG results interpreted by me: 01/26/17 18:33 EKG shows sinus rhythm at a rate of 79, first-degree AV block, significant Q waves noted in lead III, V1 through V4 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 (JAYLIN TYLER) - Consults Dr. Magdaleno Reason for consultation: 01/26/17 16:38 Discussed patient's case with Dr. Magdaleno, who states that the patient will not need surgery, and can be seen for a CT guided biopsy by a hospitalist. (VERNON LE) Dr. Viri Reason for consultation: 01/26/17 17:13 Discussed patient's case with Dr. Meredith, hospitalist at [facility], who agrees to accept the patient. (VERNON LE) Discharge <VERNON LE - Last Filed: 01/26/17 18:42> <JAYLIN TYELR - Last Filed: 01/26/17 22:44> - Discharge Clinical Impression: Osteomyelitis of thoracic vertebra, Chronic kidney disease, stage III (moderate ), Decubitus ulcer of sacral region, stage 1, Postpolio syndrome Discitis Qualifiers: Spinal region: thoracic Qualified Code(s): M46.44 - Discitis, unspecified, thoracic region Obesity Qualifiers: Obesity type: due to excess calories Obesity severity: non-morbid Qualified Code(s): E66.09 - Other obesity due to excess calories Condition: Fair Disposition: [facility] Referrals: ADIA DAVID MD [Primary Care Provider] - Follow up as needed Scribe Attestation: 01/26/17 22:44 I personally performed the services described in the documentation, reviewed and edited the documentation which was dictated to the scribe in my presence, and it accurately records my words and actions. (JAYLIN TYLER) Scribe Documentation - Scribe Written by Rajat:: Rajat Gee, 01/26/2017 1614 acting as scribe for :: Sonja <VERNON LE - Last Filed: 01/26/17 18:42>
[2017-01-26 17:17] LABS: VENOUS BLOOD BASE EXCESS 4.9 mmol/L; VENOUS BLOOD PCO2 40.9 mmHg (35-63); VENOUS BLOOD PH 7.47 (7.30-7.42)
[2017-01-26 17:21] LABS: ABSOLUTE EOSINOPHILS # (AUTO) 0.3 10^3/uL (0.0-0.6); ABSOLUTE LYMPHOCYTES (AUTO) 2.9 10^3/uL (0.5-4.7); ABSOLUTE MONOCYTES (AUTO) 0.9 10^3/uL (0.1-1.4); ABSOLUTE NEUT (AUTO) 8.6 10^3/uL (1.7-8.2); BASOPHILS % (AUTO) 0.3 % (0-2); EOSINOPHILS % (AUTO) 2.7 % (0-6); HEMATOCRIT 31.3 % (36.0-47.0); HEMOGLOBIN 10.4 g/dL (12.0-15.5); HGB HCT DIFFERENCE -0.1; MEAN CORPUSCULAR HEMOGLOBIN 30.1 pg (27.0-33.4); MEAN CORPUSCULAR HGB CONC 33.3 g/dL (32.0-36.0); MEAN CORPUSCULAR VOLUME 91 fl (80-97); MONOCYTES % (AUTO) 6.7 % (3-13); RED BLOOD COUNT 3.46 10^6/uL (3.72-5.28); RED CELL DISTRIBUTION WIDTH 14.1 % (11.5-14.0); SEGMENTED NEUTROPHILS % (AUTO) 67.3 % (42-78); WHITE BLOOD COUNT 12.7 10^3/uL (4.0-10.5)
[2017-01-26 17:38] LABS: PROTHROMBIN TIME 14.7 SEC (11.4-15.4)
[2017-01-26 17:45] LABS: APPEARANCE,URINE CLOUDY; BILIRUBIN,URINE NEGATIVE (NEGATIVE); GLUCOSE, URINE NEGATIVE (NEGATIVE); KETONES,URINE NEGATIVE (NEGATIVE); LEUKOCYTE ESTERASE,URINE LARGE (NEGATIVE); NITRITE,URINE NEGATIVE (NEGATIVE); PROTEIN,URINE NEGATIVE (NEGATIVE); URINE SPECIFIC GRAVITY 1.008; UROBILINOGEN,URINE NEGATIVE mg/dL (<2.0)
[2017-01-26 17:48] LABS: ALANINE AMINOTRANSFERASE 27 U/L (9-52); ALBUMIN 4.1 g/dL (3.5-5.0); ALKALINE PHOSPHATASE 82 U/L (38-126); ANION GAP 16 (5-19); ASPARTATE AMINO TRANSFERASE 20 U/L (14-36); BILIRUBIN,DIRECT 0.5 mg/dL (0.0-0.4); BILIRUBIN,TOTAL 0.8 mg/dL (0.2-1.3); BLOOD UREA NITROGEN 54 mg/dL (7-20); C-REACTIVE PROTEIN 86.6 mg/L (<10.0); CARBON DIOXIDE 28 mmol/L (22-30); CHLORIDE 94 mmol/L (98-107); CREATININE RESULT 1.99 mg/dL (0.52-1.25); GLUCOSE 150 mg/dL (75-110); POTASSIUM 4.1 mmol/L (3.6-5.0); SODIUM 137.8 mmol/L (137-145); TOTAL PROTEIN 8.6 g/dL (6.3-8.2)
[2017-01-26] MEDS ORDERED: NORMAL SALINE 1000 ML 1,000 ML IV ONE (18:07)
--- NOTE | 2017-01-26 18:31 | EKG REPORT ---
SEVERITY:- ABNORMAL ECG - SINUS RHYTHM FIRST DEGREE AV BLOCK ANTERIOR INFARCT, AGE INDETERMINATE : Confirmed by: Wili Wallis MD 26-Jan-2017 18:29:40
[2017-01-26 18:32] LABS: ERYTHROCYTE SEDIMENTATION RATE 119 mm/hr (0-30)
[2017-01-26 19:51] VITALS: BP 143/54
== END 2017-01-26 19:45 | disposition short-term general hospital (02) ==
LOC: ER 15:40
DX: E11.69 Type 2 diabetes mellitus with other specified complication (principal); E11.22 Type 2 diabetes mellitus with diabetic chronic kidney disease; I12.9 Hypertensive chronic kidney disease with stage 1 through stage 4 chronic kidney disease, or unspecified chronic kidney disease; M46.24 Osteomyelitis of vertebra, thoracic region; N18.3 Chronic kidney disease, stage 3 (moderate); M46.44 Discitis, unspecified, thoracic region; L89.151 Pressure ulcer of sacral region, stage 1; G14 Postpolio syndrome; E66.09 Other obesity due to excess calories; Z68.24 Body mass index [BMI] 24.0-24.9, adult; I44.0 Atrioventricular block, first degree; I25.10 Atherosclerotic heart disease of native coronary artery without angina pectoris; I25.2 Old myocardial infarction; J44.9 Chronic obstructive pulmonary disease, unspecified; R10.9 Unspecified abdominal pain; R19.7 Diarrhea, unspecified; D64.9 Anemia, unspecified; D72.829 Elevated white blood cell count, unspecified; Z86.14 Personal history of Methicillin resistant Staphylococcus aureus infection; Z87.891 Personal history of nicotine dependence; Z98.61 Coronary angioplasty status; Z88.0 Allergy status to penicillin; Z88.2 Allergy status to sulfonamides
CPT/HCPCS: 93005; 99285; 51701; 96365; 96366; 96367; 36415; 87040; 87086; 82962; 85025; 85652; 85610; 86140; 87088; 80053; 81001; 87186; 82803; 83605; 93010; J7030; J3370; J0696; 74176; 80048; 80061; 83036; 83735

== ENCOUNTER → 2017-01-26 | Outpatient (CLI) | payer MEDICARE, MEDICAID ==
--- NOTE | 2017-01-26 14:49 | RADIOLOGY REPORT (SQ) ---
EXAM DESCRIPTION: CT ABD/PELVIS NO ORAL OR IV COMPLETED DATE/TIME: 01/26/2017 2:05 pm REASON FOR STUDY: FLANK PAIN R10.9 UNSPECIFIED ABDOMINAL PAIN COMPARISON: CT abdomen and pelvis 12/28/2016, 12/21/2016, 03/11/2016, 06/27/2011 TECHNIQUE: CT scan of the abdomen and pelvis performed without intravenous or oral contrast. Images reviewed with lung, soft tissue, and bone windows. Reconstructed coronal and sagittal MPR images revi ewed. All images stored on PACS. All CT scanners at this facility use dose modulation, iterative reconstruction, and/or weight based d osing when appropriate to reduce radiation dose to as low as reasonably achievable (ALARA). [facility]: Dose Right [facility]: CareDose [facility]: Dose Right [facility]: Teradose 4D [facility]: [employer] RADIATION DOSE: 26.36mGy. LIMITATIONS: None. FINDINGS: Since the prior exams, patient has developed lytic destruction at the vertebral body endpl ates of the T11-12 disc level, best shown on sagittal images 50 through 57, coronal images 76 through 85, and axial images 22-24. This finding is worrisome for discitis with adjacent vertebral body ost eomyelitis. This report was called to Dr. Liz 1440 hours, 01/26/2017. LOWER CHEST: Lung bases clear. Moderate coronary artery calcification, aortic valve calcification, m oderate cardiomegaly. NON-CONTRASTED LIVER, SPLEEN, ADRENALS: Evaluation limited by lack of IV contrast. No identified sign ificant masses. PANCREAS: No masses. No peripancreatic inflammatory changes. GALLBLADDER: Surgically absent RIGHT KIDNEY AND URETER: No suspicious masses. Assessment limited by lack of IV contrast. Arterial vascular calcifications No hydronephrosis or hydroureter. LEFT KIDNEY AND URETER: No suspicious masses. Assessment limited by lack of IV contrast. Arterial v ascular calcifications No hydronephrosis or hydroureter. AORTA AND RETROPERITONEUM: No abdominal aortic aneurysm. Heavily calcified renal artery origins and proximal common iliac arteries. BOWEL AND PERITONEAL CAVITY: No obvious masses or inflammatory changes. No free fluid. APPENDIX: Normal. PELVIS, BLADDER, AND ABDOMINAL WALL:No abnormal masses. No free fluid. Bladder normal. Post hysterec cas BONES: Findings worrisome for discitis/ osteomyelitis at T11-12 as above. OTHER: Report called to the ordering physician IMPRESSION: T11-12 discitis/osteomyelitis COMMENT: Pertinent findings on the imaging study reported as a CRITICAL RESULT to PHIL Heaton MD at14:40 on 01/26/2017. Category of Critical Result: Discitis/osteomyelitis TECHNICAL DOCUMENTATION: JOB ID: [id number] Quality ID # [id number]: Final reports with documentation of one or more dose reduction techniques (e.g., Au tomated exposure control, adjustment of the mA and/or kV according to patient size, use of iterative reconstruction technique) 2010 [employer]- All Rights Reserved
== END ==
LOC: RAD 13:44
PROVIDERS: ATTEND Internal Medicine
DX: R10.9 Unspecified abdominal pain (principal); Z90.710 Acquired absence of both cervix and uterus; M46.44 Discitis, unspecified, thoracic region
CPT/HCPCS: 74176

== ENCOUNTER 2017-02-14 23:14 | Emergency (ER) | payer MEDICARE, BC, MEDICAID ==
[2017-02-15] MEDS ORDERED: MORPHINE SULFATE 10 MG/ML INJ IV ONE ×3 (00:26→04:25)
[2017-02-15 01:50] LABS: ABSOLUTE EOSINOPHILS # (AUTO) 0.3 10^3/uL (0.0-0.6); ABSOLUTE LYMPHOCYTES (AUTO) 1.7 10^3/uL (0.5-4.7); ABSOLUTE MONOCYTES (AUTO) 0.7 10^3/uL (0.1-1.4); ABSOLUTE NEUT (AUTO) 8.8 10^3/uL (1.7-8.2); BASOPHILS % (AUTO) 0.4 % (0-2); EOSINOPHILS % (AUTO) 2.5 % (0-6); HEMATOCRIT 29.8 % (36.0-47.0); HEMOGLOBIN 9.5 g/dL (12.0-15.5); HGB HCT DIFFERENCE -1.3; LYMPHOCYTES % (AUTO) 14.4 % (13-45); MEAN CORPUSCULAR HEMOGLOBIN 28.7 pg (27.0-33.4); MEAN CORPUSCULAR HGB CONC 31.9 g/dL (32.0-36.0); MEAN CORPUSCULAR VOLUME 90 fl (80-97); MONOCYTES % (AUTO) 6.4 % (3-13); RED BLOOD COUNT 3.32 10^6/uL (3.72-5.28); RED CELL DISTRIBUTION WIDTH 14.7 % (11.5-14.0); SEGMENTED NEUTROPHILS % (AUTO) 76.3 % (42-78); WHITE BLOOD COUNT 11.5 10^3/uL (4.0-10.5)
[2017-02-15 02:06] LABS: ANION GAP 14 (5-19); BLOOD UREA NITROGEN 41 mg/dL (7-20); CALCIUM 9.4 mg/dL (8.4-10.2); CARBON DIOXIDE 25 mmol/L (22-30); CHLORIDE 100 mmol/L (98-107); CREATININE RESULT 1.36 mg/dL (0.52-1.25); GLUCOSE 178 mg/dL (75-110); POTASSIUM 4.7 mmol/L (3.6-5.0); SODIUM 139.1 mmol/L (137-145)
--- NOTE | 2017-02-15 04:36 | ER Document Report ---
ED General - General Chief Complaint: Back Pain Stated Complaint: BACK PAIN Time Seen by Provider: 02/15/17 00:05 Notes: Patient is a 71-year-old female who presents with complaint of pain in her back. She has known osteoarthritis and discitis. She is recent discharge from [facility] for this. She has a PICC line. She receives cefepime for the PICC line and also take Cipro due to culture which came back positive for Pseudomonas. Patient has oxycodone 10 mg every 4 hours at the shelter. She says it is not controlling her pain and therefore she was sent here because of her ongoing pain. She denies any new weakness or numbness in her lower extremities. No fevers. No other complaints at this time. TRAVEL OUTSIDE OF THE [place] IN LAST 30 DAYS: No - Related Data Allergies/Adverse Reactions: penicillin G [Penicillin G] Allergy (Intermediate, Verified 12/21/16 16:44) Generalized rash Sulfa (Sulfonamide Antibiotics) Allergy (Intermediate, Verified 12/21/16 16:44) cephalexin monohydrate [From Keflex] Adverse Reaction (Intermediate, Verified 16:44) itching, rash, Past Medical History - Social History Smoking Status: Unknown if Ever Smoked Chew tobacco use (# tins/day): Yes Frequency of alcohol use: None Drug Abuse: None Family History: Reviewed & Not Pertinent, CAD, Malignancy - Past Medical History Cardiac Medical History: Reports: Hx Congestive Heart Failure - EF of 45%, Hx Coronary Artery Disease, Hx Heart Attack, Hx Hypercholesterolemia, Hx Hypertension Pulmonary Medical History: Reports: Hx Asthma, Hx COPD Denies: Hx Bronchitis, Hx Pneumonia Neurological Medical History: Denies: Hx Cerebrovascular Accident, Hx Migraine, Hx Seizures Endocrine Medical History: Reports: Hx Diabetes Mellitus Type 2. Denies: Hx Hyperthyroidism, Hx Hypothyroidism Renal/ Medical History: Reports: Hx Renal Insufficiency. Denies: Hx Peritoneal Dialysis GI Medical History: Reports: Hx Gastroesophageal Reflux Disease. Denies: Hx Cirrhosis, Hx Hepatitis Musculoskeltal Medical History: Denies Hx Arthritis, Reports Hx Muscle Weakness - Post polio syndrome Skin Medical History: Reports Hx MRSA, Reports Hx Psoriasis Psychiatric Medical History: Reports: Hx Anxiety, Hx Dementia, Hx Depression Infectious Medical History: Reports: Hx C-Diff, Hx MRSA. Denies: Hx Hepatitis Past Surgical History: Reports: Hx Cardiac Catheterization, Hx Cardiac Surgery - stents, Hx Section, Hx Coronary Stent, Hx Hysterectomy, Hx Orthopedic Surgery - right hand - Immunizations Hx Diphtheria, Pertussis, Tetanus Vaccination: No Hx Pneumococcal Vaccination: 06/02/14 Review of Systems - Review of Systems Notes: My Normal Review Basic REVIEW OF SYSTEMS: CONSTITUTIONAL : Denies fever, chills, or sweats. Denies recent illness. EENT: Denies eye, ear, throat, or mouth pain or symptoms. Denies nasal or sinus congestion. CARDIOVASCULAR: Denies chest pain. RESPIRATORY: Denies cough, cold, or chest congestion. Denies shortness of breath, difficulty breathing, or wheezing. GASTROINTESTINAL: Denies abdominal pain. Denies nausea, vomiting, or diarrhea. Denies constipation. Last BM: MUSCULOSKELETAL: Back pain. SKIN: Denies rash or skin lesions. NEUROLOGICAL: Denies altered mental status or loss of consciousness. Denies headache. Denies weakness or paralysis or loss of use of either side. Denies problems with gait or speech. Denies sensory or motor loss. ALL OTHER SYSTEMS REVIEWED AND NEGATIVE. Physical Exam - Vital signs Vitals: Temp Pulse Resp BP Pulse Ox 97.5 F 73 20 142/102 H 100 02/14/17 23:18 02/14/17 23:18 02/14/17 23:18 02/14/17 23:18 02/14/17 23:18 - Notes Notes: General Appearance: Well nourished, alert, cooperative, no acute distress, moderate obvious discomfort. Vitals: reviewed, See vital signs table. Head: no swelling or tenderness to the head Eyes: PERRL, EOMI, Conjuctiva clear Mouth: No decreasd moisture Neck: Supple, no neck tenderness Lungs: No wheezing, No rales, No rhonci, No accessory muscle use, good air exchange bilaterally. Heart: Normal rate, Regular rythm, No murmur, no rub Abdomen: Normal BS, soft, No rigidity, No abdominal tenderness, No guarding, no rebound, no abdominal masses, no organomegaly back: Patient of the low back. There is no redness or swelling to the low back. Pain is only a little bit worse with palpation. She does have worsening pain when I have her roll onto her side. Extremities: strength 5/5 in all extremities, good pulses in all extremities, no swelling or tenderness in the extremities, no edema. PICC line in right upper extremity. No redness or swelling seen around PICC line. Skin: warm, dry, appropriate color, no rash Neuro: speech clear, oriented x 3, normal affect, responds appropriately to questions. Patient has a previous history of polio and therefore cannot bear weight on her own. She is lying in bed and able to fully move her legs and denies any increasing weakness in her legs. Course - Re-evaluation Re-evalutation: 02/15/17 05:04 - Vital Signs Vital signs: Temp Pulse Resp BP Pulse Ox 97.5 F 73 20 142/102 H 100 02/14/17 23:18 02/14/17 23:18 02/14/17 23:18 02/14/17 23:18 02/14/17 23:18 - Laboratory Result Diagrams: 02/15/17 01:40 02/15/17 01:40 Laboratory results interpreted by me: 02/15/17 02/15/17 01:40 01:40 WBC 11.5 H RBC 3.32 L Hgb 9.5 L Hct 29.8 L MCHC 31.9 L RDW 14.7 H Absolute Neutrophils 8.8 H BUN 41 H Creatinine 1.36 H Est GFR ( Amer) 46 L Est GFR (Non-Af Amer) 38 L Glucose 178 H - Transfer of Care Notes: 02/15/17 05:05 Patient has recurrent pain from her osteomyelitis. I did review the discharge summary from [facility]. In the records I did mention that the patient's pain was hard to control throughout most her stay at [facility]. She was discharged home on oxycodone 10 mg tablets. I will increase this to 50 mg tablets. She responded well to morphine here which helped control her pain. She has no evidence of a new neurologic deficits or lower extremities. She has no redness or swelling over the skin of her back. Her white blood cell count is only 11. She has no fevers. She has no signs of worsening infection. Patient will be discharged to the nursing facility with the prescription for increasing her pain medication. She is to continue her antibiotics as prescribed by [facility]. She is encouraged to return to ER if she develops fevers, worsening pain, any new weakness or neurologic deficits in her extremities, or if she has further concerns. Dictation of this chart was performed using voice recognition software; therefore, there may be some unintended grammatical errors. Discharge - Discharge Clinical Impression: Back pain Qualifiers: Back pain location: low back pain Chronicity: chronic Back pain laterality: bilateral Sciatica presence: without sciatica Qualified Code(s): M54.5 - Low back pain Osteomyelitis Qualifiers: Osteomyelitis type: unspecified type Osteomyelitis location: other site Qualified Code(s): M86.9 - Osteomyelitis, unspecified Condition: Good Disposition: HOME, SELF-CARE Additional Instructions: Please continue the antiboitics as prescribed by [facility]. I will increase her oxycodone from 10mg Q4 to 15mg Q4 for better pain control. Please have Mrs. Limon return to the ER if she has fevers, worsening pain, new leg weakness, or appears unwell. Please have her physician reevaluate her in the next 1-2 days. Prescriptions: Oxycodone HCl 15 mg PO Q4 PRN #30 tablet PRN Reason:
[2017-02-15] MEDS ORDERED: FENTANYL CITRATE INJ/PF 100 MCG/2 ML AMPUL IV ONE (05:14)
[2017-02-15 06:31] VITALS: BP 136/50
== END 2017-02-15 06:05 | disposition home or self-care (01) ==
LOC: ER 23:14
DX: M54.5 Low back pain (principal); M86.9 Osteomyelitis, unspecified; F17.229 Nicotine dependence, chewing tobacco, with unspecified nicotine-induced disorders; I50.9 Heart failure, unspecified; I25.10 Atherosclerotic heart disease of native coronary artery without angina pectoris; E78.00 Pure hypercholesterolemia, unspecified; I11.0 Hypertensive heart disease with heart failure; E11.9 Type 2 diabetes mellitus without complications; K21.9 Gastro-esophageal reflux disease without esophagitis; I25.2 Old myocardial infarction; Z86.14 Personal history of Methicillin resistant Staphylococcus aureus infection; Z90.710 Acquired absence of both cervix and uterus; Z88.2 Allergy status to sulfonamides; Z88.0 Allergy status to penicillin
CPT/HCPCS: 96376; 99283; 96374; 96375; 36415; 85025; 80048; J3010; J2270

== ENCOUNTER → 2017-03-09 | Outpatient (CLI) | payer MEDICARE, MEDICAID, BC ==
--- NOTE | 2017-03-09 14:15 | RADIOLOGY REPORT (SQ) ---
EXAM DESCRIPTION: CT THORACIC SPINE WITHOUT COMPLETED DATE/TIME: 03/09/2017 11:21 am REASON FOR STUDY: DISCUTIS, UNSPECIFIED M46.40 DISCITIS, UNSPECIFIED, SITE UNSPECIFIED COMPARISON: CT abdomen pelvis 01/26/2017, 12/30/2016, 12/21/2016 TECHNIQUE: Axial images acquired through the thoracic spine without intravenous contrast. Images re viewed with lung, soft tissue and bone windows. Reconstructed coronal and sagittal MPR images review ed. Images stored on PACS. All CT scanners at this facility use dose modulation, iterative reconstruction, and/or weight based d osing when appropriate to reduce radiation dose to as low as reasonably achievable (ALARA). [facility]: Dose Right [facility]: CareDose [facility]: Dose Right [facility]: Teradose 4D [facility]: [employer] RADIATION DOSE: Up-to-date CT equipment and radiation dose reduction techniques were employed. CTDIv ol: 26.3 mGy. DLP: 1021 mGy-cm. mGy. LIMITATIONS: None. FINDINGS: At the T11-12 level, ongoing changes of diskitis with osteomyelitis are present. Since th e prior imaging studies, there is been further resorption of the inferior half of T11 and upper half of T12 with adjacent bony sclerosis. There is phlegmon at the level of the disc bulging ventrally, l aterally, at and posteriorly with mild central canal narrowing. Vertebral body endplate destruction has progressed since prior CT 01/26/2017. At least mild bilateral foraminal narrowing results from fo raminal and lateral disc bulge and phlegmon. These changes are best shown on sagittal reconstruction images 9 through 20, coronal reconstruction images 11 through 26, and axial images 109 through 119. Atypical organisms or tuberculosis should be considered. VISUALIZED LUNGS: No acute opacities. No pneumothorax. Old calcified hilar and mediastinal lymph no shannan. SOFT TISSUES: Soft tissue phlegmon at the T11-12 disc level. No other paraspinal soft tissue masses. VERTEBRAL BODIES: Aside from T11 and T12, the other thoracic vertebral bodies are unremarkable. DISCS: At T8-9, a chronic appearing posterior calcified disc protrusion is present causing mild centr al canal stenosis. No neural foraminal narrowing. At T10-11, mild posterior disc bulging and mild b ilateral facet hypertrophy cause mild central canal stenosis and mild bilateral foraminal narrowing. ALIGNMENT: Normal. TRANSVERSE PROCESSES, POSTERIOR ELEMENTS: No fractures. No dislocation. No acute findings. HARDWARE: None in the spine. VISUALIZED RIBS: No fractures. OTHER: No other significant finding. IMPRESSION: Continued vertebral body endplate destruction and phlegmon in the disc space at T11-12 f rom ongoing discitis/ osteomyelitis. TECHNICAL DOCUMENTATION: JOB ID: [id number] Quality ID # [id number]: Final reports with documentation of one or more dose reduction techniques (e.g., Au tomated exposure control, adjustment of the mA and/or kV according to patient size, use of iterative reconstruction technique) 2010 [employer]- All Rights Reserved
== END ==
LOC: RAD 10:29
PROVIDERS: ATTEND Internal Medicine
DX: M46.44 Discitis, unspecified, thoracic region (principal)
CPT/HCPCS: 72128